=== PATIENT | male | born 1960 | race African-American/Black ===

== ENCOUNTER 2020-11-03 11:14 | Outpatient (REF) | payer MEDICARE, MEDICAID, SELFPAY ==
[2020-11-03 14:27] LABS: Alanine Aminotransferase 46 U/L (0-40); Anion Gap 14 (12-20); Aspartate Amino Transferase 32 U/L (5-37); Blood Urea Nitrogen 18 mg/dL (9-16); Calcium 9.5 mg/dL (8.4-10.2); Carbon Dioxide 27 mmol/L (22-29); Chloride 107 mmol/L (96-108); Cholesterol 121 mg/dL; Estimated Glomerular Filt Rate > 60; Glucose Fasting 115 mg/dL (60-99); HDL Cholesterol 42 mg/dL; LDL Cholesterol Calculated 58 mg/dl; Potassium 4.7 mmol/L (3.3-5.1); Sodium 143 mmol/L (135-145); Triglycerides 105 mg/dL
[2020-11-03 14:28] LABS: Creatinine Urine 179.13 mg/dL; Microalbum/Creatinine Ratio Ur 27.9 ug/mg cr; Protein/Creatinine Ratio, Ur 0.09 (<0.2); Total Protein Urine Random 17 mg/dL (<12)
[2020-11-03 14:35] LABS: Estimated Average Glucose 88 mg/dL; Hemoglobin A1c % 4.7 %
[2020-11-06 16:04] LABS: Vitamin B12 1352 pg/mL (200-900)
== END 2020-11-03 11:15 | disposition home or self-care (01) ==
LOC: HO.HMGCLDS 11:14
PROVIDERS: PCP Family Medicine; Visit Provider Physician Assistant
DX: E11.21 Type 2 diabetes mellitus with diabetic nephropathy (principal)
CPT/HCPCS: 36415; 80048; 80061; 82043; 82607; 83036; 84156; 84450; 84460

== ENCOUNTER 2020-12-11 12:35 | Outpatient (REF) | payer MEDICARE, MEDICAID, SELFPAY ==
[2020-12-11 14:42] LABS: Anion Gap 13 (12-20); Blood Urea Nitrogen 10 mg/dL (9-16); Carbon Dioxide 27 mmol/L (22-29); Chloride 109 mmol/L (96-108); Estimated Glomerular Filt Rate > 60; Sodium 145 mmol/L (135-145)
[2020-12-11 14:51] LABS: Creatinine Urine 139.55 mg/dL; Protein/Creatinine Ratio, Ur 0.11 (<0.2); Total Protein Urine Random 16 mg/dL (<12)
== END 2020-12-11 12:36 | disposition home or self-care (01) ==
LOC: HO.HMGCLDS 12:35
PROVIDERS: PCP Family Medicine; Visit Provider Internal Medicine Hypertension Specialist
DX: I10 Essential (primary) hypertension (principal); E11.21 Type 2 diabetes mellitus with diabetic nephropathy
CPT/HCPCS: 36415; 80051; 82565; 84156; 84520

== ENCOUNTER 2021-06-19 13:47 | Outpatient (REF) | payer MEDICARE, MEDICAID, SELFPAY ==
[2021-06-19 16:55] LABS: MANUAL DIFF FLAG NO
[2021-06-19 16:56] LABS: Basophils Absolute Auto 0.1 X10*3/uL (0.0-0.2); Basophils Percent Auto 0.9 % (0-2); Eosinophils Absolute Auto 0.6 X10*3/uL (0.0-0.4); Eosinophils Percent Auto 5.4 % (0-4); Hematocrit 35.5 % (42-52); Hemoglobin 11.7 g/dl (14.0-18.0); Imm Gran Abs Auto 0.06 X10*3/uL (0.00-0.03); Imm Gran Pct Auto 0.6 % (0.0-0.4); Lymphocytes Absolute Auto 2.6 X10*3/uL (1.2-4.9); Lymphocytes Percent Auto 25.3 % (20-40); Mean Corpuscular Volume 94.2 fL (80-98); Mean Platelet Volume 10.5 fL (9.4-12.4); Monocytes Absolute Auto 0.9 X10*3/uL (0.1-1.2); Monocytes Percent Auto 8.5 % (2-11); Neutrophils Absolute Auto 6.1 X10*3/uL (2.0-8.3); Neutrophils Percent Auto 59.3 % (45-73); Platelet Count 270 X10*3/uL (160-400); Red Blood Count 3.77 X10*6/uL (4.60-5.80); Red Cell Distribution Width 11.9 % (11.0-16.0); White Blood Count 10.2 X10*3/uL (4.8-10.8)
[2021-06-19 18:06] LABS: Anion Gap 14 (12-20); Blood Urea Nitrogen 17 mg/dL (9-16); Calcium 9.9 mg/dL (8.4-10.2); Carbon Dioxide 23 mmol/L (22-29); Chloride 107 mmol/L (96-108); Estimated Glomerular Filt Rate > 60; Potassium 4.3 mmol/L (3.3-5.1); Sodium 140 mmol/L (135-145)
[2021-06-19 18:31] LABS: Creatinine Urine 214.32 mg/dL; Microalbum/Creatinine Ratio Ur 76.9 ug/mg cr
== END 2021-06-19 13:48 | disposition home or self-care (01) ==
LOC: HO.HMGCLDS 13:47
PROVIDERS: PCP Family Medicine; Visit Provider Internal Medicine Hypertension Specialist
DX: I10 Essential (primary) hypertension (principal)
CPT/HCPCS: 36415; 80051; 82043; 82310; 82565; 84520; 85025

== ENCOUNTER 2021-12-31 11:39 | Outpatient (REF) | payer MEDICARE, MEDICAID, SELFPAY ==
[2021-12-31 13:51] LABS: MANUAL DIFF FLAG NO
[2021-12-31 13:56] LABS: Basophils Absolute Auto 0.1 X10*3/uL (0.0-0.2); Eosinophils Absolute Auto 0.5 X10*3/uL (0.0-0.4); Eosinophils Percent Auto 6.4 % (0-4); Hematocrit 40.2 % (42.0-52.0); Hemoglobin 12.8 g/dl (14.0-18.0); Imm Gran Abs Auto 0.02 X10*3/uL (0.00-0.03); Imm Gran Pct Auto 0.3 % (0.0-0.4); Lymphocytes Absolute Auto 2.6 X10*3/uL (1.2-4.9); Mean Corpuscular HGB Conc 31.8 g/dl (31.0-36.0); Mean Corpuscular Volume 94.4 fL (80.0-98.0); Mean Platelet Volume 9.7 fL (9.4-12.4); Monocytes Absolute Auto 0.6 X10*3/uL (0.1-1.2); Neutrophils Absolute Auto 3.9 x10*3/uL (2.0-8.3); Neutrophils Percent Auto 50.3 % (45-73); Platelet Count 295 X10*3/uL (160-400); Red Blood Count 4.26 X10*6/uL (4.60-5.80); Red Cell Distribution Width 12.7 % (11.0-16.0); White Blood Count 7.8 X10*3/uL (4.8-10.8)
[2021-12-31 14:16] LABS: Anion Gap 11 (12-20); Blood Urea Nitrogen 13 mg/dL (9-16); Calcium 9.7 mg/dL (8.4-10.2); Carbon Dioxide 30 mmol/L (22-29); Chloride 105 mmol/L (96-108); Estimated Glomerular Filt Rate > 60; Glucose Random 107 mg/dL (60-115); Sodium 142 mmol/L (135-145)
[2021-12-31 14:42] LABS: Creatinine Urine 148.48 mg/dL; Protein/Creatinine Ratio, Ur 0.15 (<0.2); Total Protein Urine Random 23 mg/dL (<12)
== END 2021-12-31 11:40 | disposition home or self-care (01) ==
LOC: HO.HMGCLDS 11:39
PROVIDERS: PCP Family Medicine; Visit Provider Internal Medicine Hypertension Specialist
DX: I12.9 Hypertensive chronic kidney disease with stage 1 through stage 4 chronic kidney disease, or unspecified chronic kidney disease (principal); N18.9 Chronic kidney disease, unspecified
CPT/HCPCS: 36415; 80048; 84156; 85025

== ENCOUNTER 2022-03-15 06:34 | Day surgery (SDC) | payer MEDICARE, MEDICAID, SELFPAY ==
[2022-03-11 14:06] VITALS: BMI 29.1
--- NOTE | 2022-03-14 09:34 | P.CONAN_ITS ---
Documented by User: Keyla King NP 03/14/22 09:36 HPI - Anesthesia Eval Consult details Narrative: 62yo M for Colonoscopy PMFSH Active Problems Active Problems: All Active Problems (Updated 06/22/21 @ 14:53 by Parker Lebron MD) retirement (current) use of insulin (Acute) Insulin dependent diabetes mellitus (Acute) Lipid disorder (Acute) Tobacco abuse (Acute) Chronic kidney disease (Acute) Obesity (BMI 30.0-34.9) (Acute) Hypertension, essential (Acute) S/P arthroscopy of shoulder (Acute) Dressing change or removal, surgical wound (Acute) Past Medical History Medical History Chronic kidney disease Hypertension, essential 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 Maternal Grandmother Diabetes mellitus Maternal Grandfather No problems noted. Paternal Grandfather No problems noted. Paternal Grandmother No problems noted. Brother No problems noted. Sister No problems noted. Sister No problems noted. Son No problems noted. Son No problems noted. Surgical History Surgical History History of colonoscopy Social History Social History Alcohol intake: current Alcohol intake frequency: a few times a month Patient Tobacco Use Status: Current everyday Tobacco user Tobacco use type: Cigarette Cigarettes Per Day: 5 Patient Given Instructions on How to Stop Smoking: Yes Date Education Initiated: 03/15/22 Second Hand Smoke Exposure: Yes Use of substances other than those prescribed or required for medical reasons: No Are you DNR?: No Advance Directives: No Advance Directives Information Provided: Yes Meds Allergies Allergy/AdvReac Type Severity Reaction Status Date / Time ibuprofen [From MOTRIN] Allergy Unknown MEDICATION Verified 12/08/20 15:17 INTERACTION, effected his kidneys Home Medications Medication Instructions Recorded Confirmed Last Taken Type amlodipine 10 mg tablet 10 mg PO DAILY 12/08/20 06/22/21 Unknown History ascorbate calcium (vitamin C) 500 500 mg PO DAILY 12/08/20 06/22/21 Unknown History mg tablet aspirin 81 mg tablet,delayed 81 mg PO DAILY 12/08/20 06/22/21 Unknown History release (Adult Low Dose Aspirin) atorvastatin 40 mg tablet 40 mg PO DAILY 12/08/20 06/22/21 Unknown History clonidine HCl 0.1 mg tablet 0.1 mg PO BEDTIME 12/08/20 06/22/21 Unknown History cyclobenzaprine 10 mg tablet 10 mg PO BEDTIME PRN 12/08/20 06/22/21 Unknown History diclofenac potassium 50 mg tablet 50 mg PO BID 12/08/20 06/22/21 Unknown History furosemide 20 mg tablet 20 mg PO DAILY 12/08/20 06/22/21 Unknown History insulin glargine 100 unit/mL (3 30 unit subcut QAM 12/08/20 06/22/21 Unknown History mL) subcutaneous pen (Basaglar KwikPen U-100 Insulin) metformin 500 mg tablet 1,000 mg PO BID 12/08/20 06/22/21 Unknown History metoprolol tartrate 100 mg tablet 100 mg PO DAILY 12/08/20 06/22/21 Unknown History olmesartan 40 mg tablet (Benicar) 40 mg PO DAILY 12/08/20 06/22/21 Unknown History oxycodone 20 mg tablet 20 mg PO DAILY PRN 12/08/20 06/22/21 Unknown History zolpidem 10 mg tablet 10 mg PO BEDTIME PRN 12/08/20 06/22/21 Unknown History dulaglutide 0.75 mg/0.5 mL 0.75 mg subcut QWEEK 06/22/21 06/22/21 Unknown History subcutaneous pen injector (Trulicity) Exam Exam Date and Time: March 14, 2022 0934 Height,Weight and Vital Signs: Height 6 ft Weight 97.522 kg Pertinent Lab Results Pertinent Lab Results: Laboratory Tests 12/31/21 12/31/21 11:49 11:49 WBC 7.8 Hgb 12.8 L Hct 40.2 L Plt Count 295 Sodium 142 Potassium 4.0 Chloride 105 Carbon Dioxide 30 H BUN 13 Creatinine 1.04 Assessment and Plan Assessment Anesthesia Assessment: Chart Reviewed Documented by User: Denise Mcneil MD 03/15/22 07:09 [facility] Past Medical History Medical History Chronic kidney disease Hypertension, essential Insulin dependent diabetes mellitus Lipid disorder retirement (current) use of insulin Tobacco abuse Family History Family History Father Cancer of prostate Myocardial infarction Mother No problems noted. Maternal Grandmother Diabetes mellitus Maternal Grandfather No problems noted. Paternal Grandfather No problems noted. Paternal Grandmother No problems noted. Brother No problems noted. Sister No problems noted. Sister No problems noted. Son No problems noted. Son No problems noted. Family history of problems with anesthesia: No Surgical History Surgical History History of colonoscopy History of Problems with Anesthesia: No Social History Social History Alcohol intake: current Alcohol intake frequency: a few times a month Patient Tobacco Use Status: Current everyday Tobacco user Tobacco use type: Cigarette Cigarettes Per Day: 5 Patient Given Instructions on How to Stop Smoking: Yes Date Education Initiated: 03/15/22 Second Hand Smoke Exposure: Yes Use of substances other than those prescribed or required for medical reasons: No Are you DNR?: No Advance Directives: No Advance Directives Information Provided: Yes Meds Allergies Allergy/AdvReac Type Severity Reaction Status Date / Time ibuprofen [From MOTRIN] Allergy Unknown MEDICATION Verified 12/08/20 15:17 INTERACTION, effected his kidneys Home Medications Medication Instructions Recorded Confirmed Last Taken Type amlodipine 10 mg tablet 10 mg PO DAILY 12/08/20 06/22/21 Unknown History ascorbate calcium (vitamin C) 500 500 mg PO DAILY 12/08/20 06/22/21 Unknown History mg tablet aspirin 81 mg tablet,delayed 81 mg PO DAILY 12/08/20 06/22/21 Unknown History release (Adult Low Dose Aspirin) atorvastatin 40 mg tablet 40 mg PO DAILY 12/08/20 06/22/21 Unknown History clonidine HCl 0.1 mg tablet 0.1 mg PO BEDTIME 12/08/20 06/22/21 Unknown History cyclobenzaprine 10 mg tablet 10 mg PO BEDTIME PRN 12/08/20 06/22/21 Unknown History diclofenac potassium 50 mg tablet 50 mg PO BID 12/08/20 06/22/21 Unknown History furosemide 20 mg tablet 20 mg PO DAILY 12/08/20 06/22/21 Unknown History insulin glargine 100 unit/mL (3 30 unit subcut QAM 12/08/20 06/22/21 Unknown History mL) subcutaneous pen (Basaglar KwikPen U-100 Insulin) metformin 500 mg tablet 1,000 mg PO BID 12/08/20 06/22/21 Unknown History metoprolol tartrate 100 mg tablet 100 mg PO DAILY 12/08/20 06/22/21 Unknown History olmesartan 40 mg tablet (Benicar) 40 mg PO DAILY 12/08/20 06/22/21 Unknown History oxycodone 20 mg tablet 20 mg PO DAILY PRN 12/08/20 06/22/21 Unknown History zolpidem 10 mg tablet 10 mg PO BEDTIME PRN 12/08/20 06/22/21 Unknown History dulaglutide 0.75 mg/0.5 mL 0.75 mg subcut QWEEK 06/22/21 06/22/21 Unknown History subcutaneous pen injector (Trulicity) Exam Airway Mallampati Class: II TM Dist: >3cm Neck ROM: Full Assessment and Plan Assessment Anesthesia Assessment: Anesthesia Plan Discussed Final Anesthetic Review Family History of Problems with Anesthesia: No History of Problems with Anesthesia: No NPO: Yes ASA Class: II Final Preanesthetic Review: No Changes in Pt Med Stat, Meds/Allgs Chart Reviewed, Consent Obtained/Reviewed and Anes Risks/Benef Reviewed Patient Risk: Low Procedure Risk: Low Anesthetic Plan Anesthetic Plan: MAC: Disposition: Standard PACU
[2022-03-15 06:46] VITALS: BP 141/92; PULSE 91; RESP 18; TEMP 36.4; O2SAT 98; BMI 28.5
[2022-03-15 07:11] LABS: Glucose, Whole Blood 105 mg/dL (60-115)
--- NOTE | 2022-03-15 07:23 | MHC.SHP ---
Pre-Procedural Eval Section A Date of Service: 03/15/22 Section B Chief Complaint: screening Details of Present Illness: see H&P no changes Relevant Family History (Specify if Yes): No Relevant Social History: None Medical History: No relevant PMH History of Previous Operations: No relevant previous surgery Allergies: Allergies Allergy/AdvReac Type Severity Reaction Status Date / Time ibuprofen [From MOTRIN] Allergy Unknown MEDICATION Verified 12/08/20 15:17 INTERACTION, effected his kidneys Review of Systems Sugical H&P ROS: Negative: Constitution, Cardiovascular, Respiratory, Neurological, Psychiatric, Hem-Onc, Allergic/Immunologic, Gastrointestinal, Genitourinary, Musculoskeletal, Integumentary, Endocrine and Eyes/Ears/Nose/Throat Exam Surgical H&P Exam: Normal: HEENT, Normal: Heart, Normal: Lungs, Normal: Extremities, Normal: Abdomen, Normal: Skin and Normal: Neurological Plan Diagnosis/Plan: Unchanged I have reviewed the history and physical and performed a pertinent physical examination on my patient. No changes have occurred unless specified.
[2022-03-15] MEDS: Lactated Ringers 1,000 ML 100 ML IVCONT (07:29)
[2022-03-15 08:05] VITALS: BP 106/71; PULSE 84; RESP 16; TEMP 36.1; O2SAT 99
--- NOTE | 2022-03-15 08:11 | PM.OP ---
Brief Operative Note Date of Service: 03/15/22 Pre-op diagnosis: screening Post-op diagnosis: same Procedure: colonoscopy Surgeon: Mulugeta Blackwell Anesthesia: MAC Was an Program And Research Coordinator used for this Procedure?: No Estimated blood loss (mL): 0 Pathology: none sent Condition: stable Disposition: PACU
[2022-03-15 08:20] VITALS: BP 120/81; PULSE 81; RESP 16; TEMP 36.8; O2SAT 97
--- NOTE | 2022-03-15 16:39 | OP_ITS ---
SURGEON: Mulugeta Blackwell MD INDICATIONS: Colon cancer screening. PREOPERATIVE DIAGNOSIS: POSTOPERATIVE DIAGNOSIS: PROCEDURE PERFORMED: Colonoscopy to the terminal ileum. ESTIMATED BLOOD LOSS: COMPLICATIONS: ANESTHESIA: ASSISTANTS: SPECIMENS: MEDICATIONS: Monitored anesthesia care. DESCRIPTION OF PROCEDURE: History and physical were performed. The risks and benefits of the procedure were explained to the patient. Informed consent was obtained. The patient was placed in left lateral decubitus position. A digital rectal exam was performed and was found to be normal. The Olympus pediatric video colonoscope was introduced into the rectum and advanced to the cecum without difficulty. The cecum was identified by transillumination, palpation, and identification of ileocecal valve. Examination was performed and the scope was removed. He tolerated the procedure well and was taken to recovery area in stable condition. FINDINGS: The terminal ileum was normal. The visualized colonic mucosa was within normal limits without evidence of masses or ulcers. The quality of prep was good. There was diverticulosis mainly in the right colon and transverse colon as well as a few diverticula seen in the sigmoid. Retroflexed examination showed moderate-sized internal hemorrhoids. No polyps were identified. IMPRESSION: Normal screening colonoscopy. RECOMMENDATION: 1. Follow up as needed. 2. Repeat colonoscopy in 10 years for average risk individual. MD JUAN Parisi/KWAMEL / [id number]
== END 2022-03-15 08:40 | disposition home or self-care (01) ==
PROVIDERS: PCP Family Medicine; Visit Provider Internal Medicine Gastroenterology
PROC: 0DJD8ZZ Inspection of Lower Intestinal Tract, Via Natural or Artificial Opening Endoscopic (ICD-10-PCS; CPT 45378; principal; 2022-03-15 07:30)
DX: Z12.11 Encounter for screening for malignant neoplasm of colon (principal); K57.30 Diverticulosis of large intestine without perforation or abscess without bleeding; K64.8 Other hemorrhoids; I10 Essential (primary) hypertension; E78.00 Pure hypercholesterolemia, unspecified; M19.90 Unspecified osteoarthritis, unspecified site; E11.9 Type 2 diabetes mellitus without complications; Z79.4 Long term (current) use of insulin; Z79.899 Other long term (current) drug therapy; Z79.82 Long term (current) use of aspirin; Z88.8 Allergy status to other drugs, medicaments and biological substances; Z80.42 Family history of malignant neoplasm of prostate; Z82.49 Family history of ischemic heart disease and other diseases of the circulatory system; F17.210 Nicotine dependence, cigarettes, uncomplicated
CPT/HCPCS: G0121; 82947

== ENCOUNTER 2023-01-09 12:53 | Outpatient (REF) | payer MEDICARE, MEDICAID, SELFPAY ==
[2023-01-09 14:34] LABS: Alanine Aminotransferase 56 U/L (0-40); Anion Gap 10 (12-20); Aspartate Amino Transferase 22 U/L (5-37); Blood Urea Nitrogen 13 mg/dL (9-16); Calcium 9.9 mg/dL (8.4-10.2); Carbon Dioxide 27 mmol/L (22-29); Chloride 108 mmol/L (96-108); Estimated Glomerular Filt Rate > 60; Glucose Random 105 mg/dL (60-115); Potassium 4.4 mmol/L (3.3-5.1); Sodium 141 mmol/L (135-145)
[2023-01-09 14:35] LABS: Estimated Average Glucose 91 mg/dL; Hemoglobin A1c % 4.8 %
[2023-01-09 14:46] LABS: Creatinine Urine 180.03 mg/dL; Protein/Creatinine Ratio, Ur 0.37 (<0.2); Total Protein Urine Random 66 mg/dL (<12)
== END 2023-01-09 12:54 | disposition home or self-care (01) ==
LOC: HO.HMGCLDS 12:53
PROVIDERS: PCP Internal Medicine; Visit Provider Internal Medicine Endocrinology, Diabetes & Metabolism
DX: E11.42 Type 2 diabetes mellitus with diabetic polyneuropathy (principal)
CPT/HCPCS: 36415; 80048; 82043; 83036; 84156; 84450; 84460

== ENCOUNTER 2023-02-12 08:01 | Outpatient (REF) | payer MEDICARE, MEDICAID, SELFPAY ==
[2023-02-12 12:06] LABS: Anion Gap 13 (12-20); Blood Urea Nitrogen 11 mg/dL (9-16); Calcium 9.3 mg/dL (8.4-10.2); Carbon Dioxide 26 mmol/L (22-29); Chloride 108 mmol/L (96-108); Estimated Glomerular Filt Rate > 60; Glucose Random 215 mg/dL (60-115); Potassium 4.5 mmol/L (3.3-5.1); Sodium 142 mmol/L (135-145)
== END 2023-02-12 08:02 | disposition home or self-care (01) ==
LOC: HO.HMGCLDS 08:01
PROVIDERS: Visit Provider Internal Medicine Hypertension Specialist
DX: I12.9 Hypertensive chronic kidney disease with stage 1 through stage 4 chronic kidney disease, or unspecified chronic kidney disease (principal); E11.22 Type 2 diabetes mellitus with diabetic chronic kidney disease; N18.9 Chronic kidney disease, unspecified
CPT/HCPCS: 36415; 80048

== ENCOUNTER 2023-05-07 10:46 | Outpatient (REF) | payer MEDICARE, MEDICAID, SELFPAY ==
[2023-05-07 13:40] LABS: Estimated Average Glucose 88 mg/dL; Hemoglobin A1c % 4.7 %
[2023-05-07 13:54] LABS: Alanine Aminotransferase 46 U/L (0-40); Anion Gap 14 (12-20); Aspartate Amino Transferase 28 U/L (5-37); Blood Urea Nitrogen 10 mg/dL (9-16); Calcium 9.6 mg/dL (8.4-10.2); Carbon Dioxide 23 mmol/L (22-29); Chloride 108 mmol/L (96-108); Estimated Glomerular Filt Rate > 60; Glucose Random 97 mg/dL (60-115); Potassium 4.1 mmol/L (3.3-5.1); Sodium 141 mmol/L (135-145)
[2023-05-07 14:18] LABS: Creatinine Urine 296.43 mg/dL
[2023-05-07 14:39] LABS: Microalbum/Creatinine Ratio Ur 262.1 ug/mg cr
== END 2023-05-07 10:47 | disposition home or self-care (01) ==
LOC: HO.HMGCLDS 10:46
PROVIDERS: PCP Internal Medicine; Visit Provider Internal Medicine Endocrinology, Diabetes & Metabolism
DX: E11.42 Type 2 diabetes mellitus with diabetic polyneuropathy (principal)
CPT/HCPCS: 36415; 80048; 82043; 83036; 84450; 84460

== ENCOUNTER 2023-06-17 09:24 | Outpatient (REF) | payer MEDICARE, MEDICAID, SELFPAY ==
[2023-06-17 11:28] LABS: MANUAL DIFF FLAG NO
[2023-06-17 11:40] LABS: Basophils Absolute Auto 0.1 X10*3/uL (0.0-0.2); Basophils Percent Auto 0.7 % (0-2); Eosinophils Absolute Auto 0.2 X10*3/uL (0.0-0.4); Eosinophils Percent Auto 1.8 % (0-4); Hematocrit 37.3 % (42.0-52.0); Hemoglobin 12.4 g/dl (14.0-18.0); Imm Gran Abs Auto 0.04 X10*3/uL (0.00-0.03); Imm Gran Pct Auto 0.5 % (0.0-0.4); Lymphocytes Percent Auto 22.9 % (20-40); Mean Corpuscular HGB Conc 33.2 g/dl (31.0-36.0); Mean Corpuscular Hemoglobin 31.2 pg (27.0-33.0); Mean Corpuscular Volume 93.7 fL (80.0-98.0); Mean Platelet Volume 9.9 fL (9.4-12.4); Monocytes Absolute Auto 0.6 X10*3/uL (0.1-1.2); Monocytes Percent Auto 7.1 % (2-11); Neutrophils Absolute Auto 5.8 x10*3/uL (2.0-8.3); Platelet Count 252 X10*3/uL (160-400); Red Blood Count 3.98 X10*6/uL (4.60-5.80); Red Cell Distribution Width 12.9 % (11.0-16.0); White Blood Count 8.7 X10*3/uL (4.8-10.8)
[2023-06-17 11:49] LABS: Estimated Average Glucose 100 mg/dL; Hemoglobin A1c % 5.1 % (<6.0)
[2023-06-17 12:12] LABS: Alanine Aminotransferase 44 U/L (0-40); Alkaline Phosphatase 50 U/L (39-117); Anion Gap 12 (12-20); Aspartate Amino Transferase 34 U/L (5-37); Bilirubin Total 1.1 mg/dL (0.0-1.0); Blood Urea Nitrogen 15 mg/dL (9-16); Calcium 9.4 mg/dL (8.4-10.2); Carbon Dioxide 23 mmol/L (22-29); Chloride 109 mmol/L (96-108); Cholesterol 124 mg/dL (<200); Estimated Glomerular Filt Rate > 60; Glucose Fasting 111 mg/dL (60-99); HDL Cholesterol 50 mg/dL (>40); LDL Cholesterol Calculated 57 mg/dL (<100); Potassium 3.9 mmol/L (3.3-5.1); Sodium 140 mmol/L (135-145); Total Protein 6.3 g/dL (6.5-8.0); Triglycerides 86 mg/dL (<150)
[2023-06-17 12:17] LABS: Creatinine Urine 212.39 mg/dL
[2023-06-17 12:20] LABS: Erythrocyte Sedimentation Rate 5 MM/HR (0-15); Prostate Specific Antigen 1.16 ng/mL (<0.05-4.0)
== END 2023-06-17 09:25 | disposition home or self-care (01) ==
LOC: HO.HMGCLDS 09:24
PROVIDERS: PCP Internal Medicine; Visit Provider Internal Medicine
DX: E11.22 Type 2 diabetes mellitus with diabetic chronic kidney disease (principal); I12.9 Hypertensive chronic kidney disease with stage 1 through stage 4 chronic kidney disease, or unspecified chronic kidney disease; N18.9 Chronic kidney disease, unspecified; E78.9 Disorder of lipoprotein metabolism, unspecified; M25.512 Pain in left shoulder; Z12.5 Encounter for screening for malignant neoplasm of prostate
CPT/HCPCS: 36415; 80053; 80061; 82043; 82570; 83036; 84153; 85025; 85652

== ENCOUNTER 2023-06-25 14:37 | Outpatient (AMB) | payer MEDICARE, MEDICAID, SELFPAY ==
--- NOTE | 2023-06-25 14:39 | A.OFFPC_ITS ---
Vital Signs 06/25/23 14:47 Height 6 ft Weight 207 lb 6 oz BMI 28.1 BP 144/86 H Blood Pressure Location Rt brachial Position Sitting Pulse 87 Pulse Source Pulse Oximeter Pulse Oximetry (%) 97 Oxygen Delivery Method Room Air Intake Visit Reasons: 1 year PE Allergies ibuprofen [From MOTRIN] Allergy (Unknown, Verified 06/25/23 14:40) MEDICATION INTERACTION, effected his kidneys Medication List - Last Reconciled 06/25/23 by Parker Lebron MD amlodipine 10 mg PO DAILY aspirin (Adult Low Dose Aspirin) 81 mg PO DAILY atorvastatin 40 mg PO DAILY clonidine HCl 0.1 mg PO BEDTIME cyclobenzaprine 10 mg PO BEDTIME PRN diclofenac potassium 50 mg PO BID doxycycline hyclate 100 mg PO BID 7 days dulaglutide (Trulicity) 0.75 mg subcut QWEEK insulin glargine (Basaglar KwikPen U-100 Insulin) 30 units subcut QAM metformin 1,000 mg PO BID metoprolol tartrate 100 mg PO DAILY olmesartan (Benicar) 40 mg PO DAILY oxycodone 20 mg PO DAILY PRN zolpidem 10 mg PO BEDTIME PRN Tobacco use date assessed: 06/25/23 Dental Screening Dental Screen Date: 06/25/23 Did you have a dental problem in the last 6 months where you did not have access to dental care?: No HPI 1 year PE HPI Details Patient is 63-year-old who came in today for a physical examination which we had cancel as patient is eating well. He has been having cough chest congestion the past 1. There is no shortness of breath no chest pain no fever chills. Patient test done which we did. On examination he does have rhonchi right to chest, due to that reason I have also ordered chest x-ray for the patient. [facility] Medical History care home (current) use of insulin Insulin dependent diabetes mellitus Lipid disorder Tobacco abuse Chronic kidney disease Hypertension, essential Surgical History History of colonoscopy Family History Father Cancer of prostate Myocardial infarction Mother No problems noted. Maternal Grandmother Diabetes mellitus Maternal Grandfather No problems noted. Paternal Grandfather No problems noted. Paternal Grandmother No problems noted. Brother No problems noted. Sister No problems noted. Sister No problems noted. Son No problems noted. Son No problems noted. Social History Housing: Apartment Alcohol intake: current Alcohol intake frequency: a few times a month Patient Tobacco Use Status: Current everyday Tobacco user Tobacco use type: Cigarette Cigarettes Per Day: 5 e-Cigarette/Vaping Use: Never Used Second Hand Smoke Exposure: Yes Current occupational status: unemployed Cognitive needs: No Hearing needs: No Vision needs: Yes Questionnaire PHQ-9 Over the last 2 weeks, how often have you been bothered by any of the following problems? 1. Little interest or pleasure in doing things: several days 2. Feeling down, depressed, or hopeless: not at all 3. Trouble falling or staying asleep, or sleeping too much: several days 4. Feeling tired or having little energy: several days 5. Poor appetite or overeating: not at all 6. Feeling bad about yourself - or that you are a failure or have let yourself or your family down: not at all 7. Trouble concentrating on things, such as reading the newspaper or watching television: not at all 8. Moving or speaking so slowly that other people could have noticed. Or the opposite - being so fidgety or restless that you have been moving around a lot more than usual: not at all 9. Thoughts that you would be better off or of hurting yourself in some way: not at all Total score: 3 Depression Screening Interpretation: Negative 21829 - PHQ-9 Billing: Yes Source: Developed by Drs. Mark Herrera, Zarina Zaidi, Caesar Wood and colleagues, with an educational paul from [employer]. Thrive Questionnaire Date Thrive assessed: 06/25/23 I am a: Patient What is your living situation today?: I have a steady place to live Within the past 12 months, did the food you bought not last and you didn't have the money to get more?: Never true Within the past 12 months, did you worry whether your food would run out before you got money to buy more?: Never true Do you have trouble paying for medicines?: No Do you have trouble getting transportation to medical appointments?: No Do you have trouble paying your heating and electricity bill?: Yes Do you have trouble taking care of your child, family member or friend?: No Do you have trouble with day-to-day activities such as bathing, preparing meals, shopping, managing finances, etc.?: No Are you currently unemployed and looking for a job?: No Are you interested in more education?: No AUDIT C Alcohol Use Questionnaire (AUDIT-C) 1. How often do you have a drink containing alcohol?: 2-3 times a week 2. How many drinks containing alcohol do you have on a typical day when you are drinking?: 1 or 2 3. How often do you have six or more drinks on one occasion?: Never Total Score: 3 Score Reviewed/Action Taken: Yes ZABRINA-7 AMB Questionnaire ZABRINA-7 Date ZABRINA - 7 assessed: 06/25/23 Feeling nervous, anxious, or on edge: 1 = Several days Not being able to stop or control worryin = Several days Worrying too much about different things: 1 = Several days Trouble relaxin = Several days Being so restless that it is hard to sit still: 0 = Not at all Becoming easily annoyed or irritable: 0 = Not at all Feeling afraid as if something awful might happen: 1 = Several days Total ZABRINA-7 score (0-4 normal; 5-9 mild; 10-14 moderate; 15-21 severe): 5 Source: Developed by Drs. Mark Herrera, Zarina Zaidi, Caesar Wood and colleagues, with an educational paul from [employer]. ZABRINA-7 Assessment Billing ZABRINA-7 Assessment Tool: ZABRINA-7 Assessment 99941 Review of Systems Const All systems reviewed & are unremarkable except as noted in HPI and below Physical exam (Primary Care) Vital Signs: Last Vital Signs Pulse 87 06/25/23 14:47 BP 144/86 H 06/25/23 14:47 Pulse Ox 97 06/25/23 14:47 Oxygen Delivery Method Room Air 06/25/23 14:47 BMI result Body Mass Index 28.1 Tobacco/Smoking Status: Tobacco use Status Tobacco use date assessed 06/25/23 06/25/23 14:42 Patient Tobacco Use Status Current everyday Tobacco 06/25/23 14:39 Tobacco use type Cigarette 06/25/23 14:39 e-Cigarette/Vaping Use Never Used 06/25/23 14:39 PHQ-9: PHQ-9 Score PHQ-9: Total score 3 06/25/23 15:04 Depression Screening Interpretation: Negative Thrive Assessment: Date of Thrive Assessment Date Thrive assessed 06/25/23 06/25/23 15:04 Const General: no acute distress HENMT Ears: mastoids normal General nose exam: Normal external nose present Throat: Yes posterior oropharynx abnormal Neck Neck: Yes no lymphadenopathy Resp Other: Rhonchi right lower lung posteriorl Effort & Inspection: normal respiratory effort Psych Mental Status: mental status grossly normal Assessment and Plan Assessment & Plan (1) Chest congestion: Code(s): R09.89 - Other specified symptoms and signs involving the circulatory and respiratory systems Plan Patient is 63-year-old who came in today for a physical examination which we had cancel as patient is eating well. He has been having cough chest congestion the past 1. There is no shortness of breath no chest pain no fever chills. Patient test done which we did. On examination he does have rhonchi right to chest, due to that reason I have also ordered chest x-ray for the patient. Orders: Orders SARS-CoV2/FLU/RSV Today R09.89 - Other specified symptoms and signs involving the circulatory and respiratory systems XR chest 2V Today R09.89 - Other specified symptoms and signs involving the circulatory and respiratory systems Coding Level of Care Code Est Pt Level 3 (29080) Diagnoses Chest congestion R09.89 Additional Codes ZABRINA-7 Assessment Billing - ZABRINA-7 Assessment Tool: ZABRINA-7 Assessment [id number] ([id number])
[2023-06-25 14:47] VITALS: BP 144/86; PULSE 87; O2SAT 97; BMI 28.1
== END 2023-06-25 15:21 | disposition home or self-care (01) ==
PROVIDERS: PCP Internal Medicine; Visit Provider Internal Medicine
DX: R09.89 Other specified symptoms and signs involving the circulatory and respiratory systems (principal)
CPT/HCPCS: 99213

== ENCOUNTER 2023-06-25 14:55 | Outpatient (REF) | payer MEDICARE, MEDICAID, SELFPAY ==
--- NOTE | ~2023-06-25 | XR_ITS ---
EXAMINATION: XR CHEST CLINICAL INFORMATION: Other specified symptoms and signs involving the circulatory and respiratory system. COMPARISON: Report from a chest radiograph dated 01/17/2016. TECHNIQUE: 2 views of the chest were obtained. FINDINGS: The lungs are clear. The cardiomediastinal silhouette is normal in size. There is no pleural effusion or pneumothorax. No acute osseous abnormality. XR/XR chest 2V IMPRESSION: No acute cardiopulmonary findings.
== END 2023-06-25 14:56 | disposition home or self-care (01) ==
LOC: HO.HMGCX 14:55
PROVIDERS: Visit Provider Internal Medicine
DX: R09.89 Other specified symptoms and signs involving the circulatory and respiratory systems (principal)
CPT/HCPCS: 71046

== ENCOUNTER 2023-06-26 | Outpatient (REF) | payer MEDICARE, MEDICAID, SELFPAY ==
[2023-06-26 14:05] LABS: Influenza A PCR NEGATIVE (Negative); Influenza B PCR NEGATIVE (Negative); Resp Syncy Virus RNA Qual PCR NEGATIVE (Negative); SARS COV2 PCR INHOUSE NEGATIVE (Negative)
== END 2023-06-26 00:01 | disposition home or self-care (01) ==
LOC: HO.LNP
PROVIDERS: Visit Provider Internal Medicine
DX: R09.89 Other specified symptoms and signs involving the circulatory and respiratory systems (principal); Z20.822 Contact with and (suspected) exposure to COVID-19
CPT/HCPCS: 0241U

== ENCOUNTER 2023-06-26 08:26 | Outpatient (AMB) | payer MEDICARE, MEDICAID, SELFPAY ==
--- NOTE | 2023-06-26 09:20 | MHC.PC.OV ---
Intake Visit Reasons: Discuss Labs~ Allergies ibuprofen [From MOTRIN] Allergy (Unknown, Verified 06/26/23 09:20) MEDICATION INTERACTION, effected his kidneys Medication List - Last Reconciled 06/26/23 by Parker Lebron MD amlodipine 10 mg PO DAILY aspirin (Adult Low Dose Aspirin) 81 mg PO DAILY atorvastatin 40 mg PO DAILY clonidine HCl 0.1 mg PO BEDTIME cyclobenzaprine 10 mg PO BEDTIME PRN diclofenac potassium 50 mg PO BID dulaglutide (Trulicity) 0.75 mg subcut QWEEK insulin glargine (Basaglar KwikPen U-100 Insulin) 30 units subcut QAM metformin 1,000 mg PO BID metoprolol tartrate 100 mg PO DAILY olmesartan (Benicar) 40 mg PO DAILY oxycodone 20 mg PO DAILY PRN zolpidem 10 mg PO BEDTIME PRN Tobacco use date assessed: 06/26/23 Dental Screening Dental Screen Date: 06/26/23 Did you have a dental visit in the last 12 months?: Yes Did you have a dental problem in the last 6 months where you did not have access to dental care?: No Was dental information given to patient?: Patient has dentist HPI Discuss Labs~ HPI Details Patient is 63-year-old gentleman this is a telemedicine video visit to go over his labs. He came in yesterday for physical examination which was canceled as patient was not feeling well he was having upper respiratory tract infection and chest congestion with some cough. We did a COVID test but lab had some issue with it so patient went back to the office and had another test done today, report is not available However he is feeling better. Blood test report shows hemoglobin A1c of 5.1 patient is on Trulicity as well as long-acting insulin, diabetes is managed by nut process helper. He says that his readings are stable he does not feel as if he is having hypoglycemia. He has strong family history of prostate cancer in father and brother and was concerned, he does not have any urinary complaints PSA came back at 1.16. His cholesterol is very well controlled LDL is 57 Patient is slightly anemic hemoglobin is in 12 range which has been stable since 2019. His liver enzymes are slightly elevated ALT is 44 but stable. 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 Maternal Grandmother Diabetes mellitus Maternal Grandfather No problems noted. Paternal Grandfather No problems noted. Paternal Grandmother No problems noted. Brother No problems noted. Sister No problems noted. Sister No problems noted. Son No problems noted. Son No problems noted. Social History Housing: Apartment Alcohol intake: current Alcohol intake frequency: a few times a month Patient Tobacco Use Status: Current everyday Tobacco user Tobacco use type: Cigarette Cigarettes Per Day: 5 e-Cigarette/Vaping Use: Never Used Second Hand Smoke Exposure: Yes Current occupational status: unemployed Cognitive needs: No Hearing needs: No Vision needs: Yes Questionnaire Thrive Questionnaire Date Thrive assessed: 06/25/23 AUDIT C Alcohol Use Questionnaire (AUDIT-C) 1. How often do you have a drink containing alcohol?: 2-3 times a week 2. How many drinks containing alcohol do you have on a typical day when you are drinking?: 1 or 2 3. How often do you have six or more drinks on one occasion?: Never Total Score: 3 Score Reviewed/Action Taken: Yes ZABRINA-7 AMB Questionnaire ZABRINA-7 Date ZABRINA - 7 assessed: 06/25/23 Source: Developed by Drs. Mark Herrera, Zarina Zaidi, Caesar Wood and colleagues, with an educational paul from [employer]. Review of Systems Const Denies chills and Denies fever(s) ENT Denies epistaxis and Denies nasal discharge Card Denies chest pain Resp Denies hemoptysis GI Denies diarrhea and Denies nausea Skin/Breast Denies rash Neuro Reports no additional complaints Psych Reports no additional complaints Endo Reports no additional complaints Physical exam (Primary Care) Tobacco/Smoking Status: Tobacco use Status Tobacco use date assessed 06/26/23 06/26/23 09:22 Patient Tobacco Use Status Current everyday Tobacco 06/26/23 09:22 Tobacco use type Cigarette 06/26/23 09:22 e-Cigarette/Vaping Use Never Used 06/26/23 09:22 Thrive Assessment: Date of Thrive Assessment Date Thrive assessed 06/25/23 06/26/23 09:22 Telehealth Telehealth Location of provider rendering services: practice address Location of patient: address on file Patient Identification confirmed using: Name, : Yes Telehealth method: video Patient verbally consented to treatment: Yes Patient verbally consented to billing insurance company: Yes Patient informed of any privacy concerns related to visit: Yes Minutes spent on Phone/Video with Pt.: 14 Assessment and Plan Assessment & Plan (1) Microcytic anemia: Code(s): D50.9 - Iron deficiency anemia, unspecified (2) LFT elevation: Code(s): R79.89 - Other specified abnormal findings of blood chemistry (3) Type 2 diabetes mellitus: Code(s): E11.9 - Type 2 diabetes mellitus without complications Qualifiers: Diabetes mellitus terminal superintendent insulin use: with terminal superintendent use Diabetes mellitus complication status: without complication Qualified Code(s): E11.9 - Type 2 diabetes mellitus without complications; Z79.4 - 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 He came in yesterday for physical examination which was canceled as patient was not feeling well he was having upper respiratory tract infection and chest congestion with some cough. We did a COVID test but lab had some issue with it so patient went back to the office and had another test done today, report is not available However he is feeling better. Blood test report shows hemoglobin A1c of 5.1 patient is on Trulicity as well as long-acting insulin, diabetes is managed by nut process helper. He says that his readings are stable he does not feel as if he is having hypoglycemia. He has strong family history of prostate cancer in father and brother and was concerned, he does not have any urinary complaints PSA came back at 1.16. His cholesterol is very well controlled LDL is 57 Patient is slightly anemic hemoglobin is in 12 range which has been stable since 2019. His liver enzymes are slightly elevated ALT is 44 but stable. Coding Level of Care Code Tele Est Pt Level 3 (27390) Diagnoses Microcytic anemia D50.9 LFT elevation R79.89 Type 2 diabetes mellitus without complication, with long-term current use of insulin E11.9; Z79.4 Diabetes mellitus terminal superintendent insulin use: with terminal superintendent use Diabetes mellitus complication status: without complication
== END 2023-06-26 12:54 | disposition home or self-care (01) ==
LOC: HO.HMGC 08:27
PROVIDERS: PCP Internal Medicine; Visit Provider Internal Medicine
DX: D50.9 Iron deficiency anemia, unspecified (principal); R79.89 Other specified abnormal findings of blood chemistry; E11.9 Type 2 diabetes mellitus without complications; Z79.4 Long term (current) use of insulin
CPT/HCPCS: 99213

== ENCOUNTER 2023-08-06 10:18 | Outpatient (REF) | payer MEDICARE, MEDICAID, SELFPAY ==
--- NOTE | ~2023-08-06 | XR_ITS ---
EXAMINATION: XR KNEE, RIGHT CLINICAL INFORMATION: Pain in right knee COMPARISON: None available. TECHNIQUE: Four views of the right knee. FINDINGS: There is a right total knee prosthesis with patellar button. There is marked soft tissue swelling in the anterior knee and distal thigh. There is a 0.37 cm lucency on the AP view along the lateral upper portion of the tibial component which could indicate infection or loosening. No fracture. There is slight patellar tilt. XR/XR knee RT 3V IMPRESSION: 1. Marked soft tissue swelling in the anterior knee and distal thigh. 2. Right total knee prosthesis with patellar button. 3. Lucency along the lateral upper portion of the tibial component could indicate infection or loosening.
== END 2023-08-06 10:19 | disposition home or self-care (01) ==
LOC: HO.HOSX 10:18
PROVIDERS: Visit Provider Orthopaedic Surgery
DX: M25.561 Pain in right knee (principal)
CPT/HCPCS: 73562

== ENCOUNTER 2023-08-13 11:33 | Outpatient (AMB) | payer MEDICARE, MEDICAID, SELFPAY ==
[2023-08-13 11:37] VITALS: BMI 28.1
--- NOTE | 2023-08-13 11:37 | A.OFFVIS_ITS ---
Intake Vital Signs 08/13/23 11:37 Height 6 ft Weight 207 lb BMI 28.1 Intake Visit Reasons: New Pt - right knee pain Intake Note: Vincent is a 63 year old male who presents today as a new patient for a evaluation for his right knee pain, hx of right knee TKA 05/10/22. Patient reports having some swelling and some discomfort during the cold wealther. He denies any fevers or chills. He continues with his home exercise program. Allergies ibuprofen [From MOTRIN] Allergy (Unknown, Verified 08/13/23 12:15) MEDICATION INTERACTION, effected his kidneys Medication List - Last Reconciled 08/13/23 by Marco A Delgado MD amlodipine 10 mg PO DAILY aspirin (Adult Low Dose Aspirin) 81 mg PO DAILY atorvastatin 40 mg PO DAILY clonidine HCl 0.1 mg PO BEDTIME cyclobenzaprine 10 mg PO BEDTIME PRN diclofenac potassium 50 mg PO BID dulaglutide (Trulicity) 0.75 mg subcut QWEEK insulin glargine (Basaglar KwikPen U-100 Insulin) 30 units subcut QAM metformin 1,000 mg PO BID metoprolol tartrate 100 mg PO DAILY olmesartan (Benicar) 40 mg PO DAILY oxycodone 20 mg PO DAILY PRN zolpidem 10 mg PO BEDTIME PRN PFSH 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 Maternal Grandmother Diabetes mellitus Maternal Grandfather No problems noted. Paternal Grandfather No problems noted. Paternal Grandmother No problems noted. Brother No problems noted. Sister No problems noted. Sister No problems noted. Son No problems noted. Son No problems noted. Social History Housing: Apartment Alcohol intake: current Alcohol intake frequency: a few times a month Patient Tobacco Use Status: Current everyday Tobacco user Tobacco use type: Cigarette Cigarettes Per Day: 5 e-Cigarette/Vaping Use: Never Used Second Hand Smoke Exposure: Yes Current occupational status: unemployed Cognitive needs: No Hearing needs: No Vision needs: Yes Physical Exam Vital Signs: BMI result Body Mass Index 28.1 Const Other: Well-nourished well-developed very friendly male awake alert and oriented x3 in no acute distress Extrem Other: Bilateral lower extremity examination shows good capillary refill, no skin lesions noted, normal sensation light touch Right knee examination shows that the surgical with is well healed, no erythema, full active extension and flexion to 120 degrees, his patella tracks well Results Reviewed Results Reviewed: X-rays of the patient's right knee show a total knee arthroplasty in good position with no signs of loosening, no acute bony abnormalities Assessment & Plan Assessment & Plan (1) Right knee pain: Code(s): M25.561 - Pain in right knee Plan: Mr. Patel continues to do very well after undergoing right total knee replacement surgery on 05/10/2022. He will continue with his home exercise program. He does know to take antibiotics before any dental work. He will contact me prior to his annual follow-up appointment should any questions or concerns arise. The patient also has left knee pain due to degenerative joint disease. He is due to get a viscosupplementation injection by another provider next week. He will follow-up as instructed. Feel free to call me at any time should questions regarding his orthopedic management arise. I spent 22 minutes in reviewing the patient's records and imaging studies, seeing the patient and documenting in the medical record. Coding Level of Care Code Est Pt Level 2 (19469) Diagnoses Right knee pain M25.561
== END 2023-08-13 12:45 | disposition home or self-care (01) ==
PROVIDERS: PCP Internal Medicine; Visit Provider Orthopaedic Surgery
DX: M25.561 Pain in right knee (principal)
CPT/HCPCS: 99212

== ENCOUNTER → 2023-08-13 11:33 | Outpatient (BNVA) | payer MEDICARE, MEDICAID, SELFPAY | PROVIDERS: PCP Internal Medicine; Visit Provider Orthopaedic Surgery | DX: M25.561 Pain in right knee (principal); Z96.651 Presence of right artificial knee joint | CPT/HCPCS: 99212 ==

== ENCOUNTER 2023-08-18 13:43 | Outpatient (AMB) | payer MEDICARE, MEDICAID, SELFPAY ==
[2023-08-18 13:59] VITALS: BP 118/70; PULSE 77; O2SAT 96; BMI 28.5
--- NOTE | 2023-08-18 13:59 | HO.NEPHOV_ITS ---
HPI HPI Comments History of Present Illness Details Juan Daniel is a 63-year-old man with a history of resistant hypertension and diabetes mellitus. He has a history of microalbuminuria as well. Overall is doing very well. Blood pressure has been well controlled. 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 Maternal Grandmother Diabetes mellitus Maternal Grandfather No problems noted. Paternal Grandfather No problems noted. Paternal Grandmother No problems noted. Brother No problems noted. Sister No problems noted. Sister No problems noted. Son No problems noted. Son No problems noted. Social History Housing: Apartment Alcohol intake: current Alcohol intake frequency: a few times a month Patient Tobacco Use Status: Current everyday Tobacco user Tobacco use type: Cigarette Cigarettes Per Day: 5 e-Cigarette/Vaping Use: Never Used Second Hand Smoke Exposure: Yes Current occupational status: unemployed Cognitive needs: No Hearing needs: No Vision needs: Yes Vital Signs 08/18/23 13:59 Height 6 ft Weight 210 lb BMI 28.5 BP 118/70 Blood Pressure Location Lt brachial Position Sitting Pulse 77 Pulse Source Pulse Oximeter Pulse Oximetry (%) 96 Oxygen Delivery Method Room Air Physical Exam Vital Signs: Last Vital Signs Pulse 77 08/18/23 13:59 BP 118/70 08/18/23 13:59 Pulse Ox 96 08/18/23 13:59 Oxygen Delivery Method Room Air 08/18/23 13:59 BMI result Body Mass Index 28.5 Const General: comfortable Nutritional Appearance: well nourished Orientation/consciousness: patient oriented x3 HEENT Head: No normal to inspection Mouth: moist mucous membranes Neck Neck: Yes supple and Yes no JVD Resp Auscultation: clear to auscultation bilaterally, no rales and rub present Cardio Jugular venous distension: no JVD Palpation: no palpable S3 and no palpable S4 Heart sounds: no rubs GI Palpation (GI): Soft to palpation and nontender Percussion: No Fluid wave present General: Yes no CVA tenderness Back/Spine/Pelvis Back: no CVA tenderness Skin General skin exam: no rashes or lesions noted Neuro General: patient oriented x3 Extrem General: Yes no pedal edema and No clubbing Results Reviewed Results Reviewed: Urine microalbumin creatinine ratio 129 in June 2023 Assessment & Plan Assessment & Plan (1) Chronic kidney disease: Code(s): N18.9 - Chronic kidney disease, unspecified Plan: Mild chronic kidney disease due to a resistant hypertension and diabetes mellitus with microalbuminuria. Renal function stable at baseline. Goal is to slow the progression of renal disease. Continue to avoid nephrotoxic agents. Maintain blood pressure less than 130/80 Maintaining A1c less than 7% (2) Hypertension, essential: Code(s): I10 - Essential (primary) hypertension Plan Resistant hypertension on 4 medications. Blood pressure is better controlled. I will discontinue clonidine and watch his blood pressure. Discussed low-salt diet. Continue to lose weight. Orders: Orders Creatinine 6 Months N18.9 - Chronic kidney disease, unspecified Calcium 6 Months N18.9 - Chronic kidney disease, unspecified Electrolytes 6 Months N18.9 - Chronic kidney disease, unspecified Blood Urea Nitrogen 6 Months N18.9 - Chronic kidney disease, unspecified Coding Level of Care Code Est Pt Level 4 (84758) Diagnoses Chronic kidney disease N18.9 Hypertension, essential I10
== END 2023-08-18 14:21 | disposition home or self-care (01) ==
PROVIDERS: PCP Internal Medicine; Visit Provider Internal Medicine Hypertension Specialist
DX: I12.9 Hypertensive chronic kidney disease with stage 1 through stage 4 chronic kidney disease, or unspecified chronic kidney disease (principal); E11.22 Type 2 diabetes mellitus with diabetic chronic kidney disease; N18.2 Chronic kidney disease, stage 2 (mild)
CPT/HCPCS: 99213

== ENCOUNTER → 2023-08-18 13:43 | Outpatient (BNVA) | payer MEDICARE, MEDICAID, SELFPAY | PROVIDERS: PCP Internal Medicine; Visit Provider Internal Medicine Hypertension Specialist | DX: N18.9 Chronic kidney disease, unspecified (principal); I1A.0 Resistant hypertension; E11.9 Type 2 diabetes mellitus without complications; Z79.4 Long term (current) use of insulin | CPT/HCPCS: 99212 ==

== ENCOUNTER 2023-12-31 11:29 | Outpatient (REF) | payer MEDICARE, MEDICAID, SELFPAY ==
[2023-12-31 13:17] LABS: MANUAL DIFF FLAG NO
[2023-12-31 13:52] LABS: Basophils Absolute Auto 0.1 X10*3/uL (0.0-0.2); Eosinophils Absolute Auto 0.5 X10*3/uL (0.0-0.4); Eosinophils Percent Auto 5.6 % (0-4); Hematocrit 39.2 % (42.0-52.0); Hemoglobin 12.9 g/dl (14.0-18.0); Imm Gran Abs Auto 0.03 X10*3/uL (0.00-0.03); Imm Gran Pct Auto 0.4 % (0.0-0.4); Lymphocytes Absolute Auto 2.1 X10*3/uL (1.2-4.9); Lymphocytes Percent Auto 26.1 % (20-40); Mean Corpuscular HGB Conc 32.9 g/dl (31.0-36.0); Mean Corpuscular Hemoglobin 30.4 pg (27.0-33.0); Mean Corpuscular Volume 92.2 fL (80.0-98.0); Mean Platelet Volume 10.5 fL (9.4-12.4); Monocytes Absolute Auto 0.6 X10*3/uL (0.1-1.2); Monocytes Percent Auto 7.5 % (2-11); Neutrophils Absolute Auto 4.8 x10*3/uL (2.0-8.3); Neutrophils Percent Auto 59.4 % (45-73); Platelet Count 272 X10*3/uL (160-400); Red Blood Count 4.25 X10*6/uL (4.60-5.80); Red Cell Distribution Width 13.1 % (11.0-16.0)
[2023-12-31 14:00] LABS: Estimated Average Glucose 94 mg/dL; Hemoglobin A1c % 4.9 % (<6.0)
[2023-12-31 14:12] LABS: Creatinine Urine 200.57 mg/dL; Microalbum/Creatinine Ratio Ur 68.3 ug/mg cr (<30)
[2023-12-31 14:17] LABS: Alanine Aminotransferase 29 U/L (0-40); Albumin Level 4.2 g/dL (3.5-5.0); Alkaline Phosphatase 54 U/L (39-117); Anion Gap 11 (12-20); Aspartate Amino Transferase 24 U/L (5-37); Bilirubin Total 1.7 mg/dL (0.0-1.0); Blood Urea Nitrogen 12 mg/dL (9-16); Calcium 9.8 mg/dL (8.4-10.2); Carbon Dioxide 26 mmol/L (22-29); Chloride 107 mmol/L (96-108); Cholesterol 136 mg/dL (<200); Estimated Glomerular Filt Rate > 60; Glucose Fasting 108 mg/dL (60-99); HDL Cholesterol 59 mg/dL (>40); LDL Cholesterol Calculated 59 mg/dL (<100); Potassium 4.1 mmol/L (3.3-5.1); Sodium 140 mmol/L (135-145); Total Protein 6.9 g/dL (6.5-8.0); Triglycerides 91 mg/dL (<150)
[2023-12-31 14:20] LABS: TSH reflex Free T4 0.78 uIU/mL (0.32-4.0)
== END 2023-12-31 11:30 | disposition home or self-care (01) ==
LOC: HO.HMGCLDS 11:29
PROVIDERS: Internal Medicine; PCP Internal Medicine; Visit Provider Internal Medicine
DX: I12.9 Hypertensive chronic kidney disease with stage 1 through stage 4 chronic kidney disease, or unspecified chronic kidney disease (principal); E11.22 Type 2 diabetes mellitus with diabetic chronic kidney disease; N18.9 Chronic kidney disease, unspecified; E66.9 Obesity, unspecified; E78.9 Disorder of lipoprotein metabolism, unspecified; R79.89 Other specified abnormal findings of blood chemistry; Z79.4 Long term (current) use of insulin
CPT/HCPCS: 36415; 80053; 80061; 82043; 82570; 83036; 84443; 85025

== ENCOUNTER 2024-01-02 11:15 | Outpatient (AMB) | payer MEDICARE, MEDICAID, SELFPAY ==
[2024-01-02 11:16] VITALS: BP 166/100; PULSE 104; O2SAT 97; BMI 29.0
--- NOTE | 2024-01-02 11:16 | A.OFFPC_ITS ---
Vital Signs 01/02/24 11:16 01/02/24 11:50 Height 6 ft Weight 214 lb 3 oz BMI 29.0 BP 166/100 H 144/95 H Blood Pressure Location Rt brachial Position Sitting Pulse 104 H Pulse Source Pulse Oximeter Pulse Oximetry (%) 97 Oxygen Delivery Method Room Air Intake Visit Reasons: Annual PE Allergies ibuprofen [From MOTRIN] Allergy (Unknown, Verified 01/02/24 11:16) MEDICATION INTERACTION, effected his kidneys Medication List - Last Reconciled 01/02/24 by Parker Lebron MD amlodipine 10 mg PO DAILY aspirin (Adult Low Dose Aspirin) 81 mg PO DAILY atorvastatin 40 mg PO DAILY clonidine HCl 0.1 mg PO BID cyclobenzaprine 10 mg PO BEDTIME PRN diclofenac potassium 50 mg PO BID dulaglutide (Trulicity) 0.75 mg subcut QWEEK insulin glargine (Basaglar KwikPen U-100 Insulin) 30 units subcut QAM metformin 1,000 mg PO BID metoprolol tartrate 100 mg PO DAILY olmesartan (Benicar) 40 mg PO DAILY oxycodone 20 mg PO DAILY PRN zolpidem 10 mg PO BEDTIME PRN Tobacco use date assessed: 01/02/24 Dental Screening Dental Screen Date: 01/02/24 Did you have a dental visit in the last 12 months?: Yes Did you have a dental problem in the last 6 months where you did not have access to dental care?: No Was dental information given to patient?: Patient has dentist HPI Annual PE HPI Details Patient is 63-year-old gentleman Blood pressure is elevated today, we checked it again after 15 minutes and it is better but still 144/95 He tells me that he ran out of his amlodipine and metoprolol he will pick it up today and start taking it He will check his blood pressure tomorrow Patient also have microalbuminuria which has improved from before He continued to be slightly anemic Patient is seeing Dr. 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 Maternal Grandmother Diabetes mellitus Maternal Grandfather No problems noted. Paternal Grandfather No problems noted. Paternal Grandmother No problems noted. Brother No problems noted. Sister No problems noted. Sister No problems noted. Son No problems noted. Son No problems noted. Social History Housing: Apartment Alcohol intake: current Alcohol intake frequency: a few times a month Patient Tobacco Use Status: Current everyday Tobacco user Tobacco use type: Cigarette Cigarettes Per Day: 5 e-Cigarette/Vaping Use: Never Used Second Hand Smoke Exposure: Yes Current occupational status: unemployed Cognitive needs: No Hearing needs: No Vision needs: Yes Questionnaire Thrive Questionnaire Date Thrive assessed: 06/25/23 AUDIT C Alcohol Use Questionnaire (AUDIT-C) 1. How often do you have a drink containing alcohol?: 2-3 times a week 2. How many drinks containing alcohol do you have on a typical day when you are drinking?: 1 or 2 3. How often do you have six or more drinks on one occasion?: Never Total Score: 3 Score Reviewed/Action Taken: Yes ZABRINA-7 AMB Questionnaire ZABRINA-7 Date ZABRINA - 7 assessed: 06/25/23 Source: Developed by Drs. Mark Herrera, Zarina Zaidi, Caesar Wood and colleagues, with an educational paul from [employer]. Review of Systems Const Denies chills, Denies fever(s) and Denies headache(s) Eyes Denies blurry vision ENT Denies headache(s), Denies nasal discharge, Denies nasal obstruction, Denies odynophagia and Denies sinus pain Card Denies chest pain at rest and Denies chest pain with activity Resp Denies cough and Denies hemoptysis GI Denies diarrhea, Denies odynophagia, Denies vomiting and Denies hematemesis Reports as per HPI Musc Denies abnormal gait Skin/Breast Reports as per HPI Neuro Denies Neuro-related abnormal movements, Denies Abnormal speech present, Denies abnormal gait, Denies headache(s) and Denies Sensory deficit (Neuro) Psych Denies mood swings and Denies paranoia Endo Reports as per HPI Bong/Lymph Reports as per HPI Aller/Immun Reports as per HPI Physical exam (Primary Care) Vital Signs: Last Vital Signs Pulse 104 H 01/02/24 11:16 BP 144/95 H 01/02/24 11:50 Pulse Ox 97 01/02/24 11:16 Oxygen Delivery Method Room Air 01/02/24 11:16 BMI result Body Mass Index 29.0 Tobacco/Smoking Status: Tobacco use Status Tobacco use date assessed 01/02/24 01/02/24 11:19 Patient Tobacco Use Status Current everyday Tobacco 01/02/24 11:19 Tobacco use type Cigarette 01/02/24 11:19 e-Cigarette/Vaping Use Never Used 01/02/24 11:19 Thrive Assessment: Date of Thrive Assessment Date Thrive assessed 06/25/23 01/02/24 11:19 Const General: cooperative, comfortable and no acute distress Orientation/consciousness: patient oriented x3 HENMT Head: Yes normocephalic and Yes atraumatic Eyes General: appearance normal, both eyes and all related structures Pupils: Equal, round and reactive pupils present EOM: EOMs intact bilaterally Neck Neck: Yes supple and No lymphadenopathy Thyroid: Thyroid normal Lymphatic: no lymphadenopathy noted Resp Effort & Inspection: normal respiratory effort and able to speak in complete sentences Auscultation: clear to auscultation bilaterally Cardio Heart sounds: S1 normal heart sound present and S2 normal heart sound present GI Palpation (GI): Soft to palpation and nontender Auscultation: normal bowel sounds Skin General skin exam: elasticity normal and turgor normal Neuro General: patient oriented x3 and gait normal Cranial nerves: Yes Equal, round and reactive pupils present Speech: No Abnormal speech present Sensory Exam: No Sensory deficit (Neuro) Extrem General: Yes normal exam except as noted and No edema Assessment and Plan Assessment & Plan (1) Encounter for general adult medical examination with abnormal findings: Code(s): Z00.01 - Encounter for general adult medical examination with abnormal findings (2) Microcytic anemia: Code(s): D50.9 - Iron deficiency anemia, unspecified (3) LFT elevation: Code(s): R79.89 - Other specified abnormal findings of blood chemistry (4) Type 2 diabetes mellitus: Code(s): E11.9 - Type 2 diabetes mellitus without complications Qualifiers: Diabetes mellitus complication status: without complication 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: with remote computer terminal operator use Qualified Code(s): E11.9 - Type 2 diabetes mellitus without complications; Z79.4 - 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 (5) Insulin dependent diabetes mellitus: (6) Hypertension, essential: Code(s): I10 - Essential (primary) hypertension (7) assisted (current) use of insulin: Code(s): Z79.4 - 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 Kay for the management of diabetes And Nephrology for the management of blood pressure His total bilirubin is slightly elevated but stable Not due for colonoscopy Medications: Changed From insulin glargine (Basaglar KwikPen U-100 Insulin) 30 units subcut QAM To insulin glargine (Basaglar KwikPen U-100 Insulin) 15 units subcut QAM Coding Level of Care Code Est Pt Prev Care 40-64y(87143) Diagnoses Encounter for general adult medical examination with abnormal findings Z00.01 Microcytic anemia D50.9 LFT elevation R79.89 Type 2 diabetes mellitus without complication, with long-term current use of insulin E11.9; Z79.4 Diabetes mellitus complication status: without complication 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: with group home use Insulin dependent diabetes mellitus Hypertension, essential I10 assisted (current) use of insulin Z79.4
[2024-01-02 11:50] VITALS: BP 144/95
== END 2024-01-02 11:50 | disposition home or self-care (01) ==
PROVIDERS: PCP Internal Medicine; Visit Provider Internal Medicine
DX: Z00.00 Encounter for general adult medical examination without abnormal findings (principal); E11.9 Type 2 diabetes mellitus without complications; Z79.4 Long term (current) use of insulin; D50.9 Iron deficiency anemia, unspecified; R79.89 Other specified abnormal findings of blood chemistry; I10 Essential (primary) hypertension
CPT/HCPCS: 99396

== ENCOUNTER 2024-02-10 10:29 | Outpatient (REF) | payer MEDICARE, MEDICAID, SELFPAY ==
[2024-02-10 13:54] LABS: Anion Gap 13 (12-20); Blood Urea Nitrogen 17 mg/dL (9-16); Carbon Dioxide 25 mmol/L (22-29); Chloride 109 mmol/L (96-108); Estimated Glomerular Filt Rate > 60; Potassium 4.3 mmol/L (3.3-5.1); Sodium 143 mmol/L (135-145)
== END 2024-02-10 10:30 | disposition home or self-care (01) ==
LOC: HO.HMGCLDS 10:29
PROVIDERS: PCP Family Medicine; Visit Provider Internal Medicine Hypertension Specialist
DX: N18.9 Chronic kidney disease, unspecified (principal)
CPT/HCPCS: 36415; 80051; 82310; 82565; 84520

== ENCOUNTER 2024-02-12 08:53 | Outpatient (AMB) | payer MEDICARE, MEDICAID, SELFPAY ==
[2024-02-12 08:54] VITALS: BMI 29.0
--- NOTE | 2024-02-12 08:54 | MHC.OFFVIS ---
Vital Signs 02/12/24 08:54 Height 6 ft Weight 214 lb BMI 29.0 Intake Visit Reasons: Arthritis of left knee Intake Note: Vincent is a 63 year old male who presents with complaints of progressively worsening left knee pain. The patient did undergo right total knee replacement surgery on 05/10/2022. He reports minimal discomfort in his right knee. Describes his left knee pain as sharp and severe in nature. His left knee pain has gotten worse over the last few years in spite of continued non operative treatments. He has had cortisone injections in the past which gave him minimal relief and it significantly increase his blood glucose level. The patient is a diabetic. He would like to hold off on left total knee replacement surgery for as long as possible. He has tried Tylenol and anti-inflammatory medicines which gave him minimal relief. He has also done physical therapy exercises which aggravated his pain. Allergies ibuprofen [From MOTRIN] Allergy (Unknown, Verified 02/12/24 09:02) MEDICATION INTERACTION, effected his kidneys Medication List - Last Reconciled 02/13/24 by Marco A Delgado MD amlodipine 10 mg PO DAILY aspirin (Adult Low Dose Aspirin) 81 mg PO DAILY atorvastatin 40 mg PO DAILY clonidine HCl 0.1 mg PO BID cyclobenzaprine 10 mg PO BEDTIME PRN dulaglutide (Trulicity) 0.75 mg subcut QWEEK insulin glargine (Basaglar KwikPen U-100 Insulin) 15 units subcut QAM metformin 1,000 mg PO BID metoprolol tartrate 100 mg PO DAILY olmesartan (Benicar) 40 mg PO DAILY zolpidem 10 mg PO BEDTIME PRN PFSH Medical History [facility] (current) use of insulin Insulin dependent diabetes mellitus Lipid disorder Tobacco abuse Chronic kidney disease Hypertension, essential Surgical History History of colonoscopy Family History Father Cancer of prostate Myocardial infarction Mother No problems noted. Maternal Grandmother Diabetes mellitus Maternal Grandfather No problems noted. Paternal Grandfather No problems noted. Paternal Grandmother No problems noted. Brother No problems noted. Sister No problems noted. Sister No problems noted. Son No problems noted. Son No problems noted. Social History Housing: Apartment Alcohol intake: current Alcohol intake frequency: a few times a month Patient Tobacco Use Status: Current everyday Tobacco user Tobacco use type: Cigarette Cigarettes Per Day: 5 e-Cigarette/Vaping Use: Never Used Second Hand Smoke Exposure: Yes Current occupational status: unemployed Cognitive needs: No Hearing needs: No Vision needs: Yes Physical Exam Vital Signs: BMI result Body Mass Index 29.0 Const Other: Well-nourished well-developed very friendly male awake alert and oriented x3 in no acute distress Extrem Other: Bilateral lower extremity examination shows good capillary refill, no skin lesions noted, normal sensation light touch Left knee examination shows a mild effusion, palpable crepitus with range of motion, pain with range of motion, range of motion from -3 degrees to 115 degrees, no instability Results Reviewed Results Reviewed: X-rays of the patient's left knee show joint space narrowing, subchondral sclerosis, no acute bony abnormalities Assessment & Plan Assessment & Plan (1) Arthritis of left knee: Code(s): M17.12 - Unilateral primary osteoarthritis, left knee Plan Mr. Ballard presents with progressively worsening left knee pain due to degenerative joint disease. I had a lengthy discussion with the patient regarding the treatment options. He wishes to hold off on left total knee replacement surgery for as long as possible. I agree with this plan. Has not gotten good relief from cortisone injections in the past and they did significantly increase his blood glucose level. Thus, I will see whether not the patient's insurance company will cover a viscosupplementation injection for his left knee. I will see him back once the injection is available. If he fails continued non operative treatments I will further discuss with the patient the risks and benefits of left total knee replacement surgery. Feel free to call me at any time should questions regarding his orthopedic management arise. I spent 20 minutes in reviewing the patient's records and imaging studies, seeing the patient and documenting in the medical record. Coding Level of Care Code Est Pt Level 3 (85081) Diagnoses Arthritis of left knee M17.12
== END 2024-02-12 09:19 | disposition home or self-care (01) ==
PROVIDERS: PCP Internal Medicine; Visit Provider Orthopaedic Surgery
DX: M17.12 Unilateral primary osteoarthritis, left knee (principal)
CPT/HCPCS: 99213

== ENCOUNTER → 2024-02-12 08:53 | Outpatient (BNVA) | payer MEDICARE, MEDICAID, SELFPAY | PROVIDERS: PCP Internal Medicine; Visit Provider Orthopaedic Surgery | DX: M17.12 Unilateral primary osteoarthritis, left knee (principal) | CPT/HCPCS: 99212 ==

== ENCOUNTER 2024-02-17 11:40 | Outpatient (AMB) | payer MEDICARE, MEDICAID, SELFPAY ==
[2024-02-17 11:43] VITALS: BP 126/86; PULSE 89; O2SAT 95; BMI 29.0
--- NOTE | 2024-02-17 11:43 | HO.NEPHOV_ITS ---
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 He has a history of microalbuminuria as well. Overall is doing very well. Blood pressure has been well controlled. 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 Maternal Grandmother Diabetes mellitus Maternal Grandfather No problems noted. Paternal Grandfather No problems noted. Paternal Grandmother No problems noted. Brother No problems noted. Sister No problems noted. Sister No problems noted. Son No problems noted. Son No problems noted. Social History Housing: Apartment Alcohol intake: current Alcohol intake frequency: a few times a month Patient Tobacco Use Status: Current everyday Tobacco user Tobacco use type: Cigarette Cigarettes Per Day: 5 e-Cigarette/Vaping Use: Never Used Second Hand Smoke Exposure: Yes Current occupational status: unemployed Cognitive needs: No Hearing needs: No Vision needs: Yes Physical Exam Vital Signs: Last Vital Signs Pulse 89 02/17/24 11:43 BP 126/86 02/17/24 11:43 Pulse Ox 95 02/17/24 11:43 Oxygen Delivery Method Room Air 02/17/24 11:43 BMI result Body Mass Index 29.0 Const General: comfortable Nutritional Appearance: well nourished Orientation/consciousness: patient oriented x3 HEENT Head: No normal to inspection Mouth: moist mucous membranes Neck Neck: Yes supple and Yes no JVD Resp Auscultation: clear to auscultation bilaterally, no rales and rub present Cardio Jugular venous distension: no JVD Palpation: no palpable S3 and no palpable S4 Heart sounds: no rubs GI Palpation (GI): Soft to palpation and nontender Percussion: No Fluid wave present General: Yes no CVA tenderness Back/Spine/Pelvis Back: no CVA tenderness Skin General skin exam: no rashes or lesions noted Neuro General: patient oriented x3 Extrem General: Yes no pedal edema and No clubbing Results Reviewed Nephrology Results: Hgb 12.9 g/dl (14.0-18.0) L 12/31/23 WBC 8.0 X10*3/uL (4.8-10.8) 12/31/23 Plt Count 272 X10*3/uL (160-400) 12/31/23 Sodium 143 mmol/L (135-145) 02/10/24 Potassium 4.3 mmol/L (3.3-5.1) 02/10/24 Chloride 109 mmol/L (96-108) H 02/10/24 Carbon Dioxide 25 mmol/L (22-29) 02/10/24 BUN 17 mg/dL (9-16) H 02/10/24 Creatinine 0.96 mg/dL (0.5-1.4) 02/10/24 Calcium 10.0 mg/dL (8.4-10.2) 02/10/24 Urine Creatinine 200.57 mg/dL 12/31/23 Assessment & Plan Assessment & Plan (1) Chronic kidney disease: Code(s): N18.9 - Chronic kidney disease, unspecified Category: Medical Plan: Mild chronic kidney disease due to a resistant hypertension and diabetes mellitus with microalbuminuria. Renal function stable at baseline. Goal is to slow the progression of renal disease. Continue to avoid nephrotoxic agents. Maintain blood pressure less than 130/80 Maintaining A1c less than 7% (2) Hypertension, essential: Code(s): I10 - Essential (primary) hypertension Category: Medical Plan Resistant hypertension Blood pressure is better controlled. Discussed low-salt diet. Continue to lose weight. Orders: Orders Basic Metabolic Panel 6 Months I10 - Essential (primary) hypertension Total Protein Urine Random 6 Months I10 - Essential (primary) hypertension Creatinine Urine 6 Months I10 - Essential (primary) hypertension, N05.9 - Unspecified nephritic syndrome with unspecified morphologic changes Coding Level of Care Code Est Pt Level 4 (07540) Diagnoses Chronic kidney disease N18.9 Hypertension, essential I10
== END 2024-02-17 11:59 | disposition home or self-care (01) ==
PROVIDERS: PCP Internal Medicine; Visit Provider Internal Medicine Hypertension Specialist
DX: I12.9 Hypertensive chronic kidney disease with stage 1 through stage 4 chronic kidney disease, or unspecified chronic kidney disease (principal); N18.9 Chronic kidney disease, unspecified
CPT/HCPCS: 99214

== ENCOUNTER → 2024-02-17 11:40 | Outpatient (BNVA) | payer MEDICARE, MEDICAID, SELFPAY | PROVIDERS: PCP Internal Medicine; Visit Provider Internal Medicine Hypertension Specialist | DX: I12.9 Hypertensive chronic kidney disease with stage 1 through stage 4 chronic kidney disease, or unspecified chronic kidney disease (principal); E11.22 Type 2 diabetes mellitus with diabetic chronic kidney disease; N18.9 Chronic kidney disease, unspecified | CPT/HCPCS: 99212 ==

== ENCOUNTER 2024-03-10 10:37 | Outpatient (AMB) | payer MEDICARE, MEDICAID, SELFPAY ==
--- NOTE | 2024-03-10 10:49 | A.OFFVIS_ITS ---
Intake Visit Reasons: ov- left knee Durolane injection Intake Note: Vincent 64 yr old male who presents with progressively worsening left knee pain. He did undergo right total knee replacement surgery several years ago. He denies any pain in his right knee. He describes his left knee pain as sharp in nature. His left knee pain has gotten worse over the last year in spite of continued non operative treatments. Has had cortisone injections which gave him no relief. He has also tried Tylenol and anti-inflammatory medicines which gave him minimal relief. He would like to hold off on left total knee replacement surgery for as long as possible. Allergies ibuprofen [From MOTRIN] Allergy (Unknown, Verified 03/10/24 10:49) MEDICATION INTERACTION, effected his kidneys Medication List - Last Reconciled 03/11/24 by Marco A Delgado MD amlodipine 10 mg PO DAILY aspirin (Adult Low Dose Aspirin) 81 mg PO DAILY atorvastatin 40 mg PO DAILY clonidine HCl 0.1 mg PO BID cyclobenzaprine 10 mg PO BEDTIME PRN dulaglutide (Trulicity) 0.75 mg subcut QWEEK insulin glargine (Lantus U-100 Insulin) 15 units subcut QAM metformin 1,000 mg PO BID metoprolol tartrate 100 mg PO DAILY olmesartan (Benicar) 40 mg PO DAILY zolpidem 10 mg PO BEDTIME PRN PFSH Medical History intermediate (current) use of insulin Insulin dependent diabetes mellitus Lipid disorder Tobacco abuse Chronic kidney disease Hypertension, essential Surgical History History of colonoscopy Family History Father Cancer of prostate Myocardial infarction Mother No problems noted. Maternal Grandmother Diabetes mellitus Maternal Grandfather No problems noted. Paternal Grandfather No problems noted. Paternal Grandmother No problems noted. Brother No problems noted. Sister No problems noted. Sister No problems noted. Son No problems noted. Son No problems noted. Social History Housing: Apartment Alcohol intake: current Alcohol intake frequency: a few times a month Patient Tobacco Use Status: Current everyday Tobacco user Tobacco use type: Cigarette Cigarettes Per Day: 5 e-Cigarette/Vaping Use: Never Used Second Hand Smoke Exposure: Yes Current occupational status: unemployed Cognitive needs: No Hearing needs: No Vision needs: Yes Physical Exam Const Other: Well-nourished well-developed very friendly male awake alert and oriented x3 in no acute distress Extrem Other: Bilateral lower extremity examination shows good capillary refill, no skin lesions noted, normal sensation light touch Left knee examination shows a minimal effusion, palpable crepitus with range of motion, pain with range of motion, no instability Office Procedures Joint Injection/Drain Joint Injection/Drain Primary Site: left knee Prep: site was prepped using aseptic technique Injected: 60 mg of (Durolane viscosupplementation) and 1% plain lidocaine Procedure: The patient tolerated the procedure well Coding - Large joint Procedure code (CPT) selection complete Results Reviewed Results Reviewed: X-rays of the patient's left knee show joint space narrowing, subchondral sclerosis, no acute bony abnormalities Assessment & Plan Assessment & Plan (1) Arthritis of left knee: Code(s): M17.12 - Unilateral primary osteoarthritis, left knee Category: Medical Plan Mr. Ballard presents with progressively worsening left knee pain due to degenerative joint disease. I had a lengthy discussion with the patient regarding the treatment options. He wishes to hold off on left total knee replacement surgery for as long as possible. I agree with this plan. The risks and benefits of a Durolane viscosupplementation injection were discussed at length with the patient. The patient wished to proceed. Tolerated the injection well. Prior to the injection I aspirated 1 cc of clear fluid from his left knee. He will continue with his activity modifications. Will follow up w ith me on an as-needed basis should his symptoms not plateau at an unacceptable level over the next few months. Feel free to call me at any time should questions regarding his orthopedic management arise. I spent 21 minutes in reviewing the patient's records and imaging studies, seeing the patient and documenting in the medical record. Orders: Orders AMB Joint Injection/Aspiration 03/10/24 M17.12 - Unilateral primary osteoarthritis, left knee Coding Level of Care Code Est Pt Level 3 (72094) Diagnoses Arthritis of left knee M17.12 CPT Codes Coding - Large joint: 70901 - Large joint ([id number])
== END 2024-03-10 11:24 | disposition home or self-care (01) ==
PROVIDERS: PCP Internal Medicine; Visit Provider Orthopaedic Surgery
DX: M17.12 Unilateral primary osteoarthritis, left knee (principal)
CPT/HCPCS: 20610; 99213

== ENCOUNTER → 2024-03-10 10:37 | Outpatient (BNVA) | payer MEDICARE, MEDICAID, SELFPAY | PROVIDERS: PCP Internal Medicine; Visit Provider Orthopaedic Surgery | DX: M17.12 Unilateral primary osteoarthritis, left knee (principal) | CPT/HCPCS: 20610; 99212; J7318 ==

== ENCOUNTER 2024-05-12 11:15 | Outpatient (AMB) | payer MEDICARE, MEDICAID, SELFPAY ==
--- NOTE | 2024-05-12 11:16 | MHC.OFFWIV ---
Intake Vital Signs 05/12/24 11:18 05/12/24 11:43 05/12/24 11:43 05/12/24 11:44 Height 6 ft Weight 207 lb BMI 28.1 BP 132/84 148/100 H 126/94 H 138/98 H Blood Pressure Location Lt brachial Rt brachial Rt brachial Rt brachial Position Sitting Supine Sitting Standing Pulse 77 Pulse Source Pulse Oximeter Temp Source Oral Pulse Oximetry (%) 98 Oxygen Delivery Method Room Air Intake Visit Reasons: EP lightheaded/?elevated BP Intake Note: pt c/o lightheadedness. Started this morning Patient Tobacco Use Status: Current everyday Tobacco user Allergies ibuprofen [From MOTRIN] Allergy (Unknown, Verified 05/12/24 11:17) MEDICATION INTERACTION, effected his kidneys Do you need a note to return to daycare/school/sports/work: No HPI HPI Comments History of Present Illness Details Year old male complaining of lightheadedness over the last week, he thinks it has something to do with his blood pressure. He states his audience development manager started him on amlodipine recently, he was checking his blood pressure at home and it was really high, now he states it is better after his doctor increased his amlodipine to 10 mg from 5 mg. But he states last night he did not sleep well and he just felt weird and when he went to get up out of bed, he felt an episode of lightheadedness. He denies any changes of hearing, vision, head stuffiness, upper respiratory symptoms, the feeling of the room spinning, he denies any actual loss of consciousness. 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 Maternal Grandmother Diabetes mellitus Maternal Grandfather No problems noted. Paternal Grandfather No problems noted. Paternal Grandmother No problems noted. Brother No problems noted. Sister No problems noted. Sister No problems noted. Son No problems noted. Son No problems noted. Social History Housing: Apartment Alcohol intake: current Alcohol intake frequency: a few times a month Patient Tobacco Use Status: Current everyday Tobacco user Tobacco use type: Cigarette Cigarettes Per Day: 5 e-Cigarette/Vaping Use: Never Used Second Hand Smoke Exposure: Yes Current occupational status: unemployed Cognitive needs: No Hearing needs: No Vision needs: Yes Review of Systems Const All systems reviewed & are unremarkable except as noted in HPI and below Physical Exam Vital Signs: Last Vital Signs Pulse 77 05/12/24 11:18 BP 138/98 H 05/12/24 11:44 Pulse Ox 98 05/12/24 11:18 Oxygen Delivery Method Room Air 05/12/24 11:18 BMI result Body Mass Index 28.1 Const General: cooperative, healthy appearing, comfortable, no acute distress and well developed Orientation/consciousness: patient oriented x3 Limitations: no limitations HEENT Head: Yes normal to inspection, Yes normocephalic and Yes atraumatic Ears: hearing grossly normal bilaterally and external ears normal General nose exam: Normal external nose present Face and sinus: Yes normal facial exam Eyes General: appearance normal, both eyes and all related structures Neck Neck: Yes normal visual inspection and Yes full ROM Resp Effort & Inspection: normal respiratory effort and able to speak in complete sentences Skin General skin exam: no rashes or lesions noted Neuro General: patient oriented x3 Cranial nerves: Yes CN's II-XII intact bilaterally Extrem General: Yes normal to inspection Assessment & Plan Assessment & Plan (1) Orthostatic hypotension: Code(s): I95.1 - Orthostatic hypotension Plan: Orthostatics done in office show a change in systolic blood pressure greater than 20 mmHg, recommended patient follow up with his audience development manager who is prescribing the amlodipine, as that is likely the cause. In the meanwhile, recommended he take his time with positional changes. Patient understands and agrees with plan. Plan See above Coding Level of Care Code Est Pt Level 3 (80543) Diagnoses Orthostatic hypotension I95.1
[2024-05-12 11:18] VITALS: BP 132/84; PULSE 77; O2SAT 98; BMI 28.1
[2024-05-12 11:43] VITALS: BP 126/94; BP 148/100
[2024-05-12 11:44] VITALS: BP 138/98
== END 2024-05-12 12:05 | disposition home or self-care (01) ==
PROVIDERS: PCP Internal Medicine; Visit Provider Physician Assistant
DX: I95.1 Orthostatic hypotension (principal)
CPT/HCPCS: 99213

== ENCOUNTER 2024-06-03 14:06 | Outpatient (REF) | payer MEDICARE, MEDICAID, SELFPAY ==
[2024-06-03 16:45] LABS: Alanine Aminotransferase 51 U/L (0-40); Anion Gap 12 (12-20); Aspartate Amino Transferase 36 U/L (5-37); Blood Urea Nitrogen 27 mg/dL (9-16); Carbon Dioxide 26 mmol/L (22-29); Chloride 108 mmol/L (96-108); Estimated Glomerular Filt Rate 42; Glucose Random 94 mg/dL (60-115); Potassium 4.2 mmol/L (3.3-5.1); Sodium 142 mmol/L (135-145)
[2024-06-04 08:14] LABS: Estimated Average Glucose 82 mg/dL; Hemoglobin A1c % 4.5 % (<6.0)
== END 2024-06-03 14:07 | disposition home or self-care (01) ==
LOC: HO.HMGCLDS 14:06
PROVIDERS: PCP Internal Medicine; Visit Provider Physician Assistant
DX: E11.42 Type 2 diabetes mellitus with diabetic polyneuropathy (principal)
CPT/HCPCS: 36415; 80048; 83036; 84450; 84460

== ENCOUNTER 2024-06-14 12:21 | Outpatient (REF) | payer MEDICARE, MEDICAID, SELFPAY ==
--- NOTE | ~2024-06-14 | XR_ITS ---
EXAMINATION: XR SHOULDER, LEFT CLINICAL INFORMATION: Left shoulder pain. COMPARISON: None available. TECHNIQUE: AP external rotation, Grashey, scapular Y, and axillary views of the left shoulder. FINDINGS: Soft tissue anchor at the greater tuberosity, most consistent with prior rotator cuff repair. Moderate osteoarthritis at the glenohumeral joint with joint space narrowing and marginal osteophytes. Status post acromioplasty. Mild acromioclavicular osteoarthritis. No fracture or malalignment. Soft tissues are unremarkable. XR/XR shoulder LT min 2V IMPRESSION: 1. Moderate glenohumeral and mild acromioclavicular osteoarthritis. 2. Status post rotator cuff repair and acromioplasty. Electronically signed by: Meño Rodriguez MD 06/20/2024 09:02 PM EDT RP
== END 2024-06-14 12:22 | disposition home or self-care (01) ==
LOC: HO.HMGCX 12:21
PROVIDERS: PCP Internal Medicine; Visit Provider Orthopaedic Surgery Hand Surgery
DX: M25.512 Pain in left shoulder (principal)
CPT/HCPCS: 73030

== ENCOUNTER 2024-08-13 12:11 | Outpatient (REF) | payer MEDICARE, MEDICAID, SELFPAY ==
[2024-08-13 13:37] LABS: Estimated Average Glucose 100 mg/dL; Hemoglobin A1C 106.4188 umol/L; Hemoglobin A1c % 5.1 % (<6.0); Total Hemoglobin (HGBA1C) 3315.3816 umol/L
[2024-08-13 14:05] LABS: Anion Gap 13 (12-20); Blood Urea Nitrogen 11 mg/dL (9-16); Calcium 8.9 mg/dL (8.4-10.2); Carbon Dioxide 25 mmol/L (22-29); Chloride 109 mmol/L (96-108); Estimated Glomerular Filt Rate > 60; Glucose Random 99 mg/dL (60-115); Potassium 4.2 mmol/L (3.3-5.1); Sodium 143 mmol/L (135-145)
[2024-08-13 14:06] LABS: Alanine Aminotransferase 36 U/L (0-40); Aspartate Amino Transferase 32 U/L (5-37)
[2024-08-13 14:13] LABS: Creatinine Urine 389.95 mg/dL; Total Protein Urine Random 127 mg/dL (<12)
[2024-08-13 14:33] LABS: Vitamin B12 319 pg/mL (200-900)
[2024-08-18 17:12] LABS: Fructosamine 256 umol/L (205-285)
== END 2024-08-13 12:12 | disposition home or self-care (01) ==
LOC: HO.HMGCLDS 12:11
PROVIDERS: PCP Internal Medicine; Referring Provider Internal Medicine Endocrinology, Diabetes & Metabolism; Visit Provider Internal Medicine Hypertension Specialist
DX: E11.42 Type 2 diabetes mellitus with diabetic polyneuropathy (principal); I10 Essential (primary) hypertension; N05.9 Unspecified nephritic syndrome with unspecified morphologic changes
CPT/HCPCS: 36415; 80048; 82570; 82607; 82985; 83036; 84156; 84450; 84460

== ENCOUNTER 2024-08-17 15:27 | Outpatient (AMB) | payer MEDICARE, MEDICAID, SELFPAY ==
[2024-08-17 15:38] VITALS: BP 148/82; PULSE 95; O2SAT 97; BMI 29.2
--- NOTE | 2024-08-17 15:38 | HO.NEPHOV_ITS ---
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: No Accompanied by: Self / Same As Patient Allergies ibuprofen [From MOTRIN] Allergy (Unknown, Verified 08/17/24 15:40) MEDICATION INTERACTION, effected his kidneys Medication List - Last Reconciled 08/17/24 by Wilfredo Villalba MD amlodipine 10 mg PO DAILY aspirin (Adult Low Dose Aspirin) 81 mg PO DAILY atorvastatin 20 mg PO DAILY blood-glucose meter (Accu-Chek Guide Me Glucose Meter) As directed clonidine HCl 0.1 mg PO BID cyclobenzaprine 10 mg PO BEDTIME PRN dulaglutide (Trulicity) 0.75 mg subcut QWEEK gabapentin 100 mg PO TID PRN icosapent ethyl (Vascepa) 2 grams PO BID insulin glargine (Lantus U-100 Insulin) 10 units subcut QAM lancets (Accu-Chek Softclix Lancets) As directed metformin 1,000 mg PO BID metoprolol succinate ER 100 mg PO DAILY olmesartan 40 mg PO DAILY oxycodone 30 mg PO QID PRN sertraline 100 mg PO ONCE zolpidem 10 mg PO BEDTIME PRN HPI Comments Details: Juan Daniel is a 63-year-old man with a history of resistant hypertension and diabetes mellitus. He has a history of microalbuminuria as well. Overall is doing very well. Blood pressure has been well controlled. 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 Maternal Grandmother Diabetes mellitus Maternal Grandfather No problems noted. Paternal Grandfather No problems noted. Paternal Grandmother No problems noted. Brother No problems noted. Sister No problems noted. Sister No problems noted. Son No problems noted. Son No problems noted. Social History Housing: Apartment Alcohol intake: current Alcohol intake frequency: a few times a month Patient Tobacco Use Status: Current everyday Tobacco user Tobacco use type: Cigarette Cigarettes Per Day: 5 e-Cigarette/Vaping Use: Never Used Second Hand Smoke Exposure: Yes Current occupational status: unemployed Cognitive needs: No Hearing needs: No Vision needs: Yes Physical Exam Vital Signs: Last Vital Signs Pulse 95 08/17/24 15:38 BP 148/82 H 08/17/24 15:38 Pulse Ox 97 08/17/24 15:38 Oxygen Delivery Method Room Air 08/17/24 15:38 BMI result Body Mass Index 29.2 Const General: comfortable Nutritional Appearance: well nourished Orientation/consciousness: patient oriented x3 HEENT Head: No normal to inspection Mouth: moist mucous membranes Neck Neck: Yes supple and Yes no JVD Resp Auscultation: clear to auscultation bilaterally, no rales and rub present Cardio Jugular venous distension: no JVD Palpation: no palpable S3 and no palpable S4 Heart sounds: no rubs GI Palpation (GI): Soft to palpation and nontender Percussion: No Fluid wave present General: Yes no CVA tenderness Back/Spine/Pelvis Back: no CVA tenderness Skin General skin exam: no rashes or lesions noted Neuro General: patient oriented x3 Extrem General: Yes no pedal edema and No clubbing Results Reviewed Nephrology Results: Sodium 143 mmol/L (135-145) 08/13/24 Potassium 4.2 mmol/L (3.3-5.1) 08/13/24 Chloride 109 mmol/L (96-108) H 08/13/24 Carbon Dioxide 25 mmol/L (22-29) 08/13/24 BUN 11 mg/dL (9-16) 08/13/24 Creatinine 0.98 mg/dL (0.5-1.4) 08/13/24 Calcium 8.9 mg/dL (8.4-10.2) 08/13/24 Urine Creatinine 389.95 mg/dL 08/13/24 Assessment & Plan Assessment & Plan (1) Chronic kidney disease: Code(s): N18.9 - Chronic kidney disease, unspecified Category: Medical Plan: Mild chronic kidney disease due to a resistant hypertension and diabetes mellitus with microalbuminuria. Renal function stable at baseline. Goal is to slow the progression of renal disease. Continue to avoid nephrotoxic agents. Maintain blood pressure less than 130/80 Maintaining A1c less than 7% (2) Hypertension, essential: Code(s): I10 - Essential (primary) hypertension Category: Medical Plan Resistant hypertension Blood pressure is better controlled. Discussed low-salt diet. Continue to lose weight. Orders: Orders Basic Metabolic Panel 6 Months I10 - Essential (primary) hypertension, N18.9 - Chronic kidney disease, unspecified Total Protein Urine Random 6 Months I10 - Essential (primary) hypertension, N18.9 - Chronic kidney disease, unspecified Creatinine 6 Months I10 - Essential (primary) hypertension, N18.9 - Chronic kidney disease, unspecified Medications: Changed From amlodipine 10 mg (2 x 5 mg) PO DAILY 90 tabs 1RF To amlodipine 10 mg PO DAILY 90 tabs 1RF Coding Level of Care Code Est Pt Level 4 (29188) Diagnoses Chronic kidney disease N18.9 Hypertension, essential I10
[2024-08-17 15:51] VITALS: BP 138/78
== END 2024-08-17 15:51 | disposition home or self-care (01) ==
PROVIDERS: PCP Internal Medicine; Visit Provider Internal Medicine Hypertension Specialist
DX: I12.9 Hypertensive chronic kidney disease with stage 1 through stage 4 chronic kidney disease, or unspecified chronic kidney disease (principal); N18.9 Chronic kidney disease, unspecified
CPT/HCPCS: 99214

== ENCOUNTER → 2024-08-17 15:27 | Outpatient (BNVA) | payer MEDICARE, MEDICAID, SELFPAY | PROVIDERS: PCP Internal Medicine; Visit Provider Internal Medicine Hypertension Specialist | DX: I12.9 Hypertensive chronic kidney disease with stage 1 through stage 4 chronic kidney disease, or unspecified chronic kidney disease (principal); N18.9 Chronic kidney disease, unspecified | CPT/HCPCS: 99212 ==

== ENCOUNTER 2024-09-09 08:41 | Outpatient (AMB) | payer MEDICARE, MEDICAID, SELFPAY ==
--- NOTE | 2024-09-09 08:43 | MHC.OFFVIS ---
Vital Signs 09/09/24 08:44 Height 6 ft Weight 205 lb BMI 27.8 Intake Visit Reasons: Left knee pain, Status post right total knee replacement surgery Intake Note: Vincent is a 64 year old male who presents with complaints of progressively worsening left knee pain. The patient did undergo right total knee replacement surgery several years ago. He reports minimal discomfort in his right knee. He describes his left knee pain as sharp and severe in nature. He has failed the last 3 months of conservative treatment which have consisted of topical creams, Tylenol, anti-inflammatory medicines and physical therapy exercises. The patient is not able to tolerate cortisone injections because of his diabetes. He has had viscosupplementation injections given into his left knee which have given him good relief. He wishes to hold off on left total knee replacement surgery for as long as possible. At this point his left knee pain is interfering with his activities of daily living and his ability to sleep well through the night. Allergies ibuprofen [From MOTRIN] Allergy (Unknown, Verified 09/09/24 08:44) MEDICATION INTERACTION, effected his kidneys Medication List - Last Reconciled 09/09/24 by Marco A Delgado MD amlodipine 10 mg PO DAILY aspirin (Adult Low Dose Aspirin) 81 mg PO DAILY atorvastatin 20 mg PO DAILY blood-glucose meter (Accu-Chek Guide Me Glucose Meter) As directed clonidine HCl 0.1 mg PO BID cyclobenzaprine 10 mg PO BEDTIME PRN dulaglutide (Trulicity) 0.75 mg subcut QWEEK gabapentin 100 mg PO TID PRN icosapent ethyl (Vascepa) 2 grams PO BID insulin glargine (Lantus U-100 Insulin) 10 units subcut QAM lancets (Accu-Chek Softclix Lancets) As directed metformin 1,000 mg PO BID metoprolol succinate ER 100 mg PO DAILY olmesartan 40 mg PO DAILY oxycodone 30 mg PO QID PRN sertraline 100 mg PO ONCE zolpidem 10 mg PO BEDTIME PRN PFSH Medical History senior living (current) use of insulin Insulin dependent diabetes mellitus Lipid disorder Tobacco abuse Chronic kidney disease Hypertension, essential Surgical History History of colonoscopy Family History Father Cancer of prostate Myocardial infarction Mother No problems noted. Maternal Grandmother Diabetes mellitus Maternal Grandfather No problems noted. Paternal Grandfather No problems noted. Paternal Grandmother No problems noted. Brother No problems noted. Sister No problems noted. Sister No problems noted. Son No problems noted. Son No problems noted. Social History Housing: Apartment Alcohol intake: current Alcohol intake frequency: a few times a month Patient Tobacco Use Status: Current everyday Tobacco user Tobacco use type: Cigarette Cigarettes Per Day: 5 e-Cigarette/Vaping Use: Never Used Second Hand Smoke Exposure: Yes Current occupational status: unemployed Cognitive needs: No Hearing needs: No Vision needs: Yes Physical Exam Vital Signs: BMI result Body Mass Index 27.8 Const Other: Well-nourished well-developed very friendly male awake alert and oriented x3 in no acute distress Extrem Other: Bilateral lower extremity examination shows good capillary refill, no skin lesions noted, normal sensation light touch Right knee examination shows that the surgical incision is well healed, no erythema, full active extension and flexion to 120 degrees, his patella tracks well Left knee examination shows a minimal effusion, palpable crepitus with range of motion, pain with range of motion, range of motion from -3 degrees to 115 degrees, no instability Results Reviewed Results Reviewed: X-rays of the patient's right knee show a total knee arthroplasty in good position with no signs of loosening, no acute bony abnormalities X-rays of the patient's left knee show joint space narrowing, subchondral sclerosis, no acute bony abnormalities Assessment & Plan Assessment & Plan (1) Right knee pain: Code(s): M25.561 - Pain in right knee Category: Medical (2) Left knee pain: Code(s): M25.562 - Pain in left knee Category: Medical (3) Osteoarthritis of left knee: Code(s): M17.12 - Unilateral primary osteoarthritis, left knee Category: Medical Plan Mr. Ballard continues to do well after undergoing right total knee replacement surgery. He does have progressively worsening left knee pain due to osteoarthritis. He is not able to tolerate cortisone injections because of his diabetes. He wishes to hold off on left total knee replacement surgery for as long as possible. I agree with this plan. I will see whether or not the patient's insurance company will cover a viscosupplementation injection. I will see him back once the injection is available. Feel free to call me at any time should questions regarding his orthopedic management arise. I spent 22 minutes in reviewing the patient's records and imaging studies, seeing the patient and documenting in the medical record. Orders: Orders XR knee RT 3V Today M25.561 - Pain in right knee XR knee LT 3V Today M25.562 - Pain in left knee Coding Level of Care Code Est Pt Level 3 (04586) Complex EM visit Add On G2211 Diagnoses Right knee pain M25.561 Left knee pain M25.562 Osteoarthritis of left knee M17.12
[2024-09-09 08:44] VITALS: BMI 27.8
--- OUTSIDE RECORDS SUMMARY | 2024-09-15 00:27 | XMS_ITS ---
Author Name [facility] Organization Unknown History of Medication Use Medication Directions Dispensed Refills Start Date End Date [facility] oxycodone 10 mg tablet TAKE 1 TABLET BY MOUTH EVERY 24 HOURS NEEDED FOR PAIN 06/05/2023 active amoxicillin 500 mg tablet TAKE 4 TABLETS BY MOUTH 1 HOUR BEFORE DENTAL PROCEDURE 06/05/2023 active cyclobenzaprine 10 mg tablet TAKE 1 TABLET BY MOUTH THREE TIMES DAILY 06/05/2023 active tamsulosin 0.4 mg capsule TAKE 1 CAPSULE BY MOUTH AT BEDTIME 06/05/2023 completed metformin 1,000 mg tablet TAKE 1 TABLET BY MOUTH TWICE DAILY 06/05/2023 active lidocaine (PF) 10 mg/mL (1 %) injection solution Take 2 mL by injection route. 06/05/2023 completed Kenalog 40 mg/mL suspension for injection Take 1 mL by injection route. 06/05/2023 completed clonazepam 1 mg tablet TAKE 1 TABLET BY MOUTH TWICE A DAY 06/05/2023 active acetaminophen 500 mg tablet TAKE 2 TABLETS BY MOUTH THREE TIMES DAILY 06/05/2023 active Vascepa 1 gram capsule TAKE 2 CAPSULES BY MOUTH TWICE DAILY 06/05/2023 active zolpidem 10 mg tablet TAKE 1 TABLET BY MOUTH EVERYDAY AT BEDTIME 06/05/2023 active doxycycline hyclate 100 mg capsule TAKE 1 CAPSULE BY MOUTH TWICE DAILY FOR 7 DAYS 06/05/2023 completed oxycodone 30 mg tablet TAKE 1 TABLET BY MOUTH EVERY 6 HOURS 06/05/2023 active gabapentin 300 mg capsule TAKE 1 CAPSULE BY MOUTH AT BEDTIME 06/05/2023 active olmesartan 40 mg tablet 06/05/2023 active acetaminophen 500 mg tablet TAKE 2 TABLETS BY MOUTH THREE TIMES DAILY 06/05/2023 active Vascepa 1 gram capsule TAKE 2 CAPSULES BY MOUTH TWICE DAILY 06/05/2023 active ciprofloxacin 250 mg tablet TAKE 1 TABLET BY MOUTH TWICE DAILY 06/05/2023 active gabapentin 100 mg capsule TAKE 1 CAPSULE BY MOUTH THREE TIMES DAILY 06/05/2023 active amoxicillin 500 mg capsule TAKE 4 CAPSULES BY MOUTH 1 HOUR BEFORE DENTAL PROCEDURE 06/05/2023 active sertraline 100 mg tablet TAKE 1 AND 1/2 TABLET BY MOUTH EVERY DAY 06/05/2023 active amlodipine 10 mg tablet TAKE 1 TABLET BY MOUTH EVERY DAY 06/05/2023 active Accu-Chek Judy Plus test strips TEST BLOOD SUGAR THREE TIMES DAILY 06/05/2023 active diclofenac sodium 50 mg tablet,delayed release TAKE 1 TABLET BY MOUTH TWICE DAILY WITH MEALS 06/05/2023 active warfarin 1 mg tablet TAKE 7 TABLETS BY MOUTH DAILY OR ASDIRECTED BY PHYSICIAN 06/05/2023 completed ciclopirox 0.77 % topical cream APPLY TOPICALLY TO THE AFFECTED AREA TWICE DAILY 06/05/2023 active Trulicity 0.75 mg/0.5 mL subcutaneous pen injector ADMINISTER 0.75 MG UNDER THE SKIN EVERY 7 DAYS 06/05/2023 completed Synvisc-One 48 mg/6 mL intra-articular syringe Take 48 mg by intraarticular route. 08/24/2023 active atorvastatin 20 mg tablet TAKE 1 TABLET BY MOUTH DAILY AT BEDTIME 06/05/2023 active sildenafil 100 mg tablet TAKE 1 TABLET BY MOUTH ONCE DAILY NEEDED 06/05/2023 active oxycodone 5 mg tablet TAKE 1 TO 2 TABLETS BY MOUTH EVERY 6 HOURS NEEDED FOR PAIN 06/05/2023 active Basaglar KwmelvinPen U-100 Insulin 100 unit/mL (3 mL) subcutaneous INJECT 20 UNITS UNDER THE SKIN EVERY NIGHT AT BEDTIME 06/05/2023 active metoprolol succinate ER 100 mg tablet,extended release 24 hr TAKE 1 TABLET BY MOUTH DAILY 06/05/2023 active clonidine HCl 0.1 mg tablet TAKE 1 TABLET BY MOUTH TWICE DAILY 06/05/2023 completed enoxaparin 40 mg/0.4 mL subcutaneous syringe INJECT 40 MG UNDER THE SKIN DAILY 06/05/2023 completed quetiapine 25 mg tablet TAKE 1 TABLET BY MOUTH THREE TIMES A DAY 08/24/2023 active Senna Plus 8.6 mg-50 mg tablet TAKE 2 TABLETS BY MOUTH EVERY NIGHT AT BEDTIME 06/05/2023 completed Allergies Allergen Reaction Severity Comment Documented Date Source Statu s IBUPROFEN ENS_AONECT Problems Problem Status Onset Date Problem Type Date of Resoluti on Source Osteoarthritis of left knee joint active 2023-02-12 ProblemAct ENS_[facility] Pain of left knee joint active 2023-02-13 ProblemAct E[facility]
== END 2024-09-09 09:21 | disposition home or self-care (01) ==
PROVIDERS: PCP Internal Medicine; Visit Provider Orthopaedic Surgery
DX: M25.561 Pain in right knee (principal); M25.562 Pain in left knee; M17.12 Unilateral primary osteoarthritis, left knee
CPT/HCPCS: 99213; G2211

== ENCOUNTER 2024-09-09 08:41 | Outpatient (REF) | payer MEDICARE, MEDICAID, SELFPAY ==
--- NOTE | ~2024-09-09 | XR_ITS ---
EXAMINATION: XR KNEE LEFT CLINICAL INFORMATION: Pain in left knee M25.562. COMPARISON: None available. TECHNIQUE: Three views of the left knee. FINDINGS: No fracture or joint effusion. Alignment is anatomic. Joint spaces are maintained. No abnormal soft tissue calcification. XR/XR knee LT 3V IMPRESSION: Normal left knee. Electronically signed by: Dustin Randle MD 09/28/2024 11:17 AM [facility] [place]
== END 2024-09-09 08:42 | disposition home or self-care (01) ==
LOC: HO.HOSX 08:41
PROVIDERS: PCP Internal Medicine; Visit Provider Orthopaedic Surgery
DX: M25.561 Pain in right knee (principal); M25.562 Pain in left knee; M17.12 Unilateral primary osteoarthritis, left knee
CPT/HCPCS: 73562; 99212

== ENCOUNTER 2024-09-27 10:47 | Outpatient (AMB) | payer MEDICARE, MEDICAID, SELFPAY ==
[2024-09-27 10:55] VITALS: BMI 27.8
--- NOTE | 2024-09-27 10:55 | MHC.OFFVIS ---
Vital Signs 09/27/24 10:55 Height 6 ft Weight 205 lb BMI 27.8 Intake Visit Reasons: Left knee pain Intake Note: Vincent is a 64 year old male who presents with complaints of progressively worsening left knee pain. He describes his pain as sharp in nature. Has had cortisone injections in the past which gave him no relief. He has also had viscosupplementation injections which gave him fairly good relief. Wishes to hold off on left total knee replacement surgery if at all possible. He has tried Tylenol and anti-inflammatory medicines which gave him minimal relief. He has also done physical therapy exercises which aggravated his pain. At this point his left knee pain is interfering with his activities of daily living and his ability to sleep well through the night. Allergies ibuprofen [From MOTRIN] Allergy (Unknown, Verified 09/27/24 10:55) MEDICATION INTERACTION, effected his kidneys Medication List - Last Reconciled 09/27/24 by Marco A Delgado MD amlodipine 10 mg (2 x 5 mg) PO DAILY aspirin (Adult Low Dose Aspirin) 81 mg PO DAILY atorvastatin 20 mg PO DAILY blood-glucose meter (Accu-Chek Guide Me Glucose Meter) As directed clonidine HCl 0.1 mg PO BID cyclobenzaprine 10 mg PO BEDTIME PRN dulaglutide (Trulicity) 0.75 mg subcut QWEEK gabapentin 100 mg PO TID PRN icosapent ethyl (Vascepa) 2 grams PO BID insulin glargine (Lantus U-100 Insulin) 10 units subcut QAM lancets (Accu-Chek Softclix Lancets) As directed metformin 1,000 mg PO BID metoprolol succinate ER 100 mg PO DAILY olmesartan 40 mg PO DAILY oxycodone 30 mg PO QID PRN sertraline 100 mg PO ONCE zolpidem 10 mg PO BEDTIME PRN PFSH 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 Maternal Grandmother Diabetes mellitus Maternal Grandfather No problems noted. Paternal Grandfather No problems noted. Paternal Grandmother No problems noted. Brother No problems noted. Sister No problems noted. Sister No problems noted. Son No problems noted. Son No problems noted. Social History Housing: Apartment Alcohol intake: current Alcohol intake frequency: a few times a month Patient Tobacco Use Status: Current everyday Tobacco user Tobacco use type: Cigarette Cigarettes Per Day: 5 e-Cigarette/Vaping Use: Never Used Second Hand Smoke Exposure: Yes Current occupational status: unemployed Cognitive needs: No Hearing needs: No Vision needs: Yes Physical Exam Vital Signs: BMI result Body Mass Index 27.8 Const Other: Well-nourished well-developed very friendly male awake alert and oriented x3 in no acute distress Extrem Other: Bilateral lower extremity examination shows good capillary refill, no skin lesions noted, normal sensation light touch Left knee examination shows a minimal effusion, palpable crepitus with range motion, pain with range motion, no instability Office Procedures AMB Joint Injection/Aspiration Joint Injection/Aspiration Primary Site: left knee Prep: site was prepped using aseptic technique Injected: 60 mg of (Durolane viscosupplementation) and 1% plain lidocaine Procedure: The patient tolerated the procedure well Coding 11939 - Large joint Procedure code (CPT) selection complete Results Reviewed Results Reviewed: X-rays of the patient's left knee taken previously show joint space narrowing, subchondral sclerosis, no acute bony abnormalities Assessment & Plan Assessment & Plan (1) Osteoarthritis of left knee: Code(s): M17.12 - Unilateral primary osteoarthritis, left knee Category: Medical (2) Left knee pain: Code(s): M25.562 - Pain in left knee Category: Medical Plan Mr. Ballard presents with left knee pain due to osteoarthritis. I had a lengthy discussion with the patient regarding the treatment options. The risks and benefits of a Durolane viscosupplementation injection were discussed at length with the patient. The patient wished to proceed. He tolerated the injection well. He will continue with his home exercise program. He will contact me prior to his follow-up appointment in 3 months should any questions or concerns arise. Feel free to call me at any time should questions regarding his orthopedic management arise. I spent 20 minutes in reviewing the patient's records and imaging studies, seeing the patient and documenting in the medical record. Orders: Orders AMB Joint Injection/Aspiration Today M17.12 - Unilateral primary osteoarthritis, left knee Coding Level of Care Code Est Pt Level 3 (96469) Complex EM visit Add On G2211 Diagnoses Osteoarthritis of left knee M17.12 Left knee pain M25.562 CPT Codes Coding - 90658 Large joint: 93903 - Large joint ([id number])
== END 2024-09-27 11:15 | disposition home or self-care (01) ==
PROVIDERS: PCP Internal Medicine; Visit Provider Orthopaedic Surgery
DX: M17.12 Unilateral primary osteoarthritis, left knee (principal)
CPT/HCPCS: 20610; 99213

== ENCOUNTER → 2024-09-27 10:47 | Outpatient (BNVA) | payer MEDICARE, MEDICAID, SELFPAY | PROVIDERS: PCP Internal Medicine; Visit Provider Orthopaedic Surgery | DX: M17.12 Unilateral primary osteoarthritis, left knee (principal); M25.562 Pain in left knee | CPT/HCPCS: 20610; 99212; J2003; J7318 ==

== ENCOUNTER 2024-12-04 14:17 | Outpatient (AMB) | payer MEDICARE, MEDICAID, SELFPAY ==
--- OUTSIDE RECORDS SUMMARY | 2024-12-04 14:19 | XMS_ITS | Encounter Summary ---
Author Organization [employer] Address [address] [place] [address] [address] [place] [address] Care Team Providers Care Dramatic Art Teacher Name Role Phone Unavailable Primary Care Provider Unavailabl e Encounter Details Date Type Department Care Team (Latest Contact Info) Description 04/13/2019 Abstract [facility] CONVERSIONS Dental, Provider, DDS Social History Tobacco Use Types Packs/Day Years Used Date Smoking Tobacco: Never Assessed Sex and Gender Information Value Date Recorded Sex Assigned at Male 08/05/2022 10:24 AM EDT Legal Sex Male 10:24 AM EDT Gender Identity Male 08/05/2022 10:24 AM EDT Sexual Orientation Straight 08/05/2022 10 :24 AM EDT documented as of this encounter Plan of Treatment Not on file documented as of this encounter Visit Diagnoses Not on filedocumented in this encounter
--- OUTSIDE RECORDS SUMMARY | 2024-12-04 14:19 | XMS_ITS | Clinical Summary ---
Author Organization [employer] Address [address] [place] [address] [address] [place] [address] Care Team Providers Care Psychiatric Clinical Nurse Specialist Name Role Phone Unavailable Primary Care Provider Unavailabl e Social History Tobacco Use Types Packs/Day Years Used Date Smoking Tobacco: Never Assessed Sex and Gender Information Value Date Recorded Sex Assigned at Male 08/05/2022 10:24 AM EDT Legal Sex Male 10:24 AM EDT Gender Identity Male 08/05/2022 10:24 AM EDT Sexual Orientation Straight 08/05/2022 10 :24 AM EDT Plan of Treatment Health Maintenance Due Date Last Done Comments CT Colonography 1961 Colonoscopy 1961 Colorectal Cancer Screening 1961 Depression Screening 1961 FIT DNA/Cologuard 1961 FIT 1961 FOBT 1961 Lipid Panel 1961 Sigmoidoscopy 1961 Alcohol/Substance Use Screening 1973 Tobacco Screening 1973 DTaP/Tdap/Td Vaccines (1 - Tdap) 02/16/1980 Pneumococcal Vaccine: 50+ Ye ars (1 of 1 - PCV) 2011 Zoster Vaccines (1 of 2) 2011 COVID-19 Vaccine ( - 2023-2 5 season) 2024 Influenza Vaccine (#1) 2024 RSV Patients and Pa tients Aged 60 years or older (1 - 1-dose 75+ series) 02/16/2036 HIB Vaccines Aged Out No longer eligi ble based on patient's age to complete this topic HPV Vaccines Aged Out No longer eligi ble based on patient's age to complete this topic Hepatitis A Vaccines Aged Out No long er eligible based on patient's age to complete this topic Hepatitis B Vaccines Aged Out No long er eligible based on patient's age to complete this topic IPV Vaccines Aged Out No longer eligi ble based on patient's age to complete this topic Meningococcal Vaccine Aged Out No zev krystin eligible based on patient's age to complete this topic Pneumococcal Vaccine: Pediat rics (0 to 5 Years) and At-Risk Patients (6 to 49) Years) Aged Out No longer eligible b ased on patient's age to complete this topic RSV under 20 months Aged Out No longe r eligible based on patient's age to complete this topic Rotavirus Vaccines Aged Out No longer eligible based on patient's age to complete this topic
[2024-12-04 14:20] VITALS: BP 112/78; PULSE 89; RESP 15; TEMP 36.7; O2SAT 95; BMI 29.0
--- NOTE | 2024-12-04 14:20 | MHC.OFFWIV ---
Intake Vital Signs 12/04/24 14:20 Height 6 ft Weight 214 lb BMI 29.0 BP 112/78 Blood Pressure Location Rt brachial Position Sitting Respiration 15 Pulse 89 Pulse Source Pulse Oximeter Temp 98.1 F Temp Source Oral Pulse Oximetry (%) 95 Oxygen Delivery Method Room Air Intake Visit Reasons: EP dizzy, ?BP Intake Note: Pt is here today c/o vertigo and ?b/p Patient Tobacco Use Status: Current everyday Tobacco user Allergies ibuprofen [From MOTRIN] Allergy (Unknown, Verified 12/04/24 14:21) MEDICATION INTERACTION, effected his kidneys HPI EP dizzy, ?BP HPI Details Patient is a 64-year-old male with underlying hypertension, who comes to the walk-in clinic as he reports that his was going into the [employer] to go shopping, and he figured he would get his blood pressure checked next door since he was here . He reports that he recently became was restarted on amlodipine last month for his hypertension, along with clonidine 0.1 mg twice a day, and metoprolol 100 mg a day, as well as olmesartan 40 mg daily. Last week, he had 2 or 3 episodes of transient lightheadedness when he went from laying to sitting to standing very quickly and had to catch himself from falling. He reports that he does not have a history of having any issues getting up quickly from lying to standing. However he reports otherwise that he is not feeling weak or dizzy, myalgias or malaise, nausea or vomiting, chest pain or shortness of breath, headache, vision changes, or other significant associated symptoms. He has had no lightheadedness symptoms for the last 2-3 days, and reports that he is not concerned now that he knows he is normotensive. [facility] Medical History longterm (current) use of insulin Insulin dependent diabetes mellitus Lipid disorder Tobacco abuse Chronic kidney disease Hypertension, essential Surgical History History of colonoscopy Family History Father Cancer of prostate Myocardial infarction Mother No problems noted. Maternal Grandmother Diabetes mellitus Maternal Grandfather No problems noted. Paternal Grandfather No problems noted. Paternal Grandmother No problems noted. Brother No problems noted. Sister No problems noted. Sister No problems noted. Son No problems noted. Son No problems noted. Social History Housing: Apartment Alcohol intake: current Alcohol intake frequency: a few times a month Patient Tobacco Use Status: Current everyday Tobacco user Tobacco use type: Cigarette Cigarettes Per Day: 5 e-Cigarette/Vaping Use: Never Used Second Hand Smoke Exposure: Yes Current occupational status: unemployed Cognitive needs: No Hearing needs: No Vision needs: Yes Review of Systems Const All systems reviewed & are unremarkable except as noted in HPI and below Physical Exam Vital Signs: Last Vital Signs Temp 98.1 F 12/04/24 14:20 Pulse 89 12/04/24 14:20 Resp 15 12/04/24 14:20 BP 112/78 12/04/24 14:20 Pulse Ox 95 12/04/24 14:20 Oxygen Delivery Method Room Air 12/04/24 14:20 BMI result Body Mass Index 29.0 Const General: cooperative, healthy appearing, comfortable, no acute distress, alert, awake, Physically active and well groomed; No anxious, diaphoretic, ill appearing, intoxicated appearing, poor hygiene or tired appearing Nutritional Appearance: average body habitus Orientation/consciousness: patient oriented x3 Limitations: no limitations HEENT Head: Yes normal to inspection, Yes normocephalic and Yes atraumatic Ears: hearing grossly normal bilaterally, external ears normal, TM's normal bilaterally and EAC's normal General nose exam: Normal external nose present, Normal nares present, No nasal polyps present, Normal nasal mucous membranes and turbinates present, Normal septum present and No nasal discharge present Face and sinus: Yes normal facial exam, Yes sinuses nontender and Yes face symmetric Mouth: Normal oral and palatal mucosa present, lip normal and tongue normal Throat: Yes posterior oropharynx normal, No peritonsillar mass, No postnasal drainage, No uvular edema and No cobblestoning Eyes General: appearance normal, both eyes and all related structures Pupils: Equal, round and reactive pupils present Neck Neck: Yes normal visual inspection, Yes trachea midline, Yes supple and No anterior neck swelling Chest Chest palpation & inspection: normal palpation of entire chest wall Resp Effort & Inspection: normal respiratory effort, able to speak in complete sentences, no audible wheezes, no cough, no grunting, not labored, no nasal flaring, no retractions and symmetric chest movement Auscultation: clear to auscultation bilaterally, no crackles, no rales, no rhonchi, no wheezes, lung sounds not diminished and No rub present Cardio Palpation: normal PMI Rate: regular rate Rhythm: regular rhythm Heart sounds: S1 normal heart sound present and S2 normal heart sound present Skin Other: Good color, warm and dry Neuro General: patient oriented x3, gait normal, tone normal, moves all extremities, no focal motor deficits and CN's II-XI intact bilaterally Cranial nerves: Yes Equal, round and reactive pupils present and Yes Nystagmus not present Cognition (Neuro): normal cognition Gait exam (Neuro): Normal gait present Motor exam (neuro): 5/5 motor strength present throughout Psych Appearance: grossly normal Mental Status: mental status grossly normal Speech and movement: Normal speech and movement present Affect: normal affect Attitude: cooperative Thought process: Normal thought process present Insight: Good insight present (Psych) Judgement: Good judgement present (Psych) Assessment & Plan Assessment & Plan (1) Light headedness: Code(s): R42 - Dizziness and giddiness Plan: Patient has had 2-3 very transient episodes of lightheadedness going from lying to standing quickly, after being restarted on amlodipine on top of an already vigorous antihypertensive regimen. As she relates, he is used to being able to take off from lying supine, as he normally has to catch a phone call or what not, but I think now that he has this additional blood pressure medication, which is regulating his pressure well, it might be creating a mild transient orthostatic hypotension for him. His symptoms have already been gone for more than a day now, and at present he is stable, in no distress, walking normally, no nystagmus, no neurodeficits, and with no complaint. We discussed giving 30 seconds between lying to standing and he will be following up with PCP soon. If his symptoms persist, may be 1 or more of his medications can be decreased at this point. Otherwise, he will monitor his symptoms, and will follow up if they persist or worsen, and he knows to go to the emergency department with worrisome symptoms. Coding Level of Care Code Est Pt Level 4 (95339) Diagnoses Light headedness R42
--- OUTSIDE RECORDS SUMMARY | 2024-12-04 14:20 | XMS_ITS | Patient Health Record ---
[facility] Organization [facility] Address [address] [facility] [place] [address] Care Team Providers Care Retail Visual Merchandiser Name Role Phone Chary Bates MD Primary Care Provider Unavailab Pooja Mckeon Unavailable [phone] Yuliet Chau Unavailable [phone] Allergies Allergen (clinical drug ingredient) Drug/Non Drug Allergy documented on EMR Reaction Allergy Type Onset Date Status ibuprofen Ibuprofen Unknown Drug Allergy Active Results Component Value Reference Range Notes HEMOGLOBIN A1C (GLYCOHEMOGLO BIN) Reviewed date:05/17/2024 03:22:56 PM Interpretation: Performing Lab: Notes/Report: HEMOGLOBIN A1C % (HH) 5.0 Reason For Referral No Information Medications Medication SIG (Take, Route, Frequency, Duration) Notes Start Date End Date Status Metoprolol & Diet Manage Prod Not-Taking zzzGold Bonds for Diabetics . . apply to feet Daily for 30 days 12/05/2014 Not-Taking Aspirin Active amLODIPine Besylate 10 MG 1 tablet Orally Once a day Active Amlodipine & Diet Manage Prod Active Atorvastatin Calcium Active Metformin & Diet Manage Prod Active Benicar Active Trulicity Active Lovaza Active Ciclopirox Olamine 0.77 % APPLY TOPICALLY TO THE AFFECTED AREA TWICE DAILY for 30 Active Extra Depth Orthopedic Shoes (1 Pair) with Customized Heat Molded Multidensity Innersoles (3 Pair) as directed Dx: NIDDM/Polyneuropathy (E11.42), Hammertoe Foot Deformity (M20.41,M20.42), Preulcerative Skin Lesion(s) (L85.1 01/16/2023 Active Extra Depth Orthopedic Shoes (1 Pair) with Customized Heat Molded Multidensity Innersoles (3 Pair) as directed Dx: NIDDM/Polyneuropathy (E11.42), Hammertoe Foot Deformity (M20.41,M20.42), Preulcerative Skin Lesion(s) (L85.1 06/13/2016 Not-Taking Ciclopirox Olamine 0.77% external Apply to effected areas twice a day for 30 days Active Furosemide Not-Takin g Medrol becka 4mg as directed orally a s directed for 6 days 10/11/2024 Active cloNIDine HCl 0.1 MG TK 1 T PO BID Oral for 30 Not-Taking NovoLOG Not-Taking Lantus Not-Taking Extra-Depth Diabetic Shoes with 3 Pair Custom heat-molded multi-density innersoles . for 1 year . Dx:hamamertoes,hallux limitus for . 12/05/2014 Not-Taking Fenofibrate Not-Taki ng Immunizations Vaccine Route Administration Date Status Comme nts COVID-19 Pfizer BioNTech Vaccine Unknown 01/29/2021 Administered 1st 01/12/2021 Influenza Unknown 06/09/2017 Administered Influenza Unknown 06/23/2018 Administered Influenza Unknown 07/23/2019 Administered Influenza Unknown 06/06/2020 Administered Influenza Unknown 06/06/2022 Administered Influenza Unknown 08/06/2023 Administered Social History Tobacco Use: Social History Observation Description Date Details (start date - stop date) Current Smoker NA - NA Tobacco Use/Smoking Question Answer Notes Are you a: current smoker How often do you smoke cigarettes? every day How many cigarettes a day do you smoke? 5 or les s How soon after you wake up d o you smoke your first cigarette? after 60 minutes Are you interested in quitting? Not ready to agustin t Additional Findings: Tobacco User Light cigarett e smoker ((1-9 cigs/day) Alcohol Screen Question Answer Notes Did you have a drink contain ing alcohol in the past year? Yes How often did you have a dri nk containing alcohol in the past year? 2 to 3 times a week (3 points) Points 3 Interpretation Negative Tobacco use other than smoking: Question Answer Notes Are you an other tobacco user? No Problems Problem Type SNOMED Code ICD Code Onset Dates Problem Status W/U Status Risk Notes Problem Acquired hammer toe of right foot (561782112359286 5) Other hammer toe(s) (acquired), right foot (M20.41) Active confirmed Problem Acquired hammer toe of left foot (253980486710018 3) Other hammer toe(s) (acquired), left foot (M20.42) Active confirmed Problem Localized, primary osteoarthritis of the ankle and/or foot (800108409) Primary osteoarthritis, right ankle and foot (M19.071) Active confirmed Problem Acquired hallux valgus (44844862) Hallux valgus (acquired), left foot (M20.12) Active confirmed Problem Acquired hallux valgus (80324742) Hallux valgus (acquired), right foot (M20.11) Active confirmed Problem Polyneuropathy due to type 2 diabetes mellitus (586603487) Type 2 diabetes mellitus with diabetic polyneuropathy (E11.42) Active confirmed Problem Acquired hammer toe of right foot (473582738474997 5) Hammer toe of right foot (M20.41) Active confirmed Problem Acquired hammer toe of left foot (528881784701899 3) Hammer toe of left foot (M20.42) Active confirmed Problem 26194525 Lower limb length difference (M21.70) Active confirmed Problem Gout (21038033) Gout of left foot (M10.9) Active confirmed Rx drug management (4) Problem Gout (73652660) Gout of right foot (M10.9) Active confirmed Rx drug management (4) Problem 29085123 Smoker (F17.200) Active confirmed Problem 08380261 Essential hypertension (I10) Active confirmed Vital Signs Blood pressure diastolic 70 mm Hg 10/11/2024 Height 5ft11.5in in 10/11/2024 Blood pressure systolic 130 mm Hg 10/11/2024 Weight 205 lbs 10/11/2024 BMI 28.19 kg/m2 10/11/2024 Procedures Procedure Date Ordered Date Performed Result Body Sit e 98950-WQSA SKIN LESIONS, 2 TO 4 12/18/2023 N/A A9882-XYGMRONV DYSTROPHIC NAILS ANY # 12/18/2023 N/A 86039-IDJG SKIN LESIONS, 2 TO 4 05/17/2024 N/A B5619-GXBTYLIG DYSTROPHIC NAILS ANY # 05/17/2024 N/A 64329-QKGC SKIN LESIONS, 2 TO 4 09/16/2024 N/A S9902-SFSFONLX DYSTROPHIC NAILS ANY # 09/16/2024 N/A Encounters Encounter Location Date Provider Diagnosis [address] [address] 12/18/2023 Pooja Black Type 2 diabetes mellitus with diabetic polyneuropathy E11.42 ; Smoker F17.200 ; Pain in left foot M79.672 ; Bursitis of left foot M77.52 ; Hallux valgus (acquired), left foot M20.12 ; Pain in right foot M79.671 ; Bursitis of right foot M77.51 and Hallux valgus (acquired), right foot M20.[address] [address] 05/17/2024 Pooja Black Type 2 diabetes mellitus with diabetic polyneuropathy E11.42 ; Smoker F17.200 ; Pain in left foot M79.672 ; Bursitis of left foot M77.52 ; Hallux valgus (acquired), left foot M20.12 ; Pain in right foot M79.671 ; Bursitis of right foot M77.51 and Hallux valgus (acquired), right foot M20.[address] [address] 09/16/2024 Poojaangela Rosario Type 2 diabetes mellitus with diabetic polyneuropathy E11.42 and Smoker F17.[address] [address] 10/11/2024 Yuliet Villaaker Pain in joint involving left ankle and foot M25.572 and Gout of left foot M10.[address] [address] 03/18/[address] [address] 03/26/[address] [address] 04/01/[address] [address] 04/01/2024 Poojaskip Rosario [facility] [address] [place] [address] 10/05/2024 Poojaskip Rosario [facility] [address] [place] [address] 10/11/2024 Pooja Rosario [facility] Encounter Date Diagnosis (ICD Code) Assessment Notes Treatment Notes Treatment Clinical Notes Section Notes 12/18/2023 Type 2 diabetes mellitus with diabetic polyneuropathy (ICD-10 - E11.42) 12/18/2023 Smoker (ICD-10 - F17.200) 09/16/2024 Type 2 diabetes mellitus with diabetic polyneuropathy (ICD-10 - E11.42) 09/16/2024 Smoker (ICD-10 - F17.200) 10/11/2024 Gout of left foot (ICD-10 - M10.9) Rx drug management (4) Patient Educated with: GOUT.pdf (GOUT.pdf) Patient Educated with: LOW PURINE DIET.pdf (LOW PURINE DIET.pdf) 10/11/2024 Pain in joint involving left ankle and foot (ICD-10 - M25.572) 05/17/2024 Type 2 diabetes mellitus with diabetic polyneuropathy (ICD-10 - E11.42) 05/17/2024 Smoker (ICD-10 - F17.200) 12/18/2023 Pain in left foot (ICD-10 - M79.672) 12/18/2023 Bursitis of left foot (ICD-10 - M77.52) 05/17/2024 Pain in left foot (ICD-10 - M79.672) 12/18/2023 Hallux valgus (acquired), left foot (ICD-10 - M20.12) 05/17/2024 Bursitis of left foot (ICD-10 - M77.52) 12/18/2023 Pain in right foot (ICD-10 - M79.671) 05/17/2024 Hallux valgus (acquired), left foot (ICD-10 - M20.12) 05/17/2024 Pain in right foot (ICD-10 - M79.671) 12/18/2023 Bursitis of right foot (ICD-10 - M77.51) 12/18/2023 Hallux valgus (acquired), right foot (ICD-10 - M20.11) 05/17/2024 Bursitis of right foot (ICD-10 - M77.51) 05/17/2024 Hallux valgus (acquired), right foot (ICD-10 - M20.11) 10/11/2024 Other Plan Of Treatment Pending Test Test Name Order Date X ray : Foot, left 3V 10/11/2024 46924-BDAJAPM NAIL, 6 OR MORE 09/15/2023 62359-CBTCWLU NAIL, 6 OR MORE 05/21/2021 10439-ZUQEVDU NAIL, 6 OR MORE 08/27/2021 83020-CBWQBTC NAIL, 6 OR MORE 12/17/2021 52871-SYSPTAB NAIL, 6 OR MORE 03/21/2022 42390-VXSHRIS NAIL, 6 OR MORE 06/27/2022 28584-ZTGKXVG NAIL, 6 OR MORE 10/14/2022 10997-MOHDNBH NAIL, 6 OR MORE 01/16/2023 41294-OTPYXJN NAIL, 6 OR MORE 06/16/2023 46025-JEIANGP NAIL, 6 OR MORE 06/07/2015 12677-DNUQCVU NAIL, 6 OR MORE 12/06/2015 96699-ZSLZIYN NAIL, 6 OR MORE 06/13/2016 58885-NASFJEH NAIL, 6 OR MORE 12/12/2016 90863-WMTBXUI NAIL, 6 OR MORE 06/12/2017 19318-KJTLESU NAIL, 6 OR MORE 12/08/2017 19390-UQLXUWS NAIL, 6 OR MORE 06/11/2018 72106-WCBIBBU NAIL, 6 OR MORE 11/05/2018 84127-XJCLWON NAIL, 6 OR MORE 12/24/2018 63499-UWTLQVB NAIL, 6 OR MORE 04/22/2019 86948-SBJQBZY NAIL, 6 OR MORE 08/19/2019 08970-UIBVTXK NAIL, 6 OR MORE 02/10/2020 47301-NHNUHXV NAIL, 6 OR MORE 05/15/2020 98389-RPONXAF NAIL, 6 OR MORE 08/17/2020 06095-GCXXDDY NAIL, 6 OR MORE 11/13/2020 85746-VCVIVGQ NAIL, 6 OR MORE 02/19/2021 60141- Debride <25 sq cm 06/01/2015 82205- Debride <25 sq cm 06/07/2015 55192-UVQA SKIN LESIONS, OVER 4 06/11/20 18 99737-RMBP SKIN LESIONS, 2 TO 4 12/09/19 18 48046-VODS SKIN LESIONS, 2 TO 4 12/25/19 19 74141-EXOH SKIN LESIONS, 2 TO 4 11/05/19 19 67051-GTJJ SKIN LESIONS, 2 TO 4 06/07/20 15 07870-GMPY SKIN LESIONS, 2 TO 4 12/06/19 16 69927-QCXE SKIN LESIONS, 2 TO 4 12/13/19 17 31530-GWSV SKIN LESIONS, 2 TO 4 06/12/20 17 52600-AXNP SKIN LESIONS, 2 TO 4 06/13/20 16 61023-ZWBC SKIN LESIONS, 2 TO 4 05/21/20 21 99395-WCGY SKIN LESIONS, 2 TO 4 02/20/20 21 81919-GCRW SKIN LESIONS, 2 TO 4 11/13/19 21 02648-NQMF SKIN LESIONS, 2 TO 4 08/17/20 20 91290-DMRE SKIN LESIONS, 2 TO 4 05/15/20 20 83725-CBRV SKIN LESIONS, 2 TO 4 02/10/20 20 27988-QCSN SKIN LESIONS, 2 TO 4 08/19/20 19 50345-THEE SKIN LESIONS, 2 TO 4 04/22/20 19 84701-TQFN SKIN LESIONS, 2 TO 4 09/15/20 23 71949-EIVW SKIN LESIONS, 2 TO 4 06/16/20 23 92224-HZQQ SKIN LESIONS, 2 TO 4 01/17/20 23 98716-VMIE SKIN LESIONS, 2 TO 4 10/14/19 23 34498-CQEV SKIN LESIONS, 2 TO 4 06/27/20 22 28083-CNLS SKIN LESIONS, 2 TO 4 03/21/20 22 35031-KJED SKIN LESIONS, 2 TO 4 12/18/19 22 56553-NUJC SKIN LESIONS, 2 TO 4 08/27/20 21 15292-UBME SKIN LESIONS, 2 TO 4 12/18/19 24 10919-VJWY SKIN LESIONS, 2 TO 4 05/17/20 24 22623-ECJJ SKIN LESIONS, 2 TO 4 12/06/19 15 04627-NIAQ SKIN LESIONS, 2 TO 4 09/16/20 24 F2381-UGVDJMPC DYSTROPHIC NAILS ANY # O6260-DUICLHJS DYSTROPHIC NAILS ANY # X9340-HHGNXOFN DYSTROPHIC NAILS ANY # Next Appt Details Provider Name:Pooja Rosario , 01/17/2025 02:15:00 PM, [address] [place], [address], Insurance Providers Payer Name Payer Address Payer Phone Subscriber Number Group Number Insured Name Patient Relationship to Insured Coverage Start Date Coverage End Date Medicare National [employer] [address] [place] [address] [id number] Vincent Ballard Self - patient is the insured Medical (General) History Medical History History ICD Code Arthritis Chicken pox Measles Mumps Back,Hip,and Knee pain Hypertension [place] palsy Surgical History Surgery Date(Month/Year) shoulder surgery- right 10/24/2020 right knee replacement 05/10/2022 Hospitalization History Reason Date(Month/Year) Went [place] [facility] [place]- bells palsy 6
--- OUTSIDE RECORDS SUMMARY | 2024-12-04 14:20 | XMS_ITS ---
[facility] Organization [facility] Address [address] [place] [address] Care Team Providers Care Mixer Diamond Powder Name Role Phone Chary Bates MD Primary Care Provider Unavailab Pooja Mckeon Unavailable [phone] REASON FOR VISIT urgent appt Encounters Encounter Location Date Provider Diagnosis [address] [address] 10/11/2024 Pooja Rosario Plan Of Treatment Next Appt Details Provider Name:Pooja Rosario , 01/17/2025 02:15:00 PM, [address] [place] [address], [address], Progress Notes * Vincent DORADODOB:1960 (64 yo M)Acc No.[id number]:10/11/2024 Patient:?Vincent DORADO :1960???Age:64 Y???Sex:Male Address:[address] [place], [address] * true * Date:? Generated for Printi ng/Faxing/eTransmitting on:?12/04/2024 02:20 PM EST
--- OUTSIDE RECORDS SUMMARY | 2024-12-04 14:20 | XMS_ITS | Clinical Summary ---
Author Organization [facility] Address [address] [place] [address] Phone Care Team Providers Care Ore Fielder Name Role Phone Chary Bates MD Primary Care Provider [phone] Allergies Active Allergy Reactions Criticality Noted Date Comments Ibuprofen 12/18/2020 Medications Blood Pressure kit 1 kit 5 Active atorvastatin (LIPITOR) 20 MG tablet Take 1 tablet by mouth 1 (one) time each day Active insulin glargine (Lantus SoloStar) 100 UNIT/ML injection Inject under the skin 1 (one) time each day Active oxyCODONE (ROXICODONE) 5 MG immediate release tablet Take 1 tablet by mouth every 6 (six) hours if needed 1 Active zolpidem (AMBIEN) 10 MG tablet Take 1 tablet by mouth 1 (one) time Active aspirin (ST CLEMENTINA) 81 MG EC tablet Take 81 mg by mouth 1 (one) time each day Active cyclobenzaprine (FLEXERIL) 10 MG tablet Take 10 mg by mouth 2 (two) times a day if needed 1 Active diclofenac (VOLTAREN) 50 MG EC tablet Take 50 mg by mouth 2 (two) times a day with meals 1 Active metoprolol tartrate (LOPRESSOR) 100 MG tablet Take 100 mg by mouth 1 (one) time each day Active ciclopirox (LOPROX) 0.77 % cream 2 (two) times a day APPLY TOPICALLY TO THE AFFECTED AREA TWICE DAILY 2 Active clonazePAM (KlonoPIN) 1 MG tablet Take 1 mg by mouth 2 Active Trulicity 0.75 MG/0.5ML solution pen-injector ADMINISTER 0.75 MG UNDER THE SKIN WEEKLY 2 Active Vascepa 1 g capsule TAKE 2 CAPSULES BY MOUTH TWICE DAILY. DO NOT 2 Active metFORMIN (GLUCOPHAGE) 1000 MG tablet Take 1,000 mg by mouth in the morning and 1,000 mg in the evening. 2 Active sertraline (ZOLOFT) 100 MG tablet 2 Active amLODIPine (NORVASC) 10 MG tablet TAKE 1 TABLET BY MOUTH EVERY DAY 90 tablet 3 3 Active olmesartan (BENICAR) 40 MG tablet TAKE 1 TABLET(40 MG) BY MOUTH EVERY DAY 90 tablet 3 3 Active cloNIDine (CATAPRES) 0.1 MG tablet TAKE 1 TABLET BY MOUTH TWICE DAILY 60 tablet 3 3 Active Active Problems Problem Noted Date Diagnosed Date Acquired hallux valgus 12/18/2021 Acquired hammer toe of left foot 12/18/2021 Polyneuropathy due to type 2 diabetes mellitus 0 12/18/2021 Localized, primary osteoarthritis of the ankle a nd/or foot 12/18/2021 Smoker 12/18/2021 Chronic kidney disease stage 3 12/14/2020 Hypertensive renal disease 12/14/2020 Renal disorder due to type 2 diabetes mellitus 0 12/14/2020 Hypertension 06/30/2014 Resolved Problems Problem Noted Date Diagnosed Date Resolved Date Arthritis of right acromioclavicular joint 08/03/2020 06/22/2021 Impingement syndrome of right shoulder region 08/03/20 20 06/22/2021 Arthritis of right knee 07/16/201706/06 Primary gonarthrosis, bilateral 05/14/2017 06/22/2021 Diabetes mellitus 07/15/2012 06/22/2021 Erectile dysfunction 07/15/2012 021 Hyperlipidemia 07/15/2012 06/22/2021 Hypertensive left ventricular hypertrophy 07/15/2012 06/22/2021 Obesity 07/15/2012 06/22/2021 Immunizations Name Administration Dates Next Due Hepatitis B 11/21/2011,06/27/2011,05/27/2011 Influenza TIV (IM) 06/28/2013,06/23/2012, 011,11/20/2009 Pneumococcal Polysaccharide 03/02/2009 Tdap 04/25/2011 Family History Medical History Relation Comments Cancer Father Heart disease Father Stroke Father Relation Status Comments Father Mother Alive Social History Tobacco Use Types Packs/Day Years Used Date Smoking Tobacco: Some Days Smokeless Tobacco: Current Tobacco Cessation:Ready to Q uit: Not Asked; Counseling Given: Not Answered Alcohol Use Standard Drinks/Week Comments Yes 0 (1 standard drink = 0.6 oz pure alcohol) Alcoholic Drinks/day: Occasional social drink Sex and Gender Information Value Date Recorded Sex Assigned at Not on file Legal Sex Male 5:02 PM EST Gender Identity Not on file Sexual Orientation Not on file Last Filed Vital Signs Vital Sign Reading Time Taken Comments Blood Pressure 120/70 02/17/2023 3:51 PM EDT Pulse 76 02/17/2023 3:51 PM EDT Temperature - - Respiratory Rate - - Oxygen Saturation 96% 02/17/2023 3:51 PM EDT Inhaled Oxygen Concentration - - Weight 98.4 kg (217 lb) 02/17/2023 3:51 PM EDT Height 182.9 cm (6') 02/17/2023 3:51 PM EDT Body Mass Index 29.43 02/17/2023 3:51 PM EDT Plan of Treatment Health Maintenance Due Date Last Done Comments Colorectal Cancer Screening: Annual FOBT 2010 Colorectal Cancer Screening: Colonoscopy 2010 Colorectal Cancer Screening: Sigmoidoscopy 2010 Pneumococcal Vaccine: Pediatrics (0 to 5 Years) and At-Risk Patients (6 to 64 Years) (3 of 3 - PCV) 05/15/2018 05/15/2017, 03/02/2009 Diabetes: Hemoglobin A1C 11/06/2020 Diabetes: Ophthalmology Exam 11/06/2020 Diabetes: Pedal Pulse Checked 11/06/2020 Diabetes: Sensory Foot Exam 11/06/2020 Diabetes: Visual Foot Exam 11/06/2020 Influenza Vaccine (#1) 2024 0, 07/18/2019, 06/28/2013, Additional history exists Hepatitis B Vaccine Aged Out 11/21/2011, 06/27/2011, 05/27/2011 No longer eligible based on patient's age to complete this topic Insurance [place]ARE * Guarantor: Vincent Ballard Account Type Relation to Patient Date of Phone Billing Address Personal/Family Self [address] [place] [address] [place]ID [place] Care Teams Ore Fielder Relationship Specialty Start Date End Date [facility]ary Bates [facility] - [facility] 10/16/20
--- OUTSIDE RECORDS SUMMARY | 2024-12-04 14:20 | XMS_ITS | Encounter Summary ---
Author Organization [facility] Address [address] [facility] [address] [place] [address] Phone Care Team Providers Care Pediatric Occupational Therapist Name Role Phone Chary Bates MD Primary Care Provider [phone] Reason for Visit * Reason Comments Med Refill Encounter Details Date Type Department Care Team (Late st Contact Info) Description 12/05/2023 Refill [facility] [address] [place] [phone] Camron Araya MD [address] [facility] [address] [place] [phone] Social History Tobacco Use Types Packs/Day Years Used Date Smoking Tobacco: Some Days Smokeless Tobacco: Current Alcohol Use Standard Drinks/Week Comments Yes 0 (1 standard drink = 0.6 oz pure alcohol) Alcoholic Drinks/day: Occasional social drink Sex and Gender Information Value Date Recorded Sex Assigned at Not on file Legal Sex Male 5:02 PM EST Gender Identity Not on file Sexual Orientation Not on file documented as of this encounter Plan of Treatment Not on file documented as of this encounter Visit Diagnoses Not on filedocumented in this encounter Care Teams Pediatric Occupational Therapist Relationship Specialty Start Date End Date Chary Bates MD [address] [place], [place] PCP - General 10/16/20 documented as of this encounter
--- OUTSIDE RECORDS SUMMARY | 2024-12-04 14:20 | XMS_ITS | Patient Health Record ---
Author Organization [facility] Address [address] [place] [address] Care Team Providers Care Residential Door Unit Installer Name Role Phone Jana JENSEN Chary Primary Care Provider UnavailMulugeta Lopez Jr Unavailable ALLERGIES Allergen (clinical drug ingredient) Drug/Non Drug Allergy documented on EMR Reaction Allergy Type Onset Date Status ibuprofen Ibuprofen interacts with b p meds Drug Allergy Active REASON FOR REFERRAL No Information MEDICATIONS Medication SIG (Take, Route, Frequency, Duration) Notes Start Date End Date Status metFORMIN HCl 1000 MG TAKE 1 TABLET BY M OUTH TWICE DAILY Oral for 90 Active Trulicity 0.75 MG/0.5ML ADMINISTER 0.75 MG UNDER THE SKIN WEEKLY Subcutaneous for 28 Active cloNIDine HCl 0.1 MG TAKE 1 TABLET BY MO UTH TWICE DAILY Oral for 30 Active Zolpidem Tartrate 10 MG TAKE 1 TABLET BY MOUTH EVERYDAY AT BEDTIME Oral for 90 Active MiraLax (colon prep) 17 GM/SCOOP mixed with Gatorade or Crystal Light Orally begin at 5:00 p.m. the day before the procedure for 1 day 01/18/2022 Active oxyCODONE HCl 20 MG as directed Orally a s directed Active Atorvastatin Calcium 20 MG TAKE 1 TABLET BY MOUTH DAILY AT BEDTIME Oral for 90 Active amLODIPine Besylate 10 MG Oral for 90 Active Metoprolol Tartrate 100 MG 1 tablet with food Orally Twice a day for 30 day(s) Active clonazePAM 1 MG TAKE 1 TABLET BY GUERRERO TH TWICE A DAY Oral for 90 Active Lantus 100 UNIT/ML as directed/23 units Subcutaneous daily Active Furosemide 40 MG Oral for 90 A ctive Aspir-81 81mg Active Diclofenac Sodium 50 MG Oral for 90 Active Zolpidem & Diet Manage Prod 10mg Active IMMUNIZATIONS Vaccine Route Administration Date Status Comme nts Influenza Unknown 06/06/2021 Administered SOCIAL HISTORY Sex Assigned At : Social History Observation Description Sex Assigned At Unknown PROBLEMS Problem Type ICD Code Onset Dates Problem Status W/U Status Risk SNOMED Code Notes Problem Colon cancer screening (Z12.11) Active confirmed 315102308 Problem 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 (Z79.82) Active confirmed 599961605754929 PLAN OF TREATMENT Future Test Test Name Order Date COLONOSCOPY 01/18/2022 Insurance Providers Payer Name Payer Address Payer Phone Subscriber Number Group Number Insured Name Patient Relationship to Insured Coverage Start Date Coverage End Date MEDICARE OF [place] [address] [place] [id number] NIKA DORADO Self - patient is the insured MEDICAID OF [facility] [address] [place] [address] [id number] NIKA DORADO Self - patient is the insured MEDICAL (GENERAL) HISTORY Medical History History ICD Code diabetes mellitus hypertension degenerative joint disease elevated Cholesterol Surgical History Surgery Date(Month/Year) L rotator cuff repair and bone spurs 01/04 hydrocele repair 2020
--- OUTSIDE RECORDS SUMMARY | 2024-12-04 14:21 | XMS_ITS | Clinical Summary ---
Author Organization [facility] Address [address] [place] [address] Care Team Providers Care Operations Vocational Instructor Name Role Phone Chary Bates MD Primary Care Provider [phone] Allergies Active Allergy Reactions Criticality Noted Date Comments Ibuprofen 12/18/2020 Medications Medication Sig Dispensed Refills Start Date End Date Status amLODIPine (NORVASC) tablet 10 mg 0 05/09/2017 Active atorvastatin (LIPITOR) tablet 20 mg 0 03/09/2017 Active clonazePAM (KLONOPIN) 1 MG tablet 0 05/01/2017 Active cyclobenzaprine (FLEXERIL) 10 MG tablet TK 1 T PO TID 5 04/29/2017 Active diclofenac (CATAFLAM) 50 MG tablet TK 1 T PO BID 1 04/29/2017 Active fenofibrate (TRIGLIDE) 160 MG tablet 0 05/09/2017 Active furosemide (LASIX) 20 MG tablet TK 1 T PO D 10 04/29/2017 Active NOVOLOG FLEXPEN 100 UNIT/ML injection 0 05/09/2017 Active LANTUS SOLOSTAR 100 UNIT/ML injection 0 03/06/2017 Active metFORMIN (GLUCOPHAGE) tablet 1000 mg 0 05/09/2017 Active metoprolol succinate (TOPROL-XL) 24 hr tablet 100 mg 0 05/09/2017 Active olmesartan (BENICAR) tablet 40 mg 0 03/20/2017 Active aspirin 81 MG chewable tablet Chew 81 mg by mouth daily. 0 Active zolpidem (AMBIEN) 10 MG tablet TAKE 1 TABLET BY MOUTH EVERY NIGHT AT BEDTIME 11/21/2017 Active sertraline (ZOLOFT) 100 MG tablet TAKE 1 AND 1/2 TABLETS BY MOUTH EVERY MORNING 1 11/21/2017 Active FREESTYLE LITE test strip USE TO TEST BLOOD SUGAR TID 3 11/06/2017 Active furosemide (LASIX) 40 MG tablet TK 1 T PO D 3 11/29/2017 Active diclofenac (VOLTAREN) 25 MG EC tablet TK 2 TS PO BID 1 11/25/2018 Active VASCEPA 1 g CAPS TK 2 CS PO BID 3 02/02/2019 Acti ve predniSONE (DELTASONE) tablet 10 mg 0 02/01/2019 Active cloNIDine (CATAPRES) tablet 0.1 mg TK 1 T PO BID 0 10/14/2019 Active sildenafil (VIAGRA) 100 MG tablet Take 100 mg by mouth daily as needed. 0 05/08/2020 Active Trulicity 0.75 MG/0.5ML subcutaneous pen-injector ADMINISTER 0.75 MG UNDER THE SKIN WEEKLY 0 02/14/2021 Active Cholecalciferol 50 MCG (1999 UT) CAPS Take 1 capsule by mouth. 0 Active ciclopirox (LOPROX) 0.77 % cream APPLY TOPICALLY TO THE AFFECTED AREA TWICE DAILY 0 04/02/2021 Active metoprolol tartrate (LOPRESSOR) 50 MG tablet Take 50 mg by mouth. 0 Active aspirin 81 MG EC tablet Take 81 mg by mouth. 0 Active clonazePAM (KlonoPIN) 1 MG tablet Take 1 mg by mouth. 0 05/24/2021 Active cloNIDine (CATAPRES) tablet 0.1 mg Take 1 tablet by mouth 2 (two) times a day. 0 05/31/2021 Active B-D ULTRAFINE III SHORT PEN 31G X 8 MM MISC USE TO INJECT INSULIN FOUR TIMES DAILY 0 10/09/2021 Active diclofenac (VOLTAREN) 50 MG EC tablet Take 50 mg by mouth 2 (two) times a day with meals. 0 10/28/2021 Active oxyCODONE (ROXICODONE) 5 MG immediate release tablet Take 1-2 tabs p.o. every 4-6 hours as needed for pain. 40 tablet 0 01/30/2022 Active warfarin (COUMADIN) 1 MG tablet Take 7 tabs daily or as directed by physician 110 tablet 0 05/22/2022 Active amoxicillin (AMOXIL) 500 MG tablet Take 4 tabs 1 hour prior to dental appointment 20 tablet 3 05/24/2022 Active acetaminophen (TYLENOL EXTRA STRENGTH) 500 MG tablet Take 1,000 mg by mouth 3 (three) times a day. 0 05/10/2022 Active oxyCODONE HCl (ROXICODONE) 10 MG TABS Take 1 tab every 24 hours as needed for pain 10 tablet 0 08/21/2022 Active gabapentin (NEURONTIN) 100 MG capsule TAKE 1 CAPSULE(100 MG) BY MOUTH EVERY NIGHT AT BEDTIME NEEDED 30 capsule 2 10/23/2022 Active Active Problems Problem Noted Date Diagnosed Date Chronic instability of right knee 03/14/2022 Arthritis of knee, left 03/14/2022 Impingement syndrome of right shoulder region Arthritis of right acromioclavicular joint 08/03 Arthritis of right knee 07/16/2017 Primary osteoarthritis of both knees 05/14/2017 Family History Medical History Relation Name Comments Cancer Father Heart disease Father Relation Name Status Comments Father Social History Tobacco Use Types Packs/Day Years Used Date Smoking Tobacco: Every Day Cigarettes 0.3 Alcohol Use Standard Drinks/Week Comments Yes 0 (1 standard drink = 0.6 oz pur e alcohol) weekly Sex and Gender Information Value Date Recorded Sex Assigned at Not on file Gender Identity Not on file Sexual Orientation Not on file Job Start Date Occupation Industry Not on file Not on file Not on file Last Filed Vital Signs Vital Sign Reading Time Taken Comments Blood Pressure - - Pulse - - Temperature - - Respiratory Rate - - Oxygen Saturation - - Inhaled Oxygen Concentration - - Weight 103.9 kg (229 lb) 02/17/2019 8:44 AM EDT Height 180.3 cm (5' 11 ) 02/17/2019 8:44 AM EDT Body Mass Index 31.94 02/17/2019 8:44 AM EDT Plan of Treatment Health Maintenance Due Date Last Done Comments Hepatitis C Screening 1960 Depression Screening 1973 BMI Counseling 1979 Preventative Health Evaluation 1979 Tobacco Cessation Counseling 1979 Colon Cancer Screening (Colonoscopy) 2006 Shingrix-Zoster Vaccine (1 of 2) 2011 Pneumococcal Vaccine (2 of 2 - PCV) 05/15/2018 05/15/2017, 03/02/2009 DTap / Tdap / Td (2 - Td or Tdap) 04/25/2021 04/25/2011 COVID-19 Vaccine ( - season) 2024 08/13/2021, 01/29/2021, 01/12/2021 Influenza Vaccine (#1) 2024 , 07/08/2018, 06/17/2017, Additional history exists RSV Adult > 60+ Yrs or (1 - 1-dose 75+ series) 02/16/2036 Hepatitis B Vaccines Aged Out No long er eligible based on patient's age to complete this topic RSV Ped < 20 months Aged Out No longe r eligible based on patient's age to complete this topic Care Teams Operations Vocational Instructor Relationship Specialty Start Date End Date Chary Bates MD PCP - General Family Medicine 05/02/17
--- OUTSIDE RECORDS SUMMARY | 2024-12-04 14:21 | XMS_ITS ---
[facility] Organization [facility] Address [address] [place] [address] Care Team Providers Care Water Treatment Plant Operator Name Role Phone Chary Bates MD Primary Care Provider Unavailab Pooja Mckeon Unavailable [phone] REASON FOR VISIT left foot flare up Encounters Encounter Location Date Provider Diagnosis [address] [address] 10/05/2024 Pooja Rosario Plan Of Treatment Next Appt Details Provider Name:Pooja Rachel Rosario , 01/17/2025 02:15:00 PM, [address] [place] [address], [phone], Progress Notes * Vincent DORADODOB:1960 (64 yo M)Acc No.[id number]:10/05/2024 Patient:?Vincent DORADO :1960???Age:64 Y???Sex:Male Address[address] [place], [address] * true * Date:? Generated for Printi ng/Faxing/eTransmitting on:?12/04/2024 02:20 PM EST
--- OUTSIDE RECORDS SUMMARY | 2024-12-04 14:21 | XMS_ITS | Encounter Summary ---
Author Organization [facility] Address [address] [place] [address] Care Team Providers Care Supercalender Operator Name Role Phone Chary Btaes MD Primary Care Provider [phone] Encounter Details Date Type Department Care Team (Late st Contact Info) Description 10/21/2024 Lab Requisition [facility] - Main Lab [address] [facility] [place] [id number] Karli Díaz PA [address] [place] [address] Benign essential microscopic hematuria Social History Tobacco Use Types Packs/Day Years Used Date Smoking Tobacco: Passive Smo ke Exposure - Never Smoker Alcohol Use Standard Drinks/Week Comments Yes 0 (1 standard drink = 0.6 oz pur e alcohol) Sex and Gender Information Value Date Recorded Sex Assigned at Not on file Legal Sex Male 9:56 AM EST Gender Identity Not on file Sexual Orientation Not on file documented as of this encounter Plan of Treatment Not on file documented as of this encounter Procedures Procedure Name Priority Date/Time Associated Diagnosis Comments AP OUTSIDE CONSULT Routine 10/18/2024 12 :00 AM EST Benign essential microscopic hematuria documented in this encounter Results * Anatomic pathology outside consult (10/18/2024 12:00 AM EST) Final Diagnosis A. Urine, Voided, ([id number]): Negative for high grade urothelial carcinoma. Acute inflammatory cells are present. Results of UroVysion fluorescence in situ hybridization (FISH) testing: Although FISH was performed, insufficient non-obscured hybridization signals are present for evaluation and interpretation. 11/02/2024 6:46 PM EST [facility] Clinical Information Benign essential microscopic hematuria R31.1 Cytology/Urine FISH (now) 11/02/2024 6:46 PM EST [facility] Gross Description A. Urine, Voided, ([id number]): Received is one ThinPrep slide for cytology screen and one ThinPrep slide for UroVysion FISH 11/02/2024 6:46 PM [facility] Disclaimer Unless otherwise specified, all tissue is 10% NB formalin fixed and paraffin embedded. Technical pathology services provided by [facility] at [address], [place] [address] (CLIA #[id number]/Christi Gandhi MD, Feather Baler) 11/02/2024 6:46 PM [facility] Tissue Urine specimen from urethra / Unknown 10/18/2024 10/21/2024 4:26 PM EST Karli [facility] PATHOLOGY ORDERABLES Natividad torres Result [facility] [address] [place] [address], documented in this encounter Visit Diagnoses Diagnosis Benign essential microscopic hematuria documented in this encounter Care Teams Supercalender Operator Relationship Specialty Start Date End Date Chary Bates MD [address] [place] [address], [facility] [address] [place] [address] PCP - General Family Medicine 05/02/17 documented as of this encounter
--- OUTSIDE RECORDS SUMMARY | 2024-12-04 14:21 | XMS_ITS | Clinical Summary ---
Author Organization [address] [facility] Address [address] [place] [address] Phone Care Team Providers Care Box Toe Buffer Name Role Phone Chary Bates MD Primary Care Provider [phone] Encounters Date Type Department Care Team Description 10/21/2024 Lab Requisition [facility] - Main Lab [address] [facility] [place] [id number] Karli Díaz PA Benign essential microscopic hematuria from Last 3 Months Surgical History Surgery Date Site/Laterality Comments COLONOSCOPY PROCEDURE: HISTORICAL COLONOSCOPY Medical History Medical History Date Comments Diabetes mellitus (CMS/HCC) 07/15/2012 DX:D iabetes mellitus (HCC) Obesity 07/15/2012 DX:Obesity HTN (hypertension) 07/15/2012 DX:HTN (hyper tension) Dyslipidemia, goal LDL below 70 07/15/2012 DX:Dyslipidemia, goal LDL below 70 Erectile dysfunction 07/15/2012 DX:Erectile dysfunction LVH (left ventricular hypert rophy) due to hypertensive disease 07/15/2012 DX:LVH (left ventricular h ypertrophy) due to hypertensive disease Family History Medical History Relation Name Comments Coronary artery disease Father fata l [place] at age 62 Heart attack Father Prostate cancer Father Relation Name Status Comments Father Social [...] on file Sexual Orientation Not on file Obstetrics History Plan of Treatment Health Maintenance Due Date Last Done Comments Diabetes: Annual GFR (Glomerular Filtration Rate) 1961 Diabetes: Annual Foot Exam 1971 Diabetes: Annual Retina Eye Exam 1971 Pneumococcal Vaccine: 50+ Years (2 of 2 - PCV) 2011 03/02/2009 Zoster Vaccines (1 of 2) 2011 RSV Immunization Patients 60+ Years Old (1 - Risk 60-74 years 1-dose series) 2021 DTaP,Tdap,and Td Vaccines (2 - Td or Tdap) 04/25/2021 04/25/2011 Cholesterol Screening (Lipid Panel) 09/13/2022 Colorectal Cancer Screening: Colonoscopy 09/13/2022 Depression Screening 09/13/2022 HIV Screening 09/13/2022 Hepatitis C Screening 09/13/2022 Medicare Annual Wellness Visit 09/13/2022 Social Influencers of Health Screening 09/13/2022 Diabetes: Annual Urine Albumin-Creatinine Ratio (uACR) 09/18/2022 Diabetes: Blood Sugar Control Test (HGBA1C) 09/18/2022 Hypertension/CHF/CAD Annual BMP Blood Test 09/18/2022 COVID-19 Vaccine ( season) 2024 Influenza Vaccine (#1) 2024 3, 06/23/2012, 08/27/2011, Additional history exists Pneumococcal Vaccine: Pediatrics (0 to 5 Years) and At-Risk Patients (6 to 64 Years) Aged Out 03/02/2009 No longer eligible based on patient's age to complete this topic Hepatitis B Vaccines Completed 11/21/2011, 06/27/2011, 05/27/2011 HIB Vaccines Aged Out No longer eligi [...] on patient's age to complete this topic MMR Vaccines Aged Out No longer eligi ble based on patient's age to complete this topic Meningococcal ACWY Vaccine Aged Out N o longer eligible based on patient's age to complete this topic Meningococcal B Vacine Aged Out No lo nger eligible based on patient's age to complete this topic RSV Immunization Patients Under 20 months Aged Out No longer eligible based on patient's age to complete this topic Varicella Vaccines Aged Out No longer eligible based on patient's age to complete this topic Procedures Procedure Name Priority Date/Time Associated Diagnosis Comments AP OUTSIDE CONSULT Routine 10/18/2024 12 :00 AM EST Benign essential microscopic hematuria from Last 3 Months Results * Anatomic pathology outside consult (10/18/2024 12:00 AM EST) Final Diagnosis A. Urine, Voided, ([id number]): Negative for high grade urothelial carcinoma. Acute inflammatory cells are present. Results of UroVysion fluorescence in situ hybridization (FISH) testing: Although FISH was performed, insufficient non-obscured hybridization signals are present for evaluation and interpretation. 11/02/2024 6:46 PM [facility] Clinical Information Benign essential microscopic hematuria R31.1 Cytology/Urine FISH (now) 11/02/2024 6:46 PM [facility] Gross Description A. Urine, Voided, ([id number]): Received is one ThinPrep slide for cytology screen and one ThinPrep slide for UroVysion FISH 11/02/2024 6:46 PM [facility] Disclaimer Unless otherwise specified, all tissue is 10% NB formalin fixed and paraffin embedded. Technical pathology services provided by [facility] at [address] [place] [address] [address], [place] [address] (CLIA #[id number]/Christi Gandhi MD, Getter Filler) 11/02/2024 6:46 PM [facility] Tissue Urine specimen from urethra / Unknown 10/18/2024 10/21/2024 4:26 PM EST Karli REBOLLEDO LAB PATHOLOGY ORDERABLES Natividad l Result [facility] [address] [place] [address], from Last 3 Months Insurance * Guarantor: Vincent Ballard Account Type Relation to Patient Date of Phone Billing Address Personal/Family Self 1960 42[place] [address] MEDICARE Advance Directives Documents on File Type Date Recorded Patient Home Administrator Expl anation Health Care Decision (hx) 03/15/2022 AD MCCARTY DIRECTIVE Health Care Decision (hx) 03/15/2022 AD MCCARTY DIRECTIVE Health Care Decision (hx) 03/15/2022 AD MCCARTY DIRECTIVE Health Care Decision (hx) 03/15/2022 AD MCCARTY DIRECTIVE Health Care Decision (hx) 03/15/2022 AD MCCARTY DIRECTIVE Health Care Decision (hx) 03/15/2022 AD MCCARTY DIRECTIVE Care Teams Box Toe Buffer Relationship Specialty Start Date End Date Chary Bates MD [address] [place] [address], [address] [place] [address] PCP - General Family Medicine 05/02/17
--- OUTSIDE RECORDS SUMMARY | 2024-12-04 14:21 | XMS_ITS | Data Portability ---
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 He is requesting for refill his antibiotics this was sent off to his pharmacy. Regarding his left knee he has osteoarthritis with symptomatic arthralgia. He is attempting to stave off any surgery as long as feasibly possible. He opted for cortisone injection at today's visit. After verbal consent was obtained by patient procedure was carried out on the left knee joint. He tolerated the procedure well aftercare instructions were discussed in detail. Follow-up visit 3 months time for repeat clinical exam. Patient agrees with above-noted plan. Indirect care and treatment in conjunction with Dr. Acevedo Additional treatment plan discussed with the patient in detail included the following; - Provider focused nonsteroidal anti-inflammatory regimen (discussed were the pros, cons, benefits and risks as well as any black box warnings) in patients over 60 years old they should be very cautious in taking these medications due to potential decreased kidney function and or elevated blood pressure. - Analgesic pain medication for pain suppression (discussed were the pros, cons, benefits and risks as well as any black box warnings) - The use of topical pain relieving medication were discussed - The use of ice to decrease inflammation and pain - The use of assistive ambulatory devices for ambulation and fall prevention - Formal specific guided physical therapy program I reviewed my findings at length with the patient today. ? ? ?We discussed the nature and etiology of this problem along with current treatment options. We discussed the expected course and outcomes and what to expect. We also discussed risks and benefits. ? ? ? All of their questions were answered today, and there was exhibited understanding and comprehension of all that was discussed. 10 minutes were spent reviewing previous imaging and charting. ? ? ?10 minutes were spent obtaining patient history. ? ? ?5 minutes were spent on physical exam. ? ? ?5? ? ?minutes were spent explaining diagnosis and assessment. Today's documentation was made using voice recognition software. This note may contain grammatical errors secondary to the software. Not available 02/13/2023 19:16:23 05/20/2023 05/20/2023 Pleasant 63-year -old male here for follow-up on his right total knee arthroplasty performed by Dr. Delgado May 2022. He appears to be doing quite well. He states he is doing his stretching exercise regiment. He takes his antibiotic prophylaxis. He is requesting for refill at this time. I will send this off to his pharmacy of choice. At this point follow-up visit 5 years for repeat evaluation. Should he have any questions or concerns regarding his right knee replacement he should contact our office and we will schedule an immediate appointment. Regarding his left knee he does have mild degenerative arthritis that is symptomatic. He is requesting for cortisone injection. After verbal consent was obtained. A cortisone injection was performed on the left knee. He tolerated this well. Aftercare instructions were discussed in detail. He can follow-up in 3 to 6 months time for repeat clinical exam. We also discussed viscosupplementation injections which he has had in the past which he does quite well with it. He is requesting for this to minimize the use of cortisone injection. We will need approval from his insurance carrier and we will set up an appointment accordingly. We would need to wait at least 6 to 8 weeks to begin the injection due to his cortisone injection at today's visit. All questions were answered today's visit. And the patient agrees with the above-noted plan. Indirect care and treatment in conjunction with Dr. Acevedo Additional treatment plan discussed with the patient in detail included the following; - Provider focused nonsteroidal anti-inflammatory regimen (discussed were the pros, cons, benefits and risks as well as any black box warnings) in patients over 60 years old they should be very cautious in taking these medications due to potential decreased kidney function and or elevated blood pressure. - Analgesic pain medication for pain suppression (discussed were the pros, cons, benefits and risks as well as any black box warnings) - The use of topical pain relieving medication were discussed - The use of ice to decrease inflammation and pain - The use of assistive ambulatory devices for ambulation and fall prevention - Formal specific guided physical therapy program I reviewed my findings at length with the patient today. ? ? ?We discussed the nature and etiology of this problem along with current treatment options. We discussed the expected course and outcomes and what to expect. We also discussed risks and benefits. ? ? ? All of their questions were answered today, and there was exhibited understanding and comprehension of all that was discussed. Time Spent: 10 minutes were spent reviewing previous imaging and charting. ? ? ?10 minutes were spent obtaining patient history. ? ? ?5 minutes were spent on physical exam. ? ? ?5? ? ?minutes were spent explaining diagnosis and assessment. Today's documentation was made using voice recognition software. This note may contain grammatical errors secondary to the software. Not available 06/02/2023 07:49:12 08/21/2023 08/21/2023 Pleasant 63-year -old male with symptomatic degenerative joint disease of left knee. He is here for Synvisc 1 injection. After verbal consent was granted by patient. The procedure was then carried out for which she tolerated well. Aftercare instructions were discussed in detail. Should he have any questions or concerns he should contact my office immediately otherwise I will see him back in 3 months time for repeat clinical exam. Should he have any other orthopedic needs should they arise he should contact our office for referral to the appropriate email deployment specialist. He agrees with this plan. Patient was seen and evaluated by Elizabeth Arriaza PA-C in indirect conjuction with Documenting Provider: Luca Acevedo MD . He/She agrees with history, physical examination, tests/diagnostic imaging, and treatment plan. Additional treatment plan discussed with the patient (only initiated if in boldface font) otherwise not applicable. Treatment may include the following; - Provider focused nonsteroidal anti-inflammatory regimen (discussed were the pros, cons, benefits and risks as well as any black box warnings) in patients over 60 years old they should be very cautious in taking these medications due to potential decreased kidney function and or elevated blood pressure. - Analgesic pain medication for pain suppression (discussed were the pros, cons, benefits and risks as well as any black box warnings) - The use of topical pain relieving medication were discussed - The use of ice to decrease inflammation and pain - The use of assistive ambulatory devices for ambulation and fall prevention - Formal specific guided physical therapy program I reviewed my findings at length with the patient today. ? ? ?We discussed the nature and etiology of this problem along with current treatment options. We discussed the expected course and outcomes and what to expect. We also discussed risks and benefits. ? ? ? All of their questions were answered today, and there was exhibited understanding and comprehension of all that was discussed. Time Spent: 10 minutes were spent reviewing previous imaging and charting. ? ? ?10 minutes were spent obtaining patient history. ? ? ?5 minutes were spent on physical exam. ? ? ?5? ? ?minutes were spent explaining diagnosis and assessment. Today's documentation was made using voice recognition software. This note may contain grammatical errors secondary to the software. [email or web address] Not available 08/22/2023 07:23:10 Plan of Treatment Reminders Order Date Submit Date Provider Last Modified By Organization Details Last Modified Time Details Appointments None recorded. Lab None recorded. Referral None recorded. Procedures intra-artic ular injection, knee, viscosupple ment (PROC) - Please check insurance for [employer] Author[employer] on, insurance preferred med.Knee Laterality: Left 2022 023 [email or web address] Not available 3 08:54:29 Surgeries None recorded. Imaging XR, knee, 3 view 2022 023 [facility], [address], [place], [address], 3 07:32:46 XR, knee, 4 or more view 2022 023 [facility], [address], [place], [address], 3 15:57:02 Medication Orders Synvisc-One 48 mg/6 mL intra-artic ular syringe 2022 023 [facility] #83545, [address] [place], [place], [id number], 3 11:43:31 amoxicillin 500 mg capsule 2022 023 [facility], [address] [place] [address], [place], [id number], 3 16:05:40 Kenalog 40 mg/mL suspension for injection 2022 023 [address] [facility], [address] [place] [address], [place], [id number], 3 11:11:52 lidocaine (PF) 10 mg/mL (1 %) injection solution [address] [facility] #98233, [address] [place] [address], [place], [id number], 3 11:11:54 amoxicillin 500 mg tablet 2022 023 [facility]60755, [address] [place] [address], [place], [id number], 3 13:56:16 Kenalog 40 mg/mL suspension for injection 2022 023 [place] [address] [facility] #34528, [address] [place] [address], [place], [id number], 3 11:11:52 lidocaine (PF) 10 mg/mL (1 %) injection solution 2022 023 [place] [address] [facility], [address] [place] [address], [place], [id number], 3 11:11:54 Patient TargetsNo targets recorded. Patient Instructions Encounter Date Encounter Id Patient Instructions Last Modified By Organization Details Last Modified Time 02/12/2023 [id number] You have been provided with a cortisone injection in order to reduce the pain and inflammation that you are experiencing. The injection consists of two medications. Cortisone (an anti-inflammatory that will take 48-72 hours to take effect) and Lidocaine (a numbing agent that will last 2-3 hours). Please note that not everyone will have a lasting response following the injection. PATIENT INSTRUCTIONS Once the Lidocaine wears off, you may have an increase in your pain. I recommend icing the affected area for 20 minutes 3-4 times per day. It is recommended that you refrain from any high level activities using the joint or limb that was injected for approximately 24-48 hours. Normal day-to-day activities are generally not a problem. POSSIBLE SIDE EFFECTS Individuals with dark complexions may experience some skin discoloration locally at the site of the injection. There is the possibility of an increase in discomfort within 48 hours following the injection. This is called a ? f lare? . To help minimize the chances of this, please see the post-injection instructions above. There is a less than 1% chance of an infection. If you notice any signs of infection (redness, warmth, drainage, fever greater than 100 degrees) please call our office or contact us through the portal [facility]. Not available 02/13/2023 19:15:33 X-rays at today's visit AP, Aragon lateral and sunrise view reveal mild joint space narrowing within the medial lateral compartment, he has moderate patellofemoral joint space narrowing. Without acute bony abnormality. The images of his right knee replacement reveal well-seated well-positioned total knee arthroplasty without obvious signs of loosening noted on Aragon, AP and sunrise view which was also compared to his previous study which included lateral view on 05/24/2022. Not available 02/13/2023 19:12:57 05/20/2023 [id number] You have been provided with a cortisone injection in order to reduce the pain and inflammation that you are experiencing. The injection consists of two medications. Cortisone (an anti-inflammatory that will take 48-72 hours to take effect) and Lidocaine (a numbing agent that will last 2-3 hours). Please note that not everyone will have a lasting response following the injection. PATIENT INSTRUCTIONS Once the Lidocaine wears off, you may have an increase in your pain. I recommend icing the affected area for 20 minutes 3-4 times per day. It is recommended that you refrain from any high level activities using the joint or limb that was injected for approximately 24-48 hours. Normal day-to-day activities are generally not a problem. POSSIBLE SIDE EFFECTS Individuals with dark complexions may experience some skin discoloration locally at the site of the injection. There is the possibility of an increase in discomfort within 48 hours following the injection. This is called a ? f lare? . To help minimize the chances of this, please see the post-injection instructions above. There is a less than 1% chance of an infection. If you notice any signs of infection (redness, warmth, drainage, fever greater than 100 degrees) please call our office or contact us through the portal [facility]. Not available 06/02/2023 07:48:29 X-rays of his ri ght knee reveal well-seated well-positioned total knee arthroplasty without sign of loosening. No acute bony abnormality. Not available 06/02/2023 07:49:40 08/21/2023 [id number] You have been pr ovided with a viscosupplementation injection in order to reduce the pain that you are experiencing from your arthritis. The injection consists of a lubricating injection called hyaluronic acid. Please note that not everyone will have a lasting response following the injection. PATIENT INSTRUCTIONS I recommend icing the affected area for 20 minutes 3-4 times per day. It is recommended that you refrain from any high level activities using the joint or limb that was injected for approximately 24-48 hours. Normal day-to-day activities are generally not a problem. POSSIBLE SIDE EFFECTS Individuals with dark complexions may experience some skin discoloration locally at the site of the injection. There is the possibility of an increase in discomfort within 48 hours following the injection. This is called a ? f lare? . To help minimize the chances of this, please see the post-injection instructions above. There is a less than 1% chance of an infection. If you notice any signs of infection (redness, warmth, drainage, fever greater than 100 degrees) please call our office or contact us through the portal [facility]. [email or web address] Not available 08/21/2023 11:08:11 Reason for Referral None Reported. Problems Name Problem SNOMED Code Status Onset Date Resolution Date Notes Provider Name and Address Organization Details Recorded Time Osteoarthri tis of left knee joint 4805198793742 09 Active 2022 ELIZABETH ARRIAZA PA-C [address], [place], [address], [place] [facility] 13:55:40 Pain of left knee joint 6315291699247 07 Active 2022 ELIZABETH ARRIAZA PA-C [address], [place], [address], [place] [facility], P 19:14:44 Problem Notes None recorded. Procedures Surgical History Date Name Laterality Status Provider Name and Address Organization Details Recorded Time 08/21/20 23 Synvisc-One Knee Inj completed ELIZABETH ARRIAZA PA-C [address], [place], [address], [place] [facility] 08/22/2023 07:21:53 05/20/20 23 Knee Joint/Bursa Asp & Inj completed ELIZABETH ARRIAZA PA-C [address], [place], [address], [place] [facility] 06/02/2023 07:44:49 02/13/20 23 Knee Joint/Bursa Asp & Inj completed ELIZABETH ARRIAZA PA-C [address], [place], [address], [place] [facility] 02/13/2023 19:14:18 Shoulder Surgery completed Ana Mckeon [place] [facility] 02/12/2023 13:36:53 total knee replacement completed Ana Mckeon [facility] [place] 02/12/2023 13:37:00 Imaging Results None recorded. Procedure Notes None recorded. Medical Equipment None Reported. Allergies Allergen ID Allergen Name Allergen Category Reaction Reaction Severity Criticality Documentation Date Start Date Code Code System Note Provider Name and Address Organization Details Recorded Time 3770 ibuprofen medicatio n Not available Not available Not available 02/12/2023 5640 RxNorm Ana Mckeon null, [place] [facility] 3 13:36:23 Medications Name Sig Start Date Stop Date Status Note LastModified by Organization Details LastModified Time quetiapine 25 mg tablet TAKE 1 TABLET BY MOUTH THREE TIMES A DAY active Not Available Not Available No t Available cyclobenzap rine 10 mg tablet TAKE 1 TABLET BY MOUTH THREE TIMES DAILY active Not Available Not Available No t Available amoxicillin 500 mg capsule TAKE 4 CAPSULES BY MOUTH 1 HOUR BEFORE DENTAL PROCEDURE active Not Available Not Available No t Available clonidine HCl 0.1 mg tablet TAKE 1 TABLET BY MOUTH TWICE DAILY 08/21 completed Not Available Not Available Not Available doxycycline hyclate 100 mg capsule TAKE 1 CAPSULE BY MOUTH TWICE DAILY FOR 7 DAYS 08/21 completed Not Available Not Available Not Available atorvastati n 20 mg tablet TAKE 1 TABLET BY MOUTH DAILY AT BEDTIME active Not Available Not Available No t Available metoprolol succinate ER 100 mg tablet,exte nded release 24 hr TAKE 1 TABLET BY MOUTH DAILY active Not Available Not Available No t Available sertraline 100 mg tablet TAKE 1 AND 1/2 TABLET BY MOUTH EVERY DAY active Not Available Not Available No t Available clonazepam 1 mg tablet TAKE 1 TABLET BY MOUTH TWICE A DAY active Not Available Not Available No t Available ciprofloxac in 250 mg tablet TAKE 1 TABLET BY MOUTH TWICE DAILY active Not Available Not Available No t Available acetaminoph en 500 mg tablet TAKE 2 TABLETS BY MOUTH THREE TIMES DAILY active Not Available Not Available No t Available sildenafil 100 mg tablet TAKE 1 TABLET BY MOUTH ONCE DAILY NEEDED active Not Available Not Available No t Available amoxicillin 500 mg tablet TAKE 4 TABLETS BY MOUTH 1 HOUR BEFORE DENTAL PROCEDURE active Not Available Not Available No t Available Kenalog 40 mg/mL suspension for injection Take 1 mL by injection route. 08/21 completed Not Available Not Available Not Available tamsulosin 0.4 mg capsule TAKE 1 CAPSULE BY MOUTH AT BEDTIME 08/21 completed Not Available Not Available Not Available amlodipine 10 mg tablet TAKE 1 TABLET BY MOUTH EVERY DAY active Not Available Not Available No t Available metformin 1,000 mg tablet TAKE 1 TABLET BY MOUTH TWICE DAILY active Not Available Not Available No t Available gabapentin 300 mg capsule TAKE 1 CAPSULE BY MOUTH AT BEDTIME active Not Available Not Available No t Available diclofenac sodium 50 mg tablet,kendy yed release TAKE 1 TABLET BY MOUTH TWICE DAILY WITH MEALS active Not Available Not Available No t Available gabapentin 100 mg capsule TAKE 1 CAPSULE BY MOUTH THREE TIMES DAILY active Not Available Not Available No t Available oxycodone 30 mg tablet TAKE 1 TABLET BY MOUTH EVERY 6 HOURS active Not Available Not Available No t Available warfarin 1 mg tablet TAKE 7 TABLETS BY MOUTH DAILY OR ASDIRECTE D BY PHYSICIAN 08/21 completed Not Available Not Available Not Available zolpidem 10 mg tablet TAKE 1 TABLET BY MOUTH EVERYDAY AT BEDTIME active Not Available Not Available No t Available oxycodone 5 mg tablet TAKE 1 TO 2 TABLETS BY MOUTH EVERY 6 HOURS NEEDED FOR PAIN active Not Available Not Available No t Available olmesartan 40 mg tablet active Not Available Not Available Not Available enoxaparin 40 mg/0.4 mL subcutaneou s syringe INJECT 40 MG UNDER THE SKIN DAILY 08/21 completed Not Available Not Available Not Available ciclopirox 0.77 % topical cream APPLY TOPICALLY TO THE AFFECTED AREA TWICE DAILY active Not Available Not Available No t Available Senna Plus 8.6 mg-50 mg tablet TAKE 2 TABLETS BY MOUTH EVERY NIGHT AT BEDTIME 08/21 completed Not Available Not Available Not Available lidocaine (PF) 10 mg/mL (1 %) injection solution Take 2 mL by injection route. 08/21 completed Not Available Not Available Not Available oxycodone 10 mg tablet TAKE 1 TABLET BY MOUTH EVERY 24 HOURS NEEDED FOR PAIN active Not Available Not Available No t Available Synvisc-One 48 mg/6 mL intra-artic ular syringe Take 48 mg by intraarti cular route. 2022 active Not Available Not Available Not Avai lable Accu-Chek Judy Plus test strips TEST BLOOD SUGAR THREE TIMES DAILY active Not Available Not Available No t Available Vascepa 1 gram capsule TAKE 2 CAPSULES BY MOUTH TWICE DAILY active Not Available Not Available No t Available Trulicity 0.75 mg/0.5 mL subcutaneou s pen injector ADMINISTE R 0.75 MG UNDER THE SKIN EVERY 7 DAYS 08/21 completed Not Available Not Available Not Available Basaglar KwikPen U-100 Insulin 100 unit/mL (3 mL) subcutaneou s INJECT 20 UNITS UNDER THE SKIN EVERY NIGHT AT BEDTIME active Not Available Not Available No t Available Vitals Date Recorded Body height Provider Name an d Address Organization Details Last Updated DateTime 08/21/2023 182.88 cm [facility] [place] [facility] 08/21/2023 11:13:44 Date Recorded Body height Body mass index (BMI) Body weight Provider Name and Address Organization Details Last Updated DateTime 02/12/2023 182.88 cm 28.5 kg/m2 13380.4 g Ana Mckeon [facility] [place] [facility] 02/12/2023 13:37:35 Date Recorded Body height Provider Name an d Address Organization Details Last Updated DateTime 05/20/2023 182.88 cm [facility] 05/20/2023 16:01:46 Social History Question Answer Notes LastModified by Organizat ion Details LastModified Time Tobacco Smoking Status Never Smoker Ana Mckeon null, [facility] 02/12/2023 13:37:20 What Is Your Level Of Alcohol Consumption? Occasional [email or web address] Information not available 02/12/2023 How Many Times Per Week Do You Consume Alcohol? 1-2 Times Per Week [email or web address] Information not available 02/12/2023 Sex: Unknown Functional Status None recorded. Mental Status None recorded. Family History Nothing Reported. Medical History Condition Response Coronary Artery Disease N Gout N Hyperthyroidism N MRSA N Blood Transfusion N Emphysema N Depression N COPD N Hypothyroidism N Pacemaker N Vascular Disease N Gastrointestinal Disease N Anxiety Disorder N Autoimmune disease N Arthritis N Cancer N Stroke N High Cholesterol N Neurologic Disorder N Liver Disease N Organ Transplant N Rheumatoid Arthritis N Arrhythmia N Fibromyalgia N Kidney Disease N Allergies/Hayfever N Adverse Reaction to Anesthesia N Thyroid Problems N Anemia N Brain Injury N Heart Attack (ND) N Osteopenia N Diabetes Y Bleeding Disorder N Seizures/Epilepsy N AIDS/HIV N Congestive Heart Failure (CHF) N Asthma N Amputation N Reflux/GERD N Sleep Apnea N Hepatitis N Aneurysm N Heart Disease N Pulmonary Embolism N Hypertension Y Osteoporosis N Past Encounters Encounter ID Performer Location Encounter Start Date Encounter Closed Date Diagnosis/Indication Diagnosis SNOMED-CT Code Diagnosis ICD10 Code Diagnosis Note [id number] MD BREANNA Dunham [address] [facility] [address] [place] [address] 02/12/2023 13:17:54 02/12/2023 14:15:42 Pain of left knee joint [id number] 68668 M25.562 History of right total knee replacement [id number] 928720 Z96.651 Osteoarthr itis of left knee joint 3316831756 63220 M17.12 [id number] MD BREANNA Dunham [facility] [address] [facility] [address] [place] [address] 05/20/2023 15:35:27 05/20/2023 16:02:58 History of right total knee replacement [id number] Z96.651 Osteoarthr itis of left knee joint [id number] 18781 M17.12 [id number] MD BREANNA Dunham [facility] [address] [facility] [address] [place] [address] 08/21/2023 10:52:24 08/21/2023 11:13:11 Osteoarthritis of left knee joint [id number] 61761 M17.12 Health Concerns Section Related Observation LastModified by Organization Detai ls LastModified Time None Recorded Concern Status LastModified by Organization Details LastModified Time None Recorded Advance Directives Directive None Recorded Payers Encounter Date Sequence Insurance Name Policy Number Policy Lindsey Covered Member ID Lindsey Member ID Guarantor Name 02/12/2023 1 [place] [employer] Vincent Ballard [id number] Vincent Ballard 02/12/2023 2 [place] [facility] Ballard [id number] Vincent Ballard 05/20/2023 1 [place] [employer] Vincent Ballard [id number] Vincent Ballard 05/20/2023 2 [place] [facility] Vincent Ballard [id number] Vincent Ballard 08/21/2023 1 [place] [employer] Vincent Ballard [id number] Vincent Ballard 08/21/2023 2 [place] [facility] Vincent Ballard [id number] Vincent Ballard Notes Date Note Type Note Provider Name and Address Organization Details Recorded Time 02/12/2023 text/html Pleasant 62-year -old male here for left knee pain he describes as generalized in nature. States that this has been ongoing for quite some time. His last cortisone injection lasted up until recently. His last injection of his left knee was performed on 07/24/[address] Delgado. X-rays at today's visit AP, Aragon lateral and sunrise view reveal mild joint space narrowing within the medial lateral compartment, he has moderate patellofemoral joint space narrowing. Without acute bony abnormality. The images of his right knee replacement reveal well-seated well-positioned total knee arthroplasty without obvious signs of loosening noted on Aragon, AP and sunrise view which was also compared to his previous study which included lateral view on 05/24/2022. ELIZABETH ARRIAZA PA-C [address], [place], [address], [place] - [facility] 02/13/2023 19:17:19 05/20/2023 text/html This is a pleasa nt 63-year-old male here for follow-up on his right total knee arthroplasty was performed by Dr. Delgado May 2022. Patient states he is doing well he has occasional discomfort with overactivity otherwise no complaints. Secondary complaint left knee pain due to osteoarthritis his last cortisone injection was in February 2023. Here for evaluation and possible cortisone injection of the left knee. X-rays of his right knee reveal well-seated well-positioned total knee arthroplasty without sign of loosening. No acute bony abnormality. ELIZABETH ARRIAZA PA-C [address], [place], [address], [place] - [facility] 06/02/2023 07:50:27 08/21/2023 text/html Very pleasant 63-year-old male here for Synvisc 1 injection of the left knee. His last injection was cortisone in May 2023. He has return of generalized left knee pain due to osteoarthritis. Strength stable left total joint replacement surgery as long as feasibly possible. He denies any recent illness. ELIZABETH ARRIAZA PA-C [address], [place], [address], [place] - [facility] 08/22/2023 07:23:36
== END 2024-12-04 14:39 | disposition home or self-care (01) ==
PROVIDERS: PCP Internal Medicine; Visit Provider Physician Assistant Medical
DX: R42 Dizziness and giddiness (principal)

== ENCOUNTER → 2024-12-04 14:17 | Outpatient (BNVA) | payer MEDICARE, MEDICAID, SELFPAY | PROVIDERS: PCP Internal Medicine | DX: R42 Dizziness and giddiness (principal) | CPT/HCPCS: 99212 ==

== ENCOUNTER 2025-01-17 14:56 | Outpatient (REF) | payer MEDICARE, MEDICAID, SELFPAY ==
[2025-01-17 16:28] LABS: C Reactive Protein 1.53 mg/dL (< or = 0.50); Uric Acid 7.4 mg/dL (3.4-7.0)
[2025-01-17 16:58] LABS: Erythrocyte Sedimentation Rate 13 MM/HR (0-15)
--- OUTSIDE RECORDS SUMMARY | 2025-01-17 17:28 | XMS_ITS | Clinical Summary ---
Author Organization [employer] Address [address] [place] [address] [address] [place] [address] Care Team Providers Care Adjunct History Instructor Name Role Phone Unavailable Primary Care Provider [...]
--- OUTSIDE RECORDS SUMMARY | 2025-01-17 17:28 | XMS_ITS | Encounter Summary ---
Author Organization [employer] Address [address] [place] [address] 7[address] [place] [address] Care Team Providers Care Applications Coordinator Name Role Phone Unavailable Primary Care Provider Unavailabl e Encounter Details Date Type Department Care Team (Latest Contact Info) Description 04/13/2019 Abstract [facility] CONVERSIONS Dental, Provider, DDS Social History Tobacco [...]
--- OUTSIDE RECORDS SUMMARY | 2025-01-17 17:29 | XMS_ITS | Encounter Summary ---
Author Organization [facility] Address [address] [facility] [address] [place] [address] Phone Care Team Providers Care Services Advisor Name Role Phone Chary Bates MD Primary Care Provider [phone] Reason for Visit * Reason Comments Med Refill Encounter Details Date Type Department Care Team (Late st Contact Info) Description 12/05/2023 Refill [facility] [address] [place] [phone] Camron Araya MD [address] [facility] [address] [place] [phone] Social History Tobacco Use Types Packs/Day Years [...] on filedocumented in this encounter Care Teams Services Advisor Relationship Specialty Start Date End Date Chary Bates MD [address] [place], [place] PCP - General 10/16/20 documented as of this encounter
--- OUTSIDE RECORDS SUMMARY | 2025-01-17 17:29 | XMS_ITS | Patient Health Record ---
Author Organization [facility] Address [address] [facility] [place] [address] Care Team Providers Care Dehydrator Operator Name Role Phone Chary Bates MD Primary Care Provider Unavailab sander Rosario Pooja Unavailable [phone] Yuliet Chau Unavailable [phone] Allergies Allergen (clinical drug ingredient) Drug/Non Drug Allergy documented on EMR Reaction Allergy Type Onset Date Status ibuprofen Ibuprofen Unknown Drug Allergy Active Results Component Value Reference Range Notes HEMOGLOBIN A1C (GLYCOHEMOGLO BIN) Reviewed date:05/17/2024 03:22:56 PM Interpretation: Performing Lab: Notes/Report: HEMOGLOBIN A1C % (HH) 5.0 HEMOGLOBIN A1C (GLYCOHEMOGLO BIN) Reviewed date:01/17/2025 02:18:46 PM Interpretation: Performing Lab: Notes/Report: HEMOGLOBIN A1C % (HH) 4.9 Reason For Referral No Information Medications Medication SIG (Take, Route, Frequency, Duration) Notes Start Date End Date Status Extra Depth Orthopedic Shoes (1 Pair) with Customized Heat Molded Multidensity Innersoles (3 Pair) as directed Dx: NIDDM/Polyneuropathy (E11.42), Hammertoe Foot Deformity (M20.41,M20.42), Preulcerative Skin Lesion(s) (L85.1 01/16/2023 Active Trulicity Active Extra-Depth Diabetic Shoes with 3 Pair Custom heat-molded multi-density innersoles . for 1 year . Dx:hamamertoes,hallux limitus for . 12/05/2014 Not-Taking Lovaza Active Fenofibrate Not-Taki ng Metformin & Diet Manage Prod Active NovoLOG Not-Taking Benicar Active Lantus Not-Taking Amlodipine & Diet Manage Prod Active Furosemide Not-Takin g Atorvastatin Calcium Active cloNIDine HCl 0.1 MG TK 1 T PO BID Oral for 30 Not-Taking Aspirin Active Extra Depth Orthopedic Shoes (1 Pair) with Customized Heat Molded Multidensity Innersoles (3 Pair) as directed Dx: NIDDM/Polyneuropathy (E11.42), Hammertoe Foot Deformity (M20.41,M20.42), Preulcerative Skin Lesion(s) (L85.1 06/13/2016 Not-Taking Medrol 4 MG as directed Orally d aily for 6 days 01/17/2025 Active amLODIPine Besylate 10 MG 1 tablet Orally Once a day Active Ciclopirox Olamine 0.77 % APPLY TOPICALLY TO THE AFFECTED AREAS TWICE DAILY for 21 Active Medrol becka 4mg as directed orally a s directed for 6 days 10/11/2024 Active Ciclopirox Olamine 0.77 % APPLY TOPICALLY TO THE AFFECTED AREA TWICE DAILY for 30 Active Metoprolol & Diet Manage Prod Not-Taking zzzGold Bonds for Diabetics . . apply to feet Daily for 30 days 12/05/2014 Not-Taking Immunizations Vaccine Route Administration Date Status Comme [...] Problem Acquired hammer toe of right foot (624959761079739 5) Other hammer toe(s) (acquired), right foot (M20.41) Active confirmed Problem Acquired hammer toe of left foot (860268930705746 3) Other hammer toe(s) (acquired), left foot (M20.42) Active confirmed Problem Localized, primary osteoarthritis of the ankle and/or foot (671828586) Primary osteoarthritis, right ankle and foot (M19.071) Active confirmed Problem Acquired hallux valgus (10577063) Hallux valgus (acquired), left foot (M20.12) Active confirmed Problem Acquired hallux valgus (05372628) Hallux valgus (acquired), right foot (M20.11) Active confirmed Problem Polyneuropathy due to type 2 diabetes mellitus (978764240) Type 2 diabetes mellitus with diabetic polyneuropathy (E11.42) Active confirmed Problem Acquired hammer toe of right foot (360643960843651 5) Hammer toe of right foot (M20.41) Active confirmed Problem Acquired hammer toe of left foot (897960351999024 3) Hammer toe of left foot (M20.42) Active confirmed Problem 39155121 Lower limb length difference (M21.70) Active confirmed Problem Gout (33840500) Gout of left foot (M10.9) Active confirmed Rx drug management (4) Problem Gout (83329502) Gout of right foot (M10.9) Active confirmed Rx drug management (4) Problem Primary gout (02856974) Acute idiopathic gout of left foot (M10.072) Active confirmed Problem 04793942 Smoker (F17.200) Active confirmed Problem 01779106 Essential hypertension (I10) Active confirmed Vital Signs Blood pressure diastolic 70 mm Hg 01/17/2025 Height 5yj04ms in 01/17/2025 Blood pressure systolic 130 mm Hg 01/17/2025 Weight 210 lbs 01/17/2025 BMI 29.29 kg/m2 01/17/2025 Procedures Procedure Date Ordered Date Performed Result Body Sit e 76874-WPXB SKIN LESIONS, 2 TO 4 05/17/2024 N/A Y4834-AZEAFOJD DYSTROPHIC NAILS ANY # 05/17/2024 N/A 89223-GMUA SKIN LESIONS, 2 TO 4 09/16/2024 N/A T2288-YMRWSRXF DYSTROPHIC NAILS ANY # 09/16/2024 N/A 33879-BZLU SKIN LESIONS, 2 TO 4 01/17/2025 N/A S8519-APVXKSFH DYSTROPHIC NAILS ANY # 01/17/2025 N/A Encounters Encounter Location Date Provider Diagnosis [address] [address] 05/17/2024 Pooja Black Type 2 diabetes mellitus with diabetic polyneuropathy E11.42 ; Smoker F17.200 ; Pain in left foot M79.672 ; Bursitis of left foot M77.52 ; Hallux valgus (acquired), left foot M20.12 ; Pain in right foot M79.671 ; Bursitis of right foot M77.51 and Hallux valgus (acquired), right foot M20.[address] [address] 09/16/2024 Pooja Black Type 2 diabetes mellitus with diabetic polyneuropathy E11.42 and Smoker F17.[address] [address] 10/11/2024 Yuliet Chau Pain in joint involving left ankle and foot M25.572 and Gout of left foot M10.[address] [address] 01/17/2025 Pooja Black Type 2 diabetes mellitus with diabetic polyneuropathy E11.42 ; Smoker F17.200 ; Pain in left ankle and joints of left foot M25.572 and Acute idiopathic gout of left foot M10.[address] [address] 03/18/2024 Pooja Black [address] [address] 03/26/[address] [address] 04/01/2024 Poojaangela Rosario [facility] [address] [place] [address] 04/01/2024 Pooja Rosario [facility] [address] [place] [address] 10/05/2024 Pooja Rosario [facility] [address] [place] [address] 10/11/2024 Pooja Rosario Assessments Encounter Date Diagnosis (ICD Code) Assessment Notes Treatment Notes Treatment Clinical Notes Section Notes 09/16/2024 Type 2 diabetes mellitus with diabetic [...] mellitus with diabetic polyneuropathy (ICD-10 - E11.42) 01/17/2025 Type 2 diabetes mellitus with diabetic polyneuropathy (ICD-10 - E11.42) 05/17/2024 Smoker (ICD-10 - F17.200) 01/17/2025 Smoker (ICD-10 - F17.200) 01/17/2025 Pain in left ankle and joints of left foot (ICD-10 - M25.572) 05/17/2024 Pain in left foot (ICD-10 - M79.672) 05/17/2024 Bursitis of left foot (ICD-10 - M77.52) 01/17/2025 Acute idiopathic gout of left foot (ICD-10 - M10.072) Patient Educated with: GOUT.pdf (GOUT.pdf) Patient Educated with: LOW PURINE DIET.pdf (LOW PURINE DIET.pdf) 05/17/2024 Hallux valgus (acquired), left foot (ICD-10 - M20.12) 05/17/2024 Pain in right foot (ICD-10 - M79.671) 05/17/2024 Bursitis of right foot (ICD-10 - M77.51) 05/17/2024 Hallux valgus (acquired), right foot (ICD-10 - M20.11) 10/11/2024 Other Plan Of Treatment Pending Test Test Name Order Date *Uric Acid, Serum 01/17/2025 *Sedimentation Rate-Westergren C-Reactive Protein, Quant 01/17/2025 X ray : Foot, left 3V 10/11/2024 04912-WFDFZDA NAIL, 6 OR MORE 09/15/2023 86084-MRTKCAX NAIL, 6 OR MORE 05/21/2021 15818-VPBQQYN NAIL, 6 OR MORE 08/27/2021 73904-FXEIVPN NAIL, 6 OR MORE 12/17/2021 79426-HBTGEEH NAIL, 6 OR MORE 03/21/2022 77871-CSQXQDM NAIL, 6 OR MORE 06/27/2022 36601-CUMHBAN NAIL, 6 OR MORE 10/14/2022 91184-JXJGJWJ NAIL, 6 OR MORE 01/16/2023 32669-NHYYJMD NAIL, 6 OR MORE 06/16/2023 76965-OUXJIBP NAIL, 6 OR MORE 06/07/2015 38153-BJHQFMZ NAIL, 6 OR MORE 12/06/2015 62761-GWQVYVB NAIL, 6 OR MORE 06/13/2016 43730-GOTDKZT NAIL, 6 OR MORE 12/12/2016 38602-XLOMHPQ NAIL, 6 OR MORE 06/12/2017 53007-GXRDNRY NAIL, 6 OR MORE 12/08/2017 41664-FPMWPCA NAIL, 6 OR MORE 06/11/2018 21656-GATPQQC NAIL, 6 OR MORE 11/05/2018 47396-GAMYPOC NAIL, 6 OR MORE 12/24/2018 31983-MKRCWXZ NAIL, 6 OR MORE 04/22/2019 47689-SRYAITM NAIL, 6 OR MORE 08/19/2019 78963-XBAFIRU NAIL, 6 OR MORE 02/10/2020 73040-OLMHSDV NAIL, 6 OR MORE 05/15/2020 87349-FGLDAIN NAIL, 6 OR MORE 08/17/2020 81181-BOCQIJK NAIL, 6 OR MORE 11/13/2020 20654-MUKWUJW NAIL, 6 OR MORE 02/19/2021 13522- Debride <25 sq cm 06/01/2015 45991- Debride <25 sq cm 06/07/2015 55173-XULN SKIN LESIONS, OVER 4 06/11/20 18 20983-VMHY SKIN LESIONS, 2 TO 4 12/09/19 18 03651-PJAB SKIN LESIONS, 2 TO 4 12/25/19 19 70262-ZVDP SKIN LESIONS, 2 TO 4 11/05/19 19 71354-OYVA SKIN LESIONS, 2 TO 4 06/07/20 15 19326-SYSI SKIN LESIONS, 2 TO 4 12/06/19 16 41443-CSMY SKIN LESIONS, 2 TO 4 12/13/19 17 14967-JBSY SKIN LESIONS, 2 TO 4 06/12/20 17 25788-QMSR SKIN LESIONS, 2 TO 4 06/13/20 16 35401-IMEQ SKIN LESIONS, 2 TO 4 05/21/20 21 80337-TGPO SKIN LESIONS, 2 TO 4 02/20/20 21 89175-UYWS SKIN LESIONS, 2 TO 4 11/13/19 21 15590-XHHC SKIN LESIONS, 2 TO 4 08/17/20 20 56216-DATA SKIN LESIONS, 2 TO 4 05/15/20 20 91493-ITBM SKIN LESIONS, 2 TO 4 02/10/20 20 20750-MCCR SKIN LESIONS, 2 TO 4 08/19/20 19 00937-MJOR SKIN LESIONS, 2 TO 4 04/22/20 19 61594-WMDF SKIN LESIONS, 2 TO 4 09/15/20 03001-RGNO SKIN LESIONS, 2 TO 4 06/16/20 76205-OSAC SKIN LESIONS, 2 TO 4 01/17/20 23 81026-SENN SKIN LESIONS, 2 TO 4 10/14/19 23 57529-TQZR SKIN LESIONS, 2 TO 4 06/27/20 22 47327-NFPN SKIN LESIONS, 2 TO 4 03/21/20 56208-SEHK SKIN LESIONS, 2 TO 4 12/18/19 71261-VVVE SKIN LESIONS, 2 TO 4 08/27/20 85609-KUKB SKIN LESIONS, 2 TO 4 12/18/19 24 04703-MCZA SKIN LESIONS, 2 TO 4 05/17/20 12457-XBMO SKIN LESIONS, 2 TO 4 12/06/19 15 84552-SHAI SKIN LESIONS, 2 TO 4 09/16/20 24 85573-APXC SKIN LESIONS, 2 TO 4 01/18/20 25 X0414-AHESEZWK DYSTROPHIC NAILS ANY # Y0571-HNRDZEIO DYSTROPHIC NAILS ANY # O7395-MIGGGKLP DYSTROPHIC NAILS ANY # N8826-JNVOTQLH DYSTROPHIC NAILS ANY # Next Appt Details Provider Name:Pooja Rosario , 05/19/2025 10:15:00 AM, [address] [place] [address], [phone], Insurance Providers Payer Name Payer Address Payer Phone Subscriber Number Group Number Insured Name Patient Relationship to Insured Coverage Start Date Coverage End Date Medicare National [employer] [address] [place] [address] [id number] Vincent Ballard Self - patient is the insured Medical (General) History Medical History History ICD Code Arthritis Chicken pox Measles Mumps Back,Hip,and Knee pain Hypertension [place] palsy Diabetic Surgical History Surgery Date(Month/Year) shoulder surgery- right 10/24/2020 right knee replacement 05/10/2022 Hospitalization History Reason Date(Month/Year) Went to [facility] ER DX- bells palsy 6
--- OUTSIDE RECORDS SUMMARY | 2025-01-17 17:29 | XMS_ITS | Clinical Summary ---
Author Organization [facility] Address [address] [address] [address] [place] [address] Phone Care Team Providers Care Harness Placer Name Role Phone Chary Bates MD Primary Care Provider [phone] Allergies Active Allergy Reactions Criticality Noted Date [...] hypertrophy 07/15/2012 06/22/2021 Obesity 07/15/2012 06/22/2021 Immunizations Immunization Administration Dates Next Due Hepatitis B 11/21/2011,06/27/2011,05/27/2011 [...] Colorectal Cancer Screening: Sigmoidoscopy 2010 Pneumococcal Vaccine: 50+ Years (3 of 3 - PCV) 05/15/2018 05/15/2017, 03/02/2009 Diabetes: Hemoglobin A1C 11/06/2020 Diabetes: Ophthalmology Exam 11/06/2020 Diabetes: Pedal Pulse Checked 11/06/2020 Diabetes: Sensory Foot Exam 11/06/2020 Diabetes: Visual Foot Exam 11/06/2020 Influenza Vaccine (Season Ended) 2025 06/04/2020, 07/18/2019, 06/28/2013, Additional history exists Hepatitis B Vaccine Aged Out 11/21/2011, 06/27/2011, 05/27/2011 No longer eligible based on patient's age to complete this topic Pneumococcal Vaccine: Peds (0 to 5 Years) and At-Risk Patients (6 to 49 Years) Discontinued 05/15/2017, 03/02/2009 Insurance * Guarantor: Vincent Ballard Account Type Relation to Patient Date of Phone Billing Address Personal/Family Self 1960 [address] [place] [address] [place] Care Teams Harness Placer Relationship Specialty Start Date End Date Chary Bates MD [address] [facility] Tao PCP - General 10/16/20
--- OUTSIDE RECORDS SUMMARY | 2025-01-17 17:29 | XMS_ITS | Patient Health Record ---
Author Organization [facility] Address [address] [place] [address] Care Team Providers Care Toy Assembler Name Role Phone Jana JENSEN Chary Primary Care Provider UnavailMulugeta Lopez Jr Unavailable Allergies Allergen (clinical drug ingredient) Drug/Non Drug Allergy documented on EMR Reaction Allergy Type Onset Date Status ibuprofen Ibuprofen interacts with b p meds Drug Allergy Active Reason For Referral No Information Medications Medication [...] Zolpidem & Diet Manage Prod 10mg Active Immunizations Vaccine Route Administration Date Status Comme nts Influenza Unknown 06/06/2021 Administered Problems Problem Type SNOMED Code ICD Code Onset Dates Problem Status W/U Status Risk Notes Problem 745220872 Colon cancer screening (Z12.11) Active confirmed Problem 123619421740042 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) use of aspirin (Z79.82) Active confirmed Plan Of Treatment Future Test Test Name Order Date COLONOSCOPY 01/18/2022 Insurance Providers Payer Name Payer Address Payer Phone Subscriber Number Group Number Insured Name Patient Relationship to Insured Coverage Start Date Coverage End Date MEDICARE OF [place] [address] [place] [address] [id number] NIKA DORADO Self - patient is the insured MEDICAID OF [facility] [address] [place] [address] [phone] [id number] NIKA DORADO Self - patient is the insured Medical (General) History Medical History History ICD Code diabetes mellitus hypertension degenerative joint disease elevated Cholesterol Surgical History Surgery Date(Month/Year) L rotator cuff repair and bone spurs 01/04 hydrocele repair 2020
--- OUTSIDE RECORDS SUMMARY | 2025-01-17 17:29 | XMS_ITS ---
Author Organization [facility] [place] Address [address] [facility] [place] [address] Care Team Providers Care Furnace Tender Name Role Phone Chary Bates MD Primary Care Provider Unavailab Pooja Mckeon Unavailable [phone] Yuliet Chau Unavailable [phone] Allergies Allergen (clinical drug ingredient) Drug/Non Drug Allergy documented on EMR Reaction Allergy Type Onset Date Status ibuprofen Ibuprofen Unknown Drug Allergy Active REASON FOR VISIT Foot pain Medications Medication SIG (Take, Route, Frequency, Duration) Notes Start Date End Date Status Trulicity Active Ciclopirox Olamine 0.77 % APPLY TOPICALLY [...] twice a day for 30 days Active Amlodipine & Diet Manage Prod Active Atorvastatin Calcium Active Metformin & Diet Manage Prod Active Benicar Active Lovaza Active Metoprolol & Diet Manage Prod Not-Taking zzzGold Bonds for Diabetics . . apply to feet Daily for 30 days 12/05/2014 Not-Taking Medrol becka 4mg as directed orally a s directed for 6 days 10/11/2024 Active Aspirin Active amLODIPine Besylate 10 MG 1 tablet Orally Once a day Active Furosemide Not-Takin g NovoLOG Not-Taking Lantus Not-Taking Extra-Depth Diabetic Shoes with 3 Pair Custom heat-molded multi-density innersoles . for 1 year . Dx:gray moeller limitus for . 12/05/2014 Not-Taking Fenofibrate Not-Taki ng cloNIDine HCl 0.1 MG TK 1 T PO BID Oral for 30 Not-Taking Social History Tobacco Use: Social History Observation [...] Problem Status W/U Status Risk Notes Problem Gout (12317677) Gout of right foot (M10.9) Active confirmed Rx drug management (4) Problem Gout (33372441) Gout of left foot (M10.9) Active confirmed Rx drug management (4) Vital Signs Height 5ft11.5in in 10/11/2024 Weight 205 lbs 10/11/2024 BMI 28.19 kg/m2 10/11/2024 Blood pressure systolic 130 mm Hg 10/11/19 25 Blood pressure diastolic 70 mm Hg 025 Encounters Encounter Location Date Provider Diagnosis [facility] [place] [address] [place] [address] 10/11/2024 Yuliet Chau Pain in joint involving left ankle and foot M25.572 and Gout of left foot M10.9 Assessments Encounter Date Diagnosis (ICD Code) Assessment Notes Treatment Notes Treatment Clinical Notes Section Notes 10/11/2024 Pain in joint involving left ankle and foot (ICD-10 - M25.572) 10/11/2024 Gout of left foot (ICD-10 - M10.9) Rx drug management (4) Patient Educated with: GOUT.pdf (GOUT.pdf) Patient Educated with: LOW PURINE DIET.pdf (LOW PURINE DIET.pdf) 10/11/2024 Other Plan Of Treatment Medication Medication Name Sig Start Date Stop Date Notes Medrol becka 4mg as directed orally as directed for 6 days 0 10/11/2024 Treatment Notes Assessment Notes Gout of left foot Patient Educated wit h: GOUT.pdf (GOUT.pdf) Patient Educated with: LOW PURINE DIET.pdf (LOW PURINE DIET.pdf) Pending Test Test Name Order Date X ray : Foot, left 3V 10/11/2024 Next Appt Details Follow Up: prn, Reason: Provider Name:Pooja Rosario , 05/19/2025 10:15:00 AM, [address] [facility], [place], [address], Progress Notes * NELLIE Juan DanielbarronDOB:1960 (64 yo M)Acc No.[id number]:10/11/2024 Progress Note Patient:?Vincent BALLARD Provider:?Yuliet Chau DPM :1960???Age:64 Y???Sex:Male Gibran e:10/11/2024 Address: [address], [place] Pcp:Chary Bates MD Subjective: * Chief Complaints: * ???Foot pain * HPI: ???Foot Pain:?Nature:?aching, swelling, tenderness, throbbing.?Location:?Great toe joint,??LEFT.?Duration:?1-2 days.?Onset:?sudden, unknown, denies trauma.?Course:?worse.?Aggravated:?any pressure.?Treatments:?rest/alter normal daily activity.?Misc:?Family history of gout, denies personal history of gout however states he gets these flare up to bilateral first MPJs approximately twice a year.? * ROS:?General/Constitutional:?Nausea?denies.?Vomiting?denies.?Hunger Thirst?denies.?Loss appetite?denies, denies.?Chills?denies, denies.?Fatigue?denies.?Fever?denies, denies.?Night Sweats?denies.?Unexplained weight loss?denies.?Unexplained weight gain?denies.?Ophthalmologic:?Blurred vision?denies.?Red eye?denies.?HEENTM:?Dentures?denies.?Dizziness?denies.?Glasses/contacts?admits.?Retinopathy?de nies.?Blurred/double vision?denies.?TMJ?denies.?Discharge/drainage?denies.?Implants?denies.?Sore throat?denies.?Dental implants?denies.?Hard of hearing ?denies.?Difficulty chewing/swallowing/speaking?denies.?Nose bleeds?denies.?Sore mouth?denies, denies.?Swollen glands?denies.?Respiratory:?On Oxygen?denies.?Pneumonia/pleurisy?denies.?Bronchitis?denies.?Emphysema?denies.?C oughing?denies, denies.?Cough blood?denies.?Shortness of breath?denies, denies.?Wheezing?denies, denies.?Cardiovascular:?Pacemaker?denies.?MVP?denies.?WPW?denies.?CHF?denies.?Heart attack?denies.?Septal defect?denies.?Rapid beat?denies.?Chest pain ?denies, denies.?Atrial Fib.?denies, denies.?Murmur/Palpitations?denies.?Gastrointestinal:?Hemorrhoids?denies.?Stomach/Abdominal pain?denies, denies.?Dark blood stool?denies.?Irritable bowel ?denies.?Constipation?denies.?Diarrhea?denies, denies.?Vomiting?denies.?Hematology:?Swelling?admits.?Clots?denies.?Varicose Veins?denies.?Bruising?denies.?Bleeding problem?denies.?Genitourinary:?Blood urine?denies, denies.?Frequent/Painfu/urination/bladder control?denies, denies.?Kidney stones?denies.?Infection (UTI)?denies.?Nephropathy?denies.?sex trans dis (STD)?denies.?Prostate?denies.?Musculoskeletal:?Hammertoes?denies.?Bunions?denies.?Back Pain?denies.?Muscle Cramps/ Resting?denies.?Muscle cramps / walking?denies.?Generalized aches and pains?denies.?Painful joints?denies.?Swollen joints?denies.?Weakness?denies.?Podiatric:?Comments?See HPI for comments.?Integ.:?Hatch?denies.?Scars?denies.?Corns/calluses?admits.?Ingrown nails?denies.?Painful nails?denies.?Open Sores?denies.?Itching?denies.?Rashes?denies, denies.?Neurologic:?Difficulty sleeping?denies.?Brain disorder?denies.?Numbness?denies.?Balance trouble?denies.?Confusion?denies, denies.?Fainting/blackouts?denies.?Headache?denies.?Tingling?denies.?Tremors?den ies.? * Medical History:? 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 * Social History:?Tobacco Use:?Tobacco Use/Smoking?Are you a:?current smoker ?How often do you smoke cigarettes??every day ?How many cigarettes a day do you smoke??5 or less ?How soon after you wake up do you smoke your first cigarette??after 60 minutes ?Are you interested in quitting??Not ready to quit ?Additional Findings: Tobacco User?Light cigarette smoker ((1-9 cigs/day) ?Tobacco use other than smoking?Are you an other tobacco user??No ???Drugs/Alcohol:?Drugs?Have you used drugs other than those for medical reasons in the past 12 months??No ?Alcohol Screen?Did you have a drink containing alcohol in the past year??Yes ?How often did you have a drink containing alcohol in the past year??2 to 3 times a week (3 points) ?Points?3 ?Interpretation?Negative ???Miscellaneous:?Caffeine: yes, frequency:, 1-2 cups per day. ?Children: yes, 2. ?Exercise: yes, At home. ?Marital status: single. 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 * Medications:?TakingamLODIPin e Besylate 10 MG Tablet 1 tablet Orally Once a day Aspirin Atorvastatin Calcium Amlodipine & Diet Manage Prod Benicar Metformin & Diet Manage Prod Lovaza Trulicity Extra Depth Orthopedic Shoes (1 Pair) with Customized Heat Molded Multidensity Innersoles (3 Pair) as directed Dx: NIDDM/Polyneuropathy (E11.42), Hammertoe Foot Deformity (M20.41,M20.42), Preulcerative Skin Lesion(s) (L85.1 Ciclopirox Olamine 0.77 % Cream APPLY TOPICALLY TO THE AFFECTED AREA TWICE DAILY Ciclopirox Olamine 0.77% Cream external Apply to effected areas twice a day Taking amLODIPine Besylate 10 MG Tablet 1 tablet Orally Once a day Taking Aspirin Taking Atorvastatin Calcium Taking Amlodipine & Diet Manage Prod Taking Benicar Taking Metformin & Diet Manage Prod Taking Lovaza Taking Trulicity Taking Extra Depth Orthopedic Shoes (1 Pair) with Customized Heat Molded Multidensity Innersoles (3 Pair) as directed Dx: NIDDM/Polyneuropathy (E11.42), Hammertoe Foot Deformity (M20.41,M20.42), Preulcerative Skin Lesion(s) (L85.1 Taking Ciclopirox Olamine 0.77 % Cream APPLY TOPICALLY TO THE AFFECTED AREA TWICE DAILY Taking Ciclopirox Olamine 0.77% Cream external Apply to effected areas twice a day Not-Taking/PRNExtra Depth Orthopedic Shoes (1 Pair) with Customized Heat Molded Multidensity Innersoles (3 Pair) as directed Dx: NIDDM/Polyneuropathy (E11.42), Hammertoe Foot Deformity (M20.41,M20.42), Preulcerative Skin Lesion(s) (L85.1 cloNIDine HCl 0.1 MG Tablet TK 1 T PO BID Oral Furosemide Lantus NovoLOG Fenofibrate Extra-Depth Diabetic Shoes with 3 Pair Custom heat-molded multi-density innersoles . . for 1 year . Dx:hamamertoes,hallux limitus zzzGold Bonds for Diabetics . . . apply to feet Daily Metoprolol & Diet Manage Prod Medication List reviewed and reconciled with the patientNot-Taking/PRN Extra Depth Orthopedic Shoes (1 Pair) with Customized Heat Molded Multidensity Innersoles (3 Pair) as directed Dx: NIDDM/Polyneuropathy (E11.42), Hammertoe Foot Deformity (M20.41,M20.42), Preulcerative Skin Lesion(s) (L85.1 Not-Taking/PRN cloNIDine HCl 0.1 MG Tablet TK 1 T PO BID Oral Not- Taking/PRN Furosemide Not-Taking/PRN Lantus Not-Taking/PRN NovoLOG Not-Taking/PRN Fenofibrate Not-Taking/PRN Extra-Depth Diabetic Shoes with 3 Pair Custom heat-molded multi-density innersoles . . for 1 year . Dx:hamamertoes,hallux limitus Not-Taking/PRN zzzGold Bonds for Diabetics . . . apply to feet Daily Not- Taking/PRN Metoprolol & Diet Manage Prod Medication List reviewed and reconciled with the patient * Allergies:?Ibuprofen: Contra indicationyes[Allergies Verified] Objective: * Vitals:?Ht:5ft11.5in, Wt:205 , BMI:28.19, Shoe size:12-12.5, BP:130/70mm Hg, BS:102, Ht-cm: 181.61 cm, Wt-k.99 kg. * ???Past Orders: ???Lab:HEMOGLOBIN A1C (GLYCO HEMOGLOBIN) (Order Date - 03/08/2024) (Collection Date & Time - 03/08/2024 03:22 PM) ? Value Reference Range ?HEMOGLOBIN A1C % (HH) 5.0 * Examination: ???Ophthalmology Referral: ?DIABETES EYE EXAM?Procedure Performed:?No ?Findings of Diabetic Eye Exam:?no retinopathy?Orthopedic: ?GAIT ABNORMALITY:? antalgic.?BUNION:?(+) Pain on palpation, inflammation present, ROM is guarded due to discomfort, 1st MPJ, LEFT foot.?Dermatologic: ?SKIN FINDINGS:?Skin shows sign(s) of,inflammation, erythema and edema to first MPJ, LEFT, no fluctuance or crepitus.?X-Rays - IMAGING REPORT: ?Clinical Indication(s):? Evaluate for Fracture, Evaluate for Osteomyelitis,?Evaluate for possible Gout.?Views:?3 views of Foot, AP, LAT, MO??Taken by trained?Podiatric Technology Sales Consultant (EF).?Findings:? increase in soft tissue contour and density at the symptomatic site, radiolucent soft tissue gas absent.?HAV:?there is no Negro sign present in the 1st MTH.?Fracture:?Negative fractures identified.?Signs of Osteomyelitis?Absent.?Neurological: ?SENSORY:?(DM/Neuro) Neurological exam demonstrates reduced sharp/dull pin prick discrimination reduced light touch sensation reduced vibration sensation reduced proprioception sensation in a stocking fashion 5.07 monofilament test performed at plantar aspects of 5 varied sites per foot shows sensation plantar aspects absent at Forefoot B/L.?Vascular: ?DP PULSES (B):?2/4, B/L.?PT PULSES (B):?2/4, B/L.?TROPHIC CONDITION-TEXTURE/ELASTICITY/TURGOR/HAIR GROWTH (B):?normal, B/L.?TEMPERTURE GRADIENT (C):?normal, warm to cool, proximal to distal, B/L, B/L.?PIGMENTATION:?normal, B/L.?EDEMA (C):?absent, B/L.?CLAUDICATION (C):? denies.? Assessment: * Assessment: 1.?Gout of left foot - M10.9 (Primary)???Specify :Acute problem, Complicated w/ Multiple Tx Options(4) Dx New problem, Prognosis Uncertain (4)???Notes :Rx drug management (4)???2.?Pain in joint involving left ankle and foot - M25.572??? Plan: * Treatment: 2.?Pain in joint involving l eft ankle and foot?Imaging: X ray : Foot, left 3V * Procedure Codes:?29925 X-RAY EXAM OF LEFT FOOT 3V, Modifiers: 26 , [id number] Pt scrn tbco id as non user * Preventive Medicine:? ??Counseling:?Discussion:?-14: Office or other outpatient visit for the evaluation and management of an established patient, which required a medically appropriate history and/or examination and MODERATE level of DECISION MAKING for: 1 OR MORE CHRONIC PROBLEM(S) THATS WORSENING, 2 STABLE CHRONIC PROBLEMS, A NEWLY DIAGNOSED PROBLEM WITH UNCERTAIN PROGNOSIS, AN ACUTE COMPLICATED INJURY WITH MULTIPLE TREATMENT OPTIONS, OR AN ACUTE PROBLEM WITH ACCOMPANYING SYSTEMIC SYMPTOMS, THAT POSE(S) A MODERATE RISK OF MORBIDITY. THIS CONDITION MAY ALSO INCLUDE RX DRUG MANAGEMENT, OR A DECISON FOR MINOR SURGERY. The visit on the day of the encounter encompassed interpreting the data and educating the patient as to the nature of their condition, treatment options available according to their individual PMH, meds, allergies, and overall health/living conditions, as well as any potential risks or complications that may occur from a failure to adhere to, and participate in, the recommended course of therapy. The discussion included a complete verbal, and/or written explanation of the examination results, any x-rays taken, the proposed diagnosis, and outline of the treatment plan. A schedule for future care needs was also explained. The patient verbalized an understanding of the instructions at this time and agreed to be an active participant in their treatment. If the patient should think of any questions or concerns after the visit, I have encouraged the patient to call the office.?Gout:?I explained to the patient the possible etiologies for Gout, including genetic, excess dietary protein, excess dietary sugar, alcohol, diuretic medications, dehydration, and/or previous surgery. An information sheet re: the foods to enjoy as well as avoid was dispensed and detailed at the time of visit. We discussed the risks/benefits of all the different treatment options for Gout including: No treatment at all, Rest, Ice, NSAIDs(only if well tolerated after meals), Oral steroids, Colchicine, New/supportive Shoegear, Foot/Ankle AFO Bracing, Arch support/shoe inserts, Custom orthoses, Topical analgesics including Aspercream/Voltaren gel/Custom compounded combination therapy, and Dietary modification. Advantages and disadvantages of each option were discussed and the patients questions re: shoegear, custom vs prefabricated inserts, activity level, PO vs Topical medications (and their respective potential complications/drug interactions/side effects including the possible interaction with statin medications ), diet, and consistency in home treatment regimens for optimal success were answered to their verbally confirmed satisfaction. We discussed that due to the acute nature gouty flare, unlikely elevation would be seen in Uric acid in bloodwork. We discussed that the best way to confirm gouty diagnosis would be a joint aspiration with sample sent to the lab. Patient refuses this at this time due to pain. We elected to treat the acute gouty flare at this time with Medrol dose pack given patient allergy to Ibuprofen..?P.R.I.C.E.:?The patient was counseled on the use of P.R.I.C.E. and NSAIDS (if well tolerated) to aid in the recovery from their painful condition.?Steriod Injection:?I explained that a steroid and local anesthetic injections are administered to relieve pain and inflammation and thereby meant to improve function. I explained the possible complications including but not limited to signs/symptoms of steroid flare, infection, bruising, atrophy, discoloration of skin, change/deviation in toe position, and that additional injections may be necessary, cortisone post-injection informative educational handout was dispensed to and reviewed with the patient.? ??Screening/Special Tests:?Fall Risk?Screening:?No falls in the past year ?FALLS: Screening for Future Fall Risk?Have you had any falls with injury in the past year??No * Follow Up:?prn * Images: * Sign off status: Completed true * Provider:?Yuliet Chau DPM Date:?0 10/11/2024 Generated for Robert arriaza/Billie/Bernadette on:?01/17/2025 05:29 PM EDT History and Physical Notes * HPI (History of Present Illness) Category Sub-Category Detail Notes Category Not es Foot Pain Nature: aching, swelling, tenderness , throbbing Location: Great toe joint, LEF T Duration: 1-2 days Onset: sudden, unknown, den ies trauma Course: worse Aggravated: any pressure Treatments: rest/alter normal da joni activity Misc: Family history of go ut, denies personal history of gout however states he gets these flare up to bilateral first MPJs approximately twice a year Examination Category Sub-Category Detail Notes Category Not es Neurological SENSORY: (DM/Neuro) Neuro logical exam demonstrates reduced sharp/dull pin prick discrimination reduced light touch sensation reduced vibration sensation reduced proprioception sensation in a stocking fashion 5.07 monofilament test performed at plantar aspects of 5 varied sites per foot shows sensation plantar aspects absent at Forefoot B/L Dermatologic SKIN FINDINGS: Skin shows sign( s) of, inflammation, erythema and edema to first MPJ, LEFT, no fluctuance or crepitus Orthopedic GAIT ABNORMALITY: antalgic BUNION: (+) Pain on palpatio n, inflammation present, ROM is guarded due to discomfort, 1st MPJ, LEFT foot Ophthalmology Referral DIABETES EYE EXAM Procedure Perform ed:: No Findings of Diabetic Eye Exam:: no retin opathy Vascular DP PULSES (B): 2/4, B/L PT PULSES (B): 2/4, B/L TEMPERTURE GRADIENT (C): normal, warm to cool, proximal to distal, B/L, B/L TROPHIC CONDITION-TEXTURE/ELASTICITY/TURGOR/HAIR GROWTH (B): normal, B/L EDEMA (C): absent, B/L CLAUDICATION (C): denies PIGMENTATION: normal, B/L X-Rays - IMAGING REPORT Findings: increase in soft tissue contour and density at the symptomatic site, radiolucent soft tissue gas absent Fracture: Negative fractures i dentified Signs of Osteomyelitis Absent HAV: there is no Negro s ign present in the 1st MTH Views: 3 views of Foot, AP, LAT, MO Taken by trained Podiatric Technology Sales Consultant (EF) Clinical Indication(s): Evaluate for Fra cture, Evaluate for Osteomyelitis, Evaluate for possible Gout
--- OUTSIDE RECORDS SUMMARY | 2025-01-17 17:30 | XMS_ITS | Encounter Summary ---
Author Organization [facility] Address [address] [place] [address] Care Team Providers Care Business Development Coordinator Name Role Phone Chary Bates MD Primary Care Provider [phone] Encounter Details Date Type Department Care Team (Late st Contact Info) Description 10/21/2024 Lab Requisition [facility] [address] [facility] [place] [id number] Karli Díaz PA [address] [place] [address] Benign essential microscopic hematuria Social History Tobacco [...] AM EST) Final Diagnosis A. Urine, Voided, ([id number]): Negative for high grade urothelial carcinoma. Acute inflammatory cells are present. Results of UroVysion fluorescence in situ hybridization (FISH) testing: Although FISH was performed, insufficient non-obscured hybridization signals are present for evaluation and interpretation. 11/02/2024 6:46 PM EST [facility] Clinical Information Benign essential microscopic hematuria R31.1 Cytology/Urine FISH (now) 11/02/2024 6:46 PM EST [facility] Gross Description A. Urine, Voided, ([id number]): Received is one ThinPrep slide for cytology screen and one ThinPrep slide for UroVysion FISH 11/02/2024 6:46 PM [facility] Disclaimer Unless otherwise specified, all tissue is 10% NB formalin fixed and paraffin embedded. Technical pathology services provided by [facility] [address] [place] [address] (CLIA #[id number]/Christi Gandhi MD, Inorganic Chemical Technician) 11/02/2024 6:46 PM [facility] Tissue Urine specimen from urethra / Unknown 10/18/2024 10/21/2024 4:26 PM EST us [facility] PATHOLOGY ORDERABLES Natividad l Result [facility] [address] [place] [address], documented in this encounter Visit Diagnoses Diagnosis Benign essential microscopic hematuria documented in this encounter Care Teams Business Development Coordinator Relationship Specialty Start Date End Date Chary Bates MD [address] [place] [address], [address] [place] [address] PCP - General Family Medicine 05/02/17 documented as of this encounter
--- OUTSIDE RECORDS SUMMARY | 2025-01-17 17:30 | XMS_ITS | Data Portability ---
Author Organization [place] [facility] Sawyer AONE [place] Address [address] [place] [address] Care Team Providers Care Waste Recycler Name Role Phone LYNDSEY GONZALES Primary Care Provider [phone] Assessment Encounter Date Assessment Date Assessment LastModified [...] our office for referral to the appropriate database marketing specialist. He agrees with this plan. Patient [...] knee, 3 view 2022 023 [facility], [address], [place], [address], 3 07:32:46 XR, knee, 4 or more view 2022 023 [facility], [address], [place], [address], 3 15:57:02 Medication Orders Synvisc-One 48 mg/6 mL intra-artic ular syringe 2022 023 [facility] #35940, [address], [place], [id number], 3 11:43:31 amox[facility] 500 mg capsule 2022 023 [facility], [address], [place], [id number], 3 16:05:40 Kenalog 40 mg/mL suspension for injection 2022 023 [address] [facility], [address], [place], [id number], 3 11:11:52 lidocaine (PF) 10 mg/mL (1 %) injection solution [address] [facility]43485, [address], [place], [id number], 3 11:11:54 amoxicillin 500 mg tablet 2022 023 [facility]29209, [address], [place], [id number], 3 13:56:16 Kenalog 40 mg/mL suspension for injection 2022 023 [place] [address] [facility] #87152, [address], [place], [id number], 3 11:11:52 lidocaine (PF) 10 mg/mL (1 %) injection solution 2022 023 [place] [address] [facility], [address], [place], [id number], 3 11:11:54 Patient TargetsNo targets recorded. Patient Instructions Encounter Date Encounter Id Patient Instructions Last Modified By Organization Details Last Modified Time 02/12/2023 [id number] You have been provided with a cortisone [...] office or contact us through the portal [facility]. Not available 02/13/2023 19:15:33 X-rays at [...] on 05/24/2022. Not available 02/13/2023 19:12:57 05/20/2023 [id number] You have been provided with a cortisone [...] bony abnormality. Not available 06/02/2023 07:49:40 08/21/2023 [id number] You have been pr ovided with a [...] Time Osteoarthri tis of left knee joint 0623400270179 09 Active 2022 ELIZABETH ARRIAZA PA-C [address], [facility] [place], [address], [place] [facility] 13:55:40 Pain of left knee joint 6477148503921 07 Active 2022 ELIZABETH ARRIAZA PA-C [address], [facility] [place], [address], [place] [facility] 19:14:44 Problem Notes None recorded. Procedures Surgical History Date Name Laterality Status Provider Name and Address Organization Details Recorded Time 08/21/20 23 Synvisc-One Knee Inj completed ELIZABETH ARRIAZA PA-C [address], [place], [address], [place] [facility] 08/22/2023 07:21:53 05/20/20 23 Knee Joint/Bursa Asp & Inj completed ELIZABETH ARRIAZA PA-C [address], [place], [address], [place] [facility] 06/02/2023 07:44:49 02/13/20 23 Knee Joint/Bursa Asp & Inj completed ELIZABETH ARRIAZA PA-C [address], [place], [address], [place] [facility] 02/13/2023 19:14:18 Shoulder Surgery completed Ana Mckeon [place] [facility] 02/12/2023 13:36:53 total knee replacement completed Ana Mckeon [facility] [place] 02/12/2023 13:37:00 Imaging Results None recorded. Procedure Notes None recorded. Medical Equipment None Reported. Allergies Allergen ID Allergen Name Allergen Category Reaction Reaction Severity Criticality Documentation Date Start Date Code Code System Note Provider Name and Address Organization Details Recorded Time 3770 ibuprofen medicatio n Not available Not available Not available 02/12/2023 5640 RxNorm Ana Mckeon null, [place] [facility] 3 13:36:23 Medications Name Sig Start [...] Details Last Updated DateTime 08/21/2023 182.88 cm [facility] [place] [facility] 08/21/2023 11:13:44 Date Recorded Body height Body mass index (BMI) Body weight Provider Name and Address Organization Details Last Updated DateTime 02/12/2023 182.88 cm 28.5 kg/m2 99476.4 g Ana Mckeon [facility] 02/12/2023 13:37:35 Date Recorded Body height Provider Name an d Address Organization Details Last Updated DateTime 05/20/2023 182.88 cm [facility] 05/20/2023 16:01:46 Social History Question Answer Notes LastModified by Organizat ion Details LastModified Time Tobacco Smoking Status Never Smoker Ana Mckeon null, [facility] 02/12/2023 13:37:20 What Is Your Level Of Alcohol Consumption? Occasional [email or web address] Information not available 02/12/2023 How Many Times Per Week Do You Consume Alcohol? 1-2 Times Per Week [email or web address] Information not available 02/12/2023 Sex: Unknown Functional Status None recorded. Mental Status None recorded. Family History Nothing Reported. Medical History Condition Response Coronary Artery Disease N Gout N Hyperthyroidism N MRSA N Blood Transfusion N Emphysema N COPD N Depression N Hypothyroidism N Pacemaker N Vascular Disease N Gastrointestinal Disease N Anxiety Disorder N Autoimmune disease N Arthritis N Cancer N Stroke N High Cholesterol N Neurologic Disorder N Liver Disease N Organ Transplant N Arrhythmia N Rheumatoid Arthritis N Fibromyalgia N Kidney Disease N Allergies/Hayfever N Adverse Reaction to Anesthesia N Thyroid Problems N Anemia N Brain Injury N Heart Attack (HI) N Osteopenia N Diabetes Y Bleeding Disorder [...] Diagnosis Note [id number] MD BREANNA Dunham [address] [facility] [address] [place] [address] 02/12/2023 13:17:54 02/12/2023 14:15:42 Pain of left knee joint 9465134795 41965 M25.562 History of right total knee replacement 6488057163 687765 Z96.651 Osteoarthr itis of left knee joint 0797502401 22132 M17.12 [id number] MD BREANNA Dunham [facility] [address] [facility] [address] [place] [address] 05/20/2023 15:35:27 05/20/2023 16:02:58 History of right total knee replacement 9996958403 241198 Z96.651 Osteoarthr itis of left knee joint 2607468416 35057 M17.12 [id number] MD BREANNA Dunham [facility] [address] [facility] [address] [place] [address] 08/21/2023 10:52:24 08/21/2023 11:13:11 Osteoarthritis of left knee joint 8787654046 51166 M17.12 Health Concerns Section Related Observation LastModified by Organization Detai ls LastModified Time None Recorded Concern Status LastModified by Organization Details LastModified Time None Recorded Advance Directives Directive None Recorded Payers Encounter Date Sequence Insurance Name Policy Number Policy Lindsey Covered Member ID Lindsey Member ID Guarantor Name 02/12/2023 1 [place] [employer] Vincent Ballard [id number] Vincent Ballard 02/12/2023 2 [place] [facility] Ball[facility] [id number] Vincent Ballard 05/20/2023 1 [place] [employer] Vincent Ballard [id number] Vincent Ballard 05/20/2023 2 [place] [facility] Vincent Blalard [id number] Vincent Ballard 08/21/2023 1 [place] [employer] Vincent Ballard [id number] Vincent Ballard 08/21/2023 2 [place] [facility] Vincent Ballard [id number] Vincent Ballard Notes Date Note Type Note [...] ELIZABETH ARRIAZA PA-C [address], [place], [address], [place] [facility] 02/13/2023 19:17:19 05/20/2023 text/html This is [...] ELIZABETH ARRIAZA PA-C [address], [place], [address], [place] [facility] 06/02/2023 07:50:27 08/21/2023 text/html Very pleasant 63-year-old male here for Synvisc 1 injection of the left knee. His last injection was cortisone in May 2023. He has return of generalized left knee pain due to osteoarthritis. Strength stable left total joint replacement surgery as long as feasibly possible. He denies any recent illness. ELIZABETH ARRIAZA PA-C [address], [place], [address], [place] [facility] 08/22/2023 07:23:36
--- OUTSIDE RECORDS SUMMARY | 2025-01-17 17:30 | XMS_ITS ---
Author Organization [facility] Address [address] [facility] [place] [address] Care Team Providers Care Dishwasher Preparer Name Role Phone Chary Bates MD Primary Care Provider Unavailab le Pooja Rosario Unavailable [phone] Allergies Allergen (clinical drug ingredient) Drug/Non Drug Allergy documented on EMR Reaction Allergy Type Onset Date Status ibuprofen Ibuprofen Unknown Drug Allergy Active REASON FOR VISIT At Risk Footcare, Foot pain Medications Medication SIG (Take, Route, Frequency, Duration) Notes Start Date End Date Status Metoprolol & Diet Manage Prod Not-Taking zzzGold Bonds for Diabetics . . apply to feet Daily for 30 days 12/05/2014 Not-Taking Extra-Depth Diabetic Shoes with 3 Pair Custom heat-molded multi-density innersoles . for 1 year . Dx:hamamertoes,hallux limitus for . 12/05/2014 Not-Taking Fenofibrate Not-Taki ng NovoLOG Not-Taking Extra Depth Orthopedic Shoes (1 Pair) with Customized Heat Molded Multidensity Innersoles (3 Pair) as directed Dx: NIDDM/Polyneuropathy (E11.42), Hammertoe Foot Deformity (M20.41,M20.42), Preulcerative Skin Lesion(s) (L85.1 06/13/2016 Not-Taking Ciclopirox Olamine 0.77 % APPLY TOPICALLY TO THE AFFECTED AREAS TWICE DAILY for 21 Active Lantus Not-Taking Furosemide Not-Takin g cloNIDine HCl 0.1 MG TK 1 T PO BID Oral for 30 Not-Taking Medrol becka 4mg as directed orally a s directed for 6 days 10/11/2024 Active Ciclopirox Olamine 0.77 % APPLY TOPICALLY TO THE AFFECTED AREA TWICE DAILY for 30 Active Extra Depth Orthopedic Shoes (1 Pair) with Customized Heat Molded Multidensity Innersoles (3 Pair) as directed Dx: NIDDM/Polyneuropathy (E11.42), Hammertoe Foot Deformity (M20.41,M20.42), Preulcerative Skin Lesion(s) (L85.1 01/16/2023 Active Trulicity Active Lovaza Active Aspirin Active Metformin & Diet Manage Prod Active Benicar Active Amlodipine & Diet Manage Prod Active Atorvastatin Calcium Active Medrol 4 MG as directed Orally d aily for 6 days 01/17/2025 Active amLODIPine Besylate 10 MG 1 tablet Orally Once a day Active Social History Tobacco Use: Social History Observation [...] User Light cigarett e smoker ((1-9 cigs/day) Tobacco use other than smoking: Question Answer Notes Are you an other tobacco user? No Problems Problem Type SNOMED Code ICD Code Onset Dates Problem Status W/U Status Risk Notes Problem Primary gout (72241763) Acute idiopathic gout of left foot (M10.072) Active confirmed Vital Signs Height 7tm27ei in 01/17/2025 Weight 210 lbs 01/17/2025 BMI 29.29 kg/m2 01/17/2025 Blood pressure systolic 130 mm Hg 01/18/20 25 Blood pressure diastolic 70 mm Hg 025 Procedures Procedure Date Ordered Date Performed Result Body Sit e 51604-FSVD SKIN LESIONS, 2 TO 4 01/17/2025 N/A [id number] DYSTROPHIC NAILS ANY # 01/17/2025 N/A Encounters Encounter Location Date Provider Diagnosis [facility] [address] [place] [address] 01/17/2025 Pooja Black Type 2 diabetes mellitus with diabetic polyneuropathy E11.42 ; Smoker F17.200 ; Pain in left ankle and joints of left foot M25.572 and Acute idiopathic gout of left foot M10.072 Assessments Encounter Date Diagnosis (ICD Code) Assessment Notes Treatment Notes Treatment Clinical Notes Section Notes 01/17/2025 Type 2 diabetes mellitus with diabetic polyneuropathy (ICD-10 - E11.42) 01/17/2025 Smoker (ICD-10 - F17.200) 01/17/2025 Pain in left ankle and joints of left foot (ICD-10 - M25.572) 01/17/2025 Acute idiopathic gout of left foot (ICD-10 - M10.072) Patient Educated with: GOUT.pdf (GOUT.pdf) Patient Educated with: LOW PURINE DIET.pdf (LOW PURINE DIET.pdf) Plan Of Treatment Medication Medication Name Sig Start Date Stop Date Notes Medrol 4 MG as directed Orally daily for 6 days 01/17/2025 Treatment Notes Assessment Notes Acute idiopathic gout of left foot Patie nt Educated with: GOUT.pdf (GOUT.pdf) Patient Educated with: LOW PURINE DIET.pdf (LOW PURINE DIET.pdf) Pending Test Test Name Order Date *Uric Acid, Serum 01/17/2025 *Sedimentation Rate-Westergren 5 C-Reactive Protein, Quant 01/17/2025 [id number] SKIN LESIONS, 2 TO 4 01/18/20 25 [id number] DYSTROPHIC NAILS ANY # Next Appt Details Follow Up: 4 Months, Reason: Provider Name:Pooja Rosario , 05/19/2025 10:15:00 AM, [address] [place] [address], [phone], Procedure Notes * Category Sub-Category Detail Notes Keratoma Treatment Parring or Cutting o f Benign Hyperkeratotic Lesion(s) (-56) 2-4 Lesions - Due to the at risk nature of the patients medical condition as documented in the exam findings, performance of this keratoderma treatment is medically necessary as its management by an unskilled/untrained nonprofessional would put this patients foot and overall health at risk. Therefore, the benign hyperkeratotic lesions, ( 2 ) in total, locations as stated and described in the exam ( Medial plantar, TA, T5, ), were pared, and/or cut utilizing a sterile 15 blade, tissue nippers, and/or power dremel instrumentation by the physician of record - 12906 Nail Reduction Nail Reduction (-27) Trimming o f all dystrophic nails - Due to the at risk nature of the patients medical condition as documented in the exam findings, performance of this nail treatment is medically necessary as its management by an unskilled/untrained nonprofessional would put this patients foot and overall health at risk. Therefore, the dystrophic nails, in locations as stated and described in the exam ( T1, T2, T3, T4, T6, T7, T8, T9, ), were debrided by the phisician of record to reduce/remove overall nail length and girth, by manual and electrical means with use of a nail nipper and/or dremel, to more viable healthy nail plate or bed tissue - G0127 Progress Notes * Vincent DORADODOB:1960 (64 yo M)Acc No.[id number]:01/17/2025 Progress Note Patient:?Vincent DORADO Provider:?Pooja Rosario DPM :1960???Age:64 Y???Sex:Male Gibran e:01/17/2025 Address: [address], [place], [place] Pcp:Chary Bates MD Subjective: * Chief Complaints: * ???At Risk FootcareFoot pain * HPI: ???At Risk footcare:?Pt States Last PCP Visit:?Date?11/05/2024 ???Foot Pain:?Nature:?aching, swelling, tenderness, throbbing.?Location:?Great toe joint, LEFT.?Duration:?, several days.?Onset:?sudden, unknown, denies trauma.?Course:?worse.?Aggravated:?any pressure.?Treatments:?rest/alter normal daily activity.? * ROS:?General/Constitutional:?Nausea?denies.?Vomiting?denies.?Hunger Thirst?denies.?Loss appetite?denies, denies.?Chills?denies, denies.?Fatigue?denies.?Fever?denies, denies.?Night Sweats?denies.?Unexplained weight loss?denies.?Unexplained weight gain?denies.?Ophthalmologic:?Blurred vision?denies.?Red eye?denies.?HEENTM:?Dentures?denies.?Dizziness?denies.?Glasses/contacts?admits.?Retinopathy?den ies.?Blurred/double vision?denies.?TMJ?denies.?Discharge/drainage?denies.?Implants?denies.?Sore throat?denies.?Dental implants?denies.?Hard of hearing ?denies.?Difficulty chewing/swallowing/speaking?denies.?Nose bleeds?denies.?Sore mouth?denies, denies.?Swollen glands?denies.?Respiratory:?On O xygen?denies.?Pneumonia/pleurisy?denies.?Bronchitis?denies.?Emphysema?denies.?Co ughing?denies, denies.?Cough blood?denies.?Shortness of breath?denies, denies.?Wheezing?denies, denies.?Cardiovascular:?Pacemaker?denies.?MVP?denies.?WPW?denies.?CHF?denies.?Heart attack?denies.?Septal defect?denies.?Rapid beat?denies.?Chest pain ?denies, denies.?Atrial Fib.?denies, denies.?Murmur/Palpitations?denies.?Gastrointestinal:?Hemorrhoids?denies.?Stomach/Abdominal pain?denies, denies.?Dark blood stool?denies.?Irritable bowel ?denies.?Constipation?denies.?Diarrhea?denies, denies.?Vomiting?denies.?Hematology:?Swelling?admits.?Clots?denies.?Varicose Veins?denies.?Bruising?denies.?Bleeding problem?denies.?Genitourinary:?Blood urine?denies, denies.?Frequent/Painfu/urination/bladder control?denies, denies.?Kidney stones?denies.?Infection (UTI)?denies.?Nephropathy?denies.?sex trans dis (STD)?denies.?Prostate?denies.?Musculoskeletal:?Hammertoes?denies.?Bunions?denies.?Back Pain?denies.?Muscle Cramps/ Resting?denies.?Muscle cramps / walking?denies.?Generalized aches and pains?denies.?Painful joints?denies.?Swollen joints?denies.?Weakness?denies.?Podiatric:?Comments?See HPI for comments.?Integ.:?Hatch?denies.?Scars?denies.?Corns/calluses?admits.?Ingrown nails?denies.?Painful nails?denies.?Open Sores?denies.?Itching?denies.?Rashes?denies, denies.?Neurologic:?Difficulty sleeping?denies.?Brain disorder?denies.?Numbness?denies.?Balance trouble?denies.?Confusion?denies, d enies.?Fainting/blackouts?denies.?Headache?denies.?Tingling?denies.?Tremors?ahmet es.? * Medical History:? 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 [...] TOPICALLY TO THE AFFECTED AREA TWICE DAILY Medrol becka 4mg Tablet Therapy Pack as directed orally as directed Ciclopirox Olamine 0.77 % Cream APPLY TOPICALLY TO THE AFFECTED AREAS TWICE DAILY Taking amLODIPine Besylate 10 MG Tablet 1 [...] TO THE AFFECTED AREA TWICE DAILY Taking Medrol becka 4mg Tablet Therapy Pack as directed orally as directed Taking Ciclopirox Olamine 0.77 % Cream APPLY TOPICALLY TO THE AFFECTED AREAS TWICE DAILY Not-Taking/PRNExtra Depth Orthopedic Shoes (1 Pair) with [...] * Allergies:?Ibuprofen: Contra indicationyes[Allergies Verified] Objective: * Vitals:?Ht: 7np33dm, Wt:210, BMI:29.29, Shoe size: 12-12.5, BP:130/70mm Hg, BS: 101, Ht-cm: 180.34 cm, Wt-k.26 kg. * ???Past Orders: ???Lab:HEMOGLOBIN A1C (GLYCO HEMOGLOBIN) (Order Date - 10/06/2024) (Collection Date & Time - 10/06/2024 02:18 PM) ? Value Reference Range ?HEMOGLOBIN A1C % (HH) 4.9 * Examination: ???Ophthalmology Referral: ?DIABETES EYE EXAM?Procedure Performed:?Yes ?Date of Exam Performed?04/05/2024 ?Findings of Diabetic Eye Exam:?no retinopathy?General Examination: ?GENERAL APPEARANCE:?Reveals a pleasant, alert, well nourished, well- developed, well hydrated individual, who demonstrates proper attention to hygiene/body habitus, and is in no acute distress, Pt serves as own historian for office visit today.?ORIENTED:?person, place, and time.?Neurological: ?SENSORY:?exam demonstrates. reduced light touch sensation, reduced sharp/dull pin prick discrimination , reduced vibration lower extremity,5.07 monofilament test performed at plantar aspects of 5 varied sites per foot shows sensation, absent,,at Forefoot,B/L,Pt relates cont.?,anesthesia.?Orthopedic: ?GAIT ABNORMALITY:?antalgic.?BUNION:?(+) Pain on palpation, inflammation present, ROM is guarded due to discomfort, 1st MPJ, Left (+) erythema (+) calor? left.?Vascular: ?DP PULSES (B):?2/4, B/L.?PT PULSES (B):?2/4, B/L.?TROPHIC CONDITION-TEXTURE/ELASTICITY/TURGOR/HAIR GROWTH (B):?normal, B/L.?TEMPERTURE GRADIENT (C):?normal, warm to cool, proximal to distal, B/L, B/L.?PIGMENTATION:?normal, B/L.?EDEMA (C):?absent, B/L.?CLAUDICATION (C):? denies.?Dermatologic: ?SKIN FINDINGS:?Skin exam reveals Keratotic lesion(s) located at, Medial plantar, TA, T5,?.?Nails: ?NAILS are:?Elongated, overgrown, dystrophic T1, T2, T3, T4,? T6, T7, T8, T9.? Assessment: * Assessment: 1.?Type 2 diabetes mellitus with diabetic polyneuropathy - E11.42 (Primary)???2.?Smoker - F17.200???3.?Pain in left ankle and joints of left foot - M25.572???4.?Acute idiopathic gout of left foot - M10.072???Specify :Acute problem, Complicated w/ Multiple Tx Options(4) Dx New problem, Prognosis Uncertain (4) Rx Management (4)??? Plan: * Treatment: 2.?Acute idiopathic gout of left foot? Start Medrol Tablet Therapy Pack, 4 MG, as directed, Orally, daily, 6 days, 1 Pack, Refills 0.?LAB: *Uric Acid, Serum ?LAB: *Sedimentation Rate-Westergren ?LAB: C-Reactive Protein, Quant Notes: Patient Educated with: GOUT.pdf (GOUT.pdf) Patient Educated with: LOW PURINE DIET.pdf (LOW PURINE DIET.pdf)?? * Procedures:?Keratoma Treatment:?Parring or Cutting of Benign Hyperkeratotic Lesion(s)?(-56) 2-4 Lesions - Due to the at risk nature of the patients medical condition as documented in the exam findings, performance of this keratoderma treatment is medically necessary as its management by an unskilled/untrained nonprofessional would put this patients foot and overall health at risk. Therefore, the benign hyperkeratotic lesions, ( 2 ) in total, locations as stated and described in the exam ( Medial plantar, TA, T5, ), were pared, and/or cut utilizing a sterile 15 blade, tissue nippers, and/or power dremel instrumentation by the physician of record - 05897.?Nail Reduction:?Nail Reduction?(-27) Trimming of all dystrophic nails - Due to the at risk nature of the patients medical condition as documented in the exam findings, performance of this nail treatment is medically necessary as its management by an unskilled/untrained nonprofessional would put this patients foot and overall health at risk. Therefore, the dystrophic nails, in locations as stated and described in the exam ( T1, T2, T3, T4, T6, T7, T8, T9, ), were debrided by the phisician of record to reduce/remove overall nail length and girth, by manual and electrical means with use of a nail nipper and/or dremel, to more viable healthy nail plate or bed tissue - G0127.? * Procedure Codes:?G0127 CATY ING DYSTROPHIC NAILS ANY #, Modifiers: XS 03020 TRIM SKIN LESIONS, 2 TO 4, Modifiers: XS 3044F HG A1C LEVEL LT 7.0% * Preventive Medicine:? ??Counseling:?Tobacco use:?Type of Tobacco Use Cessation Counseling provided?Smoking effects education ?Patient counseled on the dangers of smoking and urged to quit:?01/17/2025 ?Discussion:?-14: Office or other outpatient visit for the [...] success were answered to their verbally confirmed satisfaction, Diet modification, Handout given and reviewed, A serum Uric acid level was ordered, ESR lab ordered, Medrol Dose Pack, C-Reactive Protein, Quant.? ??Screening/Special Tests:?Fall Risk?Screening:?No falls in the past year ?FALLS: Screening for Future Fall Risk?Have you had any falls with injury in the past year??No * Follow Up:?4 Months * Images: * Sign off status: Completed true * Provider:?Pooja Rosario DPM Date:?2024 Generated for Printi ng/Faxing/eTransmitting on:?01/17/2025 05:29 PM EDT History and Physical Notes * HPI (History of Present Illness) Category Sub-Category Detail Notes Category Not es At Risk footcare Pt States Last PCP Visit: Date: Foot Pain Nature: aching, swelling , tenderness, throbbing Location: Great toe joint, LEF T Duration: , several days Onset: sudden, unknown, den ies trauma Course: worse Aggravated: any pressure Treatments: rest/alter normal da joni activity Examination Category Sub-Category Detail Notes Category Not es Neurological SENSORY: exam demonstrate s. reduced light touch sensation, reduced sharp/dull pin prick discrimination , reduced vibration lower extremity,5.07 monofilament test performed at plantar aspects of 5 varied sites per foot shows sensation, absent,,at Forefoot,B/L,Pt relates cont. ,anesthesia Dermatologic SKIN FINDINGS: Skin exam reveal s Keratotic lesion(s) located at, Medial plantar, TA, T5, Orthopedic GAIT ABNORMALITY: antalgic BUNION: (+) Pain on palpatio n, inflammation present, ROM is guarded due to discomfort, 1st MPJ, Left (+) erythema (+) calor left General Examination GENERAL APPEARANCE: Reveals a pleasant, alert, well nourished, well-developed, well hydrated individual, who demonstrates proper attention to hygiene/body habitus, and is in no acute distress, Pt serves as own historian for office visit today ORIENTED: person, place, and t kelley Ophthalmology Referral DIABETES EYE EXAM Procedure Perform ed:: Yes ?Date of Exam Performed: 04/05/2024 Findings of Diabetic Eye Exam:: no retin opathy Vascular DP PULSES (B): 2/4, B/L PT PULSES (B): 2/4, B/L TEMPERTURE GRADIENT (C): normal, warm to cool, proximal to distal, B/L, B/L TROPHIC CONDITION-TEXTURE/ELASTICITY/TURGOR/HAIR GROWTH (B): normal, B/L EDEMA (C): absent, B/L CLAUDICATION (C): denies PIGMENTATION: normal, B/L Nails NAILS are: Elongated, overg rown, dystrophic T1, T2, T3, T4, T6, T7, T8, T9
--- OUTSIDE RECORDS SUMMARY | 2025-01-17 17:30 | XMS_ITS ---
Author Organization [facility] Address [address] [place] [address] Care Team Providers Care Body Make Up Artist Name Role Phone Chary Bates MD Primary Care Provider Unavailab Pooja Mckeon Unavailable [phone] REASON FOR VISIT urgent appt Encounters Encounter Location Date Provider Diagnosis [address] [address] 10/11/2024 Pooja Rosario Plan Of Treatment Next Appt Details Provider Name:Pooja A Abraham , 05/19/2025 10:15:00 AM, [address] [place], [address], Progress Notes * Vincent DORADODOB:1960 (64 yo M)Acc No.[id number]:10/11/2024 Patient:?Vincent DORADO :1960???Age:64 Y???Sex:Male Address:[address] [place], [address] * true * Date:? Generated for Printi ng/Faxing/eTransmitting on:?01/17/2025 05:29 PM EDT
--- OUTSIDE RECORDS SUMMARY | 2025-01-17 17:30 | XMS_ITS | Clinical Summary ---
Author Organization [facility] Address [address] [place] [address] Care Team Providers Care Software Applications Designer Name Role Phone Chary Bates MD Primary Care Provider [phone] Allergies Active Allergy Reactions Criticality Noted Date [...] age to complete this topic Care Teams Software Applications Designer Relationship Specialty Start Date End Date Chary Bates MD PCP - General Family Medicine 05/02/17
--- OUTSIDE RECORDS SUMMARY | 2025-01-17 17:30 | XMS_ITS | Clinical Summary ---
Author Organization [facility] Address [address] [place] [address] Phone Care Team Providers Care Health Physicist Name Role Phone Chary Bates MD Primary Care Provider [phone] Encounters Date Type Department Care Team Description 10/21/2024 Lab Requisition [facility] - Main Lab [address] [facility] [place] [id number] Karli Díaz PA Benign essential microscopic hematuria from Last 3 Months Surgical History Surgery Date Site/Laterality Comments COLONOSCOPY PROCEDURE: HISTORICAL COLONOSCOPY Medical History Medical History Date Comments Diabetes mellitus ([facility]/HCC V 24, CMS/HCC V28) 07/15/2012 DX:Diabetes mellitus (HCC) Obesity 07/15/2012 DX:Obesity HTN (hypertension) 07/15/2012 DX:HTN (hyper tension) Dyslipidemia, goal LDL below 70 07/15/2012 DX:Dyslipidemia, goal LDL below 70 Erectile dysfunction 07/15/2012 DX:Erectile dysfunction LVH (left ventricular hypert rophy) due to hypertensive disease 07/15/2012 DX:LVH (left ventricular h ypertrophy) due to hypertensive disease Family History Medical History Relation Name Comments Coronary artery disease Father fatkaleb l [place] at age 62 Heart attack Father Prostate [...] Vaccines (1 of 2) 2011 RSV Immunization Adult Patients (1 - Risk 60-74 years 1-dose series) [...] COVID-19 Vaccine ( season) 2024 Influenza Vaccine (Season Ended) 2025 06/28/2013, 06/23/2012, 08/27/2011, Additional history exists Pneumococcal Vaccine: [...] age to complete this topic Meningococcal B Vaccine Aged Out No l onger eligible based on patient's age to complete this topic RSV Immunization Patients Under 20 months Aged Out No longer eligible based on patient's age to complete this topic Varicella Vaccines Aged Out No longer eligible based on patient's age to complete this topic Insurance * Guarantor: Vincent Ballard Account Type Relation to Patient Date of Phone Billing Address Personal/Family Self 1960 42[place] [address] MEDICARE Advance Directives Documents on File Type Date Recorded Patient Housing Counselor Expl anation Health Care Decision (hx) 03/15/2022 AD MCCARTY DIRECTIVE Health Care Decision (hx) 03/15/2022 AD MCCARTY DIRECTIVE Health Care Decision (hx) 03/15/2022 AD MCCARTY DIRECTIVE Health Care Decision (hx) 03/15/2022 AD MCCARTY DIRECTIVE Health Care Decision (hx) 03/15/2022 AD MCCARTY DIRECTIVE Health Care Decision (hx) 03/15/2022 AD MCCARTY DIRECTIVE Care Teams Health Physicist Relationship Specialty Start Date End Date Chary Bates MD [address] [place] [address], [address] [place] [address] PCP - General Family Medicine 05/02/17
== END 2025-01-17 14:57 | disposition home or self-care (01) ==
LOC: HO.HMGCLDS 14:56
PROVIDERS: PCP Internal Medicine; Visit Provider Podiatrist
DX: M10.072 Idiopathic gout, left ankle and foot (principal)
CPT/HCPCS: 36415; 84550; 85652; 86140

== ENCOUNTER 2025-02-04 13:01 | Outpatient (REF) | payer MEDICARE, MEDICAID, SELFPAY ==
--- OUTSIDE RECORDS SUMMARY | 2025-02-04 13:22 | XMS_ITS | Patient Health Record ---
Author Organization [facility] Address [address] [place] [address] Care Team Providers Care Pipe Joints Supervisor Name Role Phone Jana JENSEN Chary Primary Care Provider UnavailMulugeta Lopez Jr Unavailable [phone] Allergies Allergen (clinical drug ingredient) Drug/Non Drug [...] Problem Status W/U Status Risk Notes Problem [id number] Colon cancer screening (Z12.11) Active confirmed Problem [id number] retirement (current) use of aspirin (Z79.82) Active confirmed Plan Of Treatment Future Test Test Name Order Date COLONOSCOPY 01/18/2022 Insurance Providers Payer Name Payer Address Payer Phone Subscriber Number Group Number Insured Name Patient Relationship to Insured Coverage Start Date Coverage End Date MEDICARE OF [place] [address] [place] [id number] NIKA DORADO Self - patient is the insured MEDICAID OF [facility] [address] [place] [address] [id number] NIKA DORADO Self - patient is the insured Medical (General) History Medical History History ICD Code diabetes mellitus hypertension degenerative joint disease elevated Cholesterol Surgical History Surgery Date(Month/Year) L rotator cuff repair and bone spurs 01/04 hydrocele repair 2020
--- OUTSIDE RECORDS SUMMARY | 2025-02-04 13:22 | XMS_ITS ---
Author Organization [facility] Address [address] [place] [address] Care Team Providers Care Cutlet Maker Pork Name Role Phone Chary Bates MD Primary Care Provider Unavailab Pooja Mckeon Unavailable [phone] REASON FOR VISIT Lab results Encounters Encounter Location Date [facility] [address] [address] 01/18/2025 Pooja Abraham Plan Of Treatment Next Appt Details Provider Name:Pooja Ramos Abraham , 05/19/2025 10:15:00 AM, [address] [place], [address], Progress Notes * Vincent DORADODOB:1960 (64 yo M)Acc No.[id number]:01/18/2025 Patient:?Vincent DORADO :1960???Age:64 Y???Sex:Male Address:[address] [place], [address] * true * Date:? Generated for Printi ng/Faxing/eTransmitting on:?02/04/2025 01:22 PM EDT
--- OUTSIDE RECORDS SUMMARY | 2025-02-04 13:22 | XMS_ITS | Encounter Summary ---
Author Organization [email or web address] Address [address] [place] [address] [address] [place] [address] Care Team Providers Care Hem Marker Name Role Phone Unavailable Primary Care Provider Unavailabl e Encounter Details Date Type Department Care Team (Latest Contact Info) Description 04/13/2019 Abstract [facility] CONVERSIONS Dental, Provider, DDS Social History [...]
--- OUTSIDE RECORDS SUMMARY | 2025-02-04 13:22 | XMS_ITS | Clinical Summary ---
Author Organization [employer] Address [address] [place] [address] [address] [place] [address] Care Team Providers Care Payroll Bookkeeper Name Role Phone Unavailable Primary Care Provider [...]
--- OUTSIDE RECORDS SUMMARY | 2025-02-04 13:23 | XMS_ITS | Clinical Summary ---
Author Organization [address] [facility] Address [address] [place] [address] Phone Care Team Providers Care Emergency Management Specialist Name Role Phone Chary Bates MD Primary Care Provider [phone] Surgical History Surgery Date Site/Laterality Comments COLONOSCOPY PROCEDURE: HISTORICAL COLONOSCOPY Medical History Medical History Date Comments Diabetes mellitus (CMS/HCC V 24, CMS/HCC V28) 07/15/2012 DX:Diabetes mellitus [...] Comments Coronary artery disease Father fata l [place] at age 62 Heart attack Father Prostate [...] to complete this topic Insurance * Guarantor: Nellie Vincent Account Type Relation to Patient Date of Phone Billing Address Personal/Family Self 1960 42[place] [address] MEDICARE Advance Directives Documents on File Type Date Recorded Patient Acidizer Expl anation Health Care Decision (hx) 03/15/2022 AD MCCARTY DIRECTIVE Health Care Decision (hx) 03/15/2022 AD MCCARTY DIRECTIVE Health Care Decision (hx) 03/15/2022 AD MCCARTY DIRECTIVE Health Care Decision (hx) 03/15/2022 AD MCCARTY DIRECTIVE Health Care Decision (hx) 03/15/2022 AD MCCARTY DIRECTIVE Health Care Decision (hx) 03/15/2022 AD MCCARTY DIRECTIVE Care Teams Emergency Management Specialist Relationship Specialty Start Date End Date Chary Bates MD [address] [facility], [address] [place] [address] PCP - General Family Medicine 05/02/17
--- OUTSIDE RECORDS SUMMARY | 2025-02-04 13:23 | XMS_ITS ---
Author Organization [facility] Address [address] [facility] [place] [address] Care Team Providers Care Stem Cleaning Machine Feeder Name Role Phone Chary Bates MD Primary Care Provider Unavailab le Pooja Rosairo Unavailable [phone] Allergies Allergen (clinical drug ingredient) Drug/Non Drug [...] Problem Status W/U Status Risk Notes Problem Acute idiopathic gout of left foot (M10.072) Active confirmed Vital Signs Blood pressure systolic 130 mm Hg 01/18/20 25 Blood pressure diastolic 70 mm Hg 025 Height 8gb49kb in 01/17/2025 Weight 210 lbs 01/17/2025 BMI 29.29 kg/m2 01/17/2025 Procedures Procedure Date Ordered Date Performed Result Body Sit e 80750-DIVY SKIN LESIONS, 2 TO 4 01/17/2025 N/A J0826-ACILQXEP DYSTROPHIC NAILS ANY # 01/17/2025 N/A Encounters Encounter Location Date Provider Diagnosis [facility] [place] [address] [place] [address] 01/17/2025 Pooja Black Type 2 diabetes mellitus [...] *Sedimentation Rate-Westergren 5 C-Reactive Protein, Quant 01/17/2025 78247-QFVL SKIN LESIONS, 2 TO 4 01/18/20 25 Q1599-WRMQOLKO DYSTROPHIC NAILS ANY # Next Appt Details Follow Up: 4 Months, Reason: Provider Name:Pooja Rosario , 05/19/2025 10:15:00 AM, [address] [place] [address], [address], Procedure Notes * Category Sub-Category Detail Notes [...] instrumentation by the physician of record - 04157 Nail Reduction Nail Reduction (-27) Trimming o [...] Notes * Vincent DORADODOB:1960 (64 yo M)Acc No.[id number]:01/17/2025 Progress Note Patient:?Vincent DORADO Provider:?Pooja Rosario DPM :1960???Age:64 Y???Sex:Male Gibran e:01/17/2025 Address: [place] [address], [place] Pcp:Chary Bates MD Subjective: * Chief Complaints: [...] History:? 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 * Family History:?Mother: leyda valdivia.?Father: , diagnosed with Other malignant neoplasm of [...] Allergies:?Ibuprofen: Contra indicationyes[Allergies Verified] Objective: * Vitals:?Ht: 2fs97yg, Wt:210, BMI:29.29, Shoe size: 12-12.5, BP:130/70mm Hg, [...] instrumentation by the physician of record - 62491.?Nail Reduction:?Nail Reduction?(-27) Trimming of all dystrophic nails [...] ING DYSTROPHIC NAILS ANY #, Modifiers: XS 24945 TRIM SKIN LESIONS, 2 TO 4, Modifiers: [...] * Sign off status: Completed true * Provider:Marj Rosario DPM Date:?2024 Generated for Printi ng/Fajeseniag/eTransmitting on:?02/04/2025 01:23 PM EDT History and Physical Notes * [...]
--- OUTSIDE RECORDS SUMMARY | 2025-02-04 13:23 | XMS_ITS ---
Author Organization [facility] [place] Address [address] [facility] [place] [address] Care Team Providers Care Breast Splitter Name Role Phone Chary Bates MD Primary Care Provider Unavailab Pooja Mckeon Unavailable [phone] Yuliet Chau Unavailable [phone] Allergies Allergen (clinical drug ingredient) Drug/Non Drug [...] Status W/U Status Risk Notes Problem Gout of right foot (M10.9) Active confirmed Rx drug management (4) Problem Gout of left foot (M10.9) Active confirmed Rx drug management (4) Vital Signs Blood pressure systolic 130 mm Hg 10/11/19 25 Blood pressure diastolic 70 mm Hg 025 Height 5ft11.5in in 10/11/2024 Weight 205 lbs 10/11/2024 BMI 28.19 kg/m2 10/11/2024 Encounters Encounter Location Date Provider Diagnosis [facility] [place] [address] [place] [address] 10/11/2024 Yuliet Chau Pain in joint involving [...] Provider Name:Pooja Rosario , 05/19/2025 10:15:00 AM, [address] [place] [address], [address], Progress Notes * Vincent BALLARDDOB:1960 (64 yo M)Acc No.[id number]:10/11/2024 Progress Note Patient:?Vincent BALLARD Provider:?Yuliet Chau DPM :1960???Age:64 Y???Sex:Male Gibran e:10/11/2024 Address:[address] [place], [place] [address] [facility] Pcp:Chary Bates MD Subjective: * Chief Complaints: [...] 05/10/2022 * Hospitalization/Major Diagno stic Procedure:?Went to [facility] ER DX- bells palsy 01/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 increase in soft tissue contour and [...] ray : Foot, left 3V * Procedure Codes:?06291 X-RAY EXAM OF LEFT FOOT 3V, Modifiers: 26 , CKC7609 Pt scrn tbco id as non user [...] DPM Date:?0 10/11/2024 Generated for Robert arriaza/Billie/Bernadette on:?02/04/2025 01:22 PM EDT History and Physical Notes * [...] AP, LAT, MO Taken by trained Podiatric Assistant Editor (EF) Clinical Indication(s): Evaluate for Fra cture, Evaluate for Osteomyelitis, Evaluate for possible Gout
--- OUTSIDE RECORDS SUMMARY | 2025-02-04 13:23 | XMS_ITS | Clinical Summary ---
Author Organization [facility] Address [address] [place] [address] Care Team Providers Care Operations Supervisor 2Nd Shift Name Role Phone Chary Bates MD Primary Care Provider [phone] Allergies Active Allergy Reactions Criticality Noted Date [...] to complete this topic Care Teams Operations Supervisor 2Nd Shift Relationship Specialty Start Date End Date Chary Bates MD PCP - General Family Medicine 05/02/17
--- OUTSIDE RECORDS SUMMARY | 2025-02-04 13:23 | XMS_ITS | Encounter Summary ---
Author Organization [facility] Address [address] [facility] [address] [place] [address] Phone Care Team Providers Care Rewriter Name Role Phone Chary Bates MD Primary Care Provider [phone] Reason for Visit * Reason Comments Med Refill Encounter Details Date Type Department Care Team (Late st Contact Info) Description 12/05/2023 Refill [facility] [address] [place] [phone] Camron Araya MD [address] [facility] [address] [place] [phone] Social History Tobacco Use Types Packs/Day Years [...] on filedocumented in this encounter Care Teams Rewriter Relationship Specialty Start Date End Date Chary Bates MD [address] [place], [place] PCP - General 10/16/20 documented as of this encounter
--- OUTSIDE RECORDS SUMMARY | 2025-02-04 13:23 | XMS_ITS | Patient Health Record ---
Author Organization [facility] Address [address] [facility] [place] [address] Care Team Providers Care Industrial Roofer Name Role Phone Chary Bates MD Primary Care Provider Unavailab sander Rosario Pooja Unavailable [phone] Yuliet Chau Unavailable [phone] Allergies Allergen (clinical drug ingredient) Drug/Non Drug [...] Problem Acquired hammer toe of right foot (069901555627026 5) Other hammer toe(s) (acquired), right foot (M20.41) Active confirmed Problem Acquired hammer toe of left foot (896466403160704 3) Other hammer toe(s) (acquired), left foot (M20.42) Active confirmed Problem Localized, primary osteoarthritis of the ankle and/or foot (289425174) Primary osteoarthritis, right ankle and foot (M19.071) Active confirmed Problem Acquired hallux valgus (91339313) Hallux valgus (acquired), left foot (M20.12) Active confirmed Problem Acquired hallux valgus (93122409) Hallux valgus (acquired), right foot (M20.11) Active confirmed Problem Polyneuropathy due to type 2 diabetes mellitus (275632824) Type 2 diabetes mellitus with diabetic polyneuropathy (E11.42) Active confirmed Problem Acquired hammer toe of right foot (642655197398102 5) Hammer toe of right foot (M20.41) Active confirmed Problem Acquired hammer toe of left foot (139172580637664 3) Hammer toe of left foot (M20.42) Active confirmed Problem 75965180 Lower limb length difference (M21.70) Active confirmed Problem Gout (57937216) Gout of left foot (M10.9) Active confirmed Rx drug management (4) Problem Gout (01682956) Gout of right foot (M10.9) Active confirmed Rx drug management (4) Problem Primary gout (58736827) Acute idiopathic gout of left foot (M10.072) Active confirmed Problem 40211071 Smoker (F17.200) Active confirmed Problem 96034708 Essential hypertension (I10) Active confirmed Vital Signs Blood pressure diastolic 70 mm Hg 01/17/2025 Height 9ku88ul in 01/17/2025 Blood pressure systolic 130 mm Hg 01/17/2025 Weight 210 lbs 01/17/2025 BMI 29.29 kg/m2 01/17/2025 Procedures Procedure Date Ordered Date Performed Result Body Sit e 04342-MXQK SKIN LESIONS, 2 TO 4 05/17/2024 N/A T9021-QASUXTPH DYSTROPHIC NAILS ANY # 05/17/2024 N/A 48369-AHTG SKIN LESIONS, 2 TO 4 09/16/2024 N/A Y5347-JRUEJNIJ DYSTROPHIC NAILS ANY # 09/16/2024 N/A 93401-SQHB SKIN LESIONS, 2 TO 4 01/17/2025 N/A A1975-COBFEMNY DYSTROPHIC NAILS ANY # 01/17/2025 N/A Encounters Encounter Location Date Provider Diagnosis [address] [address] 05/17/2024 Pooja Black Type 2 diabetes mellitus with diabetic polyneuropathy E11.42 ; Smoker F17.200 ; Pain in left foot M79.672 ; Bursitis of left foot M77.52 ; Hallux valgus (acquired), left foot M20.12 ; Pain in right foot M79.671 ; Bursitis of right foot M77.51 and Hallux valgus (acquired), right foot M20.[address] [address] 09/16/2024 Pooja Black Type 2 diabetes mellitus with diabetic polyneuropathy E11.42 and Smoker F17.[address] [address] 10/11/2024 Yuliet Chau Pain in joint involving left ankle and foot M25.572 and Gout of left foot M10.[address] [address] 01/17/2025 Pooja Black Type 2 diabetes mellitus with diabetic polyneuropathy E11.42 ; Smoker F17.200 ; Pain in left ankle and joints of left foot M25.572 and Acute idiopathic gout of left foot M10.[address] [address] 03/18/2024 Pooja Black [address] [address] 03/26/[address] [address] 04/01/2024 Pooja Abraham [facility] [place] [address] [place] [address] 04/01/2024 Pooja Black [facility] [place] [address] [place] [address] 10/05/2024 Pooja Abraham [facility] [place] [address] [place] [address] 10/11/2024 Poojaskip Rosario [facility] [place] [address] [place] [address] 01/18/2025 Pooja Rosario Assessments Encounter Date Diagnosis (ICD [...] X ray : Foot, left 3V 10/11/2024 52059-BQMICEA NAIL, 6 OR MORE 09/15/2023 58349-WGNZSDV NAIL, 6 OR MORE 05/21/2021 47041-IXFFQUO NAIL, 6 OR MORE 08/27/2021 50848-TODSKCV NAIL, 6 OR MORE 12/17/2021 02707-IOZNZJN NAIL, 6 OR MORE 03/21/2022 38280-CHUUYWB NAIL, 6 OR MORE 06/27/2022 44873-AEDEQFK NAIL, 6 OR MORE 10/14/2022 55839-VDPNTNY NAIL, 6 OR MORE 01/16/2023 47399-YJNPBBR NAIL, 6 OR MORE 06/16/2023 47434-EMPITVE NAIL, 6 OR MORE 06/07/2015 99875-IXWBXLW NAIL, 6 OR MORE 12/06/2015 16537-AIHYNAX NAIL, 6 OR MORE 06/13/2016 14272-ZSZEBCB NAIL, 6 OR MORE 12/12/2016 39295-OGEHOTT NAIL, 6 OR MORE 06/12/2017 01002-NOIEPIC NAIL, 6 OR MORE 12/08/2017 12331-VYYBWWY NAIL, 6 OR MORE 06/11/2018 18206-JQCRAPL NAIL, 6 OR MORE 11/05/2018 33960-NTKGYWL NAIL, 6 OR MORE 12/24/2018 60122-BSVNBCN NAIL, 6 OR MORE 04/22/2019 88610-DGSNLPB NAIL, 6 OR MORE 08/19/2019 55786-YSDRPAF NAIL, 6 OR MORE 02/10/2020 89649-BLFWIBA NAIL, 6 OR MORE 05/15/2020 85371-UZIBTWA NAIL, 6 OR MORE 08/17/2020 18705-UYBOBCA NAIL, 6 OR MORE 11/13/2020 97043-WQGAPNO NAIL, 6 OR MORE 02/19/2021 89799- Debride <25 sq cm 06/01/2015 13752- Debride <25 sq cm 06/07/2015 65549-FFLP SKIN LESIONS, OVER 4 06/11/20 18 09259-FCHQ SKIN LESIONS, 2 TO 4 12/09/19 18 05917-RCDF SKIN LESIONS, 2 TO 4 12/25/19 19 65832-GAHZ SKIN LESIONS, 2 TO 4 11/05/19 19 44049-XXVH SKIN LESIONS, 2 TO 4 06/07/20 15 76842-UAZD SKIN LESIONS, 2 TO 4 12/06/19 16 21572-YPSX SKIN LESIONS, 2 TO 4 12/13/19 17 09341-LGUN SKIN LESIONS, 2 TO 4 06/12/20 17 94443-FJFI SKIN LESIONS, 2 TO 4 06/13/20 16 70665-UGBE SKIN LESIONS, 2 TO 4 05/21/20 21 37270-IEYC SKIN LESIONS, 2 TO 4 02/20/20 21 31652-VYWC SKIN LESIONS, 2 TO 4 11/13/19 21 89217-OONT SKIN LESIONS, 2 TO 4 08/17/20 20 52534-MUIV SKIN LESIONS, 2 TO 4 05/15/20 20 35509-LIDB SKIN LESIONS, 2 TO 4 02/10/20 20 86004-MEAG SKIN LESIONS, 2 TO 4 08/19/20 19 60159-GNCS SKIN LESIONS, 2 TO 4 04/22/20 19 62033-EMVY SKIN LESIONS, 2 TO 4 09/15/20 23 56952-XRUJ SKIN LESIONS, 2 TO 4 06/16/20 23 22765-MCHA SKIN LESIONS, 2 TO 4 01/17/20 23 42934-MPUY SKIN LESIONS, 2 TO 4 10/14/19 23 49731-MDBG SKIN LESIONS, 2 TO 4 06/27/20 89673-OLNF SKIN LESIONS, 2 TO 4 03/21/20 46718-MMMX SKIN LESIONS, 2 TO 4 12/18/19 41893-ZWCB SKIN LESIONS, 2 TO 4 08/27/20 34997-NEFH SKIN LESIONS, 2 TO 4 12/18/19 24 95970-IOAR SKIN LESIONS, 2 TO 4 05/17/20 24 60243-PKWA SKIN LESIONS, 2 TO 4 12/06/19 15 90813-VUGX SKIN LESIONS, 2 TO 4 09/16/20 24 72324-JSPN SKIN LESIONS, 2 TO 4 01/18/20 25 B9161-LJIIKUTZ DYSTROPHIC NAILS ANY # Z7287-VVINCIGV DYSTROPHIC NAILS ANY # N5420-OTCTSDPD DYSTROPHIC NAILS ANY # U1939-WEVNUXRK DYSTROPHIC NAILS ANY # Next Appt Details Provider Name:Pooja Rosario , 05/19/2025 10:15:00 AM, [address] [place], [address], Insurance Providers Payer Name Payer Address Payer Phone Subscriber Number Group Number Insured Name Patient Relationship to Insured Coverage Start Date Coverage End Date Medicare National [employer] [address] [place] [address] [id number] Vincent Ballard Self - patient is the insured Medical (General) History Medical History History ICD Code Arthritis Chicken pox Measles Mumps Back,Hip,and Knee pain Hypertension Gormania palsy Diabetic Surgical History Surgery Date(Month/Year) shoulder surgery- right 10/24/2020 right knee replacement 05/10/2022 Hospitalization History Reason Date(Month/Year) [place] [facility] [place] DX- bells palsy 6
--- OUTSIDE RECORDS SUMMARY | 2025-02-04 13:23 | XMS_ITS | Data Portability ---
Author Organization [facility] Address [address] [facility] [address] [place] [address] Care Team Providers Care Rn Team Leader Name Role Phone LYNDSEY GONZALES Primary Care [...] our office for referral to the appropriate orthopedic shoes salesperson. He agrees with this plan. Patient was [...] knee, 3 view 2022 023 [facility], [address], [place], [address], 3 07:32:46 XR, knee, 4 or more view 2022 023 [facility], [address], [place], [address], 3 15:57:02 Medication Orders Synvisc-One 48 mg/6 mL intra-artic ular syringe 2022 023 [facility] #59728, [address] [place], [place], [id number], 3 11:43:31 amoxicillin 500 mg capsule 2022 023 [facility], [address] [place], [place], [id number], 3 16:05:40 Kenalog 40 mg/mL suspension for injection 2022 023 [address] [facility], [address] [place], [place], [id number], 3 11:11:52 lidocaine (PF) 10 mg/mL (1 %) injection solution [address] [facility] #66958, [address] [place], [place], [id number], 3 11:11:54 amoxicillin 500 mg tablet 2022 023 [facility] #42119, [address] [place], [place], [id number], 3 13:56:16 Kenalog 40 mg/mL suspension for injection 2022 023 [place] [address] [facility] #93950, [address] [place], [place], [id number], 3 11:11:52 lidocaine (PF) 10 mg/mL (1 %) injection solution 2022 023 [place] [address] [facility], [address] [place], [place], [id number], 3 11:11:54 Patient TargetsNo targets recorded. Patient Instructions Encounter Date Encounter Id Patient Instructions Last Modified By Organization Details Last Modified Time 02/12/2023 [id number] You have been provided with a cortisone [...] office or contact us through the portal [facility]. Not available 02/13/2023 19:15:33 X-rays at today's [...] on 05/24/2022. Not available 02/13/2023 19:12:57 05/20/2023 [id number] You have been provided with a cortisone [...] bony abnormality. Not available 06/02/2023 07:49:40 08/21/2023 [id number] You have been pr ovided with a [...] Time Osteoarthri tis of left knee joint 8523201171986 09 Active 2022 ELIZABETH ARRIAZA PA-C [address], [place], [address], [place] [facility] 13:55:40 Pain of left knee joint 7933971098894 07 Active 2022 ELIZABETH ARRIAZA PA-C [address], [place], [address], [place] [facility] 19:14:44 Problem Notes None recorded. Procedures Surgical History Date Name Laterality Status Provider Name and Address Organization Details Recorded Time 08/21/20 23 Synvisc-One Knee Inj completed ELIZABETH ARRIAZA PA-C [address], [place], [address], [place] [facility] 08/22/2023 07:21:53 05/20/20 23 Knee Joint/Bursa Asp & Inj completed ELIZABETH ARRIAZA PA-C [address], [place], [address], [place] [facility] 06/02/2023 07:44:49 02/13/20 23 Knee Joint/Bursa Asp & Inj completed ELIZABETH ARRIAZA PA-C [address], [place], [address], [place] [facility] 02/13/2023 19:14:18 Shoulder Surgery completed Ana Mckeon [place] [facility] 02/12/2023 13:36:53 total knee replacement completed Ana Mckeon [facility] 02/12/2023 13:37:00 Imaging Results None recorded. Procedure Notes None recorded. Medical Equipment None Reported. Allergies Allergen ID Allergen Name Allergen Category Reaction Reaction Severity Criticality Documentation Date Start Date Code Code System Note Provider Name and Address Organization Details Recorded Time 3770 ibuprofen medicatio n Not available Not available Not available 02/12/2023 5640 RxNorm Ana Mckeon null, [place] [facility] 3 13:36:23 Medications Name Sig Start [...] Details Last Updated DateTime 08/21/2023 182.88 cm [facility] [place] [facility] 08/21/2023 11:13:44 Date Recorded Body height Body mass index (BMI) Body weight Provider Name and Address Organization Details Last Updated DateTime 02/12/2023 182.88 cm 28.5 kg/m2 57146.4 g Ana Mckeon [place] [facility] 02/12/2023 13:37:35 Date Recorded Body height Provider Name an d Address Organization Details Last Updated DateTime 05/20/2023 182.88 cm [facility] 05/20/2023 16:01:46 Social History Question Answer Notes LastModified by Organizat ion Details LastModified Time Tobacco Smoking Status Never Smoker Ana Mckeon null, [facility] 02/12/2023 13:37:20 What Is Your Level Of Alcohol Consumption? Occasional [email or web address] Information not available 02/12/2023 How Many Times Per Week Do You Consume Alcohol? 1-2 Times Per Week [email or web address] Information not available 02/12/2023 Sex: Unknown Functional Status None recorded. Mental Status None recorded. Family History Nothing Reported. Medical History Condition Response Coronary Artery Disease N Gout N Hyperthyroidism N Blood Transfusion N MRSA N Emphysema N Depression N COPD N [...] Anemia N Brain Injury N Heart Attack (MN) N Osteopenia N Diabetes Y Bleeding Disorder N Seizures/Epilepsy N AIDS/HIV N Congestive Heart Failure (CHF) N Asthma N Amputation N Reflux/GERD N Sleep Apnea N Hepatitis N Aneurysm N Heart Disease N Pulmonary Embolism N Hypertension Y Osteoporosis N Past Encounters Encounter ID Performer Location Encounter Start Date Encounter Closed Date Diagnosis/Indication Diagnosis SNOMED-CT Code Diagnosis ICD10 Code Diagnosis Note [id number] JUAN MANUEL PANDYA [address] [facility] [address] [place] [address] 02/12/2023 13:17:54 02/12/2023 14:15:42 Pain of left knee joint 2135209970 87956 M25.562 History of right total knee replacement 6993150121 820519 Z96.651 Osteoarthr itis of left knee joint 6373386785 31192 M17.12 [id number] JUAN MANUEL PANDYA [place] [address] [facility] [address] [place] [address] 05/20/2023 15:35:27 05/20/2023 16:02:58 History of right total knee replacement 6272918030 554569 Z96.651 Osteoarthr itis of left knee joint 7516078132 46744 M17.12 [id number] JUAN MANUEL PANDYA [place] [address] [facility] [address] [place] [address] 08/21/2023 10:52:24 08/21/2023 11:13:11 Osteoarthritis of left knee joint 3148792158 41425 M17.12 Health Concerns Section Related Observation LastModified by Organization Detai ls LastModified Time None Recorded Concern Status LastModified by Organization Details LastModified Time None Recorded Advance Directives Directive None Recorded Payers Encounter Date Sequence Insurance Name Policy Number Policy Lindsey Covered Member ID Lindsey Member ID Guarantor Name 02/12/2023 1 [place] [employer] Vincent Ballard [id number] Vincent Ballard 02/12/2023 2 [place] [facility] Vincent Ballard [id number] Vincent Ballard 05/20/2023 1 [place] [employer] Vincent Ballard [id number] Vincent Ballrad 05/20/2023 2 [place] [facility] Vincent Ballard [id number] Vincent Ballard 08/21/2023 1 [place] [employer] Vincent Ballard [id number] Vincent Ballard 08/21/2023 2 [place] [facility] Vincent Ballard [id number] Vincent Ballard Notes Date Note Type Note [...] ELIZABETH ARRIAZA PA-C [address], [place], [address], [place] [facility] 02/13/2023 19:17:19 05/20/2023 text/html This is [...] ELIZABETH ARRIAZA PA-C [address], [place], [address], [place] [facility] 06/02/2023 07:50:27 08/21/2023 text/html Very pleasant 63-year-old male here for Synvisc 1 injection of the left knee. His last injection was cortisone in May 2023. He has return of generalized left knee pain due to osteoarthritis. Strength stable left total joint replacement surgery as long as feasibly possible. He denies any recent illness. ELIZABETH ARRIAZA PA-C [address], [place], [address], [place] [facility] 08/22/2023 07:23:36
--- OUTSIDE RECORDS SUMMARY | 2025-02-04 13:23 | XMS_ITS | Encounter Summary ---
Author Organization [facility] Address [address] [place] [address] Care Team Providers Care Mirror Framer Name Role Phone Chary Bates MD Primary Care Provider [phone] Encounter Details Date Type Department Care Team (Late st Contact Info) Description 10/21/2024 Lab Requisition [facility] - Main Lab [address] [facility] [place] [id number] Karli Díaz PA [address] [place] [address] Benign essential microscopic hematuria Social History Tobacco [...] AM EST) Final Diagnosis A. Urine, Voided, ([id number]): Negative for high grade urothelial carcinoma. Acute inflammatory cells are present. Results of UroVysion fluorescence in situ hybridization (FISH) testing: Although FISH was performed, insufficient non-obscured hybridization signals are present for evaluation and interpretation. 11/02/2024 6:[address] [facility] Clinical Information Benign essential microscopic hematuria R31.1 Cytology/Urine FISH (now) 11/02/2024 6:[address] [facility] Gross Description A. Urine, Voided, ([id number]): Received is one ThinPrep slide for cytology screen and one ThinPrep slide for UroVysion FISH 11/02/2024 6:46 PM [facility] Disclaimer Unless otherwise specified, all tissue is 10% NB formalin fixed and paraffin embedded. Technical pathology services provided by [facility] [address] [facility] [address], [place] [address] (CLIA #[id number]/Christi Gandhi MD, [employer]) 11/02/2024 6:46 PM [facility] Tissue Urine specimen from urethra / Unknown 10/18/2024 10/21/2024 4:26 PM EST us Karli [facility] PATHOLOGY ORDERABLES Natividad l Result [facility] [address] [place] [address], documented in this encounter Visit Diagnoses Diagnosis Benign essential microscopic hematuria documented in this encounter Care Teams Mirror Framer Relationship Specialty Start Date End Date Chary Bates MD [address] [place] [address], [address] [place] [address] PCP - General Family Medicine 05/02/17 documented as of this encounter
--- OUTSIDE RECORDS SUMMARY | 2025-02-04 13:23 | XMS_ITS | Clinical Summary ---
Author Organization [facility] Address [address] [place] [address] Phone Care Team Providers Care Practice Assistant Name Role Phone Chary Bates MD Primary Care Provider [phone] Allergies Active Allergy Reactions Criticality Noted Date [...] Billing Address Personal/Family Self 1960 [address] [place] [address] [place] Care Teams Practice Assistant Relationship Specialty Start Date End Date Chary Bates MD [address] [facility] PCP - General 10/16/20
[2025-02-04 16:35] LABS: Anion Gap 15 (12-20); Blood Urea Nitrogen 25 mg/dL (9-16); Calcium 9.5 mg/dL (8.4-10.2); Carbon Dioxide 20 mmol/L (22-29); Chloride 109 mmol/L (96-108); Estimated Glomerular Filt Rate > 60; Glucose Random 97 mg/dL (60-115); Potassium 4.5 mmol/L (3.3-5.1); Sodium 139 mmol/L (135-145)
[2025-02-04 16:37] LABS: Total Protein Urine Random 68 mg/dL (<12)
== END 2025-02-04 13:02 | disposition home or self-care (01) ==
LOC: HO.HMGCLDS 13:01
PROVIDERS: PCP Internal Medicine; Visit Provider Internal Medicine Hypertension Specialist
DX: N18.9 Chronic kidney disease, unspecified (principal); I10 Essential (primary) hypertension
CPT/HCPCS: 36415; 80048; 84156

== ENCOUNTER 2025-02-08 09:51 | Outpatient (AMB) | payer MEDICARE, MEDICAID, SELFPAY ==
[2025-02-08 10:05] VITALS: BP 140/70; PULSE 88; O2SAT 97; BMI 29.0
--- NOTE | 2025-02-08 10:05 | HO.NEPHOV_ITS ---
Vital Signs 02/08/25 10:05 02/08/25 10:14 Height 6 ft Weight 214 lb BMI 29.0 BP 140/70 H 130/80 Blood Pressure Location Rt brachial Rt brachial Position Sitting Sitting Pulse 88 Pulse Source Pulse Oximeter Pulse Oximetry (%) 97 Oxygen Delivery Method Room Air Intake Visit Reasons: Chronic kidney disease/ Conf Heel Slugger Required: No Accompanied by: Self / Same As Patient Allergies ibuprofen [From MOTRIN] Allergy (Unknown, Verified 02/08/25 10:07) MEDICATION INTERACTION, effected his kidneys Medication List - Last Reconciled 02/08/25 by Wilfredo Villalba MD amlodipine 10 mg PO DAILY aspirin (Adult Low Dose Aspirin) 81 mg PO DAILY atorvastatin 20 mg PO DAILY blood-glucose meter (Accu-Chek Guide Me Glucose Meter) As directed clonidine HCl 0.1 mg PO BID cyclobenzaprine 10 mg PO BEDTIME PRN dulaglutide (Trulicity) 0.75 mg subcut QWEEK gabapentin 100 mg PO TID PRN icosapent ethyl (Vascepa) 2 grams PO BID insulin glargine (Lantus U-100 Insulin) 10 units subcut QAM lancets (Accu-Chek Softclix Lancets) As directed metformin 1,000 mg PO BID metoprolol succinate ER 100 mg PO DAILY olmesartan 40 mg PO DAILY oxycodone 30 mg PO QID PRN sertraline 100 mg PO ONCE zolpidem 10 mg PO BEDTIME PRN HPI Comments Details: Juan Daniel is a middle man with a history of resistant hypertension and diabetes mellitus. He has a history of microalbuminuria as well. Overall is doing very well. Clonidine has been restarted Amlodipine was restarted about 3 months ago. 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 Maternal Grandmother Diabetes mellitus Maternal Grandfather No problems noted. Paternal Grandfather No problems noted. Paternal Grandmother No problems noted. Brother No problems noted. Sister No problems noted. Sister No problems noted. Son No problems noted. Son No problems noted. Social History Housing: Apartment Alcohol intake: current Alcohol intake frequency: a few times a month Patient Tobacco Use Status: Current everyday Tobacco user Tobacco use type: Cigarette Cigarettes Per Day: 5 e-Cigarette/Vaping Use: Never Used Second Hand Smoke Exposure: Yes Current occupational status: unemployed Cognitive needs: No Hearing needs: No Vision needs: Yes Physical Exam Vital Signs: Last Vital Signs Pulse 88 02/08/25 10:05 BP 140/70 H 02/08/25 10:05 Pulse Ox 97 02/08/25 10:05 Oxygen Delivery Method Room Air 02/08/25 10:05 BMI result Body Mass Index 29.0 Const General: comfortable Nutritional Appearance: well nourished Orientation/consciousness: patient oriented x3 HEENT Head: No normal to inspection Mouth: moist mucous membranes Neck Neck: Yes supple and Yes no JVD Resp Auscultation: clear to auscultation bilaterally and no rales Cardio Jugular venous distension: no JVD Palpation: no palpable S3 and no palpable S4 Heart sounds: no rubs GI Palpation (GI): Soft to palpation and nontender Percussion: No Fluid wave present General: Yes no CVA tenderness Back/Spine/Pelvis Back: no CVA tenderness Skin General skin exam: no rashes or lesions noted Neuro General: patient oriented x3 Extrem General: Yes no pedal edema and No clubbing Results Reviewed Nephrology Results: Sodium 139 mmol/L (135-145) 02/04/25 Potassium 4.5 mmol/L (3.3-5.1) 02/04/25 Chloride 109 mmol/L (96-108) H 02/04/25 Carbon Dioxide 20 mmol/L (22-29) L 02/04/25 BUN 25 mg/dL (9-16) H 02/04/25 Creatinine 1.13 mg/dL (0.5-1.4) 02/04/25 Calcium 9.5 mg/dL (8.4-10.2) 02/04/25 Urine Creatinine 389.95 mg/dL 08/13/24 Assessment & Plan Assessment & Plan (1) Chronic kidney disease: Code(s): N18.9 - Chronic kidney disease, unspecified Category: Medical Plan: Mild chronic kidney disease due to a resistant hypertension and diabetes mellitus with microalbuminuria. Renal function stable at baseline. Goal is to slow the progression of renal disease. Continue to avoid nephrotoxic agents. Maintain blood pressure less than 130/80 Maintaining A1c less than 7% (2) Hypertension, essential: Code(s): I10 - Essential (primary) hypertension Category: Medical Plan Resistant hypertension Blood pressure is better controlled. Discussed low-salt diet. Continue to lose weight. No changes were made today Coding Level of Care Code Est Pt Level 4 (32499) Diagnoses Chronic kidney disease N18.9 Hypertension, essential I10
[2025-02-08 10:14] VITALS: BP 130/80
--- OUTSIDE RECORDS SUMMARY | 2025-02-08 11:01 | XMS_ITS | Data Portability ---
Author Organization [place] [facility] Sawyer [facility] [place] Address [address] [facility] [address] [place] [address] Care Team Providers Care Adjunct Teacher Name Role Phone LYNDSEY GONZALES Primary Care [...] our office for referral to the appropriate assistance specialist. He agrees with this plan. Patient [...] knee, 3 view 2022 023 [facility], [address], [place], [address], 3 07:32:46 XR, knee, 4 or more view 2022 023 [facility], [address], [place], [address], 3 15:57:02 Medication Orders Synvisc-One 48 mg/6 mL intra-artic ular syringe 2022 023 [facility]08907, [address] [place], [place], [id number], 3 11:43:31 amoxicillin 500 mg capsule 2022 023 [facility], [address], [place], [id number], 3 16:05:40 Kenalog 40 mg/mL suspension for injection 2022 023 [address] [facility], [address], [place], [id number], 3 11:11:52 lidocaine (PF) 10 mg/mL (1 %) injection solution [address] [facility]60003, [address], [place], [id number], 3 11:11:54 amoxicillin 500 mg tablet 2022 023 [facility] #22229, [address], [place], [id number], 3 13:56:16 Kenalog 40 mg/mL suspension for injection 2022 023 [place] [address] [facility]65070, [address], [place], [id number], 3 11:11:52 lidocaine (PF) 10 mg/mL (1 %) injection solution 2022 023 [place] [address] [facility], [address], [place], [id number], 3 11:11:54 Patient TargetsNo targets recorded. Patient Instructions Encounter Date Encounter Id Patient Instructions Last Modified By Organization Details Last Modified Time 02/12/2023 [id number] You have been provided with a cortisone [...] office or contact us through the portal [facility]. Not available 02/13/2023 19:15:33 X-rays at [...] on 05/24/2022. Not available 02/13/2023 19:12:57 05/20/2023 [id number] You have been provided with a cortisone [...] bony abnormality. Not available 06/02/2023 07:49:40 08/21/2023 [id number] You have been pr ovided with a [...] Time Osteoarthri tis of left knee joint 8327012809461 09 Active 2022 ELIZABETH ARRIAZA PA-C [address], [place], [address], [place] [facility], P 13:55:40 Pain of left knee joint 7298212525684 07 Active 2022 ELIZABETH ARRIAZA PA-C [address], [place], [address], [place] [facility], P 19:14:44 Problem Notes None recorded. Procedures Surgical History Date Name Laterality Status Provider Name and Address Organization Details Recorded Time 08/21/20 23 Synvisc-One Knee Inj completed ELIZABETH ARRIAZA PA-C [address], [place], [address], [place] [facility] 08/22/2023 07:21:53 05/20/20 23 Knee Joint/Bursa Asp & Inj completed ELIZABETH ARRIAZA PA-C [address], [place], [address], [place] [facility] 06/02/2023 07:44:49 02/13/20 23 Knee Joint/Bursa Asp & Inj completed ELIZABETH ARRIAZA PA-C [address], [place], [address], [place] [facility] 02/13/2023 19:14:18 Shoulder Surgery completed Ana Mckeon [place] [facility] 02/12/2023 13:36:53 total knee replacement completed Ana Mckeon [facility] 02/12/2023 13:37:00 Imaging Results None recorded. Procedure Notes None recorded. Medical Equipment None Reported. Allergies Allergen ID Allergen Name Allergen Category Reaction Reaction Severity Criticality Documentation Date Start Date Code Code System Note Provider Name and Address Organization Details Recorded Time 3770 ibuprofen medicatio n Not available Not available Not available 02/12/2023 5640 RxNorm Ana Mckeon null, [place] [facility] 3 13:36:23 Medications Name Sig Start [...] Details Last Updated DateTime 08/21/2023 182.88 cm [facility] [place] [facility] 08/21/2023 11:13:44 Date Recorded Body height Body mass index (BMI) Body weight Provider Name and Address Organization Details Last Updated DateTime 02/12/2023 182.88 cm 28.5 kg/m2 45536.4 g Ana Mckeon [place] - [facility] 02/12/2023 13:37:35 Date Recorded Body height Provider Name an d Address Organization Details Last Updated DateTime 05/20/2023 182.88 cm [facility] 05/20/2023 16:01:46 Social History Question Answer Notes LastModified by Organizat ion Details LastModified Time Tobacco Smoking Status Never Smoker Ana Mckeon null, [facility] 02/12/2023 13:37:20 What Is Your Level Of Alcohol Consumption? Occasional [email or web address] Information not available 02/12/2023 How Many Times Per Week Do You Consume Alcohol? 1-2 Times Per Week [email or web address] Information not available 02/12/2023 Sex: Unknown Functional [...] Anemia N Brain Injury N Heart Attack (GA) N Osteopenia N Diabetes Y Bleeding Disorder [...] Diagnosis Note [id number] JUAN MANUEL PANDYA [address] [facility] [address] [place] [address] 02/12/2023 13:17:54 02/12/2023 14:15:42 Pain of left knee joint 6356371260 21729 M25.562 History of right total knee replacement 8037827228 454831 Z96.651 Osteoarthr itis of left knee joint 5859936296 51304 M17.12 [id number] JUAN MANUEL PANDYA Elzbietae ld [address] [facility] [address] [place] [address] 05/20/2023 15:35:27 05/20/2023 16:02:58 History of right total knee replacement 3645293618 021041 Z96.651 Osteoarthr itis of left knee joint 6279866412 96210 M17.12 [id number] JUAN MANUEL PANDYA El[address]bietafie ld [address] [facility] [address] [place] [address] 08/21/2023 10:52:24 08/21/2023 11:13:11 Osteoarthritis of left knee joint 7305347349 27420 M17.12 Health Concerns Section Related Observation LastModified by Organization Detai ls LastModified Time None Recorded Concern Status LastModified by Organization Details LastModified Time None Recorded Advance Directives Directive None Recorded Payers Encounter Date Sequence Insurance Name Policy Number Policy Lindsey Covered Member ID Lindsey Member ID Guarantor Name 02/12/2023 1 [place] [employer] Vincent Ballard [id number] Vincent Ballard 02/12/2023 2 [place] [facility] Vincent Ballard [id number] Vincent Ballard 05/20/2023 1 [place] [employer] Vincent Ballard [id number] Vincent Ballard 05/20/2023 2 [place] [facility] Vincent Ballard [id number] Vincent Ballard 08/21/2023 1 [place] [employer] Vincent Ballard [id number] Vincent Ballard 08/21/2023 2 [place] [facility] Vincent Ballard [id number] Vincent Ballard Notes Date Note Type Note [...] ELIZABETH ARRIAZA PA-C [address], [place], [address], [place] [facility] 02/13/2023 19:17:19 05/20/2023 text/html This is [...] ELIZABETH ARRIAZA PA-C [address], [place], [address], [place] [facility] 06/02/2023 07:50:27 08/21/2023 text/html Very pleasant 63-year-old male here for Synvisc 1 injection of the left knee. His last injection was cortisone in May 2023. He has return of generalized left knee pain due to osteoarthritis. Strength stable left total joint replacement surgery as long as feasibly possible. He denies any recent illness. ELIZABETH ARRIAZA PA-C [address], [place], [address], [place] [facility] 08/22/2023 07:23:36
--- OUTSIDE RECORDS SUMMARY | 2025-02-08 11:01 | XMS_ITS | Patient Health Record ---
Author Organization [facility] Address [address] [facility] [place]ae[place] [address] Care Team Providers Care Rug Hooker Name Role Phone Chary Bates MD Primary Care Provider Unavailab sander Rosario Pooja Unavailable [phone] Yuliet Chau Unavailable [phone] Allergies Allergen (clinical drug ingredient) Drug/Non Drug [...] Problem Acquired hammer toe of right foot (089687775479137 5) Other hammer toe(s) (acquired), right foot (M20.41) Active confirmed Problem Acquired hammer toe of left foot (656479836058096 3) Other hammer toe(s) (acquired), left foot (M20.42) Active confirmed Problem Localized, primary osteoarthritis of the ankle and/or foot (746471747) Primary osteoarthritis, right ankle and foot (M19.071) Active confirmed Problem Acquired hallux valgus (64702142) Hallux valgus (acquired), left foot (M20.12) Active confirmed Problem Acquired hallux valgus (04685182) Hallux valgus (acquired), right foot (M20.11) Active confirmed Problem Polyneuropathy due to type 2 diabetes mellitus (028254653) Type 2 diabetes mellitus with diabetic polyneuropathy (E11.42) Active confirmed Problem Acquired hammer toe of right foot (083294375070155 5) Hammer toe of right foot (M20.41) Active confirmed Problem Acquired hammer toe of left foot (577748903038188 3) Hammer toe of left foot (M20.42) Active confirmed Problem 89394555 Lower limb length difference (M21.70) Active confirmed Problem Gout (81769147) Gout of left foot (M10.9) Active confirmed Rx drug management (4) Problem Gout (74444414) Gout of right foot (M10.9) Active confirmed Rx drug management (4) Problem Primary gout (94518720) Acute idiopathic gout of left foot (M10.072) Active confirmed Problem 60307645 Smoker (F17.200) Active confirmed Problem 82498675 Essential hypertension (I10) Active confirmed Vital Signs Blood pressure diastolic 70 mm Hg 01/17/2025 Height 8sn21vo in 01/17/2025 Blood pressure systolic 130 mm Hg 01/17/2025 Weight 210 lbs 01/17/2025 BMI 29.29 kg/m2 01/17/2025 Procedures Procedure Date Ordered Date Performed Result Body Sit e 92523-HHQB SKIN LESIONS, 2 TO 4 05/17/2024 N/A N8475-IZJCTDNG DYSTROPHIC NAILS ANY # 05/17/2024 N/A 03990-ONJG SKIN LESIONS, 2 TO 4 09/16/2024 N/A Q4023-DSBFQWOK DYSTROPHIC NAILS ANY # 09/16/2024 N/A 72014-CUHQ SKIN LESIONS, 2 TO 4 01/17/2025 N/A C4322-VRXTSEKI DYSTROPHIC NAILS ANY # 01/17/2025 N/A Encounters Encounter Location Date Provider Diagnosis [address] [address] 05/17/2024 Pooja Black Type 2 diabetes mellitus with diabetic polyneuropathy E11.42 ; Smoker F17.200 ; Pain in left foot M79.672 ; Bursitis of left foot M77.52 ; Hallux valgus (acquired), left foot M20.12 ; Pain in right foot M79.671 ; Bursitis of right foot M77.51 and Hallux valgus (acquired), right foot M20.[address] [address] 09/16/2024 Pooja Black Type 2 diabetes mellitus with diabetic polyneuropathy E11.42 and Smoker F17.[address] [address] 10/11/2024 Yuliet Chau Pain in joint involving left ankle and foot M25.572 and Gout of left foot M10.[address] [address] 01/17/2025 Pooja Black Type 2 diabetes mellitus with diabetic polyneuropathy E11.42 ; Smoker F17.200 ; Pain in left ankle and joints of left foot M25.572 and Acute idiopathic gout of left foot M10.[address] [address] 03/18/2024 Pooja Black [address] [address] 03/26/[address] [address] 04/01/2024 Pooja Abraham [facility] [address] [place] [address] 04/01/2024 Pooja Black [facility] [address] [place] [address] 10/05/2024 Pooja Abraham [facility] [address] [place] [address] 10/11/2024 Poojaskip Rosario [facility] [address] [place] [address] 01/18/2025 Pooja Rosario Assessments Encounter Date Diagnosis [...] X ray : Foot, left 3V 10/11/2024 53422-CYIVXPA NAIL, 6 OR MORE 09/15/2023 16101-XJYAFHW NAIL, 6 OR MORE 05/21/2021 19472-BFFOAFC NAIL, 6 OR MORE 08/27/2021 33433-XPKHYPQ NAIL, 6 OR MORE 12/17/2021 55748-SHDRPUY NAIL, 6 OR MORE 03/21/2022 09777-BABYMKG NAIL, 6 OR MORE 06/27/2022 47618-HDOZQGX NAIL, 6 OR MORE 10/14/2022 06991-YBNPUAP NAIL, 6 OR MORE 01/16/2023 14973-EROYOVG NAIL, 6 OR MORE 06/16/2023 04852-QDGJXXQ NAIL, 6 OR MORE 06/07/2015 97175-HIFZSME NAIL, 6 OR MORE 12/06/2015 19666-DIXJPCH NAIL, 6 OR MORE 06/13/2016 56647-VUGYNMB NAIL, 6 OR MORE 12/12/2016 94523-TEETRDC NAIL, 6 OR MORE 06/12/2017 25483-JYMVHEE NAIL, 6 OR MORE 12/08/2017 21530-HGZWPUR NAIL, 6 OR MORE 06/11/2018 36947-GACQIVO NAIL, 6 OR MORE 11/05/2018 13769-BWOJGKV NAIL, 6 OR MORE 12/24/2018 63689-MBPFWXW NAIL, 6 OR MORE 04/22/2019 42961-IHDKMSC NAIL, 6 OR MORE 08/19/2019 29274-XXSGEGI NAIL, 6 OR MORE 02/10/2020 59416-BQDBXZC NAIL, 6 OR MORE 05/15/2020 21314-NHAZGYZ NAIL, 6 OR MORE 08/17/2020 37024-GSEOQVN NAIL, 6 OR MORE 11/13/2020 40847-VAUSPPB NAIL, 6 OR MORE 02/19/2021 32459- Debride <25 sq cm 06/01/2015 15500- Debride <25 sq cm 06/07/2015 66843-DDMP SKIN LESIONS, OVER 4 06/11/20 18 90653-PXMI SKIN LESIONS, 2 TO 4 12/09/19 18 59661-ASZY SKIN LESIONS, 2 TO 4 12/25/19 19 07508-AETC SKIN LESIONS, 2 TO 4 11/05/19 19 49645-VYJF SKIN LESIONS, 2 TO 4 06/07/20 15 86028-WYRB SKIN LESIONS, 2 TO 4 12/06/19 16 57916-URXV SKIN LESIONS, 2 TO 4 12/13/19 17 73910-LQFP SKIN LESIONS, 2 TO 4 06/12/20 17 38251-MELQ SKIN LESIONS, 2 TO 4 06/13/20 16 80265-RBUQ SKIN LESIONS, 2 TO 4 05/21/20 21 58794-UZQH SKIN LESIONS, 2 TO 4 02/20/20 21 28504-JYSK SKIN LESIONS, 2 TO 4 11/13/19 21 87063-XECN SKIN LESIONS, 2 TO 4 08/17/20 20 46109-UTFD SKIN LESIONS, 2 TO 4 05/15/20 20 18779-KYVQ SKIN LESIONS, 2 TO 4 02/10/20 20 22251-LJWG SKIN LESIONS, 2 TO 4 08/19/20 19 04186-CQDM SKIN LESIONS, 2 TO 4 04/22/20 19 20771-XXCW SKIN LESIONS, 2 TO 4 09/15/20 23 09956-VXQT SKIN LESIONS, 2 TO 4 06/16/20 23 63902-JWUS SKIN LESIONS, 2 TO 4 01/17/20 23 94142-UTIU SKIN LESIONS, 2 TO 4 10/14/19 23 52013-HEWL SKIN LESIONS, 2 TO 4 06/27/20 18902-ATCW SKIN LESIONS, 2 TO 4 03/21/20 05665-GNSB SKIN LESIONS, 2 TO 4 12/18/19 43054-VNRN SKIN LESIONS, 2 TO 4 08/27/20 17419-TPPM SKIN LESIONS, 2 TO 4 12/18/19 24 61002-KBZM SKIN LESIONS, 2 TO 4 05/17/20 24 24801-FPRD SKIN LESIONS, 2 TO 4 12/06/19 15 74556-CJUV SKIN LESIONS, 2 TO 4 09/16/20 24 88923-KFLB SKIN LESIONS, 2 TO 4 01/18/20 25 B5075-CBAAOSFQ DYSTROPHIC NAILS ANY # H9184-HWJIDTWS DYSTROPHIC NAILS ANY # Y7641-HGPZAFWX DYSTROPHIC NAILS ANY # B5592-XTXBKBUS DYSTROPHIC NAILS ANY # Next Appt Details Provider Name:Pooja Rosario , 05/19/2025 10:15:00 AM, [address] [place], [address], Insurance Providers Payer Name Payer Address Payer Phone Subscriber Number Group Number Insured Name Patient Relationship to Insured Coverage Start Date Coverage End Date Medicare National [employer] [address] [place] [address] [id number] Vincent Ballard Self - patient is the insured Medical (General) History Medical History History ICD Code Arthritis Chicken pox Measles Mumps Back,Hip,and Knee pain Hypertension [place] palsy Diabetic Surgical History Surgery Date(Month/Year) shoulder surgery- right 10/24/2020 right knee replacement 05/10/2022 Hospitalization History Reason Date(Month/Year) Went to [facility] ER DX- bells palsy 6
--- OUTSIDE RECORDS SUMMARY | 2025-02-08 11:01 | XMS_ITS ---
Author Organization [facility] [place] Address [address] [facility] [place] [address] Care Team Providers Care Tools And Parts Attendant Name Role Phone Chary Bates MD Primary Care Provider Unavailab Pooja Mckeon Unavailable [phone] Yuliet Chau Unavailable [phone] Allergies Allergen (clinical drug ingredient) Drug/Non Drug [...] Status W/U Status Risk Notes Problem Gout (75808645) Gout of right foot (M10.9) Active confirmed Rx drug management (4) Problem Gout (88258507) Gout of left foot (M10.9) Active confirmed Rx drug management (4) Vital Signs Height 5ft11.5in in 10/11/2024 Weight 205 lbs 10/11/2024 BMI 28.19 kg/m2 10/11/2024 Blood pressure systolic 130 mm Hg 10/11/19 25 Blood pressure diastolic 70 mm Hg 025 Encounters Encounter Location Date Provider Diagnosis [facility] [place] [address] [place] [address] 10/11/2024 Yuliet Chau Pain in joint involving [...] Name:Pooja Rosario , 05/19/2025 10:15:00 AM, [address] [facility], [place], [address], Progress Notes * NELLIE Juan DanielbarronDOB:1960 (64 yo M)Acc No.[id number]:10/11/2024 Progress Note Patient:?Vincent BALLARD Provider:?Yuliet Chau DPM :1960???Age:64 Y???Sex:Male Gibran e:10/11/2024 Address: [address], [place] Pcp:Chary Bates MD Subjective: * Chief Complaints: [...] 05/10/2022 * Hospitalization/Major Diagno stic Procedure:?Went to [facility] ER DX- bells palsy 01/17/2016 * Family [...] of Foot, AP, LAT, MO??Taken by trained?Podiatric Director Of Supply Chain (EF).?Findings:? increase in soft tissue contour and [...] ray : Foot, left 3V * Procedure Codes:?90185 X-RAY EXAM OF LEFT FOOT 3V, Modifiers: 26 , VSA5321 Pt scrn tbco id as non user [...] DPM Date:?0 10/11/2024 Generated for Robert arriaza/Billie/Bernadette on:?02/08/2025 11:01 AM EDT History and Physical Notes * HPI [...] AP, LAT, MO Taken by trained Podiatric Director Of Supply Chain (EF) Clinical Indication(s): Evaluate for Fra cture, Evaluate for Osteomyelitis, Evaluate for possible Gout
--- OUTSIDE RECORDS SUMMARY | 2025-02-08 11:01 | XMS_ITS | Clinical Summary ---
Author Organization [facility] Address [address] [facility] [address] [place] [address] Phone Care Team Providers Care Auto Transmission Specialist Name Role Phone Chary Bates MD Primary Care Provider [phone] Allergies Active Allergy Reactions Criticality Noted Date [...] Billing Address Personal/Family Self 1960 [address] [place] [address] [place] Care Teams Auto Transmission Specialist Relationship Specialty Start Date End Date Chary Bates MD [address] [facility] PCP - General 10/16/20
--- OUTSIDE RECORDS SUMMARY | 2025-02-08 11:01 | XMS_ITS | Clinical Summary ---
Author Organization [facility] Address [address] [place] [address] Care Team Providers Care Crochet Machine Operator Name Role Phone Chary Bates MD Primary Care Provider [phone] Allergies Active Allergy Reactions Criticality Noted Date [...] age to complete this topic Care Teams Crochet Machine Operator Relationship Specialty Start Date End Date Chary Bates MD PCP - General Family Medicine 05/02/17
--- OUTSIDE RECORDS SUMMARY | 2025-02-08 11:01 | XMS_ITS | Encounter Summary ---
Author Organization [facility] Address [address] [place] [address] Care Team Providers Care Health Plan Manager Name Role Phone Chary Bates MD Primary Care Provider [phone] Encounter Details Date Type Department Care Team (Late st Contact Info) Description 10/21/2024 Lab Requisition [facility] [address] [facility] [place] [id number] Karli Díaz PA [address] [place] [address] Benign essential microscopic hematuria Social History Tobacco [...] AM EST) Final Diagnosis A. Urine, Voided, ([id number]): Negative for high grade urothelial carcinoma. Acute [...] HOSPITAL LAB Gross Description A. Urine, Voided, ([id number]): Received is one ThinPrep slide for cytology screen and one ThinPrep slide for UroVysion FISH 11/02/2024 6:46 PM [facility] Disclaimer Unless otherwise specified, all tissue is 10% NB formalin fixed and paraffin embedded. Technical pathology services provided by [facility] at [address], [place] [address] (CLIA #[id number]/Crhisti Gandhi MD, Fabric Worker) 11/02/2024 6:46 PM [facility] Tissue Urine specimen from urethra / Unknown 10/18/2024 10/21/2024 4:26 PM EST us Karli [facility] PATHOLOGY ORDERABLES Natividad l Result [facility] [address] [place] [address], documented in this encounter Visit Diagnoses Diagnosis Benign essential microscopic hematuria documented in this encounter Care Teams Health Plan Manager Relationship Specialty Start Date End Date Chary Bates MD [address] [place] [address], [address] [place] [address] PCP - General Family Medicine 05/02/17 documented as of this encounter
--- OUTSIDE RECORDS SUMMARY | 2025-02-08 11:01 | XMS_ITS | Encounter Summary ---
Author Organization [facility] Address [address] [facility] [address] [place] [address] Care Team Providers Care Spreading Machine Operator Name Role Phone Unavailable Primary Care Provider Unavailabl e Encounter Details Date Type Department Care Team (Latest Contact Info) Description 04/13/2019 Abstract [facility] CONVERSIONS Dental, Provider, DDS Social History [...]
--- OUTSIDE RECORDS SUMMARY | 2025-02-08 11:01 | XMS_ITS ---
Author Organization [facility] Address [address] [place] [address] Care Team Providers Care Alteration Hand Name Role Phone Chary Bates MD Primary Care Provider Unavailab Pooja Mckeon Unavailable [phone] REASON FOR VISIT Lab results Encounters Encounter Location Date Provider Diagnosis [address] [address] 01/18/2025 Pooja Abraham Plan Of Treatment Next Appt Details Provider Name:Pooja Ramos Abraham , 05/19/2025 10:15:00 AM, [address] [place] [address], [phone], Progress Notes * Vincent DORADODOB:1960 (64 yo M)Acc No.[id number]:01/18/2025 Patient:?Vincent DORADO :1960???Age:64 Y???Sex:Male Address:[address] [place], [address] * true * Date:? Generated for Printi ng/Faxing/eTransmitting on:?02/08/2025 11:00 AM EDT
--- OUTSIDE RECORDS SUMMARY | 2025-02-08 11:01 | XMS_ITS | Encounter Summary ---
Author Organization [facility] Address [address] [facility] [address] [place] [address] Phone Care Team Providers Care Zoogler Name Role Phone Chary Bates MD Primary Care Provider [phone] Reason for Visit * Reason Comments Med Refill Encounter Details Date Type Department Care Team (Late st Contact Info) Description 12/05/2023 Refill [facility] [address] [place] [phone] Camron Araya MD [address] [facility] [address] [place] [phone] Social History Tobacco Use Types Packs/Day Years [...] on filedocumented in this encounter Care Teams Zoogler Relationship Specialty Start Date End Date Chary Bates MD [address] [place], [place] PCP - General 10/16/20 documented as of this encounter
--- OUTSIDE RECORDS SUMMARY | 2025-02-08 11:01 | XMS_ITS | Patient Health Record ---
Author Organization [facility] Address [address] [place] [address] Care Team Providers Care Flight Security Specialist Name Role Phone Jana JENSEN Chary Primary [...] Problem Status W/U Status Risk Notes Problem [id number] Colon cancer screening (Z12.11) Active confirmed Problem [id number] [facility] (current) use of aspirin (Z79.82) Active confirmed Plan Of Treatment Future Test Test Name Order Date COLONOSCOPY 01/18/2022 Insurance Providers Payer Name Payer Address Payer Phone Subscriber Number Group Number Insured Name Patient Relationship to Insured Coverage Start Date Coverage End Date MEDICARE OF [place] [address] [place] [id number] NIKA DORADO Self - patient is the insured MEDICAID OF [facility] [address] [place] [address] [id number] NIKA DORADO Self - patient is the insured Medical (General) History Medical History History ICD Code diabetes mellitus hypertension degenerative joint disease elevated Cholesterol Surgical History Surgery Date(Month/Year) L rotator cuff repair and bone spurs 01/04 hydrocele repair 2020
--- OUTSIDE RECORDS SUMMARY | 2025-02-08 11:01 | XMS_ITS | Clinical Summary ---
Author Organization [employer] Address [address] [place] [address] 7 [place] [address] Care Team Providers Care Aircraft Mechanic Structures Name Role Phone Unavailable Primary Care Provider [...]
--- OUTSIDE RECORDS SUMMARY | 2025-02-08 11:01 | XMS_ITS | Clinical Summary ---
Author Organization [address] [facility] Address [address] [place] [address] Phone Care Team Providers Care Urban Planning Teacher Name Role Phone Chary Bates MD Primary Care Provider [phone] Surgical History Surgery Date Site/Laterality Comments COLONOSCOPY [...] Comments Coronary artery disease Father fata l [place] at age 62 Heart attack Father Prostate [...] Self 1960 [address] [place] [address] MEDICARE Advance Directives Documents on File Type Date Recorded Patient Pattern Wheel Maker Expl anation Health Care Decision (hx) 03/15/2022 AD MCCARTY DIRECTIVE Health Care Decision (hx) 03/15/2022 AD MCCARTY DIRECTIVE Health Care Decision (hx) 03/15/2022 AD MCCARTY DIRECTIVE Health Care Decision (hx) 03/15/2022 AD MCCARTY DIRECTIVE Health Care Decision (hx) 03/15/2022 AD MCCARTY DIRECTIVE Health Care Decision (hx) 03/15/2022 AD MCCARTY DIRECTIVE Care Teams Urban Planning Teacher Relationship Specialty Start Date End Date Chary Bates MD [address] [facility], [address] [place] [address] PCP - General Family Medicine 05/02/17
--- OUTSIDE RECORDS SUMMARY | 2025-02-08 11:02 | XMS_ITS ---
Author Organization [facility] Address [address] [facility] [place] [address] Care Team Providers Care Detective And Intelligence Analyst Name Role Phone Chary Bates MD Primary Care Provider Unavailab le Pooja Rosario Unavailable [phone] Allergies Allergen (clinical drug ingredient) Drug/Non Drug [...] W/U Status Risk Notes Problem Primary gout (71078959) Acute idiopathic gout of left foot (M10.072) Active confirmed Vital Signs Height 0gl52bh in 01/17/2025 Weight 210 lbs 01/17/2025 BMI 29.29 kg/m2 01/17/2025 Blood pressure systolic 130 mm Hg 01/18/20 25 Blood pressure diastolic 70 mm Hg 025 Procedures Procedure Date Ordered Date Performed Result Body Sit e 45597-KJNM SKIN LESIONS, 2 TO 4 01/17/2025 N/A M5742-ZFTOEOZZ DYSTROPHIC NAILS ANY # 01/17/2025 N/A Encounters Encounter Location Date Provider Diagnosis [facility] [place] [address] [place] [address] 01/17/2025 Pooja Black Type 2 diabetes mellitus [...] *Sedimentation Rate-Westergren 5 C-Reactive Protein, Quant 01/17/2025 05522-ZTDB SKIN LESIONS, 2 TO 4 01/18/20 25 Y2876-SBONEXFW DYSTROPHIC NAILS ANY # Next Appt Details Follow Up: 4 Months, Reason: Provider Name:Pooja Rosario , 05/19/2025 10:15:00 AM, [address] [place] [address], [phone], Procedure Notes * Category Sub-Category Detail Notes [...] instrumentation by the physician of record - 45324 Nail Reduction Nail Reduction (-27) Trimming o [...] Notes * Vincent DORADODOB:1960 (64 yo M)Acc No.[id number]:01/17/2025 Progress Note Patient:?Vincent DORADO Provider:?Pooja Rosario DPM :1960???Age:64 Y???Sex:Male Gibran e:01/17/2025 Address: [place] [address], [place], [place] Pcp:Chary Bates MD Subjective: * Chief Complaints: [...] 05/10/2022 * Hospitalization/Major Diagno stic Procedure:?Went to [facility] ER DX- bells palsy 01/17/2016 * Family [...] Allergies:?Ibuprofen: Contra indicationyes[Allergies Verified] Objective: * Vitals:?Ht: 3gw98gj, Wt:210, BMI:29.29, Shoe size: 12-12.5, BP:130/70mm Hg, [...] instrumentation by the physician of record - 66012.?Nail Reduction:?Nail Reduction?(-27) Trimming of all dystrophic nails [...] ING DYSTROPHIC NAILS ANY #, Modifiers: XS 61938 TRIM SKIN LESIONS, 2 TO 4, Modifiers: [...] Rosario DPM Date:?2024 Generated for Printi ng/Faxing/eTransmitting on:?02/08/2025 11:01 AM EDT History and Physical [...]
== END 2025-02-08 10:17 | disposition home or self-care (01) ==
LOC: HO.HKA 09:51
PROVIDERS: PCP Internal Medicine; Visit Provider Internal Medicine Hypertension Specialist
DX: I12.9 Hypertensive chronic kidney disease with stage 1 through stage 4 chronic kidney disease, or unspecified chronic kidney disease (principal); E11.22 Type 2 diabetes mellitus with diabetic chronic kidney disease; N18.9 Chronic kidney disease, unspecified
CPT/HCPCS: 99214

== ENCOUNTER → 2025-02-08 09:51 | Outpatient (BNVA) | payer MEDICARE, MEDICAID, SELFPAY | PROVIDERS: PCP Internal Medicine; Visit Provider Internal Medicine Hypertension Specialist | DX: I12.9 Hypertensive chronic kidney disease with stage 1 through stage 4 chronic kidney disease, or unspecified chronic kidney disease (principal); N18.9 Chronic kidney disease, unspecified | CPT/HCPCS: 99212 ==

== ENCOUNTER 2025-03-29 10:19 | Outpatient (AMB) | payer MEDICARE, MEDICAID, SELFPAY ==
[2025-03-29 10:25] VITALS: BMI 29.0
--- NOTE | 2025-03-29 10:25 | A.OFFVIS_ITS ---
Vital Signs 03/29/25 10:25 Height 6 ft Weight 214 lb BMI 29.0 Intake Visit Reasons: Inj- Left knee Durolane inj Intake Note: Vincent is a 65 year old male who presents today for a left knee Durolane gel injection. The patient describes his left knee pain as sharp in nature. He wishes to hold off on total knee replacement surgery for as long as possible. He has had cortisone injections in the past which gave him minimal relief. At this point is left knee pain is interfering with his activities of daily living and his ability to sleep well through the night. He has tried Tylenol and anti- inflammatory medicines which gave him minimal relief. Allergies ibuprofen (From MOTRIN) Allergy (Unknown, Verified 03/29/25 10:25) MEDICATION INTERACTION, effected his kidneys Medication List - Last Reconciled 03/29/25 by Marco A Delgado MD amlodipine 10 mg PO DAILY aspirin (Adult Low Dose Aspirin) 81 mg PO DAILY atorvastatin 20 mg PO DAILY blood-glucose meter (Accu-Chek Guide Me Glucose Meter) As directed clonidine HCl 0.1 mg PO BID cyclobenzaprine 10 mg PO BEDTIME PRN dulaglutide (Trulicity) 0.75 mg subcut QWEEK gabapentin 100 mg PO TID PRN icosapent ethyl (Vascepa) 2 grams PO BID insulin glargine (Lantus U-100 Insulin) 10 units subcut QAM lancets (Accu-Chek Softclix Lancets) As directed metformin 1,000 mg PO BID metoprolol succinate ER 100 mg PO DAILY olmesartan 40 mg PO DAILY oxycodone 30 mg PO QID PRN sertraline 100 mg PO ONCE zolpidem 10 mg PO BEDTIME PRN PFSH Medical History 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 Maternal Grandmother Diabetes mellitus Maternal Grandfather No problems noted. Paternal Grandfather No problems noted. Paternal Grandmother No problems noted. Brother No problems noted. Sister No problems noted. Sister No problems noted. Son No problems noted. Son No problems noted. Social History Housing: Apartment Alcohol intake: current Alcohol intake frequency: a few times a month Patient Tobacco Use Status: Current everyday Tobacco user Tobacco use type: Cigarette Cigarettes Per Day: 5 e-Cigarette/Vaping Use: Never Used Second Hand Smoke Exposure: Yes Current occupational status: unemployed Cognitive needs: No Hearing needs: No Vision needs: Yes Physical Exam Vital Signs: BMI result Body Mass Index 29.0 Const Other: Well-nourished well-developed very friendly male awake alert and oriented x3 in no acute distress Extrem Other: Bilateral lower extremity examination shows good capillary refill, no skin lesions noted, normal sensation light touch Left knee examination shows a minimal effusion, palpable crepitus with range of motion, pain with range of motion, no instability Office Procedures AMB Joint Injection/Aspiration Joint Injection/Aspiration Primary Site: left knee Prep: site was prepped using aseptic technique Injected: 60 mg of (Durolane viscosupplementation) and 1% plain lidocaine Procedure: The patient tolerated the procedure well Coding 79828 - Large joint Procedure code (CPT) selection complete Results Reviewed Results Reviewed: X-rays of the patient's left knee taken previously show joint space narrowing, subchondral sclerosis, no acute bony abnormalities Assessment & Plan Assessment & Plan (1) Osteoarthritis of left knee: Code(s): M17.12 - Unilateral primary osteoarthritis, left knee Category: Medical Plan Mr. Ballard presents with left knee pain due to osteoarthritis. The risks and benefits of a left knee Durolane viscosupplementation injection were discussed at length with the patient. The patient wished to proceed. He tolerated the injection well. He will continue with his home exercise program. He will contact me prior to his follow-up appointment in 3 months should any questions or concerns arise. Feel free to call me at any time should questions regarding his orthopedic management arise. I spent 21 minutes in reviewing the patient's records and imaging studies, se eing the patient and documenting in the medical record. Orders: Orders AMB Joint Injection/Aspiration 03/29/25 M17.12 - Unilateral primary osteoarthritis, left knee Coding Level of Care Code Est Pt Level 3 (22512) Complex EM visit Add On G2211 Diagnoses Osteoarthritis of left knee M17.12 CPT Codes Coding - 87998 Large joint: 47433 - Large joint ([id number])
== END 2025-03-29 10:56 | disposition home or self-care (01) ==
LOC: HO.HOS 10:20
PROVIDERS: PCP Internal Medicine; Visit Provider Orthopaedic Surgery
DX: M17.12 Unilateral primary osteoarthritis, left knee (principal)
CPT/HCPCS: 20610; 99213

== ENCOUNTER → 2025-03-29 10:19 | Outpatient (BNVA) | payer MEDICARE, MEDICAID, SELFPAY | PROVIDERS: PCP Internal Medicine; Visit Provider Orthopaedic Surgery | DX: M17.12 Unilateral primary osteoarthritis, left knee (principal) | CPT/HCPCS: 20610; 99212; J2003; J7318 ==

== ENCOUNTER 2025-06-29 11:11 | Outpatient (AMB) | payer MEDICARE, MEDICAID, SELFPAY ==
--- NOTE | 2025-06-29 11:31 | MHC.OFFVIS ---
Vital Signs 06/29/25 11:33 Height 5 ft 11 in Weight 203 lb BMI 28.3 Intake Visit Reasons: Left knee pain Intake Note: Vincent is a 65 year old male who presents with complaints of left knee pain. He describes his pain as sharp in nature. He did undergo right total knee replacement surgery several years ago. He reports minimal discomfort in his right knee. He wishes to hold off on left total knee replacement surgery for as long as possible. He has failed the last 3 months of conservative treatment. He has tried physical therapy exercises which aggravated his pain. He has had cortisone injections which gave him minimal relief. Has also had Durolane injections which gave him fairly good relief. time. Allergies ibuprofen (From MOTRIN) Allergy (Unknown, Verified 06/29/25 11:33) MEDICATION INTERACTION, effected his kidneys Medication List - Last Reconciled 06/29/25 by Marco A Delgado MD amlodipine 10 mg PO DAILY amoxicillin 2,000 mg (4 x 500 mg) PO ONCE aspirin (Adult Low Dose Aspirin) 81 mg PO DAILY atorvastatin 20 mg PO DAILY blood-glucose meter (Accu-Chek Guide Me Glucose Meter) As directed clonidine HCl 0.1 mg PO BID cyclobenzaprine 10 mg PO BEDTIME PRN dulaglutide (Trulicity) 0.75 mg subcut QWEEK gabapentin 100 mg PO TID PRN icosapent ethyl (Vascepa) 2 grams PO BID insulin glargine (Lantus U-100 Insulin) 10 units subcut QAM lancets (Accu-Chek Softclix Lancets) As directed metformin 1,000 mg PO BID metoprolol succinate ER 100 mg PO DAILY olmesartan 40 mg PO DAILY oxycodone 30 mg PO QID PRN sertraline 100 mg PO ONCE zolpidem 10 mg PO BEDTIME PRN PFSH Medical History [facility] (current) use of insulin Insulin dependent diabetes mellitus Lipid disorder Tobacco abuse Chronic kidney disease Hypertension, essential Surgical History History of colonoscopy Family History Father Cancer of prostate Myocardial infarction Mother No problems noted. Maternal Grandmother Diabetes mellitus Maternal Grandfather No problems noted. Paternal Grandfather No problems noted. Paternal Grandmother No problems noted. Brother No problems noted. Sister No problems noted. Sister No problems noted. Son No problems noted. Son No problems noted. Social History Housing: Apartment Alcohol intake: current Alcohol intake frequency: a few times a month Patient Tobacco Use Status: Current everyday Tobacco user Tobacco use type: Cigarette Cigarettes Per Day: 5 e-Cigarette/Vaping Use: Never Used Second Hand Smoke Exposure: Yes Current occupational status: unemployed Cognitive needs: No Hearing needs: No Vision needs: Yes Physical Exam Vital Signs: BMI result Body Mass Index 28.3 Const Other: Well-nourished well-developed very friendly male awake alert and oriented x3 in no acute distress Extrem Other: Left knee examination shows a minimal effusion, palpable crepitus with range of motion, pain with range of motion, no instability Results Reviewed Results Reviewed: X-rays of the patient's left knee taken previously show joint space narrowing, subchondral sclerosis, no acute bony abnormalities Assessment & Plan Assessment & Plan (1) Left knee pain: Code(s): M25.562 - Pain in left knee Category: Medical Plan Mr. Ballard presents with left knee pain due to osteoarthritis. I had a lengthy discussion with the patient regarding the treatment options. He wishes to hold off on surgery if at all possible. I agree with this plan. I will see if the patient's insurance company will cover another Durolane viscosupplementation injection. I will see him back once the injection is available. Feel free to call me at any time should questions regarding his orthopedic management arise. I spent 22 minutes in reviewing the patient's records and imaging studies, seeing the patient and documenting in the medical record. Coding Level of Care Code Est Pt Level 3 (96048) Complex EM visit Add On G2211 Diagnoses Left knee pain M25.562
[2025-06-29 11:33] VITALS: BMI 28.3
--- OUTSIDE RECORDS SUMMARY | 2025-06-29 14:22 | XMS_ITS | Patient Health Record ---
[facility] Address [address] [facility] [place] [address] Care Team Providers Care Sheet Metal Assembler Name Role Phone Chary Bates MD Primary Care Provider Unavailab Pooja Mckeon Unavailable [phone] Yuliet Chau Unavailable [phone] Allergies Allergen (clinical drug ingredient) Drug/Non Drug Allergy documented on EMR Reaction Allergy Type Onset Date Status ibuprofen Ibuprofen Unknown Drug Allergy Active Results Component Value Reference Range Notes HEMOGLOBIN A1C (GLYCOHEMOGLO BIN) Reviewed date:01/17/2025 02:18:46 PM Interpretation: Performing Lab: Notes/Report: HEMOGLOBIN A1C % (HH) 4.9 HEMOGLOBIN A1C (GLYCOHEMOGLO BIN) Reviewed date:05/19/2025 12:26:21 PM Interpretation: Performing Lab: Notes/Report: HEMOGLOBIN A1C % (HH) 5.3 Reason For Referral No Information Medications Medication SIG (Take, Route, Frequency, Duration) Notes Start Date End Date Status Aspirin Active Extra Depth Orthopedic Shoes (1 Pair) with Customized Heat Molded Multidensity Innersoles (3 Pair) as directed Dx: NIDDM/Polyneuropathy (E11.42), Hammertoe Foot Deformity (M20.41,M20.42), Preulcerative Skin Lesion(s) (L85.1 06/13/2016 Not-Taking Atorvastatin Calcium Active cloNIDine HCl 0.1 MG TK 1 T PO BID Oral; Duration: 30 Not-Taking Medrol 4 MG as directed Orally daily; Duration: 6 days 01/17/2025 Active amLODIPine Besylate 10 MG 1 tablet Orally Once a day Active Ciclopirox Olamine 0.77 % APPLY TOPICALLY TO THE AFFECTED AREA TWICE DAILY; Duration: 21 Active Amlodipine & Diet Manage Prod Active Furosemide Not-Takin g Benicar Active Lantus Not-Taking Metformin & Diet Manage Prod Active NovoLOG Not-Taking Extra Depth Orthopedic Shoes (1 Pair) with Customized Heat Molded Multidensity Innersoles (3 Pair) as directed Dx: NIDDM/Polyneuropathy (E11.42), Hammertoe Foot Deformity (M20.41,M20.42), Preulcerative Skin Lesion(s) (L85.1 01/16/2023 Active zzzGold Bonds for Diabetics . . apply to feet Daily; Duration: 30 days 12/05/2014 Not-Taking Medrol becka 4mg as directed orally a s directed; Duration: 6 days 10/11/2024 Active Metoprolol & Diet Manage Prod Not-Taking Lovaza Active Fenofibrate Not-Taki ng Trulicity Active Extra-Depth Diabetic Shoes with 3 Pair Custom heat-molded multi-density innersoles . for 1 year . Dx:hamamertoes,hallux limitus; Duration: . 12/05/2014 Not-Taking Immunizations Vaccine Route Administration Date Status Comme nts Influenza Unknown 06/09/2017 Administered Influenza Unknown 06/23/2018 Administered Influenza Unknown 07/23/2019 Administered Influenza Unknown 06/06/2020 Administered Influenza Unknown 06/06/2022 Administered Influenza Unknown 08/06/2023 Administered Influenza Unknown 06/06/2024 Administered COVID-19 Pfizer BioNTech Vaccine Unknown 01/29/2021 Administered 1st 01/12/2021 Social History Tobacco Use: Social History Observation [...] Are you an other tobacco user? No AUDIT-C (Standard) Question Answer Notes Did you have a drink contain ing alcohol in the past year? Yes How often did you have a dri nk containing alcohol in the past year? Monthly or less (1 point) How many drinks did you have on a typical day when you were drinking in the past year? 1 or 2 drinks (0 point) How often did you have six o r more drinks on one occasion in the past year? Less than monthly (1 point) Points 2 Interpretation Negative Problems Problem Type SNOMED Code ICD Code Onset Dates Problem Status W/U Status Risk Notes Problem Polyneuropathy due to type 2 diabetes mellitus (368791210) Type 2 diabetes mellitus with diabetic polyneuropathy (E11.42) Active confirmed Problem Primary gout (48661496) Acute idiopathic gout of left foot (M10.072) Active confirmed Problem Smoker (83285214) Smoker (F17.200) Active confi rmed Vital Signs Blood pressure diastolic 70 mm Hg 05/19/2025 Height 0xk15lu in 05/19/2025 Blood pressure systolic 128 mm Hg 05/19/2025 Weight 200 lbs 05/19/2025 BMI 27.89 kg/m2 05/19/2025 Procedures Procedure Date Ordered Date Performed Result Body Sit e 17311-MQDY SKIN LESIONS, 2 TO 4 09/16/2024 N/A A1498-FSTRXIAU DYSTROPHIC NAILS ANY # 09/16/2024 N/A 40319-EIFS SKIN LESIONS, 2 TO 4 01/17/2025 N/A R9389-JYYXWUPM DYSTROPHIC NAILS ANY # 01/17/2025 N/A 03752-IHAO SKIN LESIONS, 2 TO 4 05/19/2025 N/A K3123-IZNHOBXF DYSTROPHIC NAILS ANY # 05/19/2025 N/A Encounters Encounter Location Date Provider Diagnosis [facility] [address] [address] 09/16/2024 Pooja Black Type 2 diabetes mellitus with diabetic polyneuropathy E11.42 and Smoker F17.200 [facility] [address] [address] 10/11/2024 Yuliet Chau Pain in joint involving left ankle and foot M25.572 and Gout of left foot M10.[address] [address] 01/17/2025 Pooja Black Type 2 diabetes mellitus with diabetic polyneuropathy E11.42 ; Smoker F17.200 ; Pain in left ankle and joints of left foot M25.572 and Acute idiopathic gout of left foot M10.[address] [address] 05/19/2025 Pooja Black Type 2 diabetes mellitus with diabetic polyneuropathy E11.42 ; Smoker F17.200 ; Pain in left ankle and joints of left foot M25.572 and Acute idiopathic gout of left foot M10.[address] [address] 10/05/2024 Poojaskip Rosario [address] [address] 10/11/2024 Poojaskip Rosario [address] [address] 01/18/2025 Pooja Rosario Assessments Encounter Date Diagnosis [...] left ankle and foot (ICD-10 - M25.572) 01/17/2025 Type 2 diabetes mellitus with diabetic polyneuropathy (ICD-10 - E11.42) 05/19/2025 Type 2 diabetes mellitus with diabetic polyneuropathy (ICD-10 - E11.42) 05/19/2025 Smoker (ICD-10 - F17.200) 01/17/2025 Smoker (ICD-10 - F17.200) 05/19/2025 Pain in left ankle and joints of left foot (ICD-10 - M25.572) 01/17/2025 Pain in left ankle and joints of left foot (ICD-10 - M25.572) 05/19/2025 Acute idiopathic gout of left foot (ICD-10 - M10.072) 01/17/2025 Acute idiopathic gout of left foot (ICD-10 - M10.072) Patient Educated with: GOUT.pdf (GOUT.pdf) Patient Educated with: LOW PURINE DIET.pdf (LOW PURINE DIET.pdf) 10/11/2024 Other Plan Of Treatment Pending Test Test Name Order Date *Uric Acid, Serum 01/17/2025 *Sedimentation Rate-Westergren C-Reactive Protein, Quant 01/17/2025 X ray : Foot, left 3V 10/11/2024 35671-UKMJAQC NAIL, 6 OR MORE 09/15/2023 01932-UMPMLFJ NAIL, 6 OR MORE 05/21/2021 98978-VFHNQNZ NAIL, 6 OR MORE 08/27/2021 09398-MLCOVMV NAIL, 6 OR MORE 12/17/2021 64101-AYPFFGN NAIL, 6 OR MORE 03/21/2022 74664-XLCICYV NAIL, 6 OR MORE 06/27/2022 95155-JFDSEDT NAIL, 6 OR MORE 10/14/2022 57187-XIXCTXW NAIL, 6 OR MORE 01/16/2023 19052-LXGDLAN NAIL, 6 OR MORE 06/16/2023 09460-GSASEIR NAIL, 6 OR MORE 06/07/2015 01762-UGHBSDL NAIL, 6 OR MORE 12/06/2015 08833-GTIUGDP NAIL, 6 OR MORE 06/13/2016 21422-PKBAQYX NAIL, 6 OR MORE 12/12/2016 58608-CDFWFVW NAIL, 6 OR MORE 06/12/2017 30928-YGNCXFA NAIL, 6 OR MORE 12/08/2017 77877-GTXFZRI NAIL, 6 OR MORE 06/11/2018 96103-OJGNOWI NAIL, 6 OR MORE 11/05/2018 89626-DUQCSAU NAIL, 6 OR MORE 12/24/2018 55085-PPFDKUQ NAIL, 6 OR MORE 04/22/2019 95420-TDEJDMO NAIL, 6 OR MORE 08/19/2019 87757-TDMTGXU NAIL, 6 OR MORE 02/10/2020 92332-YHFRDOE NAIL, 6 OR MORE 05/15/2020 95957-OWOLCAU NAIL, 6 OR MORE 08/17/2020 41547-GGUBPZS NAIL, 6 OR MORE 11/13/2020 59495-AHEKXVZ NAIL, 6 OR MORE 02/19/2021 56829- Debride <25 sq cm 06/01/2015 57238- Debride <25 sq cm 06/07/2015 25516-VBYL SKIN LESIONS, OVER 4 06/11/20 18 39480-ZACG SKIN LESIONS, 2 TO 4 12/09/19 18 58433-BRIC SKIN LESIONS, 2 TO 4 12/25/19 19 36439-EFCJ SKIN LESIONS, 2 TO 4 11/05/19 19 96199-RXEC SKIN LESIONS, 2 TO 4 06/07/20 15 93779-CUNO SKIN LESIONS, 2 TO 4 12/06/19 16 65965-LTGZ SKIN LESIONS, 2 TO 4 12/13/19 17 82457-VQHF SKIN LESIONS, 2 TO 4 06/12/20 17 55729-UHTM SKIN LESIONS, 2 TO 4 06/13/20 16 87928-DTBG SKIN LESIONS, 2 TO 4 05/21/20 21 30653-ANON SKIN LESIONS, 2 TO 4 02/20/20 21 06193-EEGJ SKIN LESIONS, 2 TO 4 11/13/19 21 86957-UPPX SKIN LESIONS, 2 TO 4 08/17/20 20 62138-ZYYY SKIN LESIONS, 2 TO 4 05/15/20 20 58876-JSEN SKIN LESIONS, 2 TO 4 02/10/20 20 44051-FRFA SKIN LESIONS, 2 TO 4 08/19/20 19 92185-IJDF SKIN LESIONS, 2 TO 4 04/22/20 19 69942-SAQU SKIN LESIONS, 2 TO 4 09/15/20 33942-FEHH SKIN LESIONS, 2 TO 4 06/16/20 64914-REOJ SKIN LESIONS, 2 TO 4 01/17/20 69255-LELS SKIN LESIONS, 2 TO 4 10/14/19 73840-PBJB SKIN LESIONS, 2 TO 4 06/27/20 92922-XTKD SKIN LESIONS, 2 TO 4 03/21/20 71281-GDOK SKIN LESIONS, 2 TO 4 12/18/19 41881-HWIY SKIN LESIONS, 2 TO 4 11/22/20 21 24313-NKGQ SKIN LESIONS, 2 TO 4 12/18/19 24 46094-XEGR SKIN LESIONS, 2 TO 4 05/17/20 24 24680-MSXS SKIN LESIONS, 2 TO 4 12/06/19 15 12401-RJBI SKIN LESIONS, 2 TO 4 09/16/20 24 99807-GGXI SKIN LESIONS, 2 TO 4 05/19/20 25 91477-CNBN SKIN LESIONS, 2 TO 4 01/18/20 25 H7522-QMJXEVAY DYSTROPHIC NAILS ANY # B1857-UQFAQQRA DYSTROPHIC NAILS ANY # A1721-YCEZBJSF DYSTROPHIC NAILS ANY # Q7246-NQTABWGV DYSTROPHIC NAILS ANY # J6586-XLNDVLMD DYSTROPHIC NAILS ANY # Next Appt Details Provider Name:Pooja Rosario , 09/19/2025 10:15:00 AM, [address] [place], [address], Insurance Providers Payer Name Payer Address Payer Phone Subscriber Number Group Number Insured Name Patient Relationship to Insured Coverage Start Date Coverage End Date Medicare National [facility] [address] [place] [address] [id number] Vincent Ballard Self - patient is the insured [facility] [address] [place] [address] [phone] Vincent Ballard Self - patient is the insured Medical (General) History Medical History History ICD Code Arthritis Chicken pox Measles Mumps Back,Hip,and Knee pain Hypertension Makoti palsy Diabetic Primary osteoarthritis, right ankle and foot M19.071 Other hammer toe(s) (acquired), left brigitte t M20.42 Lower limb length difference M21.70 Hallux valgus (acquired), right foot M20 .11 Hallux valgus (acquired), left foot M20. 12 Gout of right foot M10.9 Gout of left foot M10.9 Surgical History Surgery Date(Month/Year) shoulder surgery- right 10/24/2020 right knee replacement 05/10/2022 Hospitalization History Reason Date(Month/Year) Went to [facility] ER DX- bells palsy 6
--- OUTSIDE RECORDS SUMMARY | 2025-06-29 14:22 | XMS_ITS | Clinical Summary ---
Author Organization [facility] Address [address] [place] [address] Care Team Providers Care Glue Specialty Supervisor Name Role Phone Chary Bates MD Primary Care Provider Allergies Active Allergy Reactions Criticality Noted Date [...] of 2 - PCV) 05/15/2018 05/15/2017, 03/02/2009 Pneumococcal Vaccine (2 of 2 - PCV) 05/15/2018 05/15/2017, 03/02/2009 DTap / Tdap / Td (2 - Td or Tdap) 04/25/2021 04/25/2011 COVID-19 Vaccine ( season) 2025 08/13/2021, 01/29/2021, 01/12/2021 Influenza Vaccine (#1) 2025 , 07/08/2018, 06/17/2017, Additional history exists RSV Adult > 60+ Yrs or (1 - 1-dose 75+ series) 02/16/2036 Hepatitis B Vaccines Aged Out No long er eligible based on patient's age to complete this topic RSV Ped < 20 months Aged Out No longe r eligible based on patient's age to complete this topic Care Teams Glue Specialty Supervisor Relationship Specialty Start Date End Date Chary Bates MD PCP - General Family Medicine 05/02/17
--- OUTSIDE RECORDS SUMMARY | 2025-06-29 14:22 | XMS_ITS | Encounter Summary ---
Author Organization [facility] Address [address] [facility] [address] [place] [address] Phone Care Team Providers Care Supreme Court Judge Name Role Phone Chary Bates MD Primary Care Provider [phone] Reason for Visit * Reason Comments Med Refill Encounter Details Date Type Department Care Team (Late st Contact Info) Description 12/05/2023 Refill [facility] [address] [place] [address] [place] [phone] Camron Araya MD [address] [facility] [address] [place] [phone] Social History Tobacco Use Types Packs/Day Years [...] on filedocumented in this encounter Care Teams Supreme Court Judge Relationship Specialty Start Date End Date Chary Bates MD [address] [place], [place] PCP - General 10/16/20 documented as of this encounter
--- OUTSIDE RECORDS SUMMARY | 2025-06-29 14:22 | XMS_ITS | Clinical Summary ---
Author Organization [facility] Address [address] [place] [address] Phone Care Team Providers Care Sheet Metal Duct Installer Helper Name Role Phone Chary Bates MD Primary Care Provider [phone] Surgical History Surgery Date Site/Laterality Comments COLONOSCOPY [...] Comments Coronary artery disease Father fata l PA at age 62 Heart attack Father Prostate [...] Panel) 09/13/2022 Colorectal Cancer Screening: Colonoscopy 09/13/2022 HIV Screening 09/13/2022 Hepatitis C Screening 09/13/2022 Medicare Annual Wellness Visit 09/13/2022 Social Influencers of Health Screening 09/13/2022 Diabetes: Annual Urine Albumin-Creatinine Ratio (uACR) 09/18/2022 Diabetes: Blood Sugar Control Test (HGBA1C) 09/18/2022 Hypertension/CHF/CAD Annual BMP Blood Test 09/18/2022 Depression Screening 10/06/2024 COVID-19 Vaccine ( season) 2025 Influenza Vaccine (#1) 2025 3, 06/23/2012, 08/27/2011, Additional history exists Hepatitis B Vaccines Completed 11/21/2011, 06/27/2011, 05/27/2011 [...] Address Personal/Family Self 1960 42[address] [place] [place] [address] MEDICARE Advance Directives Documents on File Type Date Recorded Patient Windows 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
--- OUTSIDE RECORDS SUMMARY | 2025-06-29 14:22 | XMS_ITS | Encounter Summary ---
Author Organization [facility] Address [address] [place] [address] Care Team Providers Care Patient Account Representative Name Role Phone Chary Bates MD Primary Care Provider [phone] Encounter Details Date Type Department Care Team (Late st Contact Info) Description 10/21/2024 Lab Requisition [facility] - Main Lab [address] [facility] [place] [phone] Karli Díaz PA [address] [place] [address] Benign essential microscopic hematuria Social History Tobacco [...] AM EST) Final Diagnosis A. Urine, Voided, ([id number]): Negative for high grade urothelial carcinoma. Acute inflammatory cells are present. Results of UroVysion fluorescence in situ hybridization (FISH) testing: Although FISH was performed, insufficient non-obscured hybridization signals are present for evaluation and interpretation. 11/02/2024 6:46 PM EST [facility] Clinical Information Benign essential microscopic hematuria R31.1 Cytology/Urine FISH (now) 11/02/2024 6:46 PM EST [facility] Gross Description A. Urine, Voided, ([id number]): Received is one ThinPrep slide for cytology screen and one ThinPrep slide for UroVysion FISH 11/02/2024 6:46 PM [facility] Disclaimer Unless otherwise specified, all tissue is 10% NB formalin fixed and paraffin embedded. Technical pathology services provided by [facility] [address] [facility] [address], [place] [address] (CLIA #[id number]/Christi Gandhi MD, Sanding Supervisor) 11/02/2024 6:46 PM [facility] Tissue Urine specimen from urethra / Unknown 10/18/2024 10/21/2024 4:26 PM EST us Karli [facility] PATHOLOGY ORDERABLES Natividad l Result [facility] [address] [place] [address], documented in this encounter Visit Diagnoses Diagnosis Benign essential microscopic hematuria documented in this encounter Care Teams Patient Account Representative Relationship Specialty Start Date End Date Chary Bates MD [address] [place] [address], [address] [place] [address] PCP - General Family Medicine 05/02/17 documented as of this encounter
--- OUTSIDE RECORDS SUMMARY | 2025-06-29 14:22 | XMS_ITS | Clinical Summary ---
Author Organization [facility] Address [address] [place] [phone] Phone Care Team Providers Care Bath Mixer Name Role Phone Chary Bates MD Primary Care Provider Wilfredo Villalba MD Unavailable [phone] Allergies Active Allergy Reactions Criticality Noted Date Comments Ibuprofen Other (See Comments),Unknown 021 Medications olmesartan (BENICAR) 40 mg tablet Take 40 mg by mouth daily. 09/26/20 22 Active cyclobenzaprine (FLEXERIL) 10 MG tablet Take 10 mg by mouth 3 (three) times a day. 09/27/20 22 Active VASCEPA 1 gram capsule Take 2 g by mouth 2 (two) times a day. 11/11/19 23 Active atorvastatin (LIPITOR) 20 MG tablet Take 20 mg by mouth daily. 12/14/19 23 Active metoprolol succinate (TOPROL-XL) 100 MG 24 hr tablet Take 100 mg by mouth daily. 12/12/19 23 Active amLODIPine (NORVASC) 10 MG tablet Take 10 mg by mouth daily. 12/06/19 23 Active amoxicillin (AMOXIL) 500 MG capsule TAKE 4 CAPSULES BY MOUTH 1 HOUR BEFORE DENTAL PROCEDURE Active ciclopirox (CICLODAN) 0.77 % cream Apply topically 2 (two) times a day. 08/11/20 23 Active gabapentin (NEURONTIN) 100 MG capsule Take 100 mg by mouth 3 (three) times a day. PRN Active zolpidem (AMBIEN) 10 mg tablet Take 10 mg by mouth as needed. 08/19/20 23 Active ACCU-CHEK SOFTCLIX LANCETSIndicatio ns:Type 2 diabetes mellitus with peripheral neuropathy Use as directed to test glucose once dialy (fill if compatible w/ new meter/lancing device) 100 each 3 01/27/20 24 Active sildenafiL (VIAGRA) 100 mg tabletIndication s:Erectile dysfunction, unspecified erectile dysfunction type 1/2-1 tablet, orally, up to daily, prn 10 tablet 11 03/10/20 24 Active oxyCODONE 30 MG immediate release tablet Take 30 mg by mouth every 6 (six) hours as needed. 05/19/20 24 Active ACCU-CHEK GUIDE ME GLUCOSE MTR Misc meterIndications :Type 2 diabetes mellitus with peripheral neuropathy USE DIRECTED TO MONITOR GLUCOSE 1 each 12/02/19 25 Active ACCU-CHEK GUIDE TEST STRIPS Strp stripsIndication s:Type 2 diabetes mellitus with peripheral neuropathy USE DIRECTED TO TEST GLUCOSE EVERY DAY 100 strip 3 12/07/19 25 Active metFORMIN (GLUCOPHAGE) 1000 MG tabletIndication s:Type 2 diabetes mellitus with peripheral neuropathy TAKE 1 TABLET BY MOUTH TWICE DAILY 180 tablet 1 01/13/20 25 Active insulin pen needles, disposable, 31 gauge x 5/16 Ndle 1 each by Miscellaneous route every morning. 100 each 3 01/28/20 25 Active insulin glargine (LANTUS SOLOSTAR U-100 INSULIN) 100 unit/mL (3 mL) InPn injection penIndications:T ype 2 diabetes mellitus with peripheral neuropathy INJECT 20 UNITS PLUS 2 UNITS TO PRIME SUBCUTANEOUSLY EVERY DAY 30 mL 3 03/04/20 25 Active dulaglutide (TRULICITY) 0.75 mg/0.5 mL subcutaneous injectionIndicat ions:Type 2 diabetes mellitus with peripheral neuropathy Inject 0.5 mL (0.75 mg total) under the skin once a week. 6 mL 1 03/14/20 25 Active Active Problems Problem Noted Date Diagnosed Date Leg length discrepancy 08/17/2024 Assessment & Plan (08/17/2024 1:16 PM EST): Given rx for heel lift to go w/ shoes. 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 Type 2 diabetes mellitus with peripheral neuropa thy 01/06/2023 Overview (01/06/2023): HbA1c/SMBG discordant, uncertain reason Assessment & Plan (03/14/2025 11:29 AM EDT): Control reasonable based on available SMBG. No frequent or severe hypoglycemia. He has discordant HbA1c & SMBG/CGM readings, with no evidence of hypoglycemia despite HbA1c in the normal range, thus would not lower insulin based on Hba1c alone. This has been documented via CGM & will continue to do that intermittently - plan to do prior to next visit with me. Continue to work on eating healthy & keeping active. To call or send in BG with problems with glycemic control. Up to date with [facility]. Assessment & Plan (12/01/2024 3:59 PM EST): Patient is in today to have the office supplies dexcom G6 pro sensor downloaded and reviewed. His average glucose reading was 129, time in range is 95%, time high is 5%, time low is 0%. Will maintain his medication regimen as is as his control is doing very well. Continue to work on eating healthy and being active. To call or message with any issues managing his glucose levels Assessment & Plan (11/15/2024 3:21 PM EST): The patient is coming in to have a dexcom G6 professional CGM placed to be able to monitor his glucose levels for the next 10 days. Placed the dexcom G6 pro sensor to the patient's lower right abdominal quadrant. No bleeding or redness at the injection site. Reviewed care of the sensor and transmitter. Reviewed that if the sensor falls off within 3 days to call the office and another will be placed. If the sensor falls off after that period to bring in the sensor and transmitter in a zip lock bag and we will download the data that is available on the sensor at that time. Labs ordered today to have done prior to visit Assessment & Plan (08/17/2024 1:15 PM EST): Control reasonable based on available SMBG. No frequent or severe hypoglycemia. He has had CGM in the past showing good control without hypoglycemia. Advised he vary time of day he tests to screen for asymptomatic hypoglycemia. He is not interested in doing ongoing CGM, but open to doing it intermittently to better evaluate control/guide rx and confirm no significant hypoglycemia given discordant HbA1c/SMBG. Will schedule a repeat prior to next visit. Would not adjust regimen based on his HbA1c given discrepancy. Continue to work on eating healthy & keeping active. To call or send in BG with problems with glycemic control. Foot & nail care good. Up to date with [facility]. Given rx for DM shoes. Assessment & Plan (05/25/2024 11:53 AM EDT): Control is good based upon the patient's SMBG readings. No frequent or severe hypoglycemia. Will maintain his regimen. Continue to work on eating healthy and being active. To call or message with any issues managing his glucose levels. Up to date with [facility]. Saw podiatry last week. Labs ordered Assessment & Plan (01/28/2024 9:34 AM EDT): Control reasonable based on available SMBG. No frequent or severe hypoglycemia, advised he vary time of day he tests to screen for asymptomatic hypoglycemia. He had recent CGM without evidence of lows, will try to get that for me. He is not interested in ongoing CGM, but open to doing it intermittently to better evaluate control/guide rx and confirm no significant hypoglycemia given discordant HbA1c/SMBG. Would not adjust regimen based on his HbA1c given discrepancy. Continue to work on eating healthy & keeping active. To call or send in BG with problems with glycemic control. [facility]. Assessment & Plan (11/17/2023 11:48 AM EST): Control is good based upon the patient's SMBG readings. No frequent or severe hypoglycemia. Will maintain his regimen. Continue to work on eating healthy and being active. To call or message with any issues managing his glucose levels. Up to date with [facility]. Labs ordered Assessment & Plan (07/09/2023 12:59 PM EDT): Control reasonable based on available SMBG. No frequent or severe hypoglycemia, advised he do some testing before evening meal to evaluate for possible asymptomatic low BG. He is not interested in ongoing CGM, but perhaps we can do intermittent professional CGM to evaluate for the presence of asymptomatic hypoglycemia given low HbA1c (which is discordant from his SMBG readings, so would not adjust rx based on that). He had no lows when CGM last done @ [facility]. Continue to work on eating healthy & keeping active. To call or send in BG with problems with glycemic control. Up to date with [facility]. Foot & nail care good. Will do rx for shoes & paperwork and paperwork for [employer]. Assessment & Plan (05/15/2023 7:25 AM EDT): Control is good based upon the patient's SMBG readings. No frequent or severe hypoglycemia. Will maintain his current regimen. He had blood work done last week at [facility] in [place]. A request has been sent to get those labs. Continue to work on eating healthy and being active. To call or message with any issues managing his glucose levels. Up to date with [facility]. Sees podiatry. Labs ordered for next visit Assessment & Plan (01/06/2023 12:53 PM EDT): Control has been good. No frequent or severe hypoglycemia. No pattern to BG readings to guide rx adjustment as is just testing fasting. Historically his HbA1c has read lower than expected based on his SMBG (we had also done a CGM showing no evidence of lows), so would not adjust regimen based solely on HbA1c. Continue to work on eating healthy & keeping active. To call or send in BG with problems with glycemic control. Up to date with [facility]. Follows with podiatry. Will do labs today. To call if hasn't heard from us within 1-2 weeks. Hypertension 06/30/2014 07/09/2023 Assessment & Plan (03/14/2025 11:26 AM EDT): Follows w/ renal. BP appears controlled. Assessment & Plan (01/28/2024 9:31 AM EDT): Follows w/ renal. BP well controlled, on ARB. Type 2 diabetes mellitus with microalbuminuria Overview (01/06/2023): Sees Dr. Villalba Assessment & Plan (03/14/2025 11:26 AM EDT): Umalb/creat up to date, appears stable. On ARB. Follows w/ Dr. Villalba. BP well controlled. Assessment & Plan (08/17/2024 1:15 PM EST): On ARB. Follows w/ Dr. Villalba. BP well controlled. Assessment & Plan (01/28/2024 9:31 AM EDT): On ARB. Follows w/ Dr. Villalba. BP well controlled. Assessment & Plan (07/09/2023 1:00 PM EDT): On ARB. Follows w/ Dr. Villalba. BP well controlled. Assessment & Plan (01/06/2023 12:54 PM EDT): Follows steve/ Dr. Orly yuen. BP under good control. On ARB. 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, 3rd Floor, [address] [place] [address] Prashant Altamirano MD Shoulder weakness (Primary Dx) 05/04/2025 Telephone [facility] [address] [place] [address] Doreen Triana MD Forms & Paperwork from Last 3 Months Immunizations No known immunizations Social History Tobacco Use Types Packs/Day Years Used Date Smoking Tobacco: Every Day Cigarettes 0.3 44.7 Started: 1980 Smokeless Tobacco: Never Tobacco Cessation:Ready to Q uit: Not Asked; Counseling Given: Not Answered Comments:4-5 cigarettes QD-noted 05/24/24 Alcohol Use Standard Drinks/Week Comments Yes 6 (1 standard drink = 0.6 oz pur e alcohol) on weekends, socially Education Answer Date Recorded Are you interested in more education? Not on keith e 02/01/2023 Are you concerned about learning? Not on file 02/01/2023 No 02/01/2023 No 02/01/2023 Digital Access Answer Date Recorded No 03/04/2023 No 03/04/2023 Reliable internet access at home? Not on file 03/04/2023 Device with a working camera? Not on file Sex and Gender Information Value Date Recorded Sex Assigned at Not on file Legal Sex Male 10:43 AM EST Gender Identity Not on file Sexual Orientation Not on file Last Filed Vital Signs Vital Sign Reading Time Taken Comments Blood Pressure 118/80 03/14/2025 10:57 AM EDT Pulse 86 03/14/2025 10:57 AM EDT Temperature 36.4 C (97.5 F) 03/14/2025 10:57 AM EDT Respiratory Rate 16 03/14/2025 10:57 AM EDT Oxygen Saturation 96% 03/14/2025 10:57 AM EDT Inhaled Oxygen Concentration - - Weight 94.6 kg (208 lb 9.6 oz) 03/14/2025 10:57 AM EDT Height 179.7 cm (5' 10.75 ) 03/14/2025 10:57 AM EDT Body Mass Index 29.3 03/14/2025 10:57 AM EDT Plan of Treatment Upcoming Encounters Date Type Department Care Team (Late st Contact Info) Description 07/04/2025 2:10 PM EDT Office Visit [facility] Endocrinology [address] [place] [phone] Paige Solomon PA-C [address] [place] [phone] [email or web address] 09/08/2025 11:15 AM EST Office Visit [facility] Department of Orthopaedic Surgery, Shoulder Service [address] [place] [address], 3rd Floor, [address] [place] [address] Prashant Altamirano MD [address] [place] [phone] [email or web address] 10/17/2025 11:40 AM EST Office Visit [facility] Endocrinology [address] [place] [phone] Doreen Triana MD [address] [place] [phone] [email or web address] Health Maintenance Due Date Last Done Comments DEPRESSION SCREENING 1973 HEPATITIS C SCREENING 1979 HIV ONE-TIME SCREENING (18-65 YEARS) 1979 COLOGUARD 2006 COLONOSCOPY 2006 COLORECTAL CANCER SCREENING 2006 FIT TEST 2006 FOBT 2006 SIGMOIDOSCOPY 2006 VIRTUAL COLONOSCOPY 2006 ZOSTER VACCINES (1 of 2) 2011 PNEUMOCOCCAL VACCINES (50+ years) (2 of 2 - PCV) 05/15/2018 05/15/2017, 03/02/2009 RSV VACCINE (1 - Risk 60-74 years 1-dose series) 2021 DIABETIC EYE EXAM 01/06/2023 INFLUENZA VACCINE (#1) 2025 1, 06/04/2020, 07/18/2019, Additional history exists HEMOGLOBIN A1C 05/15/2025 11/15/2024, 11/17/2023 COVID-19 VACCINE ( season) 2025 BLOOD PRESSURE 09/13/2025 03/14/2025 CREATININE LEVEL 11/15/2025 11/15/2024, 05/2024, 08/13/2024, Additional history exists POTASSIUM LEVEL 11/15/2025 11/15/2024, 11/0 05/2024, 08/13/2024, Additional history exists SMOKING Hx and SMOKELESS TOBACCO SCREENING 03/14/2026 03/14/2025 Adult Td,Tdap Booster 05/15/2027 05/15/2017, 011 HEPATITIS A VACCINES Aged Out No long er eligible based on patient's age to complete this topic HIB VACCINES Aged Out No longer eligi ble based on patient's age to complete this topic MENINGOCOCCAL VACCINES (ACWY) Aged Out No longer eligible based on patient's age to complete this topic MENINGOCOCCAL VACCINES (B) Aged Out N o longer eligible based on patient's age to complete this topic Medical Devices Not on file Procedures Procedure Name Priority Date/Time Associated Diagnosis Comments HEMOGLOBIN A1C Routine 11/15/2024 3:33 PM EST Type 2 diabetes mellitus with peripheral neuropathy BASIC METABOLIC PANEL Routine 11/15/2024 3:33 PM EST Type 2 diabetes mellitus with peripheral neuropathy from Last 3 Months or Most Recently Relevant to Health Maintenance Results * Hemoglobin A1c (11/15/2024 3:33 PM EST) HEMOGLOBIN A1C 5.3 4.3 - 5.8 % [facility] Blood 11/15/2024 3:33 PM EST 11/15/2024 3:37 PM EST us Paige Solomon PA-C LAB BLOOD ORDERABL ES Final Result [address] [address] * Basic metabolic panel (11/15/2024 3:33 PM EST) SODIUM 141 133 - 146 mmol/L [facility] CHLORIDE 106 96 - 108 mmol/L [facility] POTASSIUM 4.4 3.3 - 5.1 mmol/L [facility] CO2 25 21 - 35 mmol/L [facility] BUN 10 6 - 19 mg/dL [facility] CREATININE 0.90 0.5 - 1.5 mg/dL [facility] GLUCOSE 95 70 - 99 mg/dL [facility] CALCIUM 9.0 8.4 - 10.3 mg/dL [facility] EGFR 96 >59 mL/min/1.7 3m2 [facility] Comment:Estimated glomerular filtration rate calculated using the CKD-EPI refit equation. ANION GAP 14 10 - 20 mmol/L [facility] Blood 11/15/2024 3:33 PM EST 11/15/2024 3:37 PM EST Paige Solomon PA-C LAB BLOOD ORDERABL ES Final Result [address] [address] from Last 3 Months or Most Recently Relevant to Health Maintenance Insurance * Guarantor: Vincent Ballard Account Type Relation to Patient Date of Phone Billing Address Personal/Family Self 1960 [address] [address] [facility] * Guarantor: Vincent Ballard Account Type Relation to Patient Date of Phone Billing Address Personal/Family Self 1960 [address] [address] [place] A [place] B * Guarantor: Vincent Ballard Account Type Relation to Patient Date of Phone Billing Address Personal/Family Self 1960 [address] [address] [place] PART A & B * Guarantor: Vincent Ballard Account Type Relation to Patient Date of Phone Billing Address Personal/Family Self 1960 [address] [address] [place] PART A & B * Guarantor: Vincent Ballard Account Type Relation to Patient Date of Phone Billing Address Personal/Family Self 1960 [address] [place] [address] [place] PART A & B * Guarantor: Vincent Ballard Account Type Relation to Patient Date of Phone Billing Address Personal/Family Self 1960 [address] [address] [employer] MEDICARE PART A & B Care Teams Bath Mixer Relationship Specialty Start Date End Date Chary Bates MD [address] [place] [id number] PCP - General Internal Medicine 12/09/22 Wilfredo Villalba MD [address] [place] [phone] Nephrology 01/06/23 Additional Source Comments The information contained in this document represents components of the legal health record. It is not the complete legal health record.[facility]
--- OUTSIDE RECORDS SUMMARY | 2025-06-29 14:22 | XMS_ITS | Clinical Summary ---
Author Organization [facility] Address [address] [place] [address] Phone Care Team Providers Care Capacity Planning Manager Name Role Phone Chary Bates MD Primary Care Provider [phone] Allergies Active Allergy Reactions Criticality Noted Date [...] Visual Foot Exam 11/06/2020 Influenza Vaccine (#1) 2025 0, 07/18/2019, 06/28/2013, Additional history exists Hepatitis B Vaccine Aged Out 11/21/2011, 06/27/2011, 05/27/2011 No longer eligible based on patient's age to complete this topic Pneumococcal Vaccine: Peds (0 to 5 Years) and At-Risk Patients (6 to 49 Years) Discontinued 05/15/2017, 03/02/2009 Insurance [place] Care Teams Capacity Planning Manager Relationship Specialty Start Date End Date Chary Bates MD [address] [facility] P[facility] - General 10/16/20
--- OUTSIDE RECORDS SUMMARY | 2025-06-29 14:22 | XMS_ITS | Encounter Summary ---
Author Organization [employer] Address [address] [place] [address] 7 [place] [address] Care Team Providers Care Shoder Filler Name Role Phone Unavailable Primary Care Provider Unavailabl e Encounter Details Date Type Department Care Team (Latest Contact Info) Description 04/13/2019 Abstract [facility] CONVERSIONS Dental, Provider, DDS Social History [...]
--- OUTSIDE RECORDS SUMMARY | 2025-06-29 14:22 | XMS_ITS ---
Author Name [facility] Organization Unknown History of Medication Use Medication Directions Dispensed Refills Start Date End Date Stat us Synvisc-One 48 mg/6 mL intra-articular syringe Take 48 mg by intraarticular route. 08/21/2023 active lidocaine (PF) 10 mg/mL (1 %) injection solution Take 2 mL by injection route. 06/02/2023 08/21/20 23 active clonidine HCl 0.1 mg tablet TAKE 1 TABLET BY MOUTH TWICE DAILY 08/21/20 23 completed warfarin 1 mg tablet TAKE 7 TABLETS BY MOUTH DAILY OR ASDIRECTED BY PHYSICIAN 08/21/20 active amlodipine 10 mg tablet TAKE 1 TABLET BY MOUTH EVERY DAY active ciprofloxacin 250 mg tablet TAKE 1 TABLET BY MOUTH TWICE DAILY active clonazepam 1 mg tablet TAKE 1 TABLET BY MOUTH TWICE A DAY active cyclobenzaprine 10 mg tablet TAKE 1 TABLET BY MOUTH THREE TIMES DAILY active gabapentin 300 mg capsule TAKE 1 CAPSULE BY MOUTH AT BEDTIME active olmesartan 40 mg tablet active oxycodone 30 mg tablet TAKE 1 TABLET BY MOUTH EVERY 6 HOURS active oxycodone 5 mg tablet TAKE 1 TO 2 TABLETS BY MOUTH EVERY 6 HOURS NEEDED FOR PAIN active sildenafil 100 mg tablet TAKE 1 TABLET BY MOUTH ONCE DAILY NEEDED active Vascepa 1 gram capsule TAKE 2 CAPSULES BY MOUTH TWICE DAILY active Allergies Allergen Reaction Severity Comment Documented Date Source Statu s IBUPROFEN [facility] Problems Problem Status Onset Date Problem Type Date of Resoluti on Source Pain of left knee joint active 2023-02-13 ProblemAct [facility] Osteoarthritis of left knee joint active 2023-02-12 ProblemAct [facility] Encounters Encounter Type Encounter Reason Primary Diagnosis Location Date Ambulatory [facility] 12/26/2023 Ambulatory [facility] 08/21/2023 Ambulatory [facility] [place] 05/20/2023 Ambulatory [facility] [place] 05/19/2023 Ambulatory [facility] [place] 02/18/2023 Ambulatory [facility] [place] 02/13/2023 Ambulatory [facility] [place] 02/12/2023 Ambulatory [facility] [place] 02/12/2023 Ambulatory [facility] 02/11/2023 Ambulatory [facility] 01/01/2023
--- OUTSIDE RECORDS SUMMARY | 2025-06-29 14:22 | XMS_ITS | Patient Health Record ---
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 (Z79.82) Active confirmed Plan Of Treatment Future Test Test Name Order Date COLONOSCOPY 01/18/2022 Insurance Providers Payer Name Payer Address Payer Phone Subscriber Number Group Number Insured Name Patient Relationship to Insured Coverage Start Date Coverage End Date MEDICARE OF [place] [address] [place] [address] [phone] [id number] NIKA DORADO Self - patient is the insured MEDICAID OF [facility] [address] [place] [address] [phone] [id number] NIKA DORADO Self - patient is the insured Medical (General) History Medical History History ICD Code diabetes mellitus hypertension degenerative joint disease elevated Cholesterol Surgical History Surgery Date(Month/Year) L rotator cuff repair and bone spurs 01/04 hydrocele repair 2020
--- OUTSIDE RECORDS SUMMARY | 2025-06-29 14:22 | XMS_ITS | Clinical Summary ---
Author Organization [employer] Address [address] [place] [address] 7 [place] [address] Care Team Providers Care Second Watch Sergeant Name Role Phone Unavailable Primary Care Provider [...] FOBT 1960 Lipid Panel 1960 Sigmoidoscopy 1960 Disability Screening 1960 Alcohol/Substance Use Screening 1973 Tobacco Screening 1973 DTaP/Tdap/Td Vaccines (1 - Tdap) 02/16/1980 Pneumococcal Vaccine: 50+ Ye ars (1 of 1 - PCV) 2011 Zoster Vaccines (1 of 2) 2011 COVID-19 Vaccine ( - 2023-2 5 season) 2025 Influenza Vaccine (#1) 2025 RSV Patients and Pa tients Aged 60 [...]
--- OUTSIDE RECORDS SUMMARY | 2025-06-29 14:23 | XMS_ITS | Data Portability ---
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 We discussed the nature and etiology of this problem along with current treatment options. We discussed the expected course and outcomes and what to expect. We also discussed risks and benefits. All of their questions were answered today, and there was exhibited understanding and comprehension of all that was discussed. 10 minutes were spent reviewing previous imaging and charting. 10 minutes were spent obtaining patient history. 5 minutes were spent on physical exam. 5minutes were spent explaining diagnosis and assessment. Today's [...] findings at length with the patient today. We discussed the nature and etiology of this problem along with current treatment options. We discussed the expected course and outcomes and what to expect. We also discussed risks and benefits. All of their questions were answered today, and there was exhibited understanding and comprehension of all that was discussed. Time Spent: 10 minutes were spent reviewing previous imaging and charting. 10 minutes were spent obtaining patient history. 5 minutes were spent on physical exam. 5minutes were spent explaining diagnosis and assessment. Today's [...] our office for referral to the appropriate extension service specialist in charge. He agrees with this plan. Patient was [...] findings at length with the patient today. We discussed the nature and etiology of this problem along with current treatment options. We discussed the expected course and outcomes and what to expect. We also discussed risks and benefits. All of their questions were answered today, and there was exhibited understanding and comprehension of all that was discussed. Time Spent: 10 minutes were spent reviewing previous imaging and charting. 10 minutes were spent obtaining patient history. 5 minutes were spent on physical exam. 5minutes were spent explaining diagnosis and assessment. Today's documentation was made using voice recognition software. This note may contain grammatical errors secondary to the software. Not available 08/22/2023 07:23:10 Plan of Treatment Reminders Order Date Submit Date Provider Last Modified By Organization Details Last Modified Time Details Appointments None recorded. Lab None recorded. Referral None recorded. Procedures intra-artic ular injection, knee, viscosupple ment (PROC) - Please check insurance for [employer] on, insurance preferred med. Knee Laterality: Left 2022 023 [email or web address] Not available 08:54:29 Surgeries None recorded. Imaging XR, knee, 3 view 2022 023 [facility], [address], [place], [address], 3 07:32:46 XR, knee, 4 or more view 2022 023 [facility], [address], [place], [address], 3 15:57:02 Medication Orders Synvisc-One 48 mg/6 mL intra-artic ular syringe 2022 023 [id number], [address], [place], [id number], 3 11:43:31 amoxicillin 500 mg capsule 2022 023 [facility] #14933, [address], [place], [id number], 3 16:05:40 Kenalog 40 mg/mL suspension for injection [address] [facility]14635, [address], [place], [id number], 3 11:11:52 lidocaine (PF) 10 mg/mL (1 %) injection solution [address] [facility]13334, [address], [place], [id number], 3 11:11:54 amoxicillin 500 mg tablet 2022 023 [facility] #83115, [address], [place], [id number], 3 13:56:16 Kenalog 40 mg/mL suspension for injection [address] [facility]10048, [address], [place], [id number], 3 11:11:52 lidocaine (PF) 10 mg/mL (1 %) injection solution [address] [facility]86466, [address], [place], [id number], 3 11:11:54 Patient TargetsNo targets recorded. Patient Instructions Encounter Date Encounter Id Patient Instructions Last Modified By Organization Details Last Modified Time 02/12/2023 [id number] You have been provided with a cortisone [...] hours following the injection. This is called kaleb jones . To help minimize the chances of this, please see the post-injection instructions above. There is a less than 1% chance of an infection. If you notice any signs of infection (redness, warmth, drainage, fever greater than 100 degrees) please call our office or contact us through the portal [facility]. Not available 02/13/2023 19:15:33 X-rays at today's [...] on 05/24/2022. Not available 02/13/2023 19:12:57 05/20/2023 [id number] You have been provided with a cortisone [...] following the injection. This is called a f lare . To help minimize the chances of [...] bony abnormality. Not available 06/02/2023 07:49:40 08/21/2023 [id number] You have been pr ovided with a [...] following the injection. This is called a f lare . To help minimize the chances of [...] Name and Address Organization Details Recorded Time Primary gonarthro sis, bilateral 160890124 Active 2016 Primary osteoarth ritis of both knees Not Available [facility] 5 23:21:37 Arthritis of right knee 65519372545 32818 Active 2016 Arthritis of right knee Not Available [facility] 5 23:21:37 Impingeme nt syndrome of right shoulder region 57793061951 9102 Active 2019 Impingeme nt syndrome of right shoulder region Not Available [facility] 5 23:21:37 Arthritis of right acromiocl avicular joint 48302672409 84260 Active 2019 Arthritis of right acromiocl avicular joint Not Available [facility] 5 23:21:37 Chronic instabili ty of right knee joint 46802802938 9106 Active 2021 Chronic instabili ty of right knee Not Available [facility] 5 23:21:36 Arthritis of left knee 87997008014 78233 Active 2021 Arthritis of knee, left Not Available [facility] 5 23:21:36 Osteoarth ritis of left knee joint 64703840957 9109 Active 2022 ELIZABETH ARRIAZA PA-C [address], [place], [address] , [place] [facility] 3 13:55:40 Pain of left knee joint 60243053252 4107 Active 2022 ELIZABETH ARRIAZA PA-C [address], [place], [address] , [place] [facility] 3 19:14:44 Problem Notes None recorded. Procedures Surgical History Date Name Laterality Status Provider Name and Address Organization Details Recorded Time 08/21/20 23 Synvisc-One Knee Inj completed ELIZABETH ARRIAZA PA-C [address], [place], [address], [place] [facility] 08/22/2023 07:21:53 05/20/20 Knee Joint/Bursa Asp & Inj completed ELIZABETH ARRIAZA PA-C [address], [place], [address], [place] [facility] 06/02/2023 07:44:49 02/13/20 23 Knee Joint/Bursa Asp & Inj completed ELIZABETH ARRIAZA PA-C [address] [place] [address],[facility] [address], [place], [address], [place] [facility] 02/13/2023 19:14:18 Shoulder Surgery completed Ana Mckeon [place] [facility] 02/12/2023 13:36:53 total knee replacement completed Ana Mckeon [facility] 02/12/2023 13:37:00 Imaging Results None recorded. Procedure Notes None recorded. Medical Equipment None Reported. Allergies Allergen ID Allergen Name Allergen Category Reaction Reaction Severity Criticality Documentation Date Start Date Code Code System Note Provider Name and Address Organization Details Recorded Time 3770 ibuprofen medicatio n Not available Not available Not available 02/12/2023 5640 RxNorm Ana Mckeon [facility], [place] [facility] 13:36:23 Medications Name Sig Start Date Stop Date Status Note LastModified by Organization Details LastModified Time quetiapine 25 mg tablet TAKE 1 TABLET BY MOUTH THREE TIMES A DAY active Not Available Not Available No t Available cyclobenzap rine 10 mg tablet TAKE 1 TABLET BY MOUTH THREE TIMES DAILY active Not Available Not Available No t Available fenofibrate micronized 160 mg tablet 2016 active Not Available Not Available Not Avai lable amoxicillin 500 mg capsule TAKE 4 CAPSULES BY MOUTH 1 HOUR BEFORE DENTAL PROCEDURE active Not Available Not Available No t Available furosemide 40 mg tablet TK 1 T PO D 2017 active Not Available Not Available Not Avai lable clonidine HCl 0.1 mg tablet TAKE 1 TABLET BY MOUTH TWICE DAILY 08/21 completed Not Available Not Available Not Available prednisone 10 mg tablet 2018 active Not Available Not Available Not Avai lable doxycycline hyclate 100 mg capsule TAKE 1 CAPSULE BY MOUTH TWICE DAILY FOR 7 DAYS 08/21 completed Not Available Not Available Not Available atorvastati n 20 mg tablet TAKE 1 TABLET BY MOUTH DAILY AT BEDTIME active Not Available Not Available No t Available ibuprofen 800 mg tablet Take by mouth every 8 (eight) hours as needed for pain. 03/08 completed Not Available Not Available Not Available metoprolol succinate ER 100 mg tablet,exte [...] Not Available Not Available No t Available aspirin 81 mg tablet,kendy yed release Take 81 mg by mouth. active Not Available Not Available No t Available acetaminoph en 500 mg tablet Take 1,000 mg by mouth 3 (three) times a day. 2021 active Not Available Not Available Not Avai lable sildenafil 100 mg tablet TAKE 1 TABLET BY MOUTH ONCE DAILY NEEDED active Not Available Not Available No t Available amoxicillin 500 mg tablet TAKE 4 TABLETS BY MOUTH 1 HOUR BEFORE DENTAL PROCEDURE active Not Available Not Available No t Available Kenalog 40 mg/mL suspension for injection Take 1 mL by injection route. 08/21 completed Not Available Not Available Not Available oxycodone-a cetaminophe n 10 mg-325 mg tablet TK 1 T PO BID PRF PAIN 11/07 completed Not Available Not Available Not Available tamsulosin 0.4 mg capsule TAKE 1 CAPSULE BY MOUTH AT BEDTIME 08/21 completed Not Available Not Available Not Available amlodipine 10 mg tablet TAKE 1 TABLET BY MOUTH EVERY DAY active Not Available Not Available No t Available methylpredn isolone acetate 40 mg/mL suspension for injection 10/29 completed Not Available Not Available Not Available metformin 1,000 mg tablet TAKE 1 TABLET BY MOUTH TWICE DAILY active Not Available Not Available No t Available metoprolol tartrate 50 mg tablet Take 50 mg by mouth. active Not Available Not Available No t Available diclofenac potassium 50 mg tablet TK 1 T PO BID 2016 active Not Available Not Available Not Avai lable diclofenac sodium 25 mg tablet,kendy yed release TK 2 TS PO BID 2018 active Not Available Not Available Not Avai lable gabapentin 300 mg capsule TAKE 1 CAPSULE BY MOUTH AT BEDTIME active Not Available Not Available No t Available aspirin 81 mg chewable tablet Chew 81 mg by mouth daily. active Not Available Not Available No t Available diclofenac sodium 50 mg tablet,kendy yed release TAKE 1 TABLET BY MOUTH TWICE DAILY WITH MEALS active Not Available Not Available No t Available furosemide 20 mg tablet TK 1 T PO D 2016 active Not Available Not Available Not Avai lable gabapentin 100 mg capsule TAKE 1 CAPSULE [...] No t Available oxycodone 5 mg tablet Take 1-2 tabs every 6 hours as needed for pain 02/13 completed Not Available Not Available Not Available olmesartan 40 mg tablet active Not Available Not Available Not Available enoxaparin 40 mg/0.4 mL subcutaneou s syringe INJECT 40 MG UNDER THE SKIN DAILY 08/21 completed Not Available Not Available Not Available ciclopirox olamine 1 % topical cream APPLY TOPICALLY TO THE AFFECTED AREA TWICE DAILY 2020 active Not Available Not Available Not Avai lable ciclopirox 0.77 % topical cream APPLY TOPICALLY TO THE AFFECTED AREA TWICE DAILY active Not Available Not Available No t Available Novolog FlexPen U-100 Insulin aspart 100 unit/mL (3 mL) subcutaneou s 2016 active Not Available Not Available Not Avai lable Senna Plus 8.6 mg-50 mg tablet TAKE 2 TABLETS BY MOUTH EVERY NIGHT AT BEDTIME 08/21 completed Not Available Not Available Not Available lidocaine (PF) 10 mg/mL (1 %) injection solution Take 2 mL by injection route. 08/21 completed Not Available Not Available Not Available oxycodone 10 mg tablet Take 1 tab every 24 hours as needed for pain 2021 active Not Available Not Available Not Avai lable cholecalcif vee (vitamin D3) 50 mcg (2,000 unit) capsule Take 1 capsule by mouth. active Not Available Not Available No t [...] completed Not Available Not Available Not Available Trulicity ADMINISTE R 0.75 MG UNDER THE SKIN WEEKLY 2020 active Not Available Not Available Not Avai lable naloxone 4 mg/actuatio n nasal spray spray or apply 4 mg inside Nose once for 1 dose. May repeat dose q. 2 to 3 minutes until patient responsiv eness or EMS arrives 01/31 completed Not Available Not Available Not Available Basaglar KwikPen U-100 Insulin 100 unit/mL (3 mL) subcutaneou s INJECT 20 UNITS UNDER THE SKIN EVERY NIGHT AT BEDTIME active Not Available Not Available No t Available hyaluronate sodium, stabilized 60 mg/3 mL intra-artic ular syringe 03/14 completed Not Available Not Available Not Available Vitals Date Recorded Body height Body mass index (BMI) Body weight Provider Name and Address Organization Details Last Updated DateTime 02/12/2023 182.88 cm 28.5 kg/m2 12225.4 g Ana Mckeon [facility] 02/12/2023 13:37:35 Date Recorded Body height Provider Name an d Address Organization Details Last Updated DateTime 05/20/2023 182.88 cm [facility] 05/20/2023 16:01:46 Date Recorded Body height Provider Name an d Address Organization Details Last Updated DateTime 08/21/2023 182.88 cm [facility] 08/21/2023 11:13:44 Social History None recorded. Functional Status Question Answer Note LastModified by Organizat ion Details LastModified Time How many times per week do you consume alcohol? 1-2 times per week [email or web address] Information not available 02/12/2023 What is your level of alcohol consumption? Occasional [email or web address] Information not available 02/12/2023 Mental Status None recorded. Family History Nothing [...] Anemia N Brain Injury N Heart Attack (TN) N Osteopenia N Diabetes Y Bleeding Disorder N Seizures/Epilepsy N AIDS/HIV N Congestive Heart Failure (CHF) N Asthma N Amputation N Reflux/GERD N Sleep Apnea N Hepatitis N Aneurysm N Heart Disease N Pulmonary Embolism N Hypertension Y Osteoporosis N Past Encounters Encounter ID Performer Location Encounter Start Date Encounter Closed Date Diagnosis/Indication Diagnosis SNOMED-CT Code Diagnosis ICD10 Code Diagnosis IMO Codes Diagnosis Note [id number] JUAN MANUEL PANDYA [facility] [address] [address] 02/12/2023 13:17:54 02/12/2023 14:15:42 Pain of left knee joint 9748743102 21575 M25.562 History of right total knee replacement 4137696628 833071 Z96.651 Osteoarthr itis of left knee joint 3242406884 27241 M17.12 [id number] JUAN MANUEL PANDYA [facility] 299 [facility] [address] [place] [address] 05/20/2023 15:35:27 05/20/2023 16:02:58 History of right total knee replacement 9242978935 107353 Z96.651 Osteoarthr itis of left knee joint 4891021089 20149 M17.12 [id number] JUAN MANUEL PANDYA [facility] 299 [facility] [address] [place] [address] 08/21/2023 10:52:24 08/21/2023 11:13:11 Osteoarthritis of left knee joint 1923397530 96335 M17.12 Health Concerns Section Related Observation LastModified by Organization Detai ls LastModified Time None Recorded Concern Status LastModified by Organization Details LastModified Time None Recorded Advance Directives Directive None Recorded Payers Insurance Date Sequence Insurance Name Policy Number Policy Lindsey Covered Member ID Lindsey Member ID Guarantor Name 08/17/2023 1 [place] [employer] Vincent Ballard [id number] Vincent Ballard 08/23/2023 2 [place] [facility] Vincent Ballard [id number] Vincent Ballard Notes Date Note Type Note Provider Name and Address Organization Details Recorded Time 02/12/2023 text/html Pleasant 62-year-old male here for left knee pain he [...] ELIZABETH ARRIAZA PA-C [address], [place], [address], [place] [facility] 02/13/2023 19:17:19 05/20/2023 text/html This is a pleasant 63-year-old male here for follow-up on his [...] ELIZABETH ARRIAZA PA-C [address], [place], [address], [place] [facility] 06/02/2023 07:50:27 08/21/2023 text/html Very pleasant 63-year-old male here for Synvisc 1 injection of the left knee. His last injection was cortisone in May 2023. He has return of generalized left knee pain due to osteoarthritis. Strength stable left total joint replacement surgery as long as feasibly possible. He denies any recent illness. ELIZABETH ARRIAZA PA-C [address] [place] [address], [place], [address], [place] [facility] 08/22/2023 07:23:36
== END 2025-06-29 12:49 | disposition home or self-care (01) ==
PROVIDERS: PCP Internal Medicine; Visit Provider Orthopaedic Surgery
DX: M25.562 Pain in left knee (principal)
CPT/HCPCS: 99213; G2211

== ENCOUNTER → 2025-06-29 11:11 | Outpatient (BNVA) | payer MEDICARE, MEDICAID, SELFPAY | PROVIDERS: PCP Internal Medicine; Visit Provider Orthopaedic Surgery | DX: M25.562 Pain in left knee (principal) | CPT/HCPCS: 99212 ==

== ENCOUNTER 2025-07-05 11:20 | Outpatient (REF) | payer MEDICARE, MEDICAID, SELFPAY ==
--- NOTE | ~2025-07-05 | XR_ITS ---
EXAMINATION: XR CERVICAL SPINE CLINICAL INFORMATION: M54.12 - Radiculopathy, cervical region COMPARISON: None available. TECHNIQUE: AP and lateral views FINDINGS: Craniocervical junction is intact. Marginal osteophyte formation and subchondral cyst formation, endplate sclerosis and decreased intervertebral disc height at C5-6 and C6-7 levels and to a lesser extent C7-T1. No acute cortical disruption. 1 mm retrolisthesis, C4-5. No lytic or blastic lesions. XR/XR cervical spine 2V IMPRESSION: Multilevel cervical spondylosis C5 T1 pronounced at C5-6 and C6-7. Grade 1 retrolisthesis C4-5 likely degenerative. Electronically signed by: Mehdi Casanova MD 07/05/2025 01:19 PM EDT
[2025-07-05 13:16] LABS: MANUAL DIFF FLAG NO
--- OUTSIDE RECORDS SUMMARY | 2025-07-05 13:16 | XMS_ITS | Data Portability ---
Author Organization [facility] [place] Address [address] [place] [address] Care Team Providers Care Airbrush Artist Name Role Phone LYNDSEY GONZALES Primary Care [...] our office for referral to the appropriate wellness specialist. He agrees with this plan. Patient [...] knee, 3 view 2022 023 [facility], [address], [place], [address], 3 07:32:46 XR, knee, 4 or more view 2022 023 [facility], [address], [place], [address], 3 15:57:02 Medication Orders Synvisc-One 48 mg/6 mL intra-artic ular syringe 2022 023 [id number], [address], [place], [id number], 3 11:43:31 amoxicillin 500 mg capsule 2022 023 [facility]45190, [address], [place], [id number], 3 16:05:40 Kenalog 40 mg/mL suspension for injection [address] [facility]18942, [address], [place], [id number], 3 11:11:52 lidocaine (PF) 10 mg/mL (1 %) injection solution [address] [facility]59337, [address], [place], [id number], 3 11:11:54 amoxicillin 500 mg tablet 2022 023 [facility] #68058, [address], [place], [id number], 3 13:56:16 Kenalog 40 mg/mL suspension for injection [address] [facility]28746, [address], [place], [id number], 3 11:11:52 lidocaine (PF) 10 mg/mL (1 %) injection solution [address] [facility]47298, [address], [place], [id number], 3 11:11:54 Patient TargetsNo targets recorded. Patient Instructions Encounter Date Encounter Id Patient Instructions Last Modified By Organization Details Last Modified Time 02/12/2023 [id number] You have been provided with a cortisone [...] on 05/24/2022. Not available 02/13/2023 19:12:57 05/20/2023 [id number] You have been provided with a cortisone [...] bony abnormality. Not available 06/02/2023 07:49:40 08/21/2023 [id number] You have been pr ovided with a [...] Details Recorded Time Primary gonarthro sis, bilateral 136869434 Active 2016 Primary osteoarth ritis of both knees Not Available [facility] 5 23:21:37 Arthritis of right knee 15873628242 48186 Active 2016 Arthritis of right knee Not Available [facility] 5 23:21:37 Impingeme nt syndrome of right shoulder region 40950927133 9102 Active 2019 Impingeme nt syndrome of right shoulder region Not Available [facility] 5 23:21:37 Arthritis of right acromiocl avicular joint 07425695104 01924 Active 2019 Arthritis of right acromiocl avicular joint Not Available [facility] 5 23:21:37 Chronic instabili ty of right knee joint 94691523704 9106 Active 2021 Chronic instabili ty of right knee Not Available [facility] 5 23:21:36 Arthritis of left knee 66888479823 43475 Active 2021 Arthritis of knee, left Not Available [facility] 5 23:21:36 Osteoarth ritis of left knee joint 70941044388 9109 Active 2022 ELIZABETH ARRIAZA PA-C [address], [place], [address] , [place] [facility] 3 13:55:40 Pain of left knee joint 54642005756 4107 Active 2022 ELIZABETH ARRIAZA PA-C [address], [facility] [place], [address] , [place] [facility] 3 19:14:44 Problem Notes None recorded. Procedures Surgical History Date Name Laterality Status Provider Name and Address Organization Details Recorded Time 08/21/20 23 Synvisc-One Knee Inj completed ELIZABETH ARRIAZA PA-C [address], [place], [address], [place] [facility] 08/22/2023 07:21:53 05/20/20 Knee Joint/Bursa Asp & Inj completed ELIZABETH ARRIAZA PA-C [address], [place], [address], [place] [facility] 06/02/2023 07:44:49 02/13/20 23 Knee Joint/Bursa Asp & Inj completed ELIZABETH ARRIAZA PA-C [address] [place] [address],[facility] [address], [place], [address], [place] [facility] 02/13/2023 19:14:18 Shoulder Surgery completed Ana Mckeon [place] [facility] 02/12/2023 13:36:53 total knee replacement completed Ana Mckeon [facility] 02/12/2023 13:37:00 Imaging Results None recorded. Procedure Notes None recorded. Medical Equipment None Reported. Allergies Allergen ID Allergen Name Allergen Category Reaction Reaction Severity Criticality Documentation Date Start Date Code Code System Note Provider Name and Address Organization Details Recorded Time 3770 ibuprofen medicatio n Not available Not available Not available 02/12/2023 5640 RxNorm Ana Mckeon [facility], [place] [facility], P 13:36:23 Medications Name Sig Start Date [...] Updated DateTime 02/12/2023 182.88 cm 28.5 kg/m2 41483.4 g Ana Mckeon [facility], [facility] 02/12/2023 13:37:35 Date Recorded Body height Provider Name an d Address Organization Details Last Updated DateTime 05/20/2023 182.88 cm [facility] 05/20/2023 16:01:46 Date Recorded Body height Provider Name an d Address Organization Details Last Updated DateTime 08/21/2023 182.88 cm [facility] 08/21/2023 11:13:44 Social History None recorded. Functional Status Question Answer Note LastModified by Organizat ion Details LastModified Time How many times per week do you consume alcohol? 1-2 times per week [email or web address] Information not available 02/12/2023 What is your level of alcohol consumption? Occasional [email or web address] Information not available 02/12/2023 Mental Status None recorded. Family History Nothing Reported. Medical History Condition Response Coronary Artery Disease N Gout N Hyperthyroidism N MRSA N Blood Transfusion N Emphysema N Hypothyroidism N COPD N Depression N Pacemaker N Vascular Disease N Gastrointestinal Disease N Anxiety Disorder N Autoimmune disease N Arthritis N Cancer N Stroke N High Cholesterol N Neurologic Disorder N Liver Disease N Organ Transplant N Rheumatoid Arthritis N Arrhythmia N Fibromyalgia N Kidney Disease N Allergies/Hayfever N Adverse Reaction to Anesthesia N Thyroid Problems N Anemia N Brain Injury N Heart Attack ([place]) N Osteopenia N Diabetes Y Bleeding Disorder [...] Codes Diagnosis Note [id number] JUAN MANUEL PANDYA [facility] [address] [address] 02/12/2023 13:17:54 02/12/2023 14:15:42 Pain of left knee joint 7628903389 75257 M25.562 History of right total knee replacement 0690020521 280702 Z96.651 Osteoarthr itis of left knee joint 3481608355 09009 M17.12 [id number] JUAN MANUEL PANDYA [employer] [address] [facility] [address] [place] [address] 05/20/2023 15:35:27 05/20/2023 16:02:58 History of right total knee replacement 1664996276 803129 Z96.651 Osteoarthr itis of left knee joint 9533171236 35163 M17.12 [id number] JUAN MANUEL PANDYA [employer] [facility] [address] [facility] [address] [place] [address] 08/21/2023 10:52:24 08/21/2023 11:13:11 Osteoarthritis of left knee joint 8777367854 36909 M17.12 Health Concerns Section Related Observation LastModified by Organization Detai ls LastModified Time None Recorded Concern Status LastModified by Organization Details LastModified Time None Recorded Advance Directives Directive None Recorded Payers Insurance Date Sequence Insurance Name Policy Number Policy Lindsey Covered Member ID Lindsey Member ID Guarantor Name 08/17/2023 1 [place] [employer] Vincent Ballard [id number] Vincent Ballard 08/23/2023 2 [place] [facility] Vincent Ballard [id number] Vincent Ballard Notes Date Note Type Note [...] ELIZABETH ARRIAZA PA-C [address], [place], [address], [place] [facility] 02/13/2023 19:17:19 05/20/2023 text/html This is [...] ELIZABETH ARRIAZA PA-C [address], [place], [address], [place] [facility] 06/02/2023 07:50:27 08/21/2023 text/html Very pleasant 63-year-old male here for Synvisc 1 injection of the left knee. His last injection was cortisone in May 2023. He has return of generalized left knee pain due to osteoarthritis. Strength stable left total joint replacement surgery as long as feasibly possible. He denies any recent illness. ELIZABETH ARRIAZA PA-C [address] [place] [address], [place], [address], [place] [facility] 08/22/2023 07:23:36
[2025-07-05 13:42] LABS: Hematocrit 38.3 % (42.0-52.0); Hemoglobin 12.4 g/dl (14.0-18.0); Imm Gran Abs Auto 0.03 X10*3/uL (0.00-0.03); Imm Gran Pct Auto 0.4 % (0.0-0.4); Lymphocytes Absolute Auto 1.9 X10*3/uL (1.2-4.9); Mean Corpuscular HGB Conc 32.4 g/dl (31.0-36.0); Mean Corpuscular Hemoglobin 29.7 pg (27.0-33.0); Mean Corpuscular Volume 91.8 fL (80.0-98.0); NRBC Abs Auto 0.000 X10*3/uL (0.0-0.012); NRBC Pct Auto 0.0 /100WBC (0.0-0.2); Platelet Count 293 X10*3/uL (160-400); Red Blood Count 4.17 X10*6/uL (4.60-5.80); White Blood Count 7.6 X10*3/uL (4.8-10.8)
[2025-07-05 13:44] LABS: Alanine Aminotransferase 43 U/L (0-40); Albumin Level 4.4 g/dL (3.5-5.0); Alkaline Phosphatase 57 U/L (39-117); Anion Gap 12 (12-20); Aspartate Amino Transferase 31 U/L (5-37); Blood Urea Nitrogen 14 mg/dL (9-16); Calcium 9.5 mg/dL (8.4-10.2); Carbon Dioxide 27 mmol/L (22-29); Chloride 108 mmol/L (96-108); Cholesterol 145 mg/dL (<200); Estimated Glomerular Filt Rate > 60; HDL Cholesterol 54 mg/dL (>40); Potassium 4.8 mmol/L (3.3-5.1); Sodium 142 mmol/L (135-145); Total Protein 7.2 g/dL (6.5-8.0); Triglycerides 79 mg/dL (<150)
[2025-07-05 14:08] LABS: Microalbum/Creatinine Ratio Ur 90.7 ug/mg cr (<30)
[2025-07-05 14:09] LABS: Vitamin B12 343 pg/mL (200-900)
[2025-07-09 12:28] LABS: Vitamin D 25-OH, D2 <4 ng/mL; Vitamin D 25-OH, D3 46 ng/mL; Vitamin D 25-OH, Total 46 ng/mL (30-100)
== END 2025-07-05 11:21 | disposition home or self-care (01) ==
LOC: HO.HMGCX 11:20
PROVIDERS: PCP Internal Medicine; Visit Provider Internal Medicine
DX: Z00.01 Encounter for general adult medical examination with abnormal findings (principal); M54.12 Radiculopathy, cervical region; E78.9 Disorder of lipoprotein metabolism, unspecified; E11.22 Type 2 diabetes mellitus with diabetic chronic kidney disease; I12.9 Hypertensive chronic kidney disease with stage 1 through stage 4 chronic kidney disease, or unspecified chronic kidney disease; N18.9 Chronic kidney disease, unspecified; D50.9 Iron deficiency anemia, unspecified; Z79.4 Long term (current) use of insulin; Z79.82 Long term (current) use of aspirin; Z79.85 Long-term (current) use of injectable non-insulin antidiabetic drugs; Z79.891 Long term (current) use of opiate analgesic; Z79.899 Other long term (current) drug therapy
CPT/HCPCS: 36415; 72040; 80053; 80061; 82043; 82306; 82570; 82607; 83036; 85025; 96127; 99212; 99396

== ENCOUNTER 2025-07-05 11:20 | Outpatient (AMB) | payer MEDICARE, MEDICAID, SELFPAY ==
[2025-07-05 11:22] VITALS: BP 122/80; PULSE 86; O2SAT 98; BMI 29.3
--- NOTE | 2025-07-05 11:22 | A.OFFPC_ITS ---
Vital Signs 07/05/25 11:22 Height 5 ft 11 in Weight 210 lb BMI 29.3 BP 122/80 Blood Pressure Location Rt brachial Position Sitting Pulse 86 Pulse Source Pulse Oximeter Pulse Oximetry (%) 98 Intake Visit Reasons: PE Allergies ibuprofen (From MOTRIN) Allergy (Unknown, Verified 07/05/25 11:41) MEDICATION INTERACTION, effected his kidneys Medication List - Last Reconciled 07/05/25 by Parker Lebron MD amlodipine 10 mg PO DAILY amoxicillin 2,000 mg (4 x 500 mg) PO ONCE aspirin (Adult Low Dose Aspirin) 81 mg PO DAILY atorvastatin 20 mg PO DAILY blood-glucose meter (Accu-Chek Guide Me Glucose Meter) As directed clonidine HCl 0.1 mg PO BID cyclobenzaprine 10 mg PO BEDTIME PRN dulaglutide (Trulicity) 0.75 mg subcut QWEEK gabapentin 100 mg PO TID PRN icosapent ethyl (Vascepa) 2 grams PO BID insulin glargine (Lantus U-100 Insulin) 10 units subcut QAM lancets (Accu-Chek Softclix Lancets) As directed metformin 1,000 mg PO BID metoprolol succinate ER 100 mg PO DAILY olmesartan 40 mg PO DAILY oxycodone 30 mg PO QID PRN sertraline 100 mg PO ONCE zolpidem 10 mg PO BEDTIME PRN Tobacco use date assessed: 07/05/25 Fall risk assessment: No Falls in past year Last assessed Fall Risk: 07/05/25 Dental Screening Dental Screen Date: 07/05/25 Did you have a dental visit in the last 12 months?: Yes Did you have a dental problem in the last 6 months where you did not have access to dental care?: No Was dental information given to patient?: Patient has dentist HPI PE HPI Details Physical exam appointment The patient is a 65-year-old male presenting with chronic pain management, diabetes evaluation, and anemia follow-up. Osteoarthritis of the right knee status post-replacement: - Knee replacement already performed, ye t continued to have pain right - The patient reports ongoing issues jacob pite the surgical intervention. - has appointment with orthopedic Degenerative disc disease: - The patient reports persistent back pa in over the past year. Anemia: - Diagnosed with anemia, noted during [employer] work from December last year. - Hemoglobin level was 12.9 g/dL with a goal above 14 g/dL. Diabetes mellitus: - The patient reports current A1c of 5.0 %, which may indicate overmedication. - Patient's glucometer readings are most ly between 125-130 mg/dL, though sometimes reaching 150 mg/dL. Cervical radiculopathy: - The patient reports tingling sensation originating from the shoulder down to the head and right arm. - Sensation is not constant but problema tic enough to not trust handling objects. Left shoulder joint issues: - Evaluated by Dr. Tinoco at [facility] for possible shoulder replacement. - Experiences a tingling sensation belie zoraida initially to be related to cardiovascular issues, cardiac evaluation ruled out a heart condition. Medical History: - Osteoarthritis - Anemia - Diabetes mellitus, poorly controlled w ith insulin - Degenerative disc disease - Previous heart condition evaluation re vealing no issues Surgical History: - Right knee replacement Social History: - Limited mobility affecting daily activ ities like laundry and dishes - works, children are concerned abo ut the patient's health - The patient aims for a sugar-free diet but is eating one meal a day Health Maintenance - Colonoscopy performed in March 2022, ne xt recommended in 2026 - Weight loss achieved, affecting diabet es management - A1c reported at 5.0% and concerns abou t potential overmedication [place] [facility] Care - Dr. Loco, Folding Machine Setter - Dr. Tinoco, Orthopedic Surgeon at [facility] - Dr. Lopez, Parts Processor associated with [facility] Employment - In need of a administrative personal assistant t o help with daily tasks due to mobility issues Patient Instructions - Monitor blood sugar levels closely and follow up with endocrinology discuss the medications - Review x-ray results as discussed cerv ical - lab order placed to be done fasting Return in 2 weeks to go over the x-ray report and labs Review of Systems - General: No fever no chills - Neurological: No headaches no dizzin ess - Ear nose throat: No sore throat no hearing difficulty no ear pain - Cardiovascular: No syncope, no chest pain, no palpitations - Gastrointestinal: No nausea vomiting or diarrhea - Endocrine: No polyuria polydipsia no heat intolerance - Genitourinary: No dysuria - Skin: No new complaints Physical Exam General: Cooperative, healthy appearing, comfortable, no acute distress Orientation: Patient oriented x3 Head: Normal to inspection Ears: Within normal limit visually Nose: Normal external nose present Face and sinus: Normal facial exam Eyes: Appearance normal, extraocular movement intact pupils reactive Neck: Normal visual inspection and supple, possible pinched nerve causing tingling from shoulder down Respiratory: Normal respiratory effort and able to speak in complete sentences. Clear to auscultation, no stridor Cardiovascular: S1 and S2 RRR GI: Normal to inspection. Soft to palpation and nontender Skin: Turgor normal, no acute findings Neuro: Patient oriented x3, motor intact, balance intact, right hand dough scaler and mixer slightly weaker than left Extremities: Both shoulders with limited range of motion unable to lift above head chronic . [facility] Medical History halfway (current) use of insulin Insulin dependent diabetes mellitus Lipid disorder Tobacco abuse Chronic kidney disease Hypertension, essential Surgical History History of colonoscopy Family History Father Cancer of prostate Myocardial infarction Mother No problems noted. Maternal Grandmother Diabetes mellitus Maternal Grandfather No problems noted. Paternal Grandfather No problems noted. Paternal Grandmother No problems noted. Brother No problems noted. Sister No problems noted. Sister No problems noted. Son No problems noted. Son No problems noted. Social History Housing: Apartment Alcohol intake: current Alcohol intake frequency: a few times a month Patient Tobacco Use Status: Current everyday Tobacco user Tobacco use type: Cigarette Cigarettes Per Day: 5 e-Cigarette/Vaping Use: Never Used Second Hand Smoke Exposure: Yes Current occupational status: unemployed Cognitive needs: No Hearing needs: No Vision needs: Yes Questionnaire PHQ-9 Over the last 2 weeks, how often have you been bothered by any of the following problems? 1. Little interest or pleasure in doing things: several days 2. Feeling down, depressed, or hopeless: not at all 3. Trouble falling or staying asleep, or sleeping too much: several days 4. Feeling tired or having little energy: several days 5. Poor appetite or overeating: not at all 6. Feeling bad about yourself - or that you are a failure or have let yourself or your family down: not at all 7. Trouble concentrating on things, such as reading the newspaper or watching television: not at all 8. Moving or speaking so slowly that other people could have noticed. Or the opposite - being so fidgety or restless that you have been moving around a lot more than usual: not at all 9. Thoughts that you would be better off or of hurting yourself in some way: not at all Total score: 3 Depression Screening Interpretation: Negative Depression Screening Done: Yes 53704 - PHQ-9 Billing: Yes Source: Developed by Drs. Mark Herrera, Zarina Zaidi, Caesar Wood and colleagues, with an educational paul from [employer]. Thrive Questionnaire Date Thrive assessed: 07/05/25 I am a: Patient What is your living situation today?: I have a steady place to live Within the past 12 months, did the food you bought not last and you didn't have the money to get more?: Never true Within the past 12 months, did you worry whether your food would run out before you got money to buy more?: Never true Do you have trouble paying for medicines?: No Do you have trouble getting transportation to medical appointments?: No Do you have trouble paying your heating and electricity bill?: Yes Do you have trouble taking care of your child, family member or friend?: No Do you have trouble with day-to-day activities such as bathing, preparing meals, shopping, managing finances, etc.?: No Are you currently unemployed and looking for a job?: No Are you interested in more education?: No Please select the resources that you would like help with: None Currently or been in a relationship where the following occur: No concerns reported THRIVE Score: 1 AUDIT C Alcohol Use Questionnaire (AUDIT-C) 1. How often do you have a drink containing alcohol?: 2-3 times a week 2. How many drinks containing alcohol do you have on a typical day when you are drinking?: 1 or 2 3. How often do you have six or more drinks on one occasion?: Never Total Score: 3 Score Reviewed/Action Taken: Yes ZABRINA-7 AMB Questionnaire ZABRINA-7 Date ZABRINA - 7 assessed: 07/05/25 Feeling nervous, anxious, or on edge: 1 = Several days Not being able to stop or control worryin = Several days Worrying too much about different things: 1 = Several days Trouble relaxin = Several days Being so restless that it is hard to sit still: 0 = Not at all Becoming easily annoyed or irritable: 0 = Not at all Feeling afraid as if something awful might happen: 1 = Several days Total ZABRINA-7 score (0-4 normal; 5-9 mild; 10-14 moderate; 15-21 severe): 5 Source: Developed by Drs. Mark Herrera, Zarina Zaidi, Caesar Wood and colleagues, with an educational paul from [employer]. ZABRINA-7 Assessment Billing ZABRINA-7 Assessment Tool: ZABRINA-7 Assessment 22868 Physical exam (Primary Care) Vital Signs: Last Vital Signs Pulse 86 07/05/25 11:22 BP 122/80 07/05/25 11:22 Pulse Ox 98 07/05/25 11:22 BMI result Body Mass Index 29.3 Tobacco/Smoking Status: Tobacco use Status Tobacco use date assessed 07/05/25 07/05/25 11:24 Patient Tobacco Use Status Current everyday Tobacco 07/05/25 11:24 Tobacco use type Cigarette 07/05/25 11:24 e-Cigarette/Vaping Use Never Used 07/05/25 11:24 PHQ-9: PHQ-9 Score PHQ-9: Total score 3 07/05/25 11:56 Depression Screening Interpretation: Negative Thrive Assessment: Date of Thrive Assessment Date Thrive assessed 07/05/25 07/05/25 11:24 Currently or been in a relationship where the following occur: No concerns reported Coding Level of Care Code Est Pt Level 4 (38136) Est Pt Prev Care 40-64y(23194) Diagnoses Encounter for general adult medical examination with abnormal findings Z00.01 Radiculitis of left cervical region M54.12 Lipid disorder E78.9 Hypertension, essential I10 Type 2 diabetes mellitus without complication, with long-term current use of insulin E11.9; Z79.4 Diabetes mellitus complication status: without complication Diabetes mellitus exterminator termite insulin use: with exterminator termite use Chronic kidney disease, unspecified CKD stage N18.9 Chronic kidney disease stage: unspecified stage Microcytic anemia D50.9 Additional Codes ZABRINA-7 Assessment Billing - ZABRINA-7 Assessment Tool: ZABRINA-7 Assessment 59970 ([id number]) PHQ-9 - 60924 - PHQ-9 Billing: Yes ([id number]) Assessment & Plan Assessment & Plan (1) Encounter for general adult medical examination with abnormal findings: Code(s): Z00.01 - Encounter for general adult medical examination with abnormal findings Category: Medical (2) Radiculitis of left cervical region: Code(s): M54.12 - Radiculopathy, cervical region Category: Medical (3) Lipid disorder: Code(s): E78.9 - Disorder of lipoprotein metabolism, unspecified Category: Medical (4) Hypertension, essential: Code(s): I10 - Essential (primary) hypertension Category: Medical (5) Type 2 diabetes mellitus: Code(s): E11.9 - Type 2 diabetes mellitus without complications Category: Medical Qualifiers: Diabetes mellitus complication status: without complication Diabetes mellitus exterminator termite insulin use: with exterminator termite use Qualified Code(s): E11.9 - Type 2 diabetes mellitus without complications; Z79.4 - superintendent marine oil terminal (current) use of insulin (6) Chronic kidney disease: Code(s): N18.9 - Chronic kidney disease, unspecified Category: Medical Qualifiers: Chronic kidney disease stage: unspecified stage Qualified Code(s): N18.9 - Chronic kidney disease, unspecified (7) Microcytic anemia: Code(s): D50.9 - Iron deficiency anemia, unspecified Category: Medical Plan Physical exam appointment The patient is a 65-year-old male presenting with chronic pain management, diabetes evaluation, and anemia follow-up. Osteoarthritis of the right knee status post-replacement: - Knee replacement already performed, yet continued to have pain right - The patient reports ongoing issues despite the surgical intervention. - has appointment with orthopedic Degenerative disc disease: - The patient reports persistent back pain over the past year. Anemia: - Diagnosed with anemia, noted during lab work from December last year. - Hemoglobin level was 12.9 g/dL with a goal above 14 g/dL. Diabetes mellitus: - The patient reports current A1c of 5.0%, which may indicate overmedication. - Patient's glucometer readings are mostly between 125-130 mg/dL, though sometimes reaching 150 mg/dL. Cervical radiculopathy: - The patient reports tingling sensation originating from the shoulder down to the head and right arm. - Sensation is not constant but problematic enough to not trust handling objects. Left shoulder joint issues: - Evaluated by Dr. Tinoco at [facility] for possible shoulder replacement. - Experiences a tingling sensation believed initially to be related to cardiovascular issues, cardiac evaluation ruled out a heart condition. Medical History: - Osteoarthritis - Anemia - Diabetes mellitus, poorly controlled with insulin - Degenerative disc disease - Previous heart condition evaluation revealing no issues Surgical History: - Right knee replacement Social History: - Limited mobility affecting daily activities like laundry and dishes - works, children are concerned about the patient's health - The patient aims for a sugar-free diet but is eating one meal a day Health Maintenance - Colonoscopy performed in March 2022, next recommended in 2026 - Weight loss achieved, affecting diabetes management - A1c reported at 5.0% and concerns about potential overmedication [place] [facility] - Dr. Loco, Folding Machine Setter - Dr. Tinoco, Orthopedic Surgeon at [facility] - Dr. Lopez, Parts Processor associated with [employer] - In need of a administrative personal assistant to help with daily tasks due to mobility issues Patient Instructions - Monitor blood sugar levels closely and follow up with endocrinology discuss the medications - Review x-ray results as discussed cervical - lab order placed to be done fasting Return in 2 weeks to go over the x-ray report and labs Orders: Orders XR cervical spine 2V Today M54.12 - Radiculopathy, cervical region Comprehensive [place]. Panel Fast Today D50.9 - Iron deficiency anemia, unspecified, E11.9 - Type 2 diabetes mellitus without complications, E78.9 - Disorder of lipoprotein metabolism, unspecified, I10 - Essential (primary) hypertension, M54.12 - Radiculopathy, cervical region, N18.9 - Chronic kidney disease, unspecified, Z00.01 - Encounter for general adult medical examination with abnormal findings, Z79.4 - superintendent marine oil terminal (current) use of insulin Lipid Panel Today D50.9 - Iron deficiency anemia, unspecified, E11.9 - Type 2 diabetes mellitus without complications, E78.9 - Disorder of lipoprotein metabolism, unspecified, I10 - Essential (primary) hypertension, M54.12 - Radiculopathy, cervical region, N18.9 - Chronic kidney disease, unspecified, Z00.01 - Encounter for general adult medical examination with abnormal findings, Z79.4 - superintendent marine oil terminal (current) use of insulin Vitamin D 25-OH (D2 and D3) Today D50.9 - Iron deficiency anemia, unspecified, E11.9 - Type 2 diabetes mellitus without complications, E78.9 - Disorder of lipoprotein metabolism, unspecified, I10 - Essential (primary) hypertension, M54.12 - Radiculopathy, cervical region, N18.9 - Chronic kidney disease, unspecified, Z00.01 - Encounter for general adult medical examination with abnormal findings, Z79.4 - superintendent marine oil terminal (current) use of insulin AMB Hemoglobin A1c Today Z13.9 - Encounter for screening, unspecified Complete Blood Count Auto Diff Today D50.9 - Iron deficiency anemia, unspecified, E11.9 - Type 2 diabetes mellitus without complications, E78.9 - Disorder of lipoprotein metabolism, unspecified, I10 - Essential (primary) hypertension, M54.12 - Radiculopathy, cervical region, N18.9 - Chronic kidney disease, unspecified, Z00.01 - Encounter for general adult medical examination with abnormal findings, Z79.4 - superintendent marine oil terminal (current) use of insulin Vitamin B12 Today D50.9 - Iron deficiency anemia, unspecified, E11.9 - Type 2 diabetes mellitus without complications, E78.9 - Disorder of lipoprotein metabolism, unspecified, I10 - Essential (primary) hypertension, M54.12 - Radiculopathy, cervical region, N18.9 - Chronic kidney disease, unspecified, Z00.01 - Encounter for general adult medical examination with abnormal findings, Z79.4 - superintendent marine oil terminal (current) use of insulin Microalbumin, Random (w Creat) Today E11.9 - Type 2 diabetes mellitus without complications, Z79.4 - superintendent marine oil terminal (current) use of insulin
--- OUTSIDE RECORDS SUMMARY | 2025-07-05 12:50 | XMS_ITS | Encounter Summary ---
Author Organization [facility] Address [address] [facility] [address] [place] [address] Phone Care Team Providers Care Dough Machine Operator Name Role Phone Chary Bates MD Primary Care Provider [phone] Reason for Visit * Reason Comments Med Refill Encounter Details Date Type Department Care Team (Late st Contact Info) Description 12/05/2023 Refill [facility] [address] [place] [phone] Camron Araya MD [address] [facility] [address] [place] [phone] Social History Tobacco Use Types Packs/Day Years [...] on filedocumented in this encounter Care Teams Dough Machine Operator Relationship Specialty Start Date End Date Chary Bates MD [address] [place], [place] PCP - General 10/16/20 documented as of this encounter
--- OUTSIDE RECORDS SUMMARY | 2025-07-05 12:50 | XMS_ITS | Clinical Summary ---
Author Organization [facility] Address [address] [place] [address] Phone Care Team Providers Care Freezer Person Name Role Phone Chary Bates MD Primary Care Provider [phone] Allergies Active Allergy Reactions Criticality Noted Date [...] 49 Years) Discontinued 05/15/2017, 03/02/2009 [place] Care Teams Freezer Person Relationship Specialty Start Date End Date Chary Bates MD [address] [facility] PCP - General 10/16/20
--- OUTSIDE RECORDS SUMMARY | 2025-07-05 12:50 | XMS_ITS | Clinical Summary ---
Author Organization [address] [facility] Address [address] [place] [address] Phone Care Team Providers Care Email Marketing Executive Name Role Phone Chary Bates MD Primary Care Provider [phone] Surgical History Surgery Date Site/Laterality Comments COLONOSCOPY [...] Comments Coronary artery disease Father fata l [place] at age 62 Heart attack Father Prostate [...] Personal/Family Self 1960 42F [place] [address] MEDICARE [place] Directives Documents on File Type Date Recorded Patient Coremaker Experimental Expl anation Health Care Decision (hx) 03/15/2022 AD MCCARTY DIRECTIVE Health Care Decision (hx) 03/15/2022 AD MCCARTY DIRECTIVE Health Care Decision (hx) 03/15/2022 AD MCCARTY DIRECTIVE Health Care Decision (hx) 03/15/2022 AD MCCARTY DIRECTIVE Health Care Decision (hx) 03/15/2022 AD MCCARTY DIRECTIVE Health Care Decision (hx) 03/15/2022 AD MCCARTY DIRECTIVE Care Teams Email Marketing Executive Relationship Specialty Start Date End Date Chary Bates MD [address] [facility] [address] [place] [address] PCP - General Family Medicine 05/02/17
--- OUTSIDE RECORDS SUMMARY | 2025-07-05 12:50 | XMS_ITS | Encounter Summary ---
Author Organization [facility] Address [address] [place] [address] [place] [address] Phone Care Team Providers Care Administrative Staff Supervisor Name Role Phone Chary Bates MD Primary Care Provider Wilfredo Villalba MD Unavailable [phone] Norman Naidu MD Unavailable Doreen Triana MD Unavailable Reason for Visit * Reason Onset Date Comments Appointment 07/04/2025 Encounter Details Date Type Department Care Team (Late st Contact Info) Description 07/04/2025 Telephone [facility] [address] [place] [address] [email or web address] Appointment Social History Tobacco Use Types Packs/Day Years Used Date Smoking Tobacco: Every Day Cigarettes 0.3 44.7 Started: 1979 Smokeless Tobacco: Never Comments:4-5 cigarettes QD-n oted 05/24/24 Alcohol Use Standard Drinks/Week Comments Yes [...] on file documented as of this encounter Progress Notes * Michelle Gerber - 07/04/2025 12:03 PM EDT [facility] PEN Top Smart Phrases: 24-48 Hour No-Show Notice If caller not the patient: Name: Relationship: Cancel Appt Visit Type: FOLLOW UP VISIT Cancelation Reason: Personal Reasons Cancelation Detail: conflict Was Appt Reschedule: Yes Why Reschedule was not performed (W/Detail) N/A Awareness: I have reiterated our late cancellation policy to the caller. Agent Action: > Reason for Call: NO SHOW > Comment: Enter Cancel Appt date > Route: Route to FD if the No-Show is a future date. > Route: OXBOW SDV and Sick Visit No-Show, route to RN for rescheduling. Do not Call Center: Ensure the appt has been cancel from the future tab > Reiterate Scripting: Provide our late cancellation policy to the caller Required Scripting for Existing Patients: Thank you for notifying us about the cancellation. We will inform the provider. As a reminder, our policy requires at least 24 hours' notice for cancellations, as providers reserve time for your appointment, and short notice often makes it difficult to reschedule. You can cancel appointments anytime through your [facility]. We appreciate your understanding. Required Scripting for New Patients: Thank you for notifying us about the cancellation. We will inform the provider. Please be aware of our 48-hour cancellation policy for new patients. If you need to cancel or reschedule, we ask for at least 48 hours' notice. If you miss an appointment or cancel without sufficient notice, it will be marked as a No-Show appointment. We allow for two unforeseen circumstances under this policy. This policy ensures that our providers can manage their schedules effectively. Additionally, you can cancel appointments anytime through your [facility]. documented in this encounter Plan of Treatment Upcoming Encounters Date Type Department Care Team (Late st Contact Info) Description 08/05/2025 11:20 AM EDT Office Visit [facility] [address] [place] [address] [place] [address] Paige Solomon PA-C [address] [place] [address] [email or web address] 09/08/2025 11:15 AM EST Office Visit [facility] Department of Orthopaedic Surgery, Shoulder Service [address] [place] [address], 3rd Floor, [address] [place] [address] Prashant Altamirano MD [address] [place] [address] [email or web address] 10/17/2025 11:40 AM EST Office Visit [facility] Endocrinology [address] [phone] Doreen Triana MD [address] [place] [address] [email or web address] documented as of this encounter Visit Diagnoses Not on filedocumented in this encounter Care Teams Administrative Staff Supervisor Relationship Specialty Start Date End Date Chary Bates MD [address] [place] [address] PCP - General Internal Medicine 12/09/22 Wilfredo Villalba MD [address] [address] Nephrology 01/06/23 Norman Naidu MD [address] [place] [address] Dr VALENCIA [address] [place] [address] Ophthalmology 06/30/25 Doreen Triana MD [address] [place] [address] [email or web address] Endocrinology 06/30/25 documented as of this encounter Additional Source Comments The information contained in this document represents components of the legal health record. It is not the complete legal health record.[facility]
--- OUTSIDE RECORDS SUMMARY | 2025-07-05 12:50 | XMS_ITS | Patient Health Record ---
Author [facility] Address [address] [facility] [place] [address] Care Team Providers Care Siding Mechanic Name Role Phone Chary Bates MD Primary Care Provider Unavailab Pooja Mckeon Unavailable [phone] Yuliet Chau Unavailable [phone] Allergies Allergen (clinical drug ingredient) Drug/Non Drug [...] Polyneuropathy due to type 2 diabetes mellitus (944637240) Type 2 diabetes mellitus with diabetic polyneuropathy (E11.42) Active confirmed Problem Primary gout (93917865) Acute idiopathic gout of left foot (M10.072) Active confirmed Problem Smoker (77147559) Smoker (F17.200) Active confi rmed Vital Signs Blood pressure diastolic 70 mm Hg 05/19/2025 Height 0kp21rx in 05/19/2025 Blood pressure systolic 128 mm Hg 05/19/2025 Weight 200 lbs 05/19/2025 BMI 27.89 kg/m2 05/19/2025 Procedures Procedure Date Ordered Date Performed Result Body Sit e 32997-ZVAM SKIN LESIONS, 2 TO 4 09/16/2024 N/A U5341-TCGDWQQJ DYSTROPHIC NAILS ANY # 09/16/2024 N/A 45392-QENL SKIN LESIONS, 2 TO 4 01/17/2025 N/A D9836-JPINLRJN DYSTROPHIC NAILS ANY # 01/17/2025 N/A 17940-CIKD SKIN LESIONS, 2 TO 4 05/19/2025 N/A W5825-GCYQOJMS DYSTROPHIC NAILS ANY # 05/19/2025 N/A Encounters Encounter Location Date Provider Diagnosis [facility] [address] [address] 09/16/2024 Pooja Black Type 2 diabetes mellitus with diabetic polyneuropathy E11.42 and Smoker F17.[address] [facility] [address] [address] 10/11/2024 Yuliet Chau Pain in joint involving left ankle and foot M25.572 and Gout of left foot M10.[address] [address] 01/17/2025 Pooja Black Type 2 diabetes mellitus with diabetic polyneuropathy E11.42 ; Smoker F17.200 ; Pain in left ankle and joints of left foot M25.572 and Acute idiopathic gout of left foot M10.[address] [address] 05/19/2025 Pooja Black Type 2 diabetes mellitus with diabetic polyneuropathy E11.42 ; Smoker F17.200 ; Pain in left ankle and joints of left foot M25.572 and Acute idiopathic gout of left foot M10.[address] [address] 10/05/2024 Poojaskip Rosario [address] [address] 10/11/2024 Poojaskip Rosario [address] [address] 01/18/2025 Pooja Rosario Assessments Encounter Date Diagnosis [...] X ray : Foot, left 3V 10/11/2024 02169-DLNLNCR NAIL, 6 OR MORE 09/15/2023 54678-BSNRMTG NAIL, 6 OR MORE 05/21/2021 39394-GIOMRUQ NAIL, 6 OR MORE 08/27/2021 61862-ARMMFZI NAIL, 6 OR MORE 12/17/2021 36466-XKIFOOJ NAIL, 6 OR MORE 03/21/2022 16651-TOEFKXJ NAIL, 6 OR MORE 06/27/2022 19905-VQQJOVN NAIL, 6 OR MORE 10/14/2022 67600-GVZQBTN NAIL, 6 OR MORE 01/16/2023 03269-RYMMPIF NAIL, 6 OR MORE 06/16/2023 23655-EFOPGBI NAIL, 6 OR MORE 06/07/2015 31980-JGVXANA NAIL, 6 OR MORE 12/06/2015 05632-UKLTMIF NAIL, 6 OR MORE 06/13/2016 58364-YXYVZYG NAIL, 6 OR MORE 12/12/2016 03426-TZYQWKY NAIL, 6 OR MORE 06/12/2017 45224-IKCKAMX NAIL, 6 OR MORE 12/08/2017 36176-HDDTHMO NAIL, 6 OR MORE 06/11/2018 27971-VJXRCSK NAIL, 6 OR MORE 11/05/2018 38213-ISDKWQT NAIL, 6 OR MORE 12/24/2018 95520-XEKXOSH NAIL, 6 OR MORE 04/22/2019 65492-QJLSWIE NAIL, 6 OR MORE 08/19/2019 64086-AAAZXPT NAIL, 6 OR MORE 02/10/2020 46970-TLOTKXS NAIL, 6 OR MORE 05/15/2020 83490-QEYCEWJ NAIL, 6 OR MORE 08/17/2020 60669-UGJETXF NAIL, 6 OR MORE 11/13/2020 60905-GDDQEZL NAIL, 6 OR MORE 02/19/2021 96840- Debride <25 sq cm 06/01/2015 16728- Debride <25 sq cm 06/07/2015 32138-ACLB SKIN LESIONS, OVER 4 06/11/20 18 03982-DEPD SKIN LESIONS, 2 TO 4 12/09/19 18 88072-XNCT SKIN LESIONS, 2 TO 4 12/25/19 19 05187-JXCJ SKIN LESIONS, 2 TO 4 11/05/19 19 11711-ZTVA SKIN LESIONS, 2 TO 4 06/07/20 15 62664-RYQN SKIN LESIONS, 2 TO 4 12/06/19 16 14406-TRDL SKIN LESIONS, 2 TO 4 12/13/19 17 89842-SDBW SKIN LESIONS, 2 TO 4 06/12/20 17 56672-MEAY SKIN LESIONS, 2 TO 4 06/13/20 16 30355-NXVO SKIN LESIONS, 2 TO 4 05/21/20 21 60820-GEAM SKIN LESIONS, 2 TO 4 02/20/20 21 69481-HJDP SKIN LESIONS, 2 TO 4 11/13/19 21 64295-OUUT SKIN LESIONS, 2 TO 4 08/17/20 20 87787-UTED SKIN LESIONS, 2 TO 4 05/15/20 20 52110-IMFD SKIN LESIONS, 2 TO 4 02/10/20 20 89799-ZMWR SKIN LESIONS, 2 TO 4 08/19/20 19 51942-ZUWW SKIN LESIONS, 2 TO 4 04/22/20 19 58558-STGA SKIN LESIONS, 2 TO 4 09/15/20 09738-VGKX SKIN LESIONS, 2 TO 4 06/16/20 62803-ZBZB SKIN LESIONS, 2 TO 4 01/17/20 78531-OREO SKIN LESIONS, 2 TO 4 10/14/19 07188-DQWQ SKIN LESIONS, 2 TO 4 06/27/20 22678-TAUY SKIN LESIONS, 2 TO 4 03/21/20 12329-CANT SKIN LESIONS, 2 TO 4 12/18/19 78598-FCPB SKIN LESIONS, 2 TO 4 11/22/20 21 39202-HOTI SKIN LESIONS, 2 TO 4 12/18/19 24 47208-SFEK SKIN LESIONS, 2 TO 4 05/17/20 24 71839-NYDH SKIN LESIONS, 2 TO 4 12/06/19 15 21242-IPIJ SKIN LESIONS, 2 TO 4 09/16/20 24 07275-XPXV SKIN LESIONS, 2 TO 4 05/19/20 25 62627-BKBX SKIN LESIONS, 2 TO 4 01/18/20 25 J9837-PEQMCNFJ DYSTROPHIC NAILS ANY # Q1913-BLIUTVAY DYSTROPHIC NAILS ANY # B0276-XQEXCCDM DYSTROPHIC NAILS ANY # V4896-ANVLXAEO DYSTROPHIC NAILS ANY # U5679-RWOYNPVH DYSTROPHIC NAILS ANY # Next Appt Details Provider Name:Pooja Rosario , 09/19/2025 10:15:00 AM, [address] [place], [address], Insurance Providers Payer Name Payer Address Payer Phone Subscriber Number Group Number Insured Name Patient Relationship to Insured Coverage Start Date Coverage End Date Medicare National [facility] [address] [place] [address] [id number] Vincent Ballard Self - patient is the insured [facility] [address] [place] [address] Vincent Ballard Self - patient is the insured Medical (General) History Medical History History ICD Code Arthritis Chicken pox Measles Mumps Back,Hip,and Knee pain Hypertension [place]on palsy Diabetic Primary osteoarthritis, right ankle and [...] 05/10/2022 Hospitalization History Reason Date(Month/Year) Went to [facility] ER DX- bells palsy 6
--- OUTSIDE RECORDS SUMMARY | 2025-07-05 12:50 | XMS_ITS | Encounter Summary ---
Author Organization [facility] Address [address] [place] [address] 7 [place] [address] Care Team Providers Care Proc Tech Name Role Phone Unavailable Primary Care Provider Unavailabl e Encounter Details Date Type Department Care Team (Latest Contact Info) Description 04/13/2019 Abstract [facility] CONVERSIONS Dental, Provider, DDS Social [...]
--- OUTSIDE RECORDS SUMMARY | 2025-07-05 12:50 | XMS_ITS | Encounter Summary ---
Author Organization [facility] Address [address] [facility] [address] [place] [address] Phone Care Team Providers Care Business Machine Mechanic Name Role Phone Chary Bates MD Primary Care Provider Wilfredo Villalba MD Unavailable [phone] Norman Naidu MD Unavailable Doreen Triana MD Unavailable [phone] Encounter Details Date Type Department Care Team (Late st Contact Info) Description 06/30/2025 Documentation [facility] Endocrinology [address] [address] Paige Solomon PA-C [address] [place] [address] [email or web address] Social History Tobacco Use Types Packs/Day Years [...] as of this encounter Progress Notes * Zabrina Rodriguez CMA - 06/30/2025 10:01 AM EDT HM updated documented in this encounter Plan of Treatment Upcoming Encounters Date Type Department Care Team (Late st Contact Info) Description 08/05/2025 11:20 AM EDT Office Visit [facility] [address] [place] [address] Paige Solomon PA-C [address] [place] [address] 09/08/2025 11:15 AM EST Office Visit [facility] Department of Orthopaedic Surgery, Shoulder Service [address] [place] [address], 3rd Floor, [address] [place] [address] Prashant Altamirano MD [address] [place] [address] [email or web address] 10/17/2025 11:40 AM EST Office Visit [facility] Endocrinology [address] [address] Doreen Triana MD [address] [address] [email or web address] documented as of this encounter Procedures Procedure Name Priority Date/Time Associated Diagnosis Comments OUTSIDE TRIGLYCERIDES Routine 03/08/2025 OUTSIDE POTASSIUM LEVEL Routine 03/08/2025 OUTSIDE HEMOGLOBIN A1C Routine 03/08/2025 OUTSIDE GLUCOSE FASTING Routine 03/08/2025 OUTSIDE SERUM CREATININE LEVEL Routine 03/08/2025 OUTSIDE ALT LEVEL Routine 03/08/2025 OUTSIDE TOTAL CHOLESTEROL Routine 03/08/2025 OUTSIDE HDL Routine 03/08/2025 documented in this encounter Results * Outside Potassium Level (03/08/2025) Pathologist [facility] Potassium level - External 4.3 3.4 - 5.0 mmol/L Result [facility] MD LAB BLOOD ORDERABLES [place] [facility] Result * Outside HbA1c (03/08/2025) Pathologist [facility] Hemoglobin A1c - External 5.2 % Result [facility] MD LAB BLOOD ORDERABLES [place] [facility] Result * Outside ALT Level (03/08/2025) Pathologist [facility] ALT - External 28 5 - 30 U/L Result [facility] MD LAB BLOOD ORDERABLES [place] [facility] Result * Outside Total Cholesterol (03/08/2025) Pathologist [facility] Cholesterol, total - External 129 <=200 mg/dL Result [facility] MD LAB BLOOD ORDERABLES [place] [facility] Result * Outside Glucose,Fasting (03/08/2025) Pathologist [facility] Glucose, fasting - External 75 65 - 99 mg/dL Result [facility] MD LAB BLOOD ORDERABLES [place] [facility] Result * Outside HDL (03/08/2025) Pathologist [facility] HDL - External 61 40 - 80 mg/dL Result [facility] MD LAB BLOOD ORDERABLES [place] [facility] Result * Outside Serum Creatinine Level (03/08/2025) Creatinine, serum - External 1.14 0.8 - 1.3 mg/dL us Historical Provider LAB BLOOD ORDERABLES [facility] [facility] Result * Outside Triglycerides (03/08/2025) Triglycerides - External 98 35 - 150 mg/dL us Historical Provider LAB BLOOD ORDERABLES [facility] [facility] Result documented in this encounter Visit Diagnoses Not on filedocumented in this encounter Care Teams Business Machine Mechanic Relationship Specialty Start Date End Date Chary Bates MD [address] [place] [address] PCP - General Internal Medicine 12/09/22 Wilfredo Villalba MD [address] [address] Nephrology 01/06/23 Norman Naidu MD [address] [place] [address] [address] [place] [address] Ophthalmology 06/30/25 Doreen Triana MD [address] [address] [email or web address] Endocrinology 06/30/25 documented as of this encounter Additional Source Comments The information contained in this document represents components of the legal health record. It is not the complete legal health record.[facility]
--- OUTSIDE RECORDS SUMMARY | 2025-07-05 12:50 | XMS_ITS | Clinical Summary ---
Author Organization [facility] Address [address] [place] [address] Phone Care Team Providers Care Ambulance Assistant Name Role Phone Chary Bates MD Primary Care Provider Wilfredo Villalba MD Unavailable [phone] Norman Naidu MD Unavailable Doreen Triana MD Unavailable Allergies Active Allergy Reactions Criticality Noted Date [...] topically 2 (two) times a day. 08/11/20 Active gabapentin (NEURONTIN) 100 MG capsule Take 100 mg by mouth 3 (three) times a day. PRN Active zolpidem (AMBIEN) 10 mg tablet Take 10 mg by mouth as needed. 08/19/20 Active ACCU-CHEK SOFTCLIX LANCETSIndicatio ns:Type 2 diabetes mellitus with peripheral neuropathy Use as directed to test glucose once dialy (fill if compatible w/ new meter/lancing device) 100 each 3 01/27/20 24 Active sildenafiL (VIAGRA) 100 mg tabletIndication s:Erectile dysfunction, unspecified erectile dysfunction type 1/2-1 tablet, orally, up to daily, prn 10 tablet 11 03/10/20 Active oxyCODONE 30 MG immediate release tablet [...] enzymes 07/09/2023 Vitamin D deficiency 07/09/2023 07/09/2023 residential current use of insulin 01/06/2023 Assessment & Plan (12/01/2024 3:50 PM EST): Will maintain lantus dosing Assessment & Plan (01/06/2023 12:54 PM EDT): Paperwork completed/mailed for [employer]. 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 Up to date with [facility]. Assessment & Plan (12/01/2024 3:59 PM [...] nail care good. Up to date with [facility]. Given rx for DM shoes. Assessment & Plan (05/25/2024 11:53 AM EDT): Control is good based upon the patient's SMBG readings. No frequent or severe hypoglycemia. Will maintain his regimen. Continue to work on eating healthy and being active. To call or message with any issues managing his glucose levels. Up to date with [facility]. Saw podiatry last week. Labs ordered [...] with glycemic control. Up to date with [facility]. Assessment & Plan (11/17/2023 11:48 AM EST): Control is good based upon the patient's SMBG readings. No frequent or severe hypoglycemia. Will maintain his regimen. Continue to work on eating healthy and being active. To call or message with any issues managing his glucose levels. Up to date with [facility]. Labs ordered Assessment & Plan (07/09/2023 [...] no lows when CGM last done @ [facility]. Continue to work on eating healthy & keeping active. To call or send in BG with problems with glycemic control. Up to date with [facility]. Foot & nail care good. Will do rx for shoes & paperwork and paperwork for [employer]. Assessment & Plan (05/15/2023 7:25 AM EDT): Control is good based upon the patient's SMBG readings. No frequent or severe hypoglycemia. Will maintain his current regimen. He had blood work done last week at [facility] in [place]. A request has been sent to get those labs. Continue to work on eating healthy and being active. To call or message with any issues managing his glucose levels. Up to date with [facility]. Sees podiatry. Labs ordered for next [...] with glycemic control. Up to date with [facility]. Follows with podiatry. Will do labs today. [...] & Plan (01/06/2023 12:54 PM EDT): Follows w/ Dr. Orly yuen. BP under good control. On ARB. residential current use of oral hypoglycemic drug Assessment & Plan (12/01/2024 3:56 PM EST): Will maintain his dosing of glipizide Long-term current use of inj ectable noninsulin antidiabetic medication Assessment & Plan (12/01/2024 3:57 PM EST): Will maintain trulicity at 0.75 mg a week Encounters Date Type Department Care Team Description 07/04/2025 Telephone [facility] Medicine [address] [place] [address] Michelle Gerber Appointment 06/30/2025 Documentation [facility] Endocrinology [place] [address] DENISE Hernandez [phone] Paige Solomon PA-C 05/26/2025 1:00 PM EDT Office Visit [facility] Department of Orthopaedic Surgery, Shoulder Service [address] [facility], 3rd Floor, [address] [place] [address] Prashant Altamirano MD Shoulder weakness (Primary Dx) 05/04/2025 Telephone [facility] Endocrinology [address] [place] [address] Doreen Triana MD Forms & Paperwork from Last 3 Months Immunizations Immunization Administration Dates Next Due COVID-19 (Pre-07/28) Pfizer Vaccine, Bivalent 12+ 08/17/2022 COVID-19 (Pre-07/28) Pfizer Vaccine, mRNA, PF 02/07/2022,08/13/2021,01/29/2021,01/12 COVID-19 Pfizer Comirnaty Vaccine 12+ 08/27/2023 Hepatitis B Adult 11/21/2011,06/27/2011,05/27/20 11 INFLUENZA, SPLIT VIRUS, TRIV ALENT W/ PRESERVATIVE IM 06/06/2024,08/27/2023,08/06/2023,07/24,06/06/2022,06/20/2021,06/06/2021 ,06/06/2020,07/23/2019,07/08/2018,06/06,06/17/2017,06/09/2017, 6,06/18/2016,07/21/2015,07/06/2015,,06/28/2013,06/23/2012,08/27/20 11,11/20/2009 Influenza, whole 06/04/2020,07/18/2019 Pneumococcal conjugate PCV20 08/19/2022 Pneumococcal polysaccharide PPSV23 05/15/2017, RSV Vaccine (bivalent) 09/02/2023 Tdap 05/15/2017,04/25/2011 Zoster recombinant 07/24/2022,03/28/2022 Social History Tobacco Use Types Packs/Day Years [...] 11:20 AM EDT Office Visit [facility] [address] [place] [address] [place] [address] Paige Solomon PA-C [address] [place] [address] 09/08/2025 11:15 AM EST Office Visit [facility] Department of Orthopaedic Surgery, Shoulder Service [address] [facility], 3rd Floor, [address] [place] [address] Prsahant Altamirano MD [address] [place] [address] [email or web address] 10/17/2025 11:40 AM EST Office Visit [facility] Endocrinology [address] [phone] Doreen Triana MD [address] [place] [address] [email or web address] Health Maintenance Due Date Last Done Comments DEPRESSION SCREENING 1973 HEPATITIS C SCREENING 1979 HIV ONE-TIME SCREENING (18-65 YEARS) 1979 COLOGUARD 2006 COLONOSCOPY 2006 COLORECTAL CANCER SCREENING 2006 FIT TEST 2006 FOBT 2006 SIGMOIDOSCOPY 2006 VIRTUAL COLONOSCOPY 2006 DIABETIC EYE EXAM 01/06/2023 INFLUENZA VACCINE (#1) 2025 , 08/27/2023, 08/06/2023, Additional history exists COVID-19 VACCINE ( season) 2025 08/27/2023, 08/17/2022, 02/07/2022, Additional history exists HEMOGLOBIN A1C 09/07/2025 03/08/2025, 11/06, 11/17/2023 BLOOD PRESSURE 09/13/2025 03/14/2025 CREATININE LEVEL 03/08/2026 03/08/2025, 07/2025, 08/13/2024, Additional history exists POTASSIUM LEVEL 03/08/2026 03/08/2025, 11/06, 08/13/2024, Additional history exists SMOKING Hx and SMOKELESS TOBACCO SCREENING 03/14/2026 03/14/2025 Adult Td,Tdap Booster 05/15/2027 05/15/2017, 011 ZOSTER VACCINES Completed 07/24/2022, 03/28/2022 PNEUMOCOCCAL VACCINES (50+ years) Completed 08/19/2022, 05/15/2017, 03/02/2009 RSV VACCINE Completed 09/02/2023 HEPATITIS A VACCINES Aged Out No long [...] Name Priority Date/Time Associated Diagnosis Comments OUTSIDE HEMOGLOBIN A1C Routine 03/08/2025 OUTSIDE POTASSIUM LEVEL Routine 03/08/2025 OUTSIDE SERUM CREATININE LEVEL Routine 03/08/2025 from Last 3 Months or Most Recently Relevant to Health Maintenance Results * Outside Potassium Level (03/08/2025) Potassium level - External 4.3 3.4 - 5.0 mmol/L us Historical Provider LAB BLOOD ORDERABLES [facility] Result * Outside HbA1c (03/08/2025) Hemoglobin A1c - External 5.2 % us Historical Provider LAB BLOOD ORDERABLES [facility] Result * Outside Serum Creatinine Level (03/08/2025) Creatinine, serum - External 1.14 0.8 - 1.3 mg/dL us Historical Provider LAB BLOOD ORDERABLES [facility] Result from Last 3 Months or Most Recently Relevant to Health Maintenance Insurance * Guarantor: Vincent Ballard Account Type Relation to Patient Date of Phone Billing Address Personal/Family Self 1960 [address] [address] [place] A [place] B * Guarantor: Vincent Ballard Account Type Relation to Patient Date of Phone Billing Address Personal/Family Self 1960 [address] [address] [facility] [place] [address] MEDICARE PART A & B * Guarantor: Vincent Ballard Account Type Relation to Patient Date of Phone Billing Address Personal/Family Self 1960 [address] [address] [place] A & B * Guarantor: Vincent Ballard Account Type Relation to Patient Date of Phone Billing Address Personal/Family Self 1960 [address] [facility] [place] [address] [place] B * Guarantor: Vincent Ballard Account Type Relation to Patient Date of Phone Billing Address Personal/Family Self 1960 [address] [facility] [place] [address] [place] A & B * Guarantor: Vincent Ballard Account Type Relation to Patient Date of Phone Billing Address Personal/Family Self 1960 [address] [facility] [place] [address] [place] PART A & B Care Teams Ambulance Assistant Relationship Specialty Start Date End Date Chary Bates MD [address] [place] [address] PCP - General Internal Medicine 12/09/22 Wilfredo Villalba MD [address] [place] [address] Nephrology 01/06/23 Norman Naidu MD [address] [place] [address] Ophthalmology 06/30/25 Doreen Triana MD [address] [place] [address] [email or web address] Endocrinology 06/30/25 Additional Source Comments The information contained in this document represents components of the legal health record. It is not the complete legal health record.[facility]
--- OUTSIDE RECORDS SUMMARY | 2025-07-05 12:50 | XMS_ITS | Patient Health Record ---
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) use of aspirin (Z79.82) Active confirmed Plan Of Treatment Future Test Test Name Order Date COLONOSCOPY 01/18/2022 Insurance Providers Payer Name Payer Address Payer Phone Subscriber Number Group Number Insured Name Patient Relationship to Insured Coverage Start Date Coverage End Date MEDICARE OF [place] [address] [place] [address] [id number] NIKA DORADO Self - patient is the insured MEDICAID OF [facility] [address] [place] [address] [phone] [id number] NIKA DORADO Self - patient is the insured Medical (General) History Medical History History ICD Code diabetes mellitus hypertension degenerative joint disease elevated Cholesterol Surgical History Surgery Date(Month/Year) L rotator cuff repair and bone spurs 01/04 hydrocele repair 2020
--- OUTSIDE RECORDS SUMMARY | 2025-07-05 12:50 | XMS_ITS | Encounter Summary ---
Author Organization [facility] Address [address] [place] [address] Care Team Providers Care Metal Fabricating Supervisor Name Role Phone Chary Bates MD Primary Care Provider [phone] Encounter Details Date Type Department Care Team (Late st Contact Info) Description 10/21/2024 Lab Requisition [facility] - Main Lab [address] [facility] [place] [phone] Karli Díaz PA [address] [place] [address] Benign essential microscopic hematuria Social History Tobacco [...] AM EST) Final Diagnosis A. Urine, Voided, ([id number]): Negative for high grade urothelial carcinoma. Acute inflammatory cells are present. Results of UroVysion fluorescence in situ hybridization (FISH) testing: Although FISH was performed, insufficient non-obscured hybridization signals are present for evaluation and interpretation. 11/02/2024 6:46 PM EST [facility] Clinical Information Benign essential microscopic hematuria R31.1 Cytology/Urine FISH (now) 11/02/2024 6:46 PM EST [facility] Gross Description A. Urine, Voided, ([id number]): Received is one ThinPrep slide for cytology screen and one ThinPrep slide for UroVysion FISH 11/02/2024 6:46 PM [facility] Disclaimer Unless otherwise specified, all tissue is 10% NB formalin fixed and paraffin embedded. Technical pathology services provided by [facility] at [address] [facility] [address], [place] [address] (CLIA #[id number]/Christi Gandhi MD, [employer]) 11/02/2024 6:46 PM [facility] Tissue Urine specimen from urethra / Unknown 10/18/2024 10/21/2024 4:26 PM EST us Karli [facility] LAB PATHOLOGY ORDERABLES [facility] Result [facility] [address] [place] [address], documented in this encounter Visit Diagnoses Diagnosis Benign essential microscopic hematuria documented in this encounter Care Teams Metal Fabricating Supervisor Relationship Specialty Start Date End Date Chary Bates MD [address] [place] [address], [address] [place] [address] PCP - General Family Medicine 05/02/17 documented as of this encounter
--- OUTSIDE RECORDS SUMMARY | 2025-07-05 12:50 | XMS_ITS | Clinical Summary ---
Author Organization [employer] Address [address] [place] [address] 7 [place] [address] Care Team Providers Care Phlebotomist Lab Assistant Name Role Phone Unavailable Primary Care Provider [...]
--- OUTSIDE RECORDS SUMMARY | 2025-07-05 12:50 | XMS_ITS | Clinical Summary ---
Author Organization [facility] Address [address] [place] [address] Care Team Providers Care Cylinder Dyer Name Role Phone Chary Bates MD Primary Care Provider [phone] Allergies Active Allergy Reactions Criticality Noted Date [...] age to complete this topic Care Teams Cylinder Dyer Relationship Specialty Start Date End Date Chary Bates MD PCP - General Family Medicine 05/02/17
== END 2025-07-05 12:52 | disposition home or self-care (01) ==
LOC: HO.HMCC 11:21
PROVIDERS: PCP Internal Medicine; Visit Provider Internal Medicine
DX: Z00.01 Encounter for general adult medical examination with abnormal findings (principal); M54.12 Radiculopathy, cervical region; E11.9 Type 2 diabetes mellitus without complications; Z79.4 Long term (current) use of insulin; E78.9 Disorder of lipoprotein metabolism, unspecified; I12.9 Hypertensive chronic kidney disease with stage 1 through stage 4 chronic kidney disease, or unspecified chronic kidney disease; N18.9 Chronic kidney disease, unspecified; D50.9 Iron deficiency anemia, unspecified

== ENCOUNTER → 2025-07-05 12:07 | Outpatient (BNV) | payer MEDICARE, MEDICAID, SELFPAY | PROVIDERS: PCP Internal Medicine; Visit Provider Radiology Diagnostic Radiology | DX: M47.812 Spondylosis without myelopathy or radiculopathy, cervical region (principal) | CPT/HCPCS: 72040 ==

== ENCOUNTER 2025-07-20 07:41 | Outpatient (AMB) | payer MEDICARE, MEDICAID, SELFPAY ==
--- OUTSIDE RECORDS SUMMARY | 2025-07-20 07:46 | XMS_ITS | Patient Health Record ---
Author Organization [facility] Address [address] [place] [address] Care Team Providers Care Checker Dump Grounds Name Role Phone Chary Bates MD Primary Care Provider UnavailMulugeta Lopez Jr Unavailable [...] 1 TABLET BY M OUTH TWICE DAILY Oral; Duration: 90 Active Trulicity 0.75 MG/0.5ML ADMINISTER 0.75 MG UNDER THE SKIN WEEKLY Subcutaneous; Duration: 28 Activ e cloNIDine HCl 0.1 MG TAKE 1 TABLET BY MO UTH TWICE DAILY Oral; Duration: 30 Active Zolpidem Tartrate 10 MG TAKE 1 TABLET BY MOUTH EVERYDAY AT BEDTIME Oral; Duration: 90 Active MiraLax (colon prep) 17 GM/SCOOP mixed with Gatorade or Crystal Light Orally begin at 5:00 p.m. the day before the procedure; Duration: 1 day 01/18/2022 Active oxyCODONE HCl 20 MG as directed Orally a s directed Active Atorvastatin Calcium 20 MG TAKE 1 TABLET BY MOUTH DAILY AT BEDTIME Oral; Duration: 90 Active amLODIPine Besylate 10 MG Oral; Duration: 90 Active Metoprolol Tartrate 100 MG 1 tablet with food Orally Twice a day; Duration: 30 day(s) Active clonazePAM 1 MG TAKE 1 TABLET BY GUERRERO TH TWICE A DAY Oral; Duration: 90 Active Lantus 100 UNIT/ML as directed/23 units Subcutaneous daily Active Furosemide 40 MG Oral; Duration: 90 Active Aspir-81 81mg Active Diclofenac Sodium 50 MG Oral; Duration: 90 Active Zolpidem & Diet Manage Prod 10mg Active Immunizations Vaccine Route Administration Date Status Comme nts Influenza Unknown 06/06/2021 Administered Problems Problem Type SNOMED Code ICD Code Onset Dates Problem Status W/U Status Risk Notes Problem Colon cancer screening (488431217) Colon cancer screening (Z12.11) Active confirmed Problem Long-term current use of antiplatelet drug (475393693602614) development lead (current) use of aspirin (Z79.82) Active confirmed Plan Of Treatment Future Test Test Name Order Date COLONOSCOPY 01/18/2022 Insurance Providers Payer Name Payer Address Payer Phone Subscriber Number Group Number Insured Name Patient Relationship to Insured Coverage Start Date Coverage End Date MEDICARE OF [place] [address] [place] [address] [phone] [id number] NIKA DORADO Self - patient is the insured MEDICAID OF [facility] [address] [place] [address] [id number] NIKA DORADO Self - patient is the insured Medical (General) History Medical History History ICD Code diabetes mellitus hypertension degenerative joint disease elevated Cholesterol Surgical History Surgery Date(Month/Year) L rotator cuff repair and bone spurs 01/04 hydrocele repair 2020
--- OUTSIDE RECORDS SUMMARY | 2025-07-20 07:46 | XMS_ITS | Clinical Summary ---
Author Organization [facility] Address [address] [place] [address] Phone Care Team Providers Care Trucker Name Role Phone Chary Bates MD Primary Care Provider [phone] Allergies Active Allergy Reactions Criticality Noted Date [...] Date Diagnosed Date Acquired hallux valgus 12/18/2021 Hammer toe 12/18/2021 Polyneuropathy due to type 2 diabetes [...] [place] Medicare Medicaid [place] Medicare Care Teams Trucker Relationship Specialty Start Date End Date Chary Bates MD [address] [facility] [place] PCP - General 10/16/20
--- OUTSIDE RECORDS SUMMARY | 2025-07-20 07:46 | XMS_ITS | Encounter Summary ---
Author Organization [facility] Address [address] [place] [address] 7 [place] [address] Care Team Providers Care Web Press Roll Tender Name Role Phone Unavailable Primary Care Provider Unavailabl e Encounter Details Date Type Department Care Team (Latest Contact Info) Description 04/13/[address] [facility]VERSION[facility] Dental, Provider, DDS Social History [...]
--- OUTSIDE RECORDS SUMMARY | 2025-07-20 07:46 | XMS_ITS | Clinical Summary ---
Author Organization [facility] Address [address] [place] [address] Phone Care Team Providers Care Canine Service Teacher Name Role Phone Chary Bates MD Primary Care Provider Wilfredo Villalba MD Unavailable [phone] Norman Naidu MD Unavailable Doreen Triana MD Unavailable Allergies Active Allergy Reactions Criticality Noted Date Comments Ibuprofen Other (See Comments),Unknown 021 Medications olmesartan (BENICAR) 40 mg tablet Take 40 mg by mouth daily. 022 Active cyclobenzaprine (FLEXERIL) 10 MG tablet Take 10 mg by mouth 3 (three) times a day. 022 Active VASCEPA 1 gram capsule Take 2 g by mouth 2 (two) times a day. 023 Active atorvastatin (LIPITOR) 20 MG tablet Take 20 mg by mouth daily. 023 Active metoprolol succinate (TOPROL-XL) 100 MG 24 hr tablet Take 100 mg by mouth daily. 023 Active amLODIPine (NORVASC) 10 MG tablet Take 10 mg by mouth daily. 023 Active amoxicillin (AMOXIL) 500 MG capsule TAKE 4 CAPSULES BY MOUTH 1 HOUR BEFORE DENTAL PROCEDURE Active ciclopirox (CICLODAN) 0.77 % cream Apply topically 2 (two) times a day. 023 Active gabapentin (NEURONTIN) 100 MG capsule Take 100 mg by mouth 3 (three) times a day. PRN Active zolpidem (AMBIEN) 10 mg tablet Take 10 mg by mouth as needed. 023 Active ACCU-CHEK SOFTCLIX LANCETSIndicati ons:Type 2 diabetes mellitus with peripheral neuropathy Use as directed to test glucose once dialy (fill if compatible w/ new meter/lancing device) 100 each 3 024 Active sildenafiL (VIAGRA) 100 mg tabletIndicatio ns:Erectile dysfunction, unspecified erectile dysfunction type 1/2-1 tablet, orally, up to daily, prn 10 tablet 11 024 Active oxyCODONE 30 MG immediate release tablet Take 30 mg by mouth every 6 (six) hours as needed. 024 Active ACCU-CHEK GUIDE ME GLUCOSE MTR Misc meterIndication s:Type 2 diabetes mellitus with peripheral neuropathy USE DIRECTED TO MONITOR GLUCOSE 1 each 025 Active ACCU-CHEK GUIDE TEST STRIPS Strp stripsIndicatio ns:Type 2 diabetes mellitus with peripheral neuropathy USE DIRECTED TO TEST GLUCOSE EVERY DAY 100 strip 3 025 Active insulin pen needles, disposable, 31 gauge x 5/16 Ndle 1 each by Miscellaneous route every morning. 100 each 3 025 Active insulin glargine (LANTUS SOLOSTAR U-100 INSULIN) 100 unit/mL (3 mL) InPn injection penIndications: Type 2 diabetes mellitus with peripheral neuropathy INJECT 20 UNITS PLUS 2 UNITS TO PRIME SUBCUTANEOUSLY EVERY DAY 30 mL 3 025 Active dulaglutide (TRULICITY) 0.75 mg/0.5 mL subcutaneous injectionIndica tions:Type 2 diabetes mellitus with peripheral neuropathy Inject 0.5 mL (0.75 mg total) under the skin once a week. 6 mL 1 025 Active metFORMIN (GLUCOPHAGE) 1000 MG immediate release tabletIndicatio ns:Type 2 diabetes mellitus with peripheral neuropathy TAKE 1 TABLET BY MOUTH TWICE DAILY 180 tablet 1 025 Active metFORMIN (GLUCOPHAGE) 1000 MG tabletIndicatio ns:Type 2 diabetes mellitus with peripheral neuropathy TAKE 1 TABLET BY MOUTH TWICE DAILY 180 tablet 1 025 2024 Discontinued Active Problems Problem Noted Date Diagnosed Date Leg length discrepancy 08/17/2024 Assessment & Plan (08/17/2024 1:16 PM EST): Given rx for heel lift to go w/ shoes. 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 Up to date with [facility]. Assessment & Plan (12/01/2024 3:59 PM EST): Patient is in today to have the office supplies dex[place]ake[place] Amedex G6 pro sensor downloaded and reviewed. His [...] nail care good. [facility]. Given rx for DM shoes. Assessment & Plan (05/25/2024 11:53 AM EDT): Control is good based upon the patient's SMBG readings. No frequent or severe hypoglycemia. Will maintain his regimen. Continue to work on eating healthy and being active. To call or message with any issues managing his glucose levels. [facility] to [facility]. Saw podiatry last week. Labs ordered Assessment [...] with glycemic control. Up to date with [facility]. Assessment & Plan (11/17/2023 11:48 AM EST): Control is good based upon the patient's SMBG readings. No frequent or severe hypoglycemia. Will maintain his regimen. Continue to work on eating healthy and being active. To call or message with any issues managing his glucose levels. Up to date with [facility]. Labs ordered Assessment & Plan (07/09/2023 12:59 [...] no lows when CGM last done @ [facility]. Continue to work on eating healthy & keeping active. To call or send in BG with problems with glycemic control. Up to date with [facility]. Foot & nail care good. Will do rx for shoes & paperwork and paperwork for [employer]. Assessment & Plan (05/15/2023 7:25 AM EDT): Control is good based upon the patient's SMBG readings. No frequent or severe hypoglycemia. Will maintain his current regimen. He had blood work done last week at [facility] in [place]. A request has been sent to get those labs. Continue to work on eating healthy and being active. To call or message with any issues managing his glucose levels. Up to date with [facility]. Sees podiatry. Labs ordered for next visit [...] to date, appears stable. On ARB. Follows steve/ Dr. Villalba. BP well controlled. Assessment & Plan (08/17/2024 1:15 PM EST): On ARB. Follows steve/ Dr. Villalba. BP well controlled. Assessment & Plan (01/28/2024 9:31 AM EDT): On ARB. Follows steve/ Dr. Villalba. BP well controlled. Assessment & Plan (07/09/2023 1:00 PM EDT): On ARB. Follows steve/ Dr. Villalba. BP well controlled. Assessment & Plan (01/06/2023 12:54 PM EDT): Follows steve/ Dr. Orly yuen. BP under good control. On ARB. longterm current use of oral hypoglycemic drug Assessment & Plan (12/01/2024 3:56 PM EST): Will maintain his dosing of glipizide Long-term current use of inj ectable noninsulin antidiabetic medication Assessment & Plan (12/01/2024 3:57 PM EST): Will maintain trulicity at 0.75 mg a week Encounters Date Type Department Care Team Description 07/09/2025 Refill [facility] [address] [place] [address] [place] [address] Paige Solomon PA-C Medication Refill 07/04/2025 Telephone [facility] [address] [place] [address] Michelle Gerber Appointment 06/30/2025 Documentation [facility] Endocrinology [place] [address] [facility] [place] [address] Paige Solomon PA-C 05/26/2025 1:00 PM EDT Office Visit [facility] Department of Orthopaedic Surgery, Shoulder Service [address] [place] [address], 3rd Floor, [address] [place] [address] Prashant Altamirano MD Shoulder weakness (Primary Dx) 05/04/2025 Telephone [facility] Endocrinology [address] [place] [address] [place] [address] Doreen Triana MD Forms & Paperwork from [...] Date Smoking Tobacco: Every Day Cigarettes 0.3 44.8 Started: 1980 Smokeless Tobacco: Never Tobacco Cessation:Ready [...] 11:20 AM EDT Office Visit [facility] [address] [place] [address] Paige Solomon PA-C [address] [place] [address] [email or web address] 09/08/2025 11:15 AM EST Office Visit [facility] Department of Orthopaedic Surgery, Shoulder Service [address] [place] [address], 3rd Floor, [address] [place] [address] Prashant Altamirano MD [address] [place] [address] [email or web address] 10/17/2025 11:40 AM EST Office Visit [facility] Endocrinology [address] [address] Doreen Triana MD [address] [place] [address] [email or web address] Health Maintenance Due Date Last Done Comments [...] (03/08/2025) Hemoglobin A1c - External 5.2 % Historical Provider MD LAB BLOOD ORDERABLES Natividad l Result * Outside Serum Creatinine Level (03/08/2025) Creatinine, serum - External 1.14 0.8 - 1.3 mg/dL Historical Provider LAB BLOOD ORDERABLES Natividad l Result from Last 3 Months or Most Recently Relevant to Health Maintenance Insurance * Guarantor: Vincent Ballard Account Type Relation to Patient Date of Phone Billing Address Personal/Family Self 1960 [address] [address] [place] PART A & B * Guarantor: Vincent Ballard Account Type Relation to Patient Date of Phone Billing Address Personal/Family Self 1960 [address] [address] [facility] MEDICARE PART A & B * Guarantor: Vincent Ballard Account Type Relation to Patient Date of Phone Billing Address Personal/Family Self 1960 [address] [place] [address] [place] PART A & B * Guarantor: Vincent Ballard Account Type Relation to Patient Date of Phone Billing Address Personal/Family Self 1960 [address] [place] [address] [place] PART A [place] B * Guarantor: Vincent Ballard Account Type Relation to Patient Date of Phone Billing Address Personal/Family Self 1960 [address] [address] [place] PART A & B * Guarantor: Vincent Ballard Account Type Relation to Patient Date of Phone Billing Address Personal/Family Self 1960 [address] [address] [place] PART A [place] B Care Teams Canine Service Teacher Relationship Specialty Start Date End Date Chary Bates MD [address] [place] [address] PCP - General Internal Medicine 12/09/22 Wilfredo Villalba MD [address] [place] [address] Nephrology 01/06/23 Norman Naidu MD [address] [place] [address] Ophthalmology 06/30/25 Doreen Triana MD [address] [address] [email or web address] Endocrinology 06/30/25 Additional Source Comments The information contained in this document represents components of the legal health record. It is not the complete legal health record.[facility]
--- OUTSIDE RECORDS SUMMARY | 2025-07-20 07:46 | XMS_ITS | Patient Health Record ---
Author Organization [facility] Address [address] [place]ae[place] [address] Care Team Providers Care Salesperson [employer]ers [employer] Name Role Phone Chary Bates MD Primary Care Provider Unavailab Pooja Mckeon Unavailable [phone] Yuliet Chau Unavailable [phone] Allergies Allergen (clinical drug ingredient) Drug/Non Drug [...] Furosemide Not-Takin g Benicar Active Lantus Not-Taking Ciclopirox Olamine 0.77 % APPLY TOPICALLY TO THE AFFECTED AREA TWICE DAILY Externally Twice a day; Duration: 30 days Active Metformin & Diet Manage Prod Active NovoLOG [...] Polyneuropathy due to type 2 diabetes mellitus (009819205) Type 2 diabetes mellitus with diabetic polyneuropathy (E11.42) Active confirmed Problem Primary gout (89529657) Acute idiopathic gout of left foot (M10.072) Active confirmed Problem Smoker (66686540) Smoker (F17.200) Active confi rmed Vital Signs Blood pressure diastolic 70 mm Hg 05/19/2025 Height 5nm91gh in 05/19/2025 Blood pressure systolic 128 mm Hg 05/19/2025 Weight 200 lbs 05/19/2025 BMI 27.89 kg/m2 05/19/2025 Procedures Procedure Date Ordered Date Performed Result Body Sit e 13470-TKNY SKIN LESIONS, 2 TO 4 09/16/2024 N/A M7361-OHIFZTNY DYSTROPHIC NAILS ANY # 09/16/2024 N/A 07248-RYQV SKIN LESIONS, 2 TO 4 01/17/2025 N/A O2140-UZOUPWZJ DYSTROPHIC NAILS ANY # 01/17/2025 N/A 49571-SZDG SKIN LESIONS, 2 TO 4 05/19/2025 N/A N1677-APDQKUOA DYSTROPHIC NAILS ANY # 05/19/2025 N/A Encounters Encounter Location Date Provider Diagnosis [facility] [address] [address] 09/16/2024 Pooja Black Type 2 diabetes mellitus with diabetic polyneuropathy E11.42 and Smoker F17.200 [facility] [address] [address] 10/11/2024 Yuliet Chau Pain in joint involving left ankle and foot M25.572 and Gout of left foot M10.9 [facility] [address] 01/17/2025 Pooja Black Type 2 diabetes mellitus with diabetic polyneuropathy E11.42 ; Smoker F17.200 ; Pain in left ankle and joints of left foot M25.572 and Acute idiopathic gout of left foot M10.[address] [address] 05/19/2025 Pooja Black Type 2 diabetes mellitus with diabetic polyneuropathy E11.42 ; Smoker F17.200 ; Pain in left ankle and joints of left foot M25.572 and Acute idiopathic gout of left foot M10.[address] [address] 10/05/[address] [address] 10/11/[address] [address] 01/18/[address] [address] 07/12/2025 Pooja Rosario Tinea Pedis 110.4 Assessments Encounter Date Diagnosis (ICD Code) Assessment [...] - E11.42) 05/19/2025 Smoker (ICD-10 - F17.200) 07/12/2025 Tinea Pedis (ICD9-CM - 110.4) 01/17/2025 Smoker (ICD-10 - F17.200) 05/19/2025 Pain [...] X ray : Foot, left 3V 10/11/2024 75858-KCPIYOO NAIL, 6 OR MORE 09/15/2023 96469-TCJPBWX NAIL, 6 OR MORE 05/21/2021 29478-TPWKCTJ NAIL, 6 OR MORE 08/27/2021 12269-ZGXXHNE NAIL, 6 OR MORE 12/17/2021 13262-OEYOXJK NAIL, 6 OR MORE 03/21/2022 67364-ZPCOPKA NAIL, 6 OR MORE 06/27/2022 53783-IGDKEPZ NAIL, 6 OR MORE 10/14/2022 71135-NCXSQSC NAIL, 6 OR MORE 01/16/2023 05743-UKPYWYG NAIL, 6 OR MORE 06/16/2023 59197-PAAIPMN NAIL, 6 OR MORE 06/07/2015 78435-SADQYQW NAIL, 6 OR MORE 12/06/2015 81496-QERDAHD NAIL, 6 OR MORE 06/13/2016 16540-KXOVRJZ NAIL, 6 OR MORE 12/12/2016 57517-OGKQBXL NAIL, 6 OR MORE 06/12/2017 03593-LACCBSX NAIL, 6 OR MORE 12/08/2017 75382-SMDLDGY NAIL, 6 OR MORE 06/11/2018 88223-RSCVOMG NAIL, 6 OR MORE 11/05/2018 14071-ZKOETKL NAIL, 6 OR MORE 12/24/2018 02737-MVLTYAZ NAIL, 6 OR MORE 04/22/2019 31289-VDFBPMQ NAIL, 6 OR MORE 08/19/2019 05817-AETOMNU NAIL, 6 OR MORE 02/10/2020 10315-ZYAEMWS NAIL, 6 OR MORE 05/15/2020 01490-LNVGYPW NAIL, 6 OR MORE 08/17/2020 95157-RLWPOKB NAIL, 6 OR MORE 11/13/2020 31090-YIIHKVX NAIL, 6 OR MORE 02/19/2021 37967- Debride <25 sq cm 06/01/2015 46645- Debride <25 sq cm 06/07/2015 19022-QEEJ SKIN LESIONS, OVER 4 06/11/20 18 40177-LSZJ SKIN LESIONS, 2 TO 4 12/09/19 18 16812-JBYW SKIN LESIONS, 2 TO 4 12/25/19 19 55066-ELNS SKIN LESIONS, 2 TO 4 11/05/19 19 31262-EPLD SKIN LESIONS, 2 TO 4 06/07/20 15 31643-EJIM SKIN LESIONS, 2 TO 4 12/06/19 16 75734-IPLV SKIN LESIONS, 2 TO 4 12/13/19 17 02178-YVAN SKIN LESIONS, 2 TO 4 06/12/20 17 79211-RAAR SKIN LESIONS, 2 TO 4 06/13/20 16 75012-WLCO SKIN LESIONS, 2 TO 4 05/21/20 21 39435-YHSI SKIN LESIONS, 2 TO 4 02/20/20 21 28305-IHZW SKIN LESIONS, 2 TO 4 11/13/19 21 78587-SOXM SKIN LESIONS, 2 TO 4 08/17/20 20 41837-DGQP SKIN LESIONS, 2 TO 4 05/15/20 20 84578-FSAA SKIN LESIONS, 2 TO 4 02/10/20 20 76441-YFHH SKIN LESIONS, 2 TO 4 08/19/20 19 64912-GSBS SKIN LESIONS, 2 TO 4 04/22/20 19 80740-JZPG SKIN LESIONS, 2 TO 4 09/15/20 23 93430-YNVQ SKIN LESIONS, 2 TO 4 06/16/20 23 59722-MTUE SKIN LESIONS, 2 TO 4 01/17/20 23 18701-LDHB SKIN LESIONS, 2 TO 4 10/14/19 23 93048-WQTO SKIN LESIONS, 2 TO 4 06/27/20 22 63633-ESUJ SKIN LESIONS, 2 TO 4 03/21/20 22 15280-SLBD SKIN LESIONS, 2 TO 4 12/18/19 22 36704-JDVU SKIN LESIONS, 2 TO 4 08/27/20 21 16115-LKLM SKIN LESIONS, 2 TO 4 12/18/19 24 63738-DPHI SKIN LESIONS, 2 TO 4 05/17/20 24 63210-HXBL SKIN LESIONS, 2 TO 4 12/06/19 15 54932-BCWJ SKIN LESIONS, 2 TO 4 09/16/20 24 71645-KMVM SKIN LESIONS, 2 TO 4 05/19/20 25 89528-WMDA SKIN LESIONS, 2 TO 4 01/18/20 25 F8514-JHZDKBAT DYSTROPHIC NAILS ANY # T0659-WBNTWQYK DYSTROPHIC NAILS ANY # W1875-FMEJUTWB DYSTROPHIC NAILS ANY # O1215-ENMODSTC DYSTROPHIC NAILS ANY # W9787-BGKUFVKQ DYSTROPHIC NAILS ANY # Next Appt Details Provider Name:Pooja Rosario , 09/19/2025 10:15:00 AM, [address] [place], [address], Insurance Providers Payer Name Payer Address Payer Phone Subscriber Number Group Number Insured Name Patient Relationship to Insured Coverage Start Date Coverage End Date Medicare National Govt Sv[employer] [address] [facility] [place] [address] [id number] Vincent Ballard Self - patient is the insured [facility] [address] [place] [address] [phone] Vincent Ballard Self - patient is the insured Medical (General) History Medical History History ICD Code Arthritis Chicken pox Measles Mumps Back,Hip,and Knee pain Hypertension [place] palsy Diabetic Primary osteoarthritis, right ankle and [...] 05/10/2022 Hospitalization History Reason Date(Month/Year) Went to [facility] DX- bells palsy 6
--- OUTSIDE RECORDS SUMMARY | 2025-07-20 07:46 | XMS_ITS | Clinical Summary ---
Author Organization [address] [facility] Address [address] [place] [address] Phone Care Team Providers Care Detonator Assembler Name Role Phone Chary Bates MD Primary Care Provider [phone] Surgical History Surgery Date Site/Laterality Comments COLONOSCOPY [...] Date Last Done Comments Colorectal Cancer Screening: Colonoscopy 1960 Diabetes: Annual GFR (Glomerular Filtration Rate) 1960 Diabetes: Annual Foot Exam 1971 Diabetes: Annual Retina Eye Exam 1971 Pneumococcal Vaccine: 50+ Years (2 of 2 - PCV) 2011 03/02/2009 RSV Immunization Adult Patients (1 - Risk 50-74 years 1-dose series) 2011 Zoster Vaccines (1 of 2) 2011 DTaP,Tdap,and Td Vaccines (2 - Td or Tdap) 04/25/2021 04/25/2011 Cholesterol Screening (Lipid Panel) 09/13/2022 HIV Screening 09/13/2022 Hepatitis C Screening [...] Self 1960 [address] [address] MEDICARE Advance Directives Documents on File Type Date Recorded 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
--- OUTSIDE RECORDS SUMMARY | 2025-07-20 07:46 | XMS_ITS | Encounter Summary ---
Author Organization [facility] Address [address] [place] [address] Care Team Providers Care Technical Sales Support Manager Name Role Phone Chary Bates MD Primary Care Provider [phone] Encounter Details Date Type Department Care Team (Late st Contact Info) Description 10/21/2024 Lab Requisition [facility] - Main Lab [address] [facility] [place] [phone] Karli Díaz PA [address] [place] [address] Benign essential microscopic hematuria Social History Tobacco [...] AM EST) Final Diagnosis A. Urine, Voided, ([id number]): Negative for high grade urothelial carcinoma. Acute inflammatory cells are present. Results of UroVysion fluorescence in situ hybridization (FISH) testing: Although FISH was performed, insufficient non-obscured hybridization signals are present for evaluation and interpretation. 11/02/2024 6:46 PM EST [facility] Clinical Information Benign essential microscopic hematuria R31.1 Cytology/Urine FISH (now) 11/02/2024 6:46 PM EST [facility] Gross Description A. Urine, Voided, ([id number]): Received is one ThinPrep slide for cytology screen and one ThinPrep slide for UroVysion FISH 11/02/2024 6:46 PM [facility] Disclaimer Unless otherwise specified, all tissue is 10% NB formalin fixed and paraffin embedded. Technical pathology services provided by [facility] at [address], [place] [address] (CLIA #[id number]/Christi Gandhi MD, Pill Machine Operator) 11/02/2024 6:46 PM [facility] Tissue Urine specimen from urethra / Unknown 10/18/2024 10/21/2024 4:26 PM EST us Karli [facility] PATHOLOGY ORDERABLES Natividad l Result [facility] [address] [place] [address], documented in this encounter Visit Diagnoses Diagnosis Benign essential microscopic hematuria documented in this encounter Care Teams Technical Sales Support Manager Relationship Specialty Start Date End Date Chary Bates MD [address] [place] [address], [address] [place] [address] PCP - General Family Medicine 05/02/17 documented as of this encounter
--- OUTSIDE RECORDS SUMMARY | 2025-07-20 07:46 | XMS_ITS | Clinical Summary ---
Author Organization [facility] Address [address] [place] [address] Care Team Providers Care Craft Recruiter Name Role Phone Chary Bates MD Primary Care Provider [phone] Allergies Active Allergy Reactions Criticality Noted Date [...] age to complete this topic Care Teams Craft Recruiter Relationship Specialty Start Date End Date Chary Bates MD PCP - General Family Medicine 05/02/17
--- OUTSIDE RECORDS SUMMARY | 2025-07-20 07:46 | XMS_ITS | Encounter Summary ---
Author Organization [facility] Address [address] [facility] [address] [place] [address] Phone Care Team Providers Care Datastage Architect Name Role Phone Chary Bates MD Primary Care Provider [phone] Reason for Visit * Reason Comments Med Refill Encounter Details Date Type Department Care Team (Late st Contact Info) Description 12/05/2023 Refill [facility] [address] [place] [phone] Camron Araya MD [address] [facility] [address] [place] [phone] Social History Tobacco Use Types Packs/Day Years [...] on filedocumented in this encounter Care Teams Datastage Architect Relationship Specialty Start Date End Date Chary Bates MD [address] [place], [place] PCP - General 10/16/20 documented as of this encounter
--- OUTSIDE RECORDS SUMMARY | 2025-07-20 07:46 | XMS_ITS | Encounter Summary ---
Author Organization [facility] Address [address] [place] [address] [place] [address] Phone Care Team Providers Care Farmworker Name Role Phone Chary Bates MD Primary Care Provider Wilfredo Villalba MD Unavailable [phone] Norman Naidu MD Unavailable Doreen Triana MD Unavailable [phone] Reason for Visit * Reason Onset Date Comments Appointment 07/04/2025 Encounter Details Date Type Department Care Team (Late st Contact Info) Description 07/04/2025 Telephone [facility] [address] [place] [address] [email or web address] Appointment Social History Tobacco Use Types Packs/Day Years Used Date Smoking Tobacco: Every Day Cigarettes 0.3 44.8 Started: 1980 Smokeless Tobacco: Never Comments:4-5 cigarettes [...] can cancel appointments anytime through your Patient Ophiem. We appreciate your understanding. Required Scripting for [...] can cancel appointments anytime through your Patient Ophiem. documented in this encounter Plan of Treatment Upcoming Encounters Date Type Department Care Team (Late st Contact Info) Description 08/05/2025 11:20 AM EDT Office Visit [facility] [address] [place] [address] [place] [address] Paige Solomon PA-C [address] [place] [address] [email or web address] 09/08/2025 11:15 AM EST Office [place] [facility] [place] Surgery, Shoulder Service [address] [place] [address], 3rd Floor, [address] [place] [address] Prashant Altamirano MD [address] [place] [address] [email or web address] 10/17/2025 11:40 AM EST Office Visit [facility] Endocrinology [address] [phone] Doreen Triana MD [address] [place] [phone] [email or web address] documented as of this encounter Visit Diagnoses Not on filedocumented in this encounter Care Teams Farmworker Relationship Specialty Start Date End Date Chary Bates MD [address] [place] [address] PCP - General Internal Medicine 12/09/22 Wilfredo Villalba MD [address] [address] Nephrology 01/06/23 Norman Naidu MD [address] [place] [address] Dr [address] [place] [address] Ophthalmology 06/30/25 Doreen Triana MD [address] [place] [address] [email or web address] Endocrinology 06/30/25 documented as of this encounter Additional Source Comments The information contained in this document represents components of the legal health record. It is not the complete legal health record.[facility]
--- OUTSIDE RECORDS SUMMARY | 2025-07-20 07:46 | XMS_ITS | Clinical Summary ---
Author Organization [employer] Address [address] [place] [address] 7 [place] [address] Care Team Providers Care Apparel Sales Leader Name Role Phone Unavailable Primary Care Provider [...]
--- NOTE | 2025-07-20 08:00 | A.OFFPC_ITS ---
Vital Signs 07/20/25 08:01 Height 5 ft 11 in Weight 210 lb BMI 29.3 BP 124/72 Blood Pressure Location Rt brachial Position Sitting Respiration 16 Pulse 79 Pulse Source Pulse Oximeter Temp 97.8 F Temp Source Oral Pulse Oximetry (%) 97 Oxygen Delivery Method Room Air Intake Visit Reasons: 4 weeks f/u Allergies ibuprofen (From MOTRIN) Allergy (Unknown, Verified 07/20/25 08:04) MEDICATION INTERACTION, effected his kidneys Medication List - Last Reconciled 07/20/25 by Parker Lebron MD amlodipine 10 mg PO DAILY aspirin (Adult Low Dose Aspirin) 81 mg PO DAILY atorvastatin 20 mg PO DAILY blood-glucose meter (Accu-Chek Guide Me Glucose Meter) As directed clonidine HCl 0.1 mg PO BID cyclobenzaprine 10 mg PO BEDTIME PRN dulaglutide (Trulicity) 0.75 mg subcut QWEEK gabapentin 100 mg PO TID PRN icosapent ethyl (Vascepa) 2 grams PO BID insulin glargine (Lantus U-100 Insulin) 10 units subcut QAM lancets (Accu-Chek Softclix Lancets) As directed metformin 1,000 mg PO BID metoprolol succinate ER 100 mg PO DAILY olmesartan 40 mg PO DAILY oxycodone 30 mg PO QID PRN sertraline 100 mg PO ONCE zolpidem 10 mg PO BEDTIME PRN Tobacco use date assessed: 07/20/25 Dental Screening Dental Screen Date: 07/05/25 HPI 4 weeks f/u HPI Details History of Present Illness The patient is a 65-year-old male presenting to go over his lab reports and x- ray of the neck Anemia: - chronic problem could be secondary to nephropathy - Hemoglobin level was 12.9 g/dL with a goal above 14 g/dL. Cervical radiculopathy: - The patient reports tingling sensation originating from the shoulder down to the head and right arm. - Sensation is not constant but problema tic - x-ray cervical spine shows DJD cervica l spine and spondylosis, report explained to patient He is already seeing a house painting instructor he will discuss it further with her. Patient Instructions - Monitor blood sugar levels closely - patient had stopped night dose of metf ormin and is feeling better - Review x-ray results as discussed with your house painting instructor - your anemia stable Review of Systems - General: No fever no chills - Neurological: No headaches no dizzin ess - Ear nose throat: No sore throat no hearing difficulty no ear pain - Cardiovascular: No syncope, no chest pain, no palpitations - Gastrointestinal: No nausea vomiting or diarrhea Physical Exam General: Cooperative, healthy appearing, comfortable, no acute distress Orientation: Patient oriented x3 Head: Normal to inspection HEENT: No new findings Neck: Supple GI: No pain Skin: Turgor normal, no acute findings . REPLACED BY [facility] Medical History long-term (current) use of insulin Insulin dependent diabetes mellitus Lipid disorder Tobacco abuse Chronic kidney disease Hypertension, essential Surgical History History of colonoscopy Family History Father Cancer of prostate Myocardial infarction Mother No problems noted. Maternal Grandmother Diabetes mellitus Maternal Grandfather No problems noted. Paternal Grandfather No problems noted. Paternal Grandmother No problems noted. Brother No problems noted. Sister No problems noted. Sister No problems noted. Son No problems noted. Son No problems noted. Social History Housing: Apartment Alcohol intake: current Alcohol intake frequency: a few times a month Patient Tobacco Use Status: Current everyday Tobacco user Tobacco use type: Cigarette Cigarettes Per Day: 5 e-Cigarette/Vaping Use: Never Used Second Hand Smoke Exposure: Yes Current occupational status: unemployed Cognitive needs: No Hearing needs: No Vision needs: Yes Questionnaire PHQ-9 Over the last 2 weeks, how often have you been bothered by any of the following problems? 1. Little interest or pleasure in doing things: several days 2. Feeling down, depressed, or hopeless: several days 3. Trouble falling or staying asleep, or sleeping too much: several days 4. Feeling tired or having little energy: several days 5. Poor appetite or overeating: not at all 6. Feeling bad about yourself - or that you are a failure or have let yourself or your family down: several days 7. Trouble concentrating on things, such as reading the newspaper or watching television: not at all 8. Moving or speaking so slowly that other people could have noticed. Or the opposite - being so fidgety or restless that you have been moving around a lot more than usual: not at all 9. Thoughts that you would be better off or of hurting yourself in some wa y: not at all Total score: 5 Depression Screening Interpretation: Negative Depression Screening Done: Yes 00548 - PHQ-9 Billing: Yes Source: Developed by Drs. Mark Herrera, Zarina Zaidi, Caesar Wood and colleagues, with an educational paul from [employer]. Thrive Questionnaire Date Thrive assessed: 07/13/25 I am a: Patient What is your living situation today?: I have a steady place to live Within the past 12 months, did the food you bought not last and you didn't have the money to get more?: I choose not to answer this question Within the past 12 months, did you worry whether your food would run out before you got money to buy more?: I choose not to answer this question Do you have trouble paying for medicines?: I choose not to answer this question Do you have trouble getting transportation to medical appointments?: No Do you have trouble paying your heating and electricity bill?: Yes Do you have trouble taking care of your child, family member or friend?: I choose not to answer this question Do you have trouble with day-to-day activities such as bathing, preparing meals, shopping, managing finances, etc.?: Yes Are you currently unemployed and looking for a job?: No Are you interested in more education?: Yes Please select the resources that you would like help with: Utilities, Care for elder or disabled and Education Currently or been in a relationship where the following occur: No concerns reported THRIVE Score: 1 AUDIT C Alcohol Use Questionnaire (AUDIT-C) 1. How often do you have a drink containing alcohol?: 2-3 times a week 2. How many drinks containing alcohol do you have on a typical day when you are drinking?: 1 or 2 3. How often do you have six or more drinks on one occasion?: Never Total Score: 3 ZABRINA-7 AMB Questionnaire ZABRINA-7 Date ZABRINA - 7 assessed: 07/05/25 Feeling nervous, anxious, or on edge: 1 = Several days Not being able to stop or control worryin = Several days Worrying too much about different things: 1 = Several days Trouble relaxin = Several days Being so restless that it is hard to sit still: 0 = Not at all Becoming easily annoyed or irritable: 1 = Several days Feeling afraid as if something awful might happen: 0 = Not at all Total ZABRINA-7 score (0-4 normal; 5-9 mild; 10-14 moderate; 15-21 severe): 5 Source: Developed by Drs. Mark Herrera, Zarina Zaidi, Caesar Wood and colleagues, with an educational paul from [employer]. ZABRINA-7 Assessment Billing ZABRINA-7 Assessment Tool: ZABRINA-7 Assessment 27897 Physical exam (Primary Care) Vital Signs: Last Vital Signs Temp 97.8 F 07/20/25 08:01 Pulse 79 07/20/25 08:01 Resp 16 07/20/25 08:01 BP 124/72 07/20/25 08:01 Pulse Ox 97 07/20/25 08:01 Oxygen Delivery Method Room Air 07/20/25 08:01 BMI result Body Mass Index 29.3 Tobacco/Smoking Status: Tobacco use Status Tobacco use date assessed 07/20/25 07/20/25 08:05 Patient Tobacco Use Status Current everyday Tobacco 07/20/25 08:01 Tobacco use type Cigarette 07/20/25 08:01 e-Cigarette/Vaping Use Never Used 07/20/25 08:01 PHQ-9: PHQ-9 Score PHQ-9: Total score 5 07/20/25 08:16 Depression Screening Interpretation: Negative Thrive Assessment: Date of Thrive Assessment Date Thrive assessed 07/13/25 07/20/25 08:01 Currently or been in a relationship where the following occur: No concerns reported Coding Level of Care Code Est Pt Level 3 (50857) Diagnoses Right cervical radiculopathy M54.12 Type 2 diabetes mellitus without complication, with long-term current use of insulin E11.9; Z79.4 Diabetes mellitus complication status: without complication Diabetes mellitus exterminator insulin use: with exterminator use Chronic kidney disease, unspecified CKD stage N18.9 Chronic kidney disease stage: unspecified stage Microcytic anemia D50.9 Additional Codes PHQ-9 - 15624 - PHQ-9 Billing: Yes ([id number]) ZABRINA-7 Assessment Billing - ZABRINA-7 Assessment Tool: ZABRINA-7 Assessment 40833 ([id number]) Assessment & Plan Assessment & Plan (1) Right cervical radiculopathy: Code(s): M54.12 - Radiculopathy, cervical region Category: Medical (2) Type 2 diabetes mellitus: Code(s): E11.9 - Type 2 diabetes mellitus without complications Category: Medical Qualifiers: Diabetes mellitus complication status: without complication Diabetes mellitus mcc insulin use: with mcc use Qualified Code(s): E11.9 - Type 2 diabetes mellitus without complications; Z79.4 - terminal worker (current) use of insulin (3) Chronic kidney disease: Code(s): N18.9 - Chronic kidney disease, unspecified Category: Medical Qualifiers: Chronic kidney disease stage: unspecified stage Qualified Code(s): N18.9 - Chronic kidney disease, unspecified (4) Microcytic anemia: Code(s): D50.9 - Iron deficiency anemia, unspecified Category: Medical Plan Anemia: - chronic problem could be secondary to nephropathy - Hemoglobin level was 12.9 g/dL with a goal above 14 g/dL. Cervical radiculopathy: - The patient reports tingling sensation originating from the shoulder down to the head and right arm. - Sensation is not constant but problematic - x-ray cervical spine shows DJD cervical spine and spondylosis, report explained to patient He is already seeing a house painting instructor he will discuss it further with her. Patient Instructions - Monitor blood sugar levels closely - patient had stopped night dose of metformin and is feeling better - Review x-ray results as discussed with your house painting instructor - your anemia stable
[2025-07-20 08:01] VITALS: BP 124/72; PULSE 79; RESP 16; TEMP 36.6; O2SAT 97; BMI 29.3
== END 2025-07-20 08:22 | disposition home or self-care (01) ==
LOC: HO.HMCC 07:42
PROVIDERS: PCP Internal Medicine; Visit Provider Internal Medicine
DX: M54.12 Radiculopathy, cervical region (principal); E11.9 Type 2 diabetes mellitus without complications; Z79.4 Long term (current) use of insulin; N18.9 Chronic kidney disease, unspecified; D50.9 Iron deficiency anemia, unspecified

== ENCOUNTER → 2025-07-20 07:41 | Outpatient (BNVA) | payer MEDICARE, MEDICAID, SELFPAY | PROVIDERS: PCP Internal Medicine; Visit Provider Internal Medicine | DX: M54.12 Radiculopathy, cervical region (principal); E11.22 Type 2 diabetes mellitus with diabetic chronic kidney disease; D64.9 Anemia, unspecified; N18.9 Chronic kidney disease, unspecified; D50.9 Iron deficiency anemia, unspecified; Z79.4 Long term (current) use of insulin | CPT/HCPCS: 96127; 99212 ==

== ENCOUNTER 2025-08-08 11:07 | Outpatient (AMB) | payer MEDICARE, MEDICAID, SELFPAY ==
--- OUTSIDE RECORDS SUMMARY | 2024-04-01 09:15 | XMS_ITS ---
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 Name Role Phone Chary Bates MD Primary Care Provider Unavailab Pooja Mckeon Unavailable [phone] Encounters Encounter Location Date Provider Diagnosis [address] [address] 04/01/2024 Pooja Rosario Plan Of Treatment Next Appt Details Provider Name:Pooja Rosario , 09/19/2025 10:15:00 AM, [address] [place] [address], [id number], Progress Notes * Vincent DORADODOB:1960 (65 yo M)Acc No.[id number]:04/01/2024 Progress Note Patient: Vincent FOX Provider: Jazmin Rosario DPM :1960 A ge:64 Y S ex:Male Date:04/01/2024 Address[address] [id number] Pcp:Chary Bates MD Subjective: * Chief Complaints: * * Medical History: Objective: * Vitals: Assessment: Plan: * Treatment: * Images: * The named appointment provid er may or may not be the originator of this progress note, and it is not deemed complete until electronically signed by the appointment provider. Sign off status: Pending * Provider: Jazmin Rosario, DPM Date: 0 04/01/2024 Generated for Robert arriaza/Billie/Bernadette on: 10/08/2024 02:04 PM EST
[2025-08-08 11:09] VITALS: BP 138/78; PULSE 91; O2SAT 96; BMI 29.8
--- NOTE | 2025-08-08 11:09 | HO.NEPHOV_ITS ---
Vital Signs 08/08/25 11:09 Height 5 ft 11 in Weight 214 lb BMI 29.8 BP 138/78 Blood Pressure Location Lt brachial Position Sitting Pulse 91 Pulse Source Pulse Oximeter Pulse Oximetry (%) 96 Oxygen Delivery Method Room Air Intake Visit Reasons: [address] 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: No Accompanied by: Self / Same As Patient Allergies ibuprofen (From MOTRIN) Allergy (Unknown, Verified 08/08/25 11:11) MEDICATION INTERACTION, effected his kidneys Medication List - Last Reconciled 08/08/25 by Wilfredo Villalba MD amlodipine 10 mg PO DAILY aspirin (Adult Low Dose Aspirin) 81 mg PO DAILY atorvastatin 20 mg PO DAILY blood-glucose meter (Accu-Chek Guide Me Glucose Meter) As directed clonidine HCl 0.1 mg PO BID cyclobenzaprine 10 mg PO BEDTIME PRN dulaglutide (Trulicity) 0.75 mg subcut QWEEK gabapentin 100 mg PO TID PRN icosapent ethyl (Vascepa) 2 grams PO BID insulin glargine (Lantus U-100 Insulin) 10 units subcut QAM lancets (Accu-Chek Softclix Lancets) As directed metformin 1,000 mg PO BID metoprolol succinate ER 100 mg PO DAILY olmesartan 40 mg PO DAILY oxycodone 30 mg PO QID PRN sertraline 100 mg PO ONCE zolpidem 10 mg PO BEDTIME PRN HPI Comments Details: Juan Daniel is a middle man with a history of resistant hypertension and diabetes mellitus. He has a history of microalbuminuria as well. Overall is doing very well. Clonidine has been restarted Amlodipine was restarted about 3 months ago. BP well controlled based on home readings 08/08/2025. The patient is a 76-year-old male presenting with stable kidney function and hypertension management. The patient's kidney function has been stable, although it is noted to be decreased, it has remained consistent over time. The patient has been advised to maintain hydration and monitor blood pressure regularly. The patient is currently on a medication regimen that includes Amlodipine, Jardiance, Losartan, and Mounjaro. Blood pressure was recorded at 112/62 mmHg, indicating good control. [facility] Medical History prison (current) use of insulin Insulin dependent diabetes mellitus Lipid disorder Tobacco abuse Chronic kidney disease Hypertension, essential Surgical History History of colonoscopy Family History Father Cancer of prostate Myocardial infarction Mother No problems noted. Maternal Grandmother Diabetes mellitus Maternal Grandfather No problems noted. Paternal Grandfather No problems noted. Paternal Grandmother No problems noted. Brother No problems noted. Sister No problems noted. Sister No problems noted. Son No problems noted. Son No problems noted. Social History Housing: Apartment Alcohol intake: current Alcohol intake frequency: a few times a month Patient Tobacco Use Status: Current everyday Tobacco user Tobacco use type: Cigarette Cigarettes Per Day: 5 e-Cigarette/Vaping Use: Never Used Second Hand Smoke Exposure: Yes Current occupational status: unemployed Cognitive needs: No Hearing needs: No Vision needs: Yes Physical Exam Vital Signs: Last Vital Signs Pulse 91 08/08/25 11:09 BP 138/78 08/08/25 11:09 Pulse Ox 96 08/08/25 11:09 Oxygen Delivery Method Room Air 08/08/25 11:09 BMI result Body Mass Index 29.8 Comfortable Neck supple no JVD. Lungs entry equal no rales. Heart S1-S2 heard no gallop or rub. Abdomen soft nontender. Neuro alert awake oriented. No asterixis. Extremities no edema. Results Reviewed Nephrology Results: Hgb, (14.0-18.0) 12.4 g/dl L 07/05/25 WBC, (4.8-10.8) 7.6 X10*3/uL 07/05/25 Plt Count, (160-400) 293 X10*3/uL 07/05/25 Sodium, (135-145) 142 mmol/L 07/05/25 Potassium, (3.3-5.1) 4.8 mmol/L 07/05/25 Chloride, (96-108) 108 mmol/L 07/05/25 Carbon Dioxide, (22-29) 27 mmol/L 07/05/25 BUN, (9-16) 14 mg/dL 07/05/25 Creatinine, (0.5-1.4) 1.05 mg/dL 07/05/25 Calcium, (8.4-10.2) 9.5 mg/dL 07/05/25 Urine Creatinine 255.64 mg/dL 07/05/25 Assessment & Plan Assessment & Plan (1) Chronic kidney disease: Code(s): N18.9 - Chronic kidney disease, unspecified Category: Medical Qualifiers: Chronic kidney disease stage: unspecified stage Qualified Code(s): N18.9 - Chronic kidney disease, unspecified Plan: Mild chronic kidney disease due to a resistant hypertension and diabetes mellitus with microalbuminuria. Renal function stable at baseline. Goal is to slow the progression of renal disease. Continue to avoid nephrotoxic agents. Maintain blood pressure less than 130/80 Maintaining A1c less than 7% (2) Hypertension, essential: Code(s): I10 - Essential (primary) hypertension Category: Medical Plan Resistant hypertension Blood pressure is better controlled. Discussed low-salt diet. Continue to lose weight. No changes were made today Orders: Orders Basic Metabolic Panel 6 Months I10 - Essential (primary) hypertension, N18.9 - Chronic kidney disease, unspecified Creatinine Urine 6 Months I10 - Essential (primary) hypertension, N18.9 - Chronic kidney disease, unspecified Total Protein Urine Random 6 Months I10 - Essential (primary) hypertension, N18.9 - Chronic kidney disease, unspecified UA and rflx microscopic 6 Months I10 - Essential (primary) hypertension, N18.9 - Chronic kidney disease, unspecified Coding Level of Care Code Est Pt Level 4 (16828) Diagnoses Chronic kidney disease, unspecified CKD stage N18.9 Chronic kidney disease stage: unspecified stage Hypertension, essential I10
--- OUTSIDE RECORDS SUMMARY | 2025-08-08 14:05 | XMS_ITS | Clinical Summary ---
Author Organization [facility] Address [address] [place] [address] Care Team Providers Care Quality Assurance Test Program Manager Name Role Phone Chary Bates MD [...] age to complete this topic Care Teams Quality Assurance Test Program Manager Relationship Specialty Start Date End Date Chary Bates MD PCP - General Family Medicine 05/02/17
--- OUTSIDE RECORDS SUMMARY | 2025-08-08 14:05 | XMS_ITS | Encounter Summary ---
Author Organization [facility] Address [address] [facility] [address] [place] [address] Phone Care Team Providers Care Touch Up Painter Name Role Phone Chary Batse MD Primary Care Provider [phone] Reason for Visit * Reason Comments Med Refill Encounter Details Date Type Department Care Team (Late st Contact Info) Description 12/05/2023 Refill [facility] [address] [place] [phone] Camron Araya MD [address] [facility] [address] [place] [phone] Social History Tobacco Use Types Packs/Day Years [...] on filedocumented in this encounter Care Teams Touch Up Painter Relationship Specialty Start Date End Date Chary Bates MD [address], [place] PCP - General 10/16/20 documented as of this encounter
--- OUTSIDE RECORDS SUMMARY | 2025-08-08 14:05 | XMS_ITS | Clinical Summary ---
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 Up to date with [facility]. Assessment & Plan (12/01/2024 3:59 PM EST): Patient is in today to have the office supplies dexSinCola G6 pro sensor downloaded and reviewed. His [...] nail care good. Up to date with [employer] [facility]. Given rx for DM shoes. Assessment & Plan (05/25/2024 11:53 AM EDT): Control is good based upon the patient's SMBG readings. No frequent or severe hypoglycemia. Will maintain his regimen. Continue to work on eating healthy and being active. To call or message with any issues managing his glucose levels. Up to date with [employer] [facility]. Saw podiatry last week. Labs ordered [...] with glycemic control. Up to date with [facility]. Assessment & Plan (11/17/2023 11:48 AM EST): Control is good based upon the patient's SMBG readings. No frequent or severe hypoglycemia. Will maintain his regimen. Continue to work on eating healthy and being active. To call or message with any issues managing his glucose levels. Up to date with [facility]. Labs ordered Assessment & Plan (07/09/2023 12:59 [...] no lows when CGM last done @ [facility]. Continue to work on eating healthy & keeping active. To call or send in BG with problems with glycemic control. Up to date with [facility]. Foot & nail care good. Will do rx for shoes & paperwork and paperwork for [employer]. Assessment & Plan (05/15/2023 7:25 AM EDT): Control is good based upon the patient's SMBG readings. No frequent or severe hypoglycemia. Will maintain his current regimen. He had blood work done last week at [facility] in [place]. A request has been sent to get those labs. Continue to work on eating healthy and being active. To call or message with any issues managing his glucose levels. Up to date with [facility]. Sees podiatry. Labs ordered for next visit [...] yuen. BP under good control. On ARB. alf current use of oral hypoglycemic drug Assessment & Plan (12/01/2024 3:56 PM EST): Will maintain his dosing of glipizide Long-term current use of inj ectable noninsulin antidiabetic medication Assessment & Plan (12/01/2024 3:57 PM EST): Will maintain trulicity at 0.75 mg a week Encounters Date Type Department Care Team Description 07/09/2025 Refill [facility] [address] [place] [address] Paige Solomon PA-C Medication Refill 07/04/2025 Telephone [facility] [address] [place] [address] Michelle Gerber Appointment 06/30/2025 Documentation [facility] Endocrinology [place] [address] [facility] [place] [address] Paige Solomon PA-C 05/26/2025 1:00 PM EDT Office Visit [facility] Department of Orthopaedic Surgery, Shoulder Service [address] [place] [address], 3rd Floor, [address] [place] [phone] Prashant Altamirano MD Shoulder weakness (Primary Dx) from Last 3 Months Immunizations Immunization Administration [...] Care Team (Late st Contact Info) Description 08/09/2025 2:10 PM EST Office Visit [facility] [address] [place] [address] Paige Solomon PA-C [address] [place] [address] [email or web address] 09/08/2025 11:15 AM EST Office Visit [facility] Department of Orthopaedic Surgery, Shoulder Service [address] [place] [address], 3rd Floor, [address] [place] [address] Prashant Altamirano MD [address] [place] [address] [email or web address] 10/17/2025 11:40 AM EST Office Visit [facility] Endocrinology [address] [address] Doreen Triana MD [address] [place] [phone] [email or web address] Health Maintenance Due Date Last Done Comments [...] - External 4.3 3.4 - 5.0 mmol/L Historical Provider LAB BLOOD ORDERABLES Natividad l [...] Personal/Family Self 1960 [address] [address] [place] [address] MEDICARE PART A & B * Guarantor: Vincent Ballard Account Type Relation to Patient Date of Phone Billing Address Personal/Family Self 1960 [address] [address] [place] [facility] MEDICARE PART A & B * Guarantor: Vincent Ballard Account Type Relation to Patient Date of Phone Billing Address Personal/Family Self 1960 [address] [address] [place] MEDICARE PART A & B * Guarantor: Vincent Ballard Account Type Relation to Patient Date of Phone Billing Address Personal/Family Self 1960 [address] [address] [place] MEDICARE PART A & B * Guarantor: Vincent Ballard Account Type Relation to Patient Date of Phone Billing Address Personal/Family Self 1960 [address] [place] [address] [place] MEDICARE PART A & B * Guarantor: Vincent Ballard Account Type Relation to Patient Date of Phone Billing Address Personal/Family Self 1960 [address] [address] [place] MEDICARE PART A & B Care Teams 1St Pressman Relationship Specialty Start Date End Date Chary Bates MD [address] [place] [address] PCP - General Internal Medicine 12/09/22 Wilfredo Villalba MD [address] [place] [address] Nephrology 01/06/23 Norman Naidu MD [address] [place] [address] Ophthalmology 06/30/25 Doreen Triana MD [address] [place] [phone] [email or web address] Endocrinology 06/30/25 Additional Source Comments The information contained in this document represents components of the legal health record. It is not the complete legal health record.[facility]
--- OUTSIDE RECORDS SUMMARY | 2025-08-08 14:05 | XMS_ITS | Clinical Summary ---
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
--- OUTSIDE RECORDS SUMMARY | 2025-08-08 14:05 | XMS_ITS | Encounter Summary ---
Author Organization [facility] Address [address] [place] [address] Care Team Providers Care Network Mgr Name Role Phone Chary Bates MD Primary Care Provider [phone] Encounter Details Date Type Department Care Team (Late st Contact Info) Description 10/21/2024 Lab Requisition [facility] - Main Lab [address] [facility] [place] [phone] Karli Díaz PA [address] [place] [address] Benign essential microscopic hematuria Social History Tobacco [...] AM EST) Final Diagnosis A. Urine, Voided, ([id number]): Negative for high grade urothelial carcinoma. Acute inflammatory cells are present. Results of UroVysion fluorescence in situ hybridization (FISH) testing: Although FISH was performed, insufficient non-obscured hybridization signals are present for evaluation and interpretation. 11/02/2024 6:46 PM EST [facility] Clinical Information Benign essential microscopic hematuria R31.1 Cytology/Urine FISH (now) 11/02/2024 6:46 PM EST [facility] Gross Description A. Urine, Voided, ([id number]): Received is one ThinPrep slide for cytology screen and one ThinPrep slide for UroVysion FISH 11/02/2024 6:46 PM [facility] Disclaimer Unless otherwise specified, all tissue is 10% NB formalin fixed and paraffin embedded. Technical pathology services provided by [facility] at [address], [place] [address] (CLIA #[id number]/Christi Gandhi MD, Meteorological Observer) 11/02/2024 6:46 PM [facility] Tissue Urine specimen from urethra / Unknown 10/18/2024 10/21/2024 4:26 PM EST us Karli REBOLLEDO LAB PATHOLOGY ORDERABLES Natividad l Result [facility] [address] [place] [address], documented in this encounter Visit Diagnoses Diagnosis Benign essential microscopic hematuria documented in this encounter Care Teams Network Mgr Relationship Specialty Start Date End Date Chary Bates MD [address] [place] [address], [address] [place] [address] PCP - General Family Medicine 05/02/17 documented as of this encounter
--- OUTSIDE RECORDS SUMMARY | 2025-08-08 14:05 | XMS_ITS | Clinical Summary ---
Author Organization [facility] Address [address] [place] [address] Phone Care Team Providers Care Television Tube Inspector Name Role Phone Chary Btaes MD Primary Care Provider [phone] Allergies Active Allergy Reactions Criticality Noted Date [...] 49 Years) Discontinued 05/15/2017, 03/02/2009 [place] Care Teams Television Tube Inspector Relationship Specialty Start Date End Date Chary Bates MD [address] [facility] [place] PCP - General 10/16/20
--- OUTSIDE RECORDS SUMMARY | 2025-08-08 14:05 | XMS_ITS | Patient Health Record ---
Author Organization [facility] Address [address] [place] [address] Care Team Providers Care Pie Bakery Laborer Name Role Phone Chary Bates MD Primary [...] 1 MG TAKE 1 TABLET BY GUERRERO TWICE A DAY Oral; Duration: 90 Active [...] Status Risk Notes Problem Colon cancer screening (285270777) Colon cancer screening (Z12.11) Active confirmed Problem Long-term current use of antiplatelet drug (239803281713559) watermelon inspector (current) use of aspirin (Z79.82) Active confirmed Plan Of Treatment Future Test Test Name Order Date COLONOSCOPY 01/18/2022 Insurance Providers Payer Name Payer Address Payer Phone Subscriber Number Group Number Insured Name Patient Relationship to Insured Coverage Start Date Coverage End Date MEDICARE OF [place] [address] [place] [address] [id number] NIKA DORADO Self - patient is the insured MEDICAID OF [facility] [address] [place] [address] [phone] [id number] NIKA DORADO Self - patient is the insured Medical (General) History Medical History History ICD Code diabetes mellitus hypertension degenerative joint disease elevated Cholesterol Surgical History Surgery Date(Month/Year) L rotator cuff repair and bone spurs 01/04 hydrocele repair 2020
--- OUTSIDE RECORDS SUMMARY | 2025-08-08 14:05 | XMS_ITS | Patient Health Record ---
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) Acute idiopathic gout of left foot (M10.072) Active confirmed Problem Smoker (38850392) Smoker (F17.200) Active confi rmed Vital Signs Blood pressure diastolic 70 mm Hg 05/19/2025 Height [id number] in 05/19/2025 Blood pressure systolic 128 mm Hg 05/19/2025 Weight 200 lbs 05/19/2025 BMI 27.89 kg/m2 05/19/2025 Procedures Procedure Date Ordered Date Performed Result Body Sit e 47632-QPIR SKIN LESIONS, 2 TO 4 09/16/2024 N/A J4292-WFQHSJKH DYSTROPHIC NAILS ANY # 09/16/2024 N/A 07159-BEPL SKIN LESIONS, 2 TO 4 01/17/2025 N/A C8519-VTTGHIRO DYSTROPHIC NAILS ANY # 01/17/2025 N/A 89174-PFML SKIN LESIONS, 2 TO 4 05/19/2025 N/A P0631-XYIXYDTL DYSTROPHIC NAILS ANY # 05/19/2025 N/A Encounters Encounter Location Date Provider Diagnosis [facility] [address] [address] 09/16/2024 Pooja Black Type 2 diabetes mellitus with diabetic polyneuropathy E11.42 and Smoker F17.200 [facility] [address] [address] 10/11/2024 Yuliet Chau Pain in joint involving left ankle and foot M25.572 and Gout of left foot M10.9 [facility] [address] 01/17/2025 Pooja Black Type 2 diabetes mellitus with diabetic polyneuropathy E11.42 ; Smoker F17.200 ; Pain in left ankle and joints of left foot M25.572 and Acute idiopathic gout of left foot M10.[address] [address] 05/19/2025 Pooja Black Type 2 diabetes mellitus with diabetic polyneuropathy E11.42 ; Smoker F17.200 ; Pain in left ankle and joints of left foot M25.572 and Acute idiopathic gout of left foot M10.[address] [address] 10/05/[address] [address] 10/11/[address] [address] 01/18/[address] [address] 07/12/2025 Pooja Rosario Tinea Pedis 110.4 Assessments [...] X ray : Foot, left 3V 10/11/2024 56344-TJIKHUV NAIL, 6 OR MORE 09/15/2023 80541-XQWVHPO NAIL, 6 OR MORE 05/21/2021 31329-FKTDQOW NAIL, 6 OR MORE 08/27/2021 66707-LLMFJBE NAIL, 6 OR MORE 12/17/2021 80632-VYFVRXZ NAIL, 6 OR MORE 03/21/2022 92917-FYWBANA NAIL, 6 OR MORE 06/27/2022 62176-UNQTPCW NAIL, 6 OR MORE 10/14/2022 40302-FYXOQPH NAIL, 6 OR MORE 01/16/2023 85478-UIRFAHY NAIL, 6 OR MORE 06/16/2023 18479-USQQXRO NAIL, 6 OR MORE 06/07/2015 01560-OSQHXED NAIL, 6 OR MORE 12/06/2015 98176-HOEHSOZ NAIL, 6 OR MORE 06/13/2016 12163-IKBDHIU NAIL, 6 OR MORE 12/12/2016 78880-ZXWQFEI NAIL, 6 OR MORE 06/12/2017 31895-QZOMFIJ NAIL, 6 OR MORE 12/08/2017 26377-QWZRNAO NAIL, 6 OR MORE 06/11/2018 72903-GRQOQUB NAIL, 6 OR MORE 11/05/2018 90247-GXSJISH NAIL, 6 OR MORE 12/24/2018 39763-XAZFEJJ NAIL, 6 OR MORE 04/22/2019 61192-JDEKFTM NAIL, 6 OR MORE 08/19/2019 11238-NRHFVBA NAIL, 6 OR MORE 02/10/2020 30050-IALIRNZ NAIL, 6 OR MORE 05/15/2020 86282-UCHFLWD NAIL, 6 OR MORE 08/17/2020 60518-QEJYMSX NAIL, 6 OR MORE 11/13/2020 44307-TBKBQPD NAIL, 6 OR MORE 02/19/2021 43964- Debride <25 sq cm 06/01/2015 36269- Debride <25 sq cm 06/07/2015 52212-NWQK SKIN LESIONS, OVER 4 06/11/20 18 94031-YRDL SKIN LESIONS, 2 TO 4 12/09/19 18 91211-INLI SKIN LESIONS, 2 TO 4 12/25/19 19 57804-RCVW SKIN LESIONS, 2 TO 4 11/05/19 19 71261-ZRVN SKIN LESIONS, 2 TO 4 06/07/20 15 97958-WGTD SKIN LESIONS, 2 TO 4 12/06/19 16 89087-DDUD SKIN LESIONS, 2 TO 4 12/13/19 17 68869-NJEX SKIN LESIONS, 2 TO 4 06/12/20 17 06254-HKLG SKIN LESIONS, 2 TO 4 06/13/20 16 49910-XJWF SKIN LESIONS, 2 TO 4 05/21/20 21 99034-DJQO SKIN LESIONS, 2 TO 4 02/20/20 21 43345-POQR SKIN LESIONS, 2 TO 4 11/13/19 21 15971-OLPR SKIN LESIONS, 2 TO 4 08/17/20 20 02256-LEJV SKIN LESIONS, 2 TO 4 05/15/20 20 07472-OJAW SKIN LESIONS, 2 TO 4 02/10/20 20 63081-BGMA SKIN LESIONS, 2 TO 4 08/19/20 19 26202-GLCL SKIN LESIONS, 2 TO 4 04/22/20 19 62544-HGDN SKIN LESIONS, 2 TO 4 09/15/20 23 54279-IDJM SKIN LESIONS, 2 TO 4 06/16/20 23 36386-OOGU SKIN LESIONS, 2 TO 4 01/17/20 23 32335-BWTA SKIN LESIONS, 2 TO 4 10/14/19 23 49568-DBJO SKIN LESIONS, 2 TO 4 06/27/20 22 00708-BXFQ SKIN LESIONS, 2 TO 4 03/21/20 22 93125-VQTW SKIN LESIONS, 2 TO 4 12/18/19 22 71466-VQEK SKIN LESIONS, 2 TO 4 08/27/20 21 44885-VDVA SKIN LESIONS, 2 TO 4 12/18/19 24 06251-XCOL SKIN LESIONS, 2 TO 4 05/17/20 24 46321-HQTU SKIN LESIONS, 2 TO 4 12/06/19 15 15938-QKMP SKIN LESIONS, 2 TO 4 09/16/20 24 08555-JMTS SKIN LESIONS, 2 TO 4 05/19/20 25 04398-HEAF SKIN LESIONS, 2 TO 4 01/18/20 25 D5350-FNYFFYLF DYSTROPHIC NAILS ANY # W9250-EWTVJFRI DYSTROPHIC NAILS ANY # A8914-WAURKTBO DYSTROPHIC NAILS ANY # Z4454-XYZCEQTA DYSTROPHIC NAILS ANY # H0688-DMQXCUEX DYSTROPHIC NAILS ANY # Next Appt Details Provider Name:Pooja Rosario , 09/19/2025 10:15:00 AM, [address] [place], [address], Insurance Providers Payer Name Payer Address Payer Phone Subscriber Number Group Number Insured Name Patient Relationship to Insured Coverage Start Date Coverage End Date Medicare National [employer]t [employer] [address] [place] [address] [id number] Vincent Ballard Self - patient is the insured [facility] [address] [place] [address] Vincent Ballard Self - patient is the insured Medical (General) History Medical History History ICD Code Arthritis Chicken pox Measles Mumps Back,Hip,and Knee pain Hypertension [place] palsy Diabetic Primary osteoarthritis, right ankle and [...] 05/10/2022 Hospitalization History Reason Date(Month/Year) Went to [facility] DX- bells palsy 6
--- OUTSIDE RECORDS SUMMARY | 2025-08-08 14:05 | XMS_ITS | Clinical Summary ---
Author Organization [employer] Address [address] [place] [address] 7 [place] [address] Care Team Providers Care Segment Block Layer Name Role Phone Unavailable Primary Care Provider [...]
--- OUTSIDE RECORDS SUMMARY | 2025-08-08 14:05 | XMS_ITS | Encounter Summary ---
Author Organization [employer] Address [address] [place] [address] 7 [place] [address] Care Team Providers Care Tube Builder Airplane Name Role Phone Unavailable Primary Care Provider Unavailabl e Encounter Details Date Type Department Care Team (Latest Contact Info) Description 04/13/2019 Abstract [facility] CONVERSIONS Dental, Provider, DDS Social History [...]
--- OUTSIDE RECORDS SUMMARY | 2025-08-08 14:06 | XMS_ITS | Data Portability ---
Author Organization [place] [facility] [place] Address [address] [place] [address] Care Team Providers Care Backside Grinder Name Role Phone LYNDSEY GONZALES Primary Care Provider [phone] Assessment Encounter Date Assessment Date Assessment LastModified [...] our office for referral to the appropriate consumer affairs specialist. He agrees with this plan. Patient [...] knee, 3 view 2022 023 [facility], [address], [place], [address], 3 07:32:46 XR, knee, 4 or more view 2022 023 [facility], [address], [place], [address], 3 15:57:02 Medication Orders Synvisc-One 48 mg/6 mL intra-artic ular syringe 2022 023 [id number], [address], [place], [id number], 3 11:43:31 amoxicillin 500 mg capsule 2022 023 [facility] #60663, [address], [place], [id number], 3 16:05:40 Kenalog 40 mg/mL suspension for injection [address] [facility]78386, [address], [place], [id number], 3 11:11:52 lidocaine (PF) 10 mg/mL (1 %) injection solution [address] [facility]19844, [address], [place], [id number], 3 11:11:54 amoxicillin 500 mg tablet 2022 023 [facility] #42520, [address], [place], [id number], 3 13:56:16 Kenalog 40 mg/mL suspension for injection [address] [facility]98486, [address], [place], [id number], 3 11:11:52 lidocaine (PF) 10 mg/mL (1 %) injection solution [address] [facility]37872, [address], [place], [id number], 3 11:11:54 Patient TargetsNo targets recorded. Patient Instructions Encounter Date Encounter Id Patient Instructions Last Modified By Organization Details Last Modified Time 02/12/2023 [id number] You have been provided with a cortisone [...] on 05/24/2022. Not available 02/13/2023 19:12:57 05/20/2023 [id number] You have been provided with a cortisone [...] bony abnormality. Not available 06/02/2023 07:49:40 08/21/2023 [id number] You have been pr ovided with a [...] Details Recorded Time Primary gonarthro sis, bilateral 812973054 Active 2016 Primary osteoarth ritis of both knees Not [facility] 23:21:37 Arthritis of right knee joint 86562359389 45465 Active 2016 Arthritis of right knee Not Available [facility] 5 23:21:37 Impingeme nt syndrome of right shoulder region 40881699394 9102 Active 2019 Impingeme nt syndrome of right shoulder region Not Available [facility] 5 23:21:37 Arthritis of right acromiocl avicular joint 29997218715 57537 Active 2019 Arthritis of right acromiocl avicular joint Not Available [facility] 5 23:21:37 Chronic instabili ty of right knee joint 01184139177 9106 Active 2021 Chronic instabili ty of right knee Not Available [facility] 5 23:21:36 Arthritis of left knee joint 07045650828 97659 Active 2021 Arthritis of knee, left Not Available [facility] 5 23:21:36 Osteoarth ritis of left knee joint 90525473191 9109 Active 2022 ELIZABETH ARRIAZA PA-C [address], [place], [address] , [place] [facility] 3 13:55:40 Pain of left knee joint 85080153537 4107 Active 2022 ELIZABETH ARRIAZA PA-C [address], [facility] [place], [address] , [place] [facility] 3 19:14:44 Problem Notes None recorded. Procedures Surgical History Date Name Laterality Status Provider Name and Address Organization Details Recorded Time 08/21/20 23 Synvisc-One Knee Inj completed ELIZABETH ARRIAZA PA-C [address], [place], [address], [place] [facility] 08/22/2023 07:21:53 05/20/20 23 Knee Joint/Bursa Asp & Inj completed ELIZABETH ARRIAZA PA-C [address], [place], [address], [place] [facility] 06/02/2023 07:44:49 05/10/20 23 Knee Joint/Bursa Asp & Inj completed ELIZABETH ARRIAZA PA-C [address] [place] [address],[facility] [address], [place], [address], [place] [facility] 02/13/2023 19:14:18 Shoulder Surgery completed Ana Mckeon [place] [facility] 02/12/2023 13:36:53 total knee replacement completed Ana Mckeon [facility] 02/12/2023 13:37:00 Imaging Results None recorded. Procedure Notes None recorded. Medical Equipment None Reported. Allergies Allergen ID Allergen Name Allergen Category Reaction Reaction Severity Criticality Documentation Date Start Date Code Code System Note Provider Name and Address Organization Details Recorded Time 3770 ibuprofen medicatio n Not available Not available Not available 02/12/2023 5640 RxNorm Ana Mckeon null, [place] [facility] 13:36:23 Medications Name Sig Start Date [...] Updated DateTime 02/12/2023 182.88 cm 28.5 kg/m2 36673.4 g Ana Mckeon [facility] 02/12/2023 13:37:35 Date Recorded Body height Provider Name an d Address Organization Details Last Updated DateTime 05/20/2023 182.88 cm [facility] 05/20/2023 16:01:46 Date Recorded Body height Provider Name an d Address Organization Details Last Updated DateTime 08/21/2023 182.88 cm [facility] 08/21/2023 11:13:44 Social History None recorded. Functional Status Question Answer Note LastModified by Organizat ion Details LastModified Time How many times per week do you consume alcohol? 1-2 times per week Information not available 02/12/2023 What is your level of alcohol consumption? Occasional [email or web address] Information not available 02/12/2023 Mental Status None [...] Amputation N Reflux/GERD N Sleep Apnea N Aneurysm N Hepatitis N Heart Disease N Pulmonary Embolism N Hypertension Y Osteoporosis N Past Encounters Encounter ID Performer Location Encounter Start Date Encounter Closed Date Diagnosis/Indication Diagnosis SNOMED-CT Code Diagnosis ICD10 Code Diagnosis IMO Codes Diagnosis Note [id number] JUAN MANUEL PANDYA [facility] [address] [facility] [address] [place] [address] 02/12/2023 13:17:54 02/12/2023 14:15:42 Pain of left knee joint 6888014454 74545 M25.562 History of right total knee replacement 5487197333 332449 Z96.651 Osteoarthr itis of left knee joint 9798162320 04378 M17.12 [id number] JUAN MANUEL PANDYA [facility] [address] [facility] [address] [place] [address] 05/20/2023 15:35:27 05/20/2023 16:02:58 History of right total knee replacement 2458643831 666648 Z96.651 Osteoarthr itis of left knee joint 9090129921 12637 M17.12 [id number] JUAN MANUEL PANDYA [facility] [address] [facility] [address] [place] [address] 08/21/2023 10:52:24 08/21/2023 11:13:11 Osteoarthritis of left knee joint 5119141026 09725 M17.12 Health Concerns Section Related Observation LastModified by Organization Detai ls LastModified Time None Recorded Concern Status LastModified by Organization Details LastModified Time None Recorded Advance Directives Directive None Recorded Payers Insurance Date Sequence Insurance Name Policy Number Policy Lindsey Covered Member ID Lindsey Member ID Guarantor Name 08/17/2023 1 [place] [employer] Vincent Ballard [id number] Vincent Ballard 08/23/2023 2 [place] [facility] Vincent Ballard [id number] Vincent Ballard Notes Date Note Type Note [...] ELIZABETH ARRIAZA PA-C [address], [place], [address], [place] [facility] 02/13/2023 19:17:19 05/20/2023 text/html This is [...] ELIZABETH ARRIAZA PA-C [address], [place], [address], [place] [facility] 06/02/2023 07:50:27 08/21/2023 text/html Very pleasant 63-year-old male here for Synvisc 1 injection of the left knee. His last injection was cortisone in May 2023. He has return of generalized left knee pain due to osteoarthritis. Strength stable left total joint replacement surgery as long as feasibly possible. He denies any recent illness. ELIZABETH ARRIAZA PA-C [address] [place] [address], [place], [address], [place] [facility] 08/22/2023 07:23:36
== END 2025-08-08 11:24 | disposition home or self-care (01) ==
LOC: HO.HKA 11:07
PROVIDERS: PCP Internal Medicine; Visit Provider Internal Medicine Hypertension Specialist
DX: I12.9 Hypertensive chronic kidney disease with stage 1 through stage 4 chronic kidney disease, or unspecified chronic kidney disease (principal); N18.9 Chronic kidney disease, unspecified
CPT/HCPCS: 99214

== ENCOUNTER → 2025-08-08 11:07 | Outpatient (BNVA) | payer MEDICARE, MEDICAID, SELFPAY | PROVIDERS: PCP Internal Medicine; Visit Provider Internal Medicine Hypertension Specialist | DX: I12.9 Hypertensive chronic kidney disease with stage 1 through stage 4 chronic kidney disease, or unspecified chronic kidney disease (principal); E11.22 Type 2 diabetes mellitus with diabetic chronic kidney disease; N18.9 Chronic kidney disease, unspecified; I1A.0 Resistant hypertension; Z72.0 Tobacco use; Z79.4 Long term (current) use of insulin; Z79.85 Long-term (current) use of injectable non-insulin antidiabetic drugs; Z79.84 Long term (current) use of oral hypoglycemic drugs; Z79.82 Long term (current) use of aspirin; R80.9 Proteinuria, unspecified | CPT/HCPCS: 99212 ==